=== PATIENT | female | born 1945 | race Caucasian/White ===

== ENCOUNTER 2017-05-20 11:46 | Inpatient (IN) ==
--- NOTE | 2017-05-20 12:19 | Emergency Department Note ---
Weakness HPI - General Chief complaint: Weakness Stated complaint: Generalized weakness Time Seen by Provider: 05/20/17 11:56 Source: patient Mode of arrival: ambulatory Limitations: no limitations - History of Present Illness Complaint: generalized weakness, focal weakness (leg weakness in the context of MS, worse recently with inability to rise from the toilet, cannot bear wieght "because my legs won't hold me up". Feels she is having an MS flair), difficulty walking Location: generalized, LLE, RLE Migration: ascending Severity: severe Quality: aching, dull Improves with: other (feels it is related to elevation of her legs the last few weeks) Worsens with: movement Context: history of similar ("MS flair") Associated symptoms: Reports: dysuria (chronic neurogenic bladder, self caths), shortness of breath (chronic COPD). Denies: confusion - Related Data Previous Rx's Medication Instructions Recorded albuterol sulfate HFA 90 3 puff INHALATION Q6H #6.7 g 06/20/16 mcg/actuation aerosol inhaler propranolol ER 80 mg capsule,24 80 mg PO QDAY #90 cap 09/16/16 hr,extended release maprotiline 50 mg tablet 50 mg PO QHS #30 tab 10/22/16 budesonide-formoterol HFA 160 2 inh INHALATION BID #6 g 11/13/16 mcg-4.5 mcg/actuation aerosol inhaler potassium chloride ER 10 mEq 10 meq PO BID #60 cap 12/04/16 capsule,extended release furosemide 20 mg tablet 20 mg PO QDAY #30 tab 12/13/16 hydrochlorothiazide 25 mg tablet 25 mg PO QDAY #90 tab 01/21/17 acetaminophen 300 mg-codeine 30 mg 2 tab PO Q6H PRN #240 tab 01/31/17 tablet simvastatin 20 mg tablet 20 mg PO QPM #90 tab 02/18/17 lisinopril 20 mg tablet 20 mg PO QDAY #30 tab 02/20/17 ipratropium-albuterol 0.5 mg-3 3 ml INHALATION Q6H PRN #360 ml 02/28/17 mg(2.5 mg base)/3 mL nebulization soln Allergies Allergy/AdvReac Type Severity Reaction Status Date / Time No Known Drug Allergies Allergy Verified 05/20/17 11:51 Review of Systems Constitutional: Denies: fever, chills Eyes: Denies: eye pain ENT ED: Denies: ear pain, throat pain Cardiovascular: Reports: dyspnea on exertion, orthopnea Respiratory: Reports: cough, wheezes Gastrointestinal: Denies: abdominal pain, nausea Genitourinary: Reports: other Musculoskeletal: Reports: back pain, arthralgia, myalgia Integumentary: Reports: rash, lesions Neurological: Reports: weakness Endocrine: Reports: fatigue Hematological/Lymphatic: Reports: easy bleeding Past Medical History - Past Medical History Attestation: Yes: The following information was validated with the patient. Medical history: Reports: CHF (MS, skin lesions), COPD - Social History smoking status: Current every day smoker Alcohol use: Reports: Rarely Drug use: Reports: marijuana Physical Exam - General Limitations: no limitations General appearance: alert, in no apparent distress, other (chronically ill appearring, thin) - Head Head exam: atraumatic - Eye Eye exam: Present: other (tearing of the right eye, injected conjunctiva, has has a runny nose recently, but feels this has resolved). Absent: scleral icterus - ENT ENT exam: mucous membranes moist - Neck Neck exam: Present: normal inspection, trachea midline. Absent: lymphadenopathy - Chest Chest inspection: Present: normal inspection - Respiratory Respiratory exam: Present: wheezes, prolonged expiratory phase, other ( significant COPD with continued tobacco abuse) - Cardiovascular Cardiovascular exam: Present: regular rate, normal rhythm - Abdominal Exam Abdominal exam: Present: soft. Absent: distention - Extremities Exam Extremities exam: Present: other (thin, muscle wasting) - Back Exam Back exam: Present: normal inspection. Absent: CVA tenderness (R), CVA tenderness (L) - Neurological Exam Neurological exam: Present: alert, oriented X3. Absent: normal gait (cannot support weight) - Psychiatric Psychiatric exam: Present: normal affect - Skin Skin exam: Present: warm, other (two large nodular and crusted lesions right dorsal forearm expremely suspicious for basal or squamous cell carcinoma. Has heaped kertotic lesions with crusting to both lower legs. Vascular insufficiency evident with brawny discoloration). Absent: diaphoresis Course Vital Signs Temperature 97.5 F 05/20/17 11:46 Pulse Rate 79 05/20/17 11:46 Respiratory Rate 18 05/20/17 11:46 Blood Pressure 117/80 05/20/17 11:46 Pulse Oximetry (%) 100 05/20/17 11:46 Temperature 97.7 F 05/20/17 17:21 Pulse Rate 81 05/20/17 19:13 Respiratory Rate 16 05/20/17 19:13 Blood Pressure 128/72 05/20/17 17:21 Pulse Oximetry (%) 95 05/20/17 19:04 Weakness - MDM Narrative Medical decision making narrative: New renal insult, probable early urosepsis, probable CHF in the context of weakness as a result of what the patient believes is an MS flare. She has taken oral prednisone today, unknown dose. She cannot ambulate or care for herself at home. One dose of levaquin given here in the ER for urinary tract infection. Blood cultures and urine culture pending. Transfer to the hospital floor for stabilization, treatment and further evaluation. I am concerned about early sepsis, new onset renal injury and possible CHF - Lab Data Result diagrams: 05/20/17 12:10 05/20/17 12:10 Lab Results 05/20/17 05/20/17 05/20/17 Range/Units 12:10 12:10 12:10 WBC 14.7 H (4.5-11.0) K/mcL RBC 4.21 (4.00-5.20) M/mcL Hgb 13.8 (12.0-15.0) g/dL Hct 40.9 (36.0-48.0) % MCV 97.2 (80.0-100.0) fL MCH 32.8 (26.0-34.0) pg MCHC 33.7 (31.0-36.0) g/dL RDW 14.0 (11.5-14.5) % Plt Count 125 L (140-440) K/mcL MPV 9.1 (7.4-10.4) fL Total Counted 100 Seg Neutrophils % 72 (38-78) % Band Neutrophils % 12 H (0-10) % Lymphocytes % 9 L (15-49) % Monocytes % (Manual) 7 (1-12) % Platelet Estimate Decreased (NORMAL) RBC Morphology Normal (NORMAL) Sodium 129 L (133-145) mmol/L Potassium 4.3 (3.3-5.1) mmol/L Chloride 88 L (96-108) mmol/L Carbon Dioxide 24 (22-30) mmol/L Anion Gap 17.0 H (8-16) BUN 85 H (8-23) mg/dl Creatinine 2.4 H (0.6-1.1) mg/dl GFR Calculation 19 Glucose 202 H (70-105) mg/dL Hemoglobin A1c (4.0-6.0) % HGB Estim Average Glucose mg/dL Uric Acid (2.5-8.0) mg/dL Calcium 9.8 (8.6-10.4) mg/dl Phosphorus (2.7-4.5) mg/dL Magnesium (1.6-2.5) mg/dL Total Bilirubin 0.4 (0.0-1.0) mg/dL Direct Bilirubin (0.0-0.3) mg/dL GGT (5-36) U/L AST 124 H (0-37) U/l ALT 49 H (0-40) U/l Alkaline Phosphatase 81 (39-117) U/L Lactate Dehydrogenase (94-250) U/L NT-Pro-B Natriuret Pep 3447.0 H (0-125) pg/ml Total Protein 7.6 (5.9-8.4) gm/dL Albumin 3.4 (3.2-5.2) gm/dL Globulin 4.2 H (2.2-3.7) gm/dL Albumin/Globulin Ratio 0.8 L (1.0-2.3) Triglycerides (<150) mg/dl Urine Color Urine Appearance Urine pH (5.0-9.0) Ur Specific [place] (1.000-1.035) Urine Protein (NEG) mg/dL Urine Glucose (UA) (NEG) mg/dL Urine Ketones (NEG) mg/dL Urine Occult Blood (<0.03) mg/dL Urine Nitrate (NEG) Urine Bilirubin (NEG) mg/dL Urine Urobilinogen (NEG) mg/dL Ur Leukocyte Esterase (NEG) /uL Urine RBC (0-1) /hpf Urine WBC (0-4) /hpf Ur Squamous Epith Cells (0-4) /hpf Urine Bacteria (0) /hpf Urine Mucus (0) /hpf 05/20/17 05/20/17 05/20/17 Range/Units 12:10 12:10 13:01 WBC (4.5-11.0) K/mcL RBC (4.00-5.20) M/mcL Hgb (12.0-15.0) g/dL Hct (36.0-48.0) % MCV (80.0-100.0) fL MCH (26.0-34.0) pg MCHC (31.0-36.0) g/dL RDW (11.5-14.5) % Plt Count (140-440) K/mcL MPV (7.4-10.4) fL Total Counted Seg Neutrophils % (38-78) % Band Neutrophils % (0-10) % Lymphocytes % (15-49) % Monocytes % (Manual) (1-12) % Platelet Estimate (NORMAL) RBC Morphology (NORMAL) Sodium 132 L (133-145) mmol/L Potassium 4.3 (3.3-5.1) mmol/L Chloride 88 L (96-108) mmol/L Carbon Dioxide 21 L (22-30) mmol/L Anion Gap 23.0 H (8-16) BUN 84 H (8-23) mg/dl Creatinine 2.5 H (0.6-1.1) mg/dl GFR Calculation 18 Glucose 204 H (70-105) mg/dL Hemoglobin A1c 6.3 H (4.0-6.0) % HGB Estim Average Glucose 134 mg/dL Uric Acid 12.2 H (2.5-8.0) mg/dL Calcium 9.8 (8.6-10.4) mg/dl Phosphorus 5.6 H (2.7-4.5) mg/dL Magnesium 2.6 H (1.6-2.5) mg/dL Total Bilirubin 0.3 (0.0-1.0) mg/dL Direct Bilirubin < 0.2 (0.0-0.3) mg/dL GGT 14 (5-36) U/L AST 127 H (0-37) U/l ALT 51 H (0-40) U/l Alkaline Phosphatase 86 (39-117) U/L Lactate Dehydrogenase 362 H (94-250) U/L NT-Pro-B Natriuret Pep (0-125) pg/ml Total Protein 7.7 (5.9-8.4) gm/dL Albumin 3.5 (3.2-5.2) gm/dL Globulin 4.2 H (2.2-3.7) gm/dL Albumin/Globulin Ratio 0.8 L (1.0-2.3) Triglycerides 369 H (<150) mg/dl Urine Color Yellow Urine Appearance Turbid Urine pH 7.0 (5.0-9.0) Ur Specific [place] 1.017 (1.000-1.035) Urine Protein 100 A (NEG) mg/dL Urine Glucose (UA) Negative (NEG) mg/dL Urine Ketones Neg (NEG) mg/dL Urine Occult Blood 0.2 A (<0.03) mg/dL Urine Nitrate Neg (NEG) Urine Bilirubin Neg (NEG) mg/dL Urine Urobilinogen Neg (NEG) mg/dL Ur Leukocyte Esterase 250 A (NEG) /uL Urine RBC 44 H (0-1) /hpf Urine WBC > 182 H (0-4) /hpf Ur Squamous Epith Cells 9 H (0-4) /hpf Urine Bacteria Many A (0) /hpf Urine Mucus Many A (0) /hpf Disposition Pt seen by MANAGER ANALYTICAL/PA only: No Clinical Impression: UTI (urinary tract infection) Disposition: Xfer As Inpt ([facility]) Condition: Undetermined
[2017-05-20 12:36] LABS: Mean Cell Volume 97.2 fL (80.0-100.0); Mean Corpuscular HGB Conc 33.7 g/dL (31.0-36.0); Mean Corpuscular Hemoglobin 32.8 pg (26.0-34.0); Platelet Count 125 K/mcL (140-440); RBC 4.21 M/mcL (4.00-5.20)
[2017-05-20 12:57] LABS: ALT/SGPT 49 U/l (0-40); Albumin 3.4 gm/dL (3.2-5.2); Albumin/Globulin Ratio 0.8 (1.0-2.3); Alkaline Phosphatase 81 U/L (39-117); Blood Urea Nitrogen 85 mg/dl (8-23)
[2017-05-20 13:01] LABS: Band Neutrophils % 12 % (0-10); Lymphocytes % 9 % (15-49); Monocytes % (Manual) 7 % (1-12); Platelet Estimate DECREASED (NORMAL); RBC Morphology NORMAL (NORMAL); Segmented Neutrophils % 72 % (38-78)
[2017-05-20] MEDS ORDERED: 0.9 % SODIUM CHLORIDE 1,000 ML IV SCH (13:45)
[2017-05-20] MEDS ORDERED: LEVOFLOXACIN 500 MG/100 ML BAG IV ONE (14:14)
[2017-05-20 14:19] LABS: Appearance,Urine TURBID; Bacteria,Urine MANY /hpf (0); Bilirubin,Urine NEG (NEG); Color,Urine YELLOW; Glucose,Urine (UA) NEGATIVE (NEG); Leukocyte Esterase,Urine 250 /uL (NEG); Mucus,Urine MANY /hpf (0); Nitrate,Urine NEG (NEG); Protein,Urine 100 mg/dL (NEG); Specific Gravity,Urine 1.017 (1.000-1.035); Urine Blood 0.2 mg/dL (<0.03); Urine RBC 44 /hpf (0-1); Urine Squamous Epithelial Cell 9 /hpf (0-4); Urine WBC > 182 /hpf (0-4); Urobilinogen,Urine NEG (NEG)
[2017-05-20] MEDS ORDERED: NICOTINE 21 MG PATCH TOPICAL ONE (15:07)
--- NOTE | 2017-05-20 15:30 | XRay Report ---
CLINICAL INFORMATION: Weakness and wheezing COMPARISON: None. FINDINGS: The heart is borderline enlarged. Mediastinum is unremarkable. Pulmonary vessels are mildly distended and there is minimal interstitial edema. Lung volumes are mildly elevated. No infiltrates. Probable small bilateral pleural effusions noted IMPRESSION: Mild CHF. Suspect cardiac asthma Interpreted and Authenticated by: Farhat Mccormack 05/20/17
[2017-05-20 15:59] LABS: Estimated Average Glucose(eAG) 134 mg/dL; Hemoglobin A1C 6.3 % HGB (4.0-6.0)
--- NOTE | 2017-05-20 16:55 | Internal Med History&Physical ---
Medical - H&P: HPI Patient information: Note initiated : 05/20/17 at 4:49 pm Patient: Rosalia Lozano 71 y/o F admitted on for Generalized weakness. History of present illness: Ms. Lozano is a 71 year old female with a history of multiple sclerosis and chronic tobacco abuse. She apparently generally gets around quite well, and only occasionally needs to use a cane or a walker. She says if her legs start to feel weak, she assumes it is an MS flare, and will start herself on the as needed prednisone prescription that her primary care doctor gives her. Approximately 4 days ago, she noted that she awakened with some discomfort and weakness in her legs. She says she and her went out that night, and the next morning she had more difficulty getting up out of bed. She thought perhaps she just needed more rest. They went out again the next evening, and by the next morning she was having difficulty walking. She went into the bathroom during the night last night, and was just too weak to get up off the commode. She says the bathroom is very small, and her could not pull her up off the commode either. She apparently sat there for about 4 hours, because she refused to let her call anyone for help in the middle of the night. She says her daughter drove down from [place], and helped her get out of the bathroom, so she could be transported here for evaluation. ER evaluation showed leukocytosis, pyuria, acute kidney injury. Patient is now admitted for further evaluation and treatment. She otherwise denies recent fever or chills, headaches or dizziness, new eye or ear symptoms, sore throat. She has a chronic intermittent cough, which is unchanged. She denies chest pain or palpitations, shortness of breath, abdominal pain, nausea or vomiting, diarrhea or constipation. She has a neurogenic bladder and does regular self catheterization. She says she has not noticed change in the color or odor of her urine. Medical History Benign essential hypertension (Chronic) CHF (congestive heart failure) (Chronic) COPD (chronic obstructive pulmonary disease) (Chronic) Decompensated chronic obstructive pulmonary disease (Chronic) History of tobacco use (Chronic) Multiple sclerosis (Chronic) Multiple sclerosis (Chronic) Neurogenic bladder (Chronic) Medication List (patient says she really cannot recall the names or doses of all of her medicines.) acetaminophen-codeine 300-30 mg 2 tabs PO Q6H PRN albuterol sulfate HFA 90 mcg/actuation 3 puffs Inhalation Q6H budesonide-formoterol 160-4.5 mcg/actuation (Symbicort) 2 inhalations Inhalation BID furosemide 20 mg PO QDAY hydrochlorothiazide 25 mg PO QDAY ipratropium-albuterol 0.5 mg-3 mg(2.5 mg base)/3 mL 3 mL Inhalation Q6H PRN lisinopril 40 mg PO QDAY maprotiline 50 mg PO QHS potassium chloride ER 10 mEq PO BID prednisone 20 mg (4 x 5 mg) PO QDAY propranolol ER 80 mg PO QDAY simvastatin 20 mg PO QPM Allergies/Adverse Reactions No Known Drug Allergies Allergy (Verified 02/20/17 13:53) Family History The patient says she really cannot recall any significant family illnesses. Old chart suggests that her brother has hypertension. Social History The patient is and lives with her . She has 1 son who lives in town a daughter in [place] and another child in [place]. She smokes 1-1/2 packs of cigarettes per day, and has been smoking since about age 13. She says she quit drinking alcohol several years ago. She denies any drug use. Medical - H&P: Meds Home Medications Medication Instructions Recorded Confirmed Type albuterol sulfate HFA 90 3 puff INHALATION Q6H #6.7 g 06/20/16 05/20/17 Rx mcg/actuation aerosol inhaler propranolol ER 80 mg capsule,24 80 mg PO QDAY #90 cap 09/16/16 05/20/17 Rx hr,extended release maprotiline 50 mg tablet 50 mg PO QHS #30 tab 10/22/16 05/20/17 Rx budesonide-formoterol HFA 160 2 inh INHALATION BID #6 g 11/13/16 05/20/17 Rx mcg-4.5 mcg/actuation aerosol inhaler potassium chloride ER 10 mEq 10 meq PO BID #60 cap 12/04/16 05/20/17 Rx capsule,extended release furosemide 20 mg tablet 20 mg PO QDAY #30 tab 12/13/16 05/20/17 Rx hydrochlorothiazide 25 mg tablet 25 mg PO QDAY #90 tab 01/21/17 05/20/17 Rx acetaminophen 300 mg-codeine 30 mg 2 tab PO Q6H PRN #240 tab 01/31/17 05/20/17 Rx tablet simvastatin 20 mg tablet 20 mg PO QPM #90 tab 02/18/17 05/20/17 Rx lisinopril 20 mg tablet 20 mg PO QDAY #30 tab 02/20/17 05/20/17 Rx ipratropium-albuterol 0.5 mg-3 3 ml INHALATION Q6H PRN #360 ml 02/28/17 Rx mg(2.5 mg base)/3 mL nebulization soln Allergies Allergy/AdvReac Type Severity Reaction Status Date / Time No Known Drug Allergies Allergy Verified 05/20/17 11:51 Medical - H&P: Exam - Constitutional Vitals: Temp Pulse Resp BP Pulse Ox 97.5 F 77 18 113/70 100 05/20/17 11:46 05/20/17 15:31 05/20/17 11:46 05/20/17 15:31 05/20/17 15:31 O2 saturation ranging from 85-100% on room air. Blood pressure 85/56-121/100 On exam, she is awake and alert, does seem a bit forgetful on direct questioning. Head: Normocephalic, atraumatic. Eyes: PERRLA, EOMI, anicteric. Ears: TMs and canals are clear. Pharynx: Mucosa appears normal. She has full upper and lower plates. Neck: Is supple, without lymphadenopathy, JVD, thyromegaly, bruits. Cardiac exam shows regular rate and rhythm with normal S1 and S2, without murmurs, rubs, gallops. Lungs: She has somewhat decreased breath sounds, with scattered crackles and wheezes, mainly at the bases. No accessory muscle use is noted. Abdomen: Is soft and nontender, without obvious masses. Bowel sounds are normoactive. Extremities: Show no cyanosis, clubbing, edema. Skin exam: Is markedly sun damaged skin, with numerous keratotic lesions noted on her hands and lower legs and feet. She probably has quite a few actinic keratoses, as well as 1 or 2 skin cancers. She says she is not interested in having those evaluated. Neurologic exam: She is alert and oriented, but a bit forgetful. Mood is calm, but affect is a little flippant. Cranial nerves are grossly intact. Motor exam shows some weakness in both lower extremities, with active hip flexion upper extremities have good strength, symmetric. Cerebellar exam is grossly intact. Medical - H&P: Reslt - Labs CBC & Chem 7: 05/20/17 12:10 05/20/17 12:10 Labs: Short CBC 05/20/17 Range/Units 12:10 WBC 14.7 H (4.5-11.0) K/mcL Hgb 13.8 (12.0-15.0) g/dL Hct 40.9 (36.0-48.0) % Plt Count 125 L (140-440) K/mcL BMP 05/20/17 12:10 Sodium 129 L Potassium 4.3 Chloride 88 L Carbon Dioxide 24 BUN 85 H Creatinine 2.4 H Glucose 202 H Calcium 9.8 Liver Function 05/20/17 Range/Units 12:10 Total Bilirubin 0.4 (0.0-1.0) mg/dL AST 124 H (0-37) U/l ALT 49 H (0-40) U/l Alkaline Phosphatase 81 (39-117) U/L Albumin 3.4 (3.2-5.2) gm/dL Urine 05/20/17 Range/Units 13:01 Urine Color Yellow Urine Appearance Turbid Urine pH 7.0 (5.0-9.0) Ur Specific [place] 1.017 (1.000-1.035) Urine Protein 100 A (NEG) mg/dL Urine Glucose (UA) Negative (NEG) mg/dL May 20: Urinalysis: 100 mg of protein, 250 leukocyte esterase, 44 red blood cells, greater than 180 white blood cells, 9 squamous epis, many bacteria CBC differential: Shows 12% bands. Anion gap: Elevated at 17. BNP is elevated at 3447. Lactic acid normal at 1.6 Chest x-ray: [place] vessels mildly distended consistent with possible mild CHF. Lung volumes mildly elevated. Medical - H&P: A/P (1) UTI (urinary tract infection) Current visit: No Status: Acute (2) Acute kidney injury Current visit: No Status: Acute (3) COPD (chronic obstructive pulmonary disease) Current visit: No Status: Chronic (4) CHF (congestive heart failure) Current visit: No Status: Chronic (5) Multiple sclerosis Current visit: No Status: Chronic (6) History of tobacco use Current visit: No Status: Chronic (7) Benign essential hypertension Current visit: No Status: Chronic - Narrative A/P Narrative: #1. Infectious disease. Patient presents with signs and symptoms of acute urinary tract infection, likely causing mild MS exacerbation. She is too weak to return home to care for herself. She has some signs of possible sepsis with hypotension and renal dysfunction. -Admit for closer monitoring. -Urine and blood cultures. -Empiric coverage with Rocephin. -Consider renal ultrasound. -Gentle IV fluid hydration. 2. Renal. -patient presents with acute renal injury. This is new since July 2016. -Trial gentle hydration. -Hold HCTZ. Hold lisinopril. -Consult nephrology if no improvement seen. 3. Neurologic. Patient has MS. She presents with worsening weakness, possibly triggered by acute infection. Renal failure may also be playing a role. -Consider steroids. -Physical and occupational therapies. 4. Cardiac. History of CHF. BNP is elevated, but this may be an accurate in the setting of renal failure. Chest x-ray is mildly abnormal, but that may be chronic. Monitor closely. Telemetry. 5. Pulmonary. History of COPD. Cover with duo nebs, albuterol as needed, oxygen, budesonide. 6. CODE STATUS: The patient cannot recall what her living will says. She thinks she might have been a no code, but is not certain. She says her and her son would act as her POA. Since she is really not sure, we will leave her as a full code this evening. 7. DVT prophylaxis: Subcu heparin. Monitor platelet count closely. 8. Tobacco abuse. Discourage this. NicoDerm patch. 9. Endocrine. Patient presents with hyperglycemia without previous diagnosis of diabetes. Monitor Accu-Cheks, cover with insulin. 10. GI. Mildly elevated LFTs. Monitor. If she has CHF, this might be exacerbating, although this could also be due to infection. This visit took approximately 60 minutes, to review her case with the ER MD, review her records and test results, interview and examine her, and write orders.
[2017-05-20] MEDS ORDERED: DEXTROSE 50% 50 ML VIAL IV PRN (17:21)
[2017-05-20] MEDS ORDERED: MAGNESIUM HYDROXIDE 30 ML ORAL.SUSP PO PRN (17:21)
[2017-05-20] MEDS ORDERED: ACETAMINOPHEN 325 MG TABLET PO PRN (17:21)
[2017-05-20] MEDS ORDERED: DOCUSATE SODIUM 100 MG CAPSULE PO PRN (17:21)
[2017-05-20] MEDS ORDERED: ALBUTEROL SULFATE 2.5 MG/3 ML NEBULIZER NEB PRN (17:21)
[2017-05-20] MEDS ORDERED: DEXTROSE 31 GM ORAL.SUSP PO PRN (17:21)
[2017-05-20] MEDS ORDERED: ONDANSETRON 4 MG/2 ML VIAL IV PRN (17:21)
[2017-05-20] MEDS: INSULIN LISPRO 1 UNIT/0.01 ML UNIT SQ SCH ×2 (17:50→21:22)
[2017-05-20 17:59] LABS: ALT/SGPT 51 U/l (0-40); Albumin 3.5 gm/dL (3.2-5.2); Albumin/Globulin Ratio 0.8 (1.0-2.3); Alkaline Phosphatase 86 U/L (39-117); Bilirubin,Direct < 0.2 mg/dL (0.0-0.3); Blood Urea Nitrogen 84 mg/dl (8-23); Gamma Glutamyl Transpeptidase 14 U/L (5-36); Magnesium 2.6 mg/dL (1.6-2.5); Uric Acid 12.2 mg/dL (2.5-8.0)
[2017-05-20] MEDS: BUDESONIDE 0.5 MG/2 ML AMPUL.NEB NEB SCH (19:03)
[2017-05-20] MEDS: IPRATROPIUM/ALBUTEROL 3 ML AMPUL.NEB NEB SCH (19:03)
[2017-05-20] MEDS: cefTRIAXone 1 GM in DEXTROSE 5% IN WATER 50 ML IV SCH (20:01)
[2017-05-20] MEDS: HEPARIN 5,000 UNIT/ML VIAL SQ SCH (21:22)
[2017-05-20] MEDS: SIMVASTATIN 20 MG TABLET PO SCH (21:22)
[2017-05-20] MEDS: MAPROTILINE PO SCH (21:23)
--- NOTE | 2017-05-20 23:52 | Emergency Department Note ---
ED Note Addendum Note Addendum: I have examined the patient and reviewed laboratory test results and agree with the decision to admit the patient for complicated UTI MS exacerbation
[2017-05-21] MEDS: IPRATROPIUM/ALBUTEROL 3 ML AMPUL.NEB NEB SCH ×4 (01:38→19:44)
[2017-05-21 06:52] LABS: ALT/SGPT 41 U/l (0-40); Albumin 2.7 gm/dL (3.2-5.2); Albumin/Globulin Ratio 0.8 (1.0-2.3); Alkaline Phosphatase 70 U/L (39-117); Bilirubin,Direct < 0.2 mg/dL (0.0-0.3); Blood Urea Nitrogen 79 mg/dl (8-23); Gamma Glutamyl Transpeptidase 11 U/L (5-36); Magnesium 2.3 mg/dL (1.6-2.5); Uric Acid 11.7 mg/dL (2.5-8.0)
[2017-05-21] MEDS: BUDESONIDE 0.5 MG/2 ML AMPUL.NEB NEB SCH ×2 (07:07→19:44)
[2017-05-21 07:19] LABS: Mean Cell Volume 95.2 fL (80.0-100.0); Mean Corpuscular Hemoglobin 32.3 pg (26.0-34.0); Platelet Count 109 K/mcL (140-440); RBC 3.75 M/mcL (4.00-5.20); Red Cell Distribution Width 14.3 % (11.5-14.5)
[2017-05-21 08:12] LABS: Band Neutrophils % 2 % (0-10); Lymphocytes % 11 % (15-49); Monocytes % (Manual) 8 % (1-12); Platelet Estimate DECREASED (NORMAL); RBC Morphology NORMAL (NORMAL); Segmented Neutrophils % 79 % (38-78)
[2017-05-21] MEDS ORDERED: methylPREDNISolone SOD SUCC 125 MG/2 ML VIAL IV ONE (08:32)
[2017-05-21] MEDS: PROPRANOLOL 80 MG CAP.XL.24H PO SCH (09:07)
[2017-05-21] MEDS: INSULIN LISPRO 1 UNIT/0.01 ML UNIT SQ SCH ×4 (09:08→21:31)
[2017-05-21] MEDS: cefTRIAXone 1 GM in DEXTROSE 5% IN WATER 50 ML IV SCH (09:08)
[2017-05-21] MEDS: HEPARIN 5,000 UNIT/ML VIAL SQ SCH ×2 (09:09→21:30)
[2017-05-21] MEDS ORDERED: methylPREDNISolone SOD SUCC 125 MG/2 ML VIAL ONE (09:12)
--- NOTE | 2017-05-21 10:51 | Internal Med Progress Note ---
Medical - PN: Subj Patient information: Note initiated : 05/21/17 at 10:51 am Patient: Rosalia Lozano 71 y/o F admitted on 05/20/17 for Generalized weakness. Interval history: May 20, 2017: History of present illness: Ms. Lozano is a 71 year old female with a history of multiple sclerosis and chronic tobacco abuse. She apparently generally gets around quite well, and only occasionally needs to use a cane or a walker. She says if her legs start to feel weak, she assumes it is an MS flare, and will start herself on the as needed prednisone prescription that her primary care doctor gives her. Approximately 4 days ago, she noted that she awakened with some discomfort and weakness in her legs. She says she and her went out that night, and the next morning she had more difficulty getting up out of bed. She thought perhaps she just needed more rest. They went out again the next evening, and by the next morning she was having difficulty walking. She went into the bathroom during the night last night, and was just too weak to get up off the commode. She says the bathroom is very small, and her could not pull her up off the commode either. She apparently sat there for about 4 hours, because she refused to let her call anyone for help in the middle of the night. She says her daughter drove down from [place], and helped her get out of the bathroom, so she could be transported here for evaluation. ER evaluation showed leukocytosis, pyuria, acute kidney injury. Patient is now admitted for further evaluation and treatment. She otherwise denies recent fever or chills, headaches or dizziness, new eye or ear symptoms, sore throat. She has a chronic intermittent cough, which is unchanged. She denies chest pain or palpitations, shortness of breath, abdominal pain, nausea or vomiting, diarrhea or constipation. She has a neurogenic bladder and does regular self catheterization. She says she has not noticed change in the color or odor of her urine. May 21: Patient says she is feeling a little bit stronger today. With some help, she was able to stand up and transfer to a chair today. Her legs are still weaker than normal. She continues to deny fever or chills, headaches or dizziness, chest pain or palpitations, shortness of breath, GI or symptoms. She is still self cathing. Cultures are growing gram-negative rods today. - Constitutional Vitals: Vital Signs Temp Pulse Resp BP Pulse Ox 100.5 F H 85 16 110/69 97 05/21/17 07:18 05/21/17 07:35 05/21/17 07:35 05/21/17 07:18 05/21/17 08:00 Period Temp Pulse Resp BP Sys/Hancock Pulse Ox Last 24 Hr 97.5 F-100.5 F 69-88 16-22 85-128/56-100 85-100 Intake and Output 05/20/17 05/21/17 05/21/17 21:59 05:59 13:59 Intake Total 1200 / 1200 300 / 300 600 / 600 Output Total 800 / 800 750 / 750 Balance 1200 / 1200 -500 / -500 -150 / -150 Weight 141 lb Intake & Output: Intake & Output 05/20/17 05/21/17 05/21/17 21:59 05:59 13:59 Intake Total 1200 / 1200 300 / 300 600 / 600 Output Total 800 / 800 750 / 750 Balance 1200 / 1200 -500 / -500 -150 / -150 Weight 141 lb Intake: IV 1150 / 1150 50 / 50 Sodium Chloride 0.9% 1,000 ml @ 1000 / 1000 125 mls/hr IV .Q8H [facility] Rx#: [id number] Rocephin 1 gm In Dextrose 5% in 50 / 50 50 / 50 Water 50 ml @ 100 mls/hr IV Q24H [facility] Rx#:[id number] Oral 50 / 50 300 / 300 550 / 550 Output: Urine Catheter Amount 750 / 750 Void Amount 800 / 800 Other: Meal Dinner Breakfast Percent of Meal Consumed 100% 50% Feeding Ability Assist with Tray Set Up On exam, she still seems a bit confused at times. She does not answer direct questions very well. T-max is 100.5. Heart rate 68. Respiratory rate 18. Blood pressure 99/59. O2 saturation 96% on 1.5 L. Neck is supple without obvious lymphadenopathy or JVD. Cardiac exam shows regular rate and rhythm. Lungs: Have decreased breath sounds throughout, but no significant wheezing. Abdomen is soft and nontender. Extremities show no significant edema, but have chronic scaling and hyperkeratotic lesions. Neurologic: Patient just does not seem entirely mentally sharp. She is quite evasive when being asked about her baseline strength and where she is today. Motor exam is grossly nonfocal. Medical - PN: Obj Da - Labs CBC & Chem 7: 05/21/17 03:35 05/21/17 03:35 Labs: Abnormal Lab Results 05/21/17 05/21/17 05/20/17 03:35 03:35 13:01 WBC 12.4 H RBC 3.75 L Hct 35.7 L Plt Count 109 L Seg Neutrophils % 79 H Band Neutrophils % Lymphocytes % 11 L Sodium Chloride Carbon Dioxide Anion Gap BUN 79 H Creatinine 1.7 H Glucose Hemoglobin A1c Uric Acid 11.7 H Phosphorus Magnesium AST 70 H ALT 41 H Lactate Dehydrogenase 282 H NT-Pro-B Natriuret Pep Albumin 2.7 L Globulin Albumin/Globulin Ratio 0.8 L Triglycerides 322 H Urine Protein 100 A Urine Occult Blood 0.2 A Ur Leukocyte Esterase 250 A Urine RBC 44 H Urine WBC > 182 H Ur Squamous Epith Cells 9 H Urine Bacteria Many A Urine Mucus Many A 05/20/17 05/20/17 05/20/17 12:10 12:10 12:10 WBC RBC Hct Plt Count Seg Neutrophils % Band Neutrophils % Lymphocytes % Sodium 132 L Chloride 88 L Carbon Dioxide 21 L Anion Gap 23.0 H BUN 84 H Creatinine 2.5 H Glucose 204 H Hemoglobin A1c 6.3 H Uric Acid 12.2 H Phosphorus 5.6 H Magnesium 2.6 H AST 127 H ALT 51 H Lactate Dehydrogenase 362 H NT-Pro-B Natriuret Pep 3447.0 H Albumin Globulin 4.2 H Albumin/Globulin Ratio 0.8 L Triglycerides 369 H Urine Protein Urine Occult Blood Ur Leukocyte Esterase Urine RBC Urine WBC Ur Squamous Epith Cells Urine Bacteria Urine Mucus 05/20/17 05/20/17 12:10 12:10 WBC 14.7 H RBC Hct Plt Count 125 L Seg Neutrophils % Band Neutrophils % 12 H Lymphocytes % 9 L Sodium 129 L Chloride 88 L Carbon Dioxide Anion Gap 17.0 H BUN 85 H Creatinine 2.4 H Glucose 202 H Hemoglobin A1c Uric Acid Phosphorus Magnesium AST 124 H ALT 49 H Lactate Dehydrogenase NT-Pro-B Natriuret Pep Albumin Globulin 4.2 H Albumin/Globulin Ratio 0.8 L Triglycerides Urine Protein Urine Occult Blood Ur Leukocyte Esterase Urine RBC Urine WBC Ur Squamous Epith Cells Urine Bacteria Urine Mucus May 21: Both bottles of blood cultures are growing gram-negative bacillus. Urine culture is growing 2 different gram-negative bacilli. May 20: Urinalysis: 100 mg of protein, 250 leukocyte esterase, 44 red blood cells, greater than 180 white blood cells, 9 squamous epis, many bacteria CBC shows white blood cell count of 14,700, hemoglobin 13, hematocrit 40, platelets 125,000. Differential: Shows 12% bands. Chemistry panel: Sodium 132, potassium 4.3, chloride 88, CO2 21, anion gap 23, BUN 84, creatinine 2.5, glucose 204 Hemoglobin A1c 6.3% Uric acid 12.2, calcium 9.8, phosphorus 5.6, magnesium 2.6, AST 127, ALT 51, LDH 362, globulin elevated at 4.2, triglycerides 369 Anion gap: Elevated at 17. BNP is elevated at 3447. Lactic acid normal at 1.6 Chest x-ray: Pulmonary vessels mildly distended consistent with possible mild CHF. Lung volumes mildly elevated. Meds: Medications Acetaminophen (Tylenol) 650 mg PO Q6HP PRN PRN Reason: PAIN/FEVER > 101 Acetaminophen/Codeine Phosphate (Tylenol #3) 2 tab PO Q6HP PRN PRN Reason: pain Albuterol Sulfate (Ventolin) 2.5 mg NEB Q4HRT PRN PRN Reason: Shortness Of Breath Or Wheezing Albuterol/Ipratropium (Duoneb) 3 ml NEB Q6HRT [facility] Last Admin: 05/21/17 07:07 Dose: 3 ml Budesonide (Pulmicort) 0.5 mg NEB Q12 [facility] Last Admin: 05/21/17 07:07 Dose: 0.5 mg Dextrose (Dextrose 50%) 0 ml IV UD PRN PRN Reason: Hypoglycemia Diagnostic Test (Pha) (Accu-Chek) 1 each FS ACHS [facility] Last Admin: 05/21/17 09:07 Dose: 1 each Docusate Sodium (Colace) 100 mg PO BID PRN PRN Reason: Constipation Glucose (Insta-Glucose) 15 gm PO PRN PRN PRN Reason: Hypoglycemia Heparin Sodium (Porcine) (Heparin) 5,000 unit SQ Q12 [facility] Last Admin: 05/21/17 09:09 Dose: 5,000 unit Ceftriaxone Sodium 1 gm/ (Dextrose) 50 mls @ 100 mls/hr IV Q24H [facility] Last Infusion: 05/21/17 10:19 Dose: Infused Insulin Human Lispro (Humalog) 0 unit SQ ACHS [facility] PRN Reason: Protocol Last Admin: 05/21/17 09:08 Dose: Not Given Magnesium Hydroxide (Milk Of Magnesia) 30 ml PO DAILYP PRN PRN Reason: Constipation Ondansetron HCl (Zofran) 4 mg IV Q4HP PRN PRN Reason: Nausea And Vomiting Maprotiline Hcl 50 (Mg Tab) 1 dose PO HS [facility] Last Admin: 05/20/17 21:23 Dose: 1 dose Propranolol HCl (Inderal La) 80 mg PO QDAY [facility] Last Admin: 05/21/17 09:07 Dose: 80 mg Simvastatin (Zocor) 20 mg PO QPM [facility] Last Admin: 05/20/17 21:22 Dose: 20 mg Medical - PN: A/P - Time Spent With Patient Total time spent is greater than 50% in coordination of care (as documented) at patient's floor/unit and/or counseling patient: 25 - 35 minutes (1) UTI (urinary tract infection) Status: Acute Current Visit: No (2) Acute kidney injury Status: Acute Current Visit: No (3) COPD (chronic obstructive pulmonary disease) Status: Chronic Current Visit: No (4) CHF (congestive heart failure) Status: Chronic Current Visit: No (5) Multiple sclerosis Status: Chronic Current Visit: No (6) History of tobacco use Status: Chronic Current Visit: No (7) Benign essential hypertension Status: Chronic Current Visit: No - Narrative A/P Narrative: #1. Infectious disease. Patient presents with signs and symptoms of acute urinary tract infection, likely causing mild MS exacerbation. She is too weak to return home to care for herself. She has some signs of possible sepsis with hypotension and renal dysfunction. -Urine and blood cultures are both growing a gram-negative santy. Continue Rocephin for now. Leukocytosis is somewhat improved. - renal ultrasound. -Gentle IV fluid hydration. 2. Renal. -patient presents with acute renal injury. This is new since July 2016. -Continue hydration. Improved today. -Hold HCTZ. Hold lisinopril. -Consult nephrology if no improvement seen. 3. Neurologic. Patient has MS. She presents with worsening weakness, possibly triggered by acute infection. Renal failure may also be playing a role. -Add IV steroids. -Physical and occupational therapies. 4. Cardiac. History of CHF. BNP is elevated, but this may be an accurate in the setting of renal failure. Chest x-ray is mildly abnormal, but that may be chronic. Monitor closely. Telemetry. 5. Pulmonary. History of COPD. Cover with duo nebs, albuterol as needed, oxygen, budesonide. 6. CODE STATUS: The patient cannot recall what her living will says. She thinks she might have been a no code, but is not certain. She says her and her son would act as her POA. Since she is really not sure, we will leave her as a full code this evening. 7. DVT prophylaxis: Subcu heparin. Monitor platelet count closely. 8. Tobacco abuse. Discourage this. NicoDerm patch. 9. Endocrine. Patient presents with hyperglycemia without previous diagnosis of diabetes. Monitor Accu-Cheks, cover with insulin. 10. GI. Mildly elevated LFTs. Monitor. Improving. Medical - PN: Qual - VTE Deep Vein Thrombosis/Pulmonary Embolism Present on Admission: No
[2017-05-21] MEDS: NICOTINE 21 MG PATCH TOPICAL SCH (11:45)
[2017-05-21] MEDS: SIMVASTATIN 20 MG TABLET PO SCH (21:30)
[2017-05-21] MEDS: MAPROTILINE PO SCH (21:30)
[2017-05-21] MEDS: methylPREDNISolone SOD SUCC 125 MG/2 ML VIAL IV SCH (21:33)
[2017-05-21] MEDS: ACETAMINOPHEN W/CODEINE #3 1 TABLET PO PRN (23:51)
[2017-05-22] MEDS: IPRATROPIUM/ALBUTEROL 3 ML AMPUL.NEB NEB SCH ×4 (01:36→19:23)
[2017-05-22 04:35] LABS: Basophils # (Auto) 0 K/mcL (0.0-0.3); Basophils % (Auto) 0 % (0.0-2.0); Eosinophils # (Auto) 0 K/mcL (0.0-0.7); Eosinophils % (Auto) 0 % (0.0-7.0); Lymphocytes # (Auto) 1.3 K/mcL (1.5-4.8); Lymphocytes % (Auto) 7.7 % (15.5-49.0); Mean Cell Volume 95.8 fL (80.0-100.0); Mean Corpuscular HGB Conc 34.1 g/dL (31.0-36.0); Mean Corpuscular Hemoglobin 32.7 pg (26.0-34.0); Monocytes # (Auto) 0.7 K/mcL (0.1-0.9); Monocytes % (Auto) 4.3 % (1.0-12.0); Platelet Count 115 K/mcL (140-440); RBC 3.74 M/mcL (4.00-5.20); Red Cell Distribution Width 13.8 % (11.5-14.5)
[2017-05-22 05:04] LABS: ALT/SGPT 53 U/l (0-40); Albumin 2.7 gm/dL (3.2-5.2); Albumin/Globulin Ratio 0.7 (1.0-2.3); Alkaline Phosphatase 81 U/L (39-117); Bilirubin,Direct < 0.2 mg/dL (0.0-0.3); Blood Urea Nitrogen 84 mg/dl (8-23); Gamma Glutamyl Transpeptidase 16 U/L (5-36); Magnesium 2.4 mg/dL (1.6-2.5); Uric Acid 12.3 mg/dL (2.5-8.0)
[2017-05-22] MEDS: BUDESONIDE 0.5 MG/2 ML AMPUL.NEB NEB SCH ×2 (07:41→19:23)
[2017-05-22] MEDS: 0.45 % SODIUM CHLORIDE 1,000 ML IV SCH ×3 (07:45→21:22)
[2017-05-22] MEDS: cefTRIAXone 1 GM in DEXTROSE 5% IN WATER 50 ML IV SCH (09:00)
[2017-05-22] MEDS: INSULIN LISPRO 1 UNIT/0.01 ML UNIT SQ SCH ×5 (09:31→21:06)
[2017-05-22] MEDS: NICOTINE 21 MG PATCH TOPICAL SCH (09:55)
[2017-05-22] MEDS: HEPARIN 5,000 UNIT/ML VIAL SQ SCH ×2 (09:55→21:05)
[2017-05-22] MEDS: PROPRANOLOL 80 MG CAP.XL.24H PO SCH (09:55)
[2017-05-22] MEDS ORDERED: FLU VACC QS2017-18 36MOS UP/PF 60 MCG/0.5 ML SYRINGE IM ONE (10:00)
--- NOTE | 2017-05-22 10:20 | Internal Med Progress Note ---
Medical - PN: Subj Patient information: Note initiated : 05/22/17 at 10:20 am Patient: Rosalia Lozano 71 y/o F admitted on 05/20/17 for Generalized Weakness/ UTI. Interval history: May 20, 2017: History of present illness: Ms. Lozano is a 71 year old female with a history of multiple sclerosis and chronic tobacco abuse. She apparently generally gets around quite well, and only occasionally needs to use a cane or a walker. She says if her legs start to feel weak, she assumes it is an MS flare, and will start herself on the as needed prednisone prescription that her primary care doctor gives her. Approximately 4 days ago, she noted that she awakened with some discomfort and weakness in her legs. She says she and her went out that night, and the next morning she had more difficulty getting up out of bed. She thought perhaps she just needed more rest. They went out again the next evening, and by the next morning she was having difficulty walking. She went into the bathroom during the night last night, and was just too weak to get up off the commode. She says the bathroom is very small, and her could not pull her up off the commode either. She apparently sat there for about 4 hours, because she refused to let her call anyone for help in the middle of the night. She says her daughter drove down from [place], and helped her get out of the bathroom, so she could be transported here for evaluation. ER evaluation showed leukocytosis, pyuria, acute kidney injury. Patient is now admitted for further evaluation and treatment. She otherwise denies recent fever or chills, headaches or dizziness, new eye or ear symptoms, sore throat. She has a chronic intermittent cough, which is unchanged. She denies chest pain or palpitations, shortness of breath, abdominal pain, nausea or vomiting, diarrhea or constipation. She has a neurogenic bladder and does regular self catheterization. She says she has not noticed change in the color or odor of her urine. May 21: Patient says she is feeling a little bit stronger today. With some help, she was able to stand up and transfer to a chair today. Her legs are still weaker than normal. She continues to deny fever or chills, headaches or dizziness, chest pain or palpitations, shortness of breath, GI or symptoms. She is still self cathing. Cultures are growing gram-negative rods today. May 22: This morning, the patient thinks her legs might be a little stronger. She was able to get out of bed and walk to the chair with fairly minimal assistance from PT. She is quite emotional this morning, and so she is just upset about being sick and having to be in the hospital. She is asking if we can give her something for her anxiety. She otherwise denies fever chills, chest pain or palpitations, shortness of breath, abdominal pain, nausea or vomiting, diarrhea. She apparently is having some trouble doing her self-catheterization here, as she is not used to the type of catheters we have. Her BUN is increased this morning, but it looks like her IV fluids were discontinued, without any realizing that. She is not yet orally hydrating enough to keep up. - Constitutional Vitals: Vital Signs Temp Pulse Resp BP Pulse Ox 98.9 F 76 18 148/97 90 05/22/17 08:00 05/22/17 08:00 05/22/17 08:00 05/22/17 08:00 05/22/17 08:00 Period Temp Pulse Resp BP Sys/Hancock Pulse Ox Last 24 Hr 98.8 F-99.8 F 66-76 16-20 99-162/59-97 90-99 Intake and Output 05/21/17 05/22/17 05/22/17 21:59 05:59 13:59 Intake Total 640 / 640 50 / 50 Output Total 1000 / 1000 1200 / 1200 Balance -360 / -360 -1200 / -1200 50 / 50 Weight 138 lb Intake & Output: Intake & Output 05/21/17 05/22/17 05/22/17 21:59 05:59 13:59 Intake Total 640 / 640 50 / 50 Output Total 1000 / 1000 1200 / 1200 Balance -360 / -360 -1200 / -1200 50 / 50 Weight 138 lb Intake: IV 50 / 50 Rocephin 1 gm In Dextrose 5% in 50 / 50 Water 50 ml @ 100 mls/hr IV Q24H [facility] Rx#:[id number] Oral 640 / 640 Output: Urine Catheter Amount 1000 / 1000 1200 / 1200 Other: Meal Dinner Percent of Meal Consumed 100% Feeding Ability Assist with Tray Set Up # Bowel Movements 1 On exam, she is sitting up in a chair. She is in no acute distress, but does become tearful before the end of the interview. T-max was 99.8, now 97.2. Heart rate 72. Respiratory rate 18. Blood pressure 129/85. O2 saturation is 90-94% on room air. Intake and output measurements indicate that she is actually diuresing, over 1400 mL since admission. Her weight has dropped from 141-138 pounds. Neck is supple without obvious JVD or lymphadenopathy. Cardiac exam shows regular rate and rhythm. Lungs: He still has fairly diffuse wheezes in both lung truong, but no accessory muscle use. Abdomen is soft and nontender. Extremities: Show no edema. Medical - PN: Obj Da - Labs CBC & Chem 7: 05/22/17 03:40 05/22/17 03:40 Labs: Abnormal Lab Results 05/22/17 05/22/17 05/21/17 03:40 03:40 03:35 WBC 16.3 H RBC 3.74 L Hct 35.8 L Plt Count 115 L Gran % 88.0 H Lymph % (Auto) 7.7 L Gran # 14.3 H Lymph # (Auto) 1.3 L Seg Neutrophils % Band Neutrophils % Lymphocytes % Sodium Chloride Carbon Dioxide Anion Gap BUN 84 H 79 H Creatinine 1.7 H 1.7 H Glucose 219 H Hemoglobin A1c Uric Acid 12.3 H 11.7 H Phosphorus 2.6 L Magnesium AST 56 H 70 H ALT 53 H 41 H Lactate Dehydrogenase 296 H 282 H NT-Pro-B Natriuret Pep Albumin 2.7 L 2.7 L Globulin 3.8 H Albumin/Globulin Ratio 0.7 L 0.8 L Triglycerides 322 H Urine Protein Urine Occult Blood Ur Leukocyte Esterase Urine RBC Urine WBC Ur Squamous Epith Cells Urine Bacteria Urine Mucus 05/21/17 05/20/17 05/20/17 03:35 13:01 12:10 WBC 12.4 H RBC 3.75 L Hct 35.7 L Plt Count 109 L Gran % Lymph % (Auto) Gran # Lymph # (Auto) Seg Neutrophils % 79 H Band Neutrophils % Lymphocytes % 11 L Sodium 132 L Chloride 88 L Carbon Dioxide 21 L Anion Gap 23.0 H BUN 84 H Creatinine 2.5 H Glucose 204 H Hemoglobin A1c Uric Acid 12.2 H Phosphorus 5.6 H Magnesium 2.6 H AST 127 H ALT 51 H Lactate Dehydrogenase 362 H NT-Pro-B Natriuret Pep Albumin Globulin 4.2 H Albumin/Globulin Ratio 0.8 L Triglycerides 369 H Urine Protein 100 A Urine Occult Blood 0.2 A Ur Leukocyte Esterase 250 A Urine RBC 44 H Urine WBC > 182 H Ur Squamous Epith Cells 9 H Urine Bacteria Many A Urine Mucus Many A 05/20/17 05/20/17 05/20/17 12:10 12:10 12:10 WBC RBC Hct Plt Count Gran % Lymph % (Auto) Gran # Lymph # (Auto) Seg Neutrophils % Band Neutrophils % Lymphocytes % Sodium 129 L Chloride 88 L Carbon Dioxide Anion Gap 17.0 H BUN 85 H Creatinine 2.4 H Glucose 202 H Hemoglobin A1c 6.3 H Uric Acid Phosphorus Magnesium AST 124 H ALT 49 H Lactate Dehydrogenase NT-Pro-B Natriuret Pep 3447.0 H Albumin Globulin 4.2 H Albumin/Globulin Ratio 0.8 L Triglycerides Urine Protein Urine Occult Blood Ur Leukocyte Esterase Urine RBC Urine WBC Ur Squamous Epith Cells Urine Bacteria Urine Mucus 05/20/17 12:10 WBC 14.7 H RBC Hct Plt Count 125 L Gran % Lymph % (Auto) Gran # Lymph # (Auto) Seg Neutrophils % Band Neutrophils % 12 H Lymphocytes % 9 L Sodium Chloride Carbon Dioxide Anion Gap BUN Creatinine Glucose Hemoglobin A1c Uric Acid Phosphorus Magnesium AST ALT Lactate Dehydrogenase NT-Pro-B Natriuret Pep Albumin Globulin Albumin/Globulin Ratio Triglycerides Urine Protein Urine Occult Blood Ur Leukocyte Esterase Urine RBC Urine WBC Ur Squamous Epith Cells Urine Bacteria Urine Mucus May 22 Uric acid remains elevated at 12.3. Phosphorus is low at 2.6. AST is 56, and ALT 53, which are lower than yesterday. Albumin is low at 2.7. Globulin is slightly elevated at 3.8. May 21: Both bottles of blood cultures are growing E. coli, which is pansensitive, including to ceftriaxone. Urine culture is growing 2 different gram-negative bacilli. May 20: Urinalysis: 100 mg of protein, 250 leukocyte esterase, 44 red blood cells, greater than 180 white blood cells, 9 squamous epis, many bacteria CBC shows white blood cell count of 14,700, hemoglobin 13, hematocrit 40, platelets 125,000. Differential: Shows 12% bands. Chemistry panel: Sodium 132, potassium 4.3, chloride 88, CO2 21, anion gap 23, BUN 84, creatinine 2.5, glucose 204 Hemoglobin A1c 6.3% Uric acid 12.2, calcium 9.8, phosphorus 5.6, magnesium 2.6, AST 127, ALT 51, LDH 362, globulin elevated at 4.2, triglycerides 369 Anion gap: Elevated at 17. BNP is elevated at 3447. Lactic acid normal at 1.6 Chest x-ray: Pulmonary vessels mildly distended consistent with possible mild CHF. Lung volumes mildly elevated. Meds: Medications Acetaminophen (Tylenol) 650 mg PO Q6HP PRN PRN Reason: PAIN/FEVER > 101 Acetaminophen/Codeine Phosphate (Tylenol #3) 2 tab PO Q6HP PRN PRN Reason: pain Last Admin: 05/21/17 23:51 Dose: 2 tab Albuterol Sulfate (Ventolin) 2.5 mg NEB Q4HRT PRN PRN Reason: Shortness Of Breath Or Wheezing Albuterol/Ipratropium (Duoneb) 3 ml NEB Q6HRT [facility] Last Admin: 05/22/17 07:41 Dose: 3 ml Budesonide (Pulmicort) 0.5 mg NEB Q12 [facility] Last Admin: 05/22/17 07:41 Dose: 0.5 mg Dextrose (Dextrose 50%) 0 ml IV UD PRN PRN Reason: Hypoglycemia Diagnostic Test (Pha) (Accu-Chek) 1 each FS ACHS [facility] Last Admin: 05/22/17 09:19 Dose: 1 each Docusate Sodium (Colace) 100 mg PO BID PRN PRN Reason: Constipation Glucose (Insta-Glucose) 15 gm PO PRN PRN PRN Reason: Hypoglycemia Heparin Sodium (Porcine) (Heparin) 5,000 unit SQ Q12 [facility] Last Admin: 05/22/17 09:55 Dose: 5,000 unit Ceftriaxone Sodium 1 gm/ (Dextrose) 50 mls @ 100 mls/hr IV Q24H [facility] Last Infusion: 05/22/17 09:30 Dose: Infused Sodium Chloride (Sodium Chloride 0.45%) 1,000 mls @ 100 mls/hr IV .Q10H [facility] Last Admin: 05/22/17 07:45 Dose: 100 mls/hr Insulin Human Lispro (Humalog) 0 unit SQ ACHS [facility] PRN Reason: Protocol Last Admin: 05/22/17 09:31 Dose: 12 unit Magnesium Hydroxide (Milk Of Magnesia) 30 ml PO DAILYP PRN PRN Reason: Constipation Methylprednisolone Sodium Succinate (Solu-Medrol) 80 mg IV Q24H [facility] Last Admin: 05/21/17 21:33 Dose: 80 mg Nicotine (Nicoderm) 21 mg TOPICAL DAILY@1000 [facility] Last Admin: 05/22/17 09:55 Dose: 21 mg Ondansetron HCl (Zofran) 4 mg IV Q4HP PRN PRN Reason: Nausea And Vomiting Maprotiline Hcl 50 (Mg Tab) 1 dose PO HS [facility] Last Admin: 05/21/17 21:30 Dose: 1 dose Propranolol HCl (Inderal La) 80 mg PO QDAY [facility] Last Admin: 05/22/17 09:55 Dose: 80 mg Simvastatin (Zocor) 20 mg PO QPM [facility] Last Admin: 05/21/17 21:30 Dose: 20 mg Medical - PN: A/P - Time Spent With Patient Total time spent is greater than 50% in coordination of care (as documented) at patient's floor/unit and/or counseling patient: 25 - 35 minutes (1) UTI (urinary tract infection) Status: Acute Current Visit: No (2) Acute kidney injury Status: Acute Current Visit: No (3) COPD (chronic obstructive pulmonary disease) Status: Chronic Current Visit: No (4) CHF (congestive heart failure) Status: Chronic Current Visit: No (5) Multiple sclerosis Status: Chronic Current Visit: No (6) History of tobacco use Status: Chronic Current Visit: No (7) Benign essential hypertension Status: Chronic Current Visit: No - Narrative A/P Narrative: #1. Infectious disease. Patient presents with signs and symptoms of acute urinary tract infection, likely causing mild MS exacerbation. She is too weak to return home to care for herself. She has some signs of possible sepsis with hypotension and renal dysfunction. -Urine and blood cultures are both growing a pansensitive E. coli.. Continue Rocephin for now. -White blood cell count bounced up, but this is likely due to steroids. - renal ultrasound was done, but report is pending.. -Resume gentle IV fluid hydration. 2. Renal. -patient presents with acute renal injury. This is new since July 2016. -Continue hydration. -Hold HCTZ. Hold lisinopril. -Consult nephrology if no improvement seen. 3. Neurologic. Patient has MS. She presents with worsening weakness, possibly triggered by acute infection. Renal failure may also be playing a role. -Add IV steroids. -Physical and occupational therapies. 4. Cardiac. History of CHF. BNP is elevated, but this may be an accurate in the setting of renal failure. Chest x-ray is mildly abnormal, but that may be chronic. Monitor closely. Telemetry. 5. Pulmonary. History of COPD. Cover with duo nebs, albuterol as needed, oxygen, budesonide. 6. CODE STATUS: The patient cannot recall what her living will says. She thinks she might have been a no code, but is not certain. She says her and her son would act as her POA. Since she is really not sure, we will leave her as a full code this evening. 7. DVT prophylaxis: Subcu heparin. Monitor platelet count closely. 8. Tobacco abuse. Discourage this. NicoDerm patch. 9. Endocrine. Patient presents with hyperglycemia without previous diagnosis of diabetes. Monitor Accu-Cheks, cover with insulin. 10. GI. Mildly elevated LFTs. Monitor. Improving. #11. Psychiatric. Patient is feeling very anxious. She requested medication, so as needed lorazepam was added. Medical - PN: Qual - VTE Deep Vein Thrombosis/Pulmonary Embolism Present on Admission: No
[2017-05-22] MEDS: LORazepam 0.5 MG TABLET PO PRN (12:14)
--- NOTE | 2017-05-22 17:36 | Ultrasound Report ---
CLINICAL INFORMATION: There tract infection bacteremia COMPARISON: None. FINDINGS: Both kidneys are normal in size, position, configuration and echotexture: The right is 11.5 x 6 cm and the left is 11.6 x 6 cm. There are no focal renal lesions and no hydronephrosis or stone. Arterial blood flow is grossly normal to both kidneys on color and spectral Doppler Urinary bladder volume is 213 cc. No focal bladder lesions. There is equivocal diffuse urinary bladder wall thickening. The patient empties bladder by catheter IMPRESSION: Both kidneys urinary bladder unremarkable Interpreted and Authenticated by: Farhat Mccormack 05/22/17
[2017-05-22] MEDS: SIMVASTATIN 20 MG TABLET PO SCH (21:05)
[2017-05-22] MEDS: MAPROTILINE PO SCH (21:05)
[2017-05-22] MEDS: methylPREDNISolone SOD SUCC 125 MG/2 ML VIAL IV SCH (21:08)
[2017-05-22] MEDS: ACETAMINOPHEN W/CODEINE #3 1 TABLET PO PRN (21:08)
[2017-05-23] MEDS: IPRATROPIUM/ALBUTEROL 3 ML AMPUL.NEB NEB SCH ×4 (00:36→19:08)
[2017-05-23 06:28] LABS: Basophils # (Auto) 0 K/mcL (0.0-0.3); Basophils % (Auto) 0.1 % (0.0-2.0); Eosinophils # (Auto) 0.1 K/mcL (0.0-0.7); Eosinophils % (Auto) 0.4 % (0.0-7.0); Granulocytes % (Auto) 86.1 % (38.0-78.0); Lymphocytes # (Auto) 1.7 K/mcL (1.5-4.8); Lymphocytes % (Auto) 9.9 % (15.5-49.0); Mean Cell Volume 96.8 fL (80.0-100.0); Mean Corpuscular HGB Conc 33.9 g/dL (31.0-36.0); Mean Corpuscular Hemoglobin 32.8 pg (26.0-34.0); Monocytes # (Auto) 0.6 K/mcL (0.1-0.9); Monocytes % (Auto) 3.5 % (1.0-12.0); Platelet Count 131 K/mcL (140-440); RBC 3.42 M/mcL (4.00-5.20); Red Cell Distribution Width 14.5 % (11.5-14.5)
[2017-05-23 07:15] LABS: ALT/SGPT 48 U/l (0-40); Albumin 2.4 gm/dL (3.2-5.2); Albumin/Globulin Ratio 0.7 (1.0-2.3); Alkaline Phosphatase 107 U/L (39-117); Bilirubin,Direct < 0.2 mg/dL (0.0-0.3); Blood Urea Nitrogen 88 mg/dl (8-23); Gamma Glutamyl Transpeptidase 17 U/L (5-36); Uric Acid 11.7 mg/dL (2.5-8.0)
[2017-05-23] MEDS: BUDESONIDE 0.5 MG/2 ML AMPUL.NEB NEB SCH ×2 (07:29→19:08)
[2017-05-23] MEDS: 0.45 % SODIUM CHLORIDE 1,000 ML IV SCH ×2 (08:50→17:47)
[2017-05-23] MEDS: PROPRANOLOL 80 MG CAP.XL.24H PO SCH (08:51)
[2017-05-23] MEDS: HEPARIN 5,000 UNIT/ML VIAL SQ SCH ×2 (08:51→21:08)
[2017-05-23] MEDS: INSULIN LISPRO 1 UNIT/0.01 ML UNIT SQ SCH ×4 (08:51→21:08)
[2017-05-23] MEDS: LORazepam 0.5 MG TABLET PO PRN (08:52)
[2017-05-23] MEDS: PIPERACILLIN SODIUM/TAZOBACTAM 3.375 GM in DEXTROSE 5% IN WATER 50 ML IV SCH ×3 (10:00→22:26)
[2017-05-23] MEDS: NICOTINE 21 MG PATCH TOPICAL SCH (10:46)
--- NOTE | 2017-05-23 11:22 | Internal Med Progress Note ---
Medical - PN: Subj Patient information: Note initiated : 05/23/17 at 11:22 am Service Date, if different from initiated Date: [] Patient: Rosalia Lozano 71 y/o F admitted on 05/20/17 for Generalized Weakness/ UTI. Chief Complaint: [] Interval history: May 20, 2017: History of present illness: Ms. Lozano is a 71 year old female with a history of multiple sclerosis and chronic tobacco abuse. She apparently generally gets around quite well, and only occasionally needs to use a cane or a walker. She says if her legs start to feel weak, she assumes it is an MS flare, and will start herself on the as needed prednisone prescription that her primary care doctor gives her. Approximately 4 days ago, she noted that she awakened with some discomfort and weakness in her legs. She says she and her went out that night, and the next morning she had more difficulty getting up out of bed. She thought perhaps she just needed more rest. They went out again the next evening, and by the next morning she was having difficulty walking. She went into the bathroom during the night last night, and was just too weak to get up off the commode. She says the bathroom is very small, and her could not pull her up off the commode either. She apparently sat there for about 4 hours, because she refused to let her call anyone for help in the middle of the night. She says her daughter drove down from [place], and helped her get out of the bathroom, so she could be transported here for evaluation. ER evaluation showed leukocytosis, pyuria, acute kidney injury. Patient is now admitted for further evaluation and treatment. She otherwise denies recent fever or chills, headaches or dizziness, new eye or ear symptoms, sore throat. She has a chronic intermittent cough, which is unchanged. She denies chest pain or palpitations, shortness of breath, abdominal pain, nausea or vomiting, diarrhea or constipation. She has a neurogenic bladder and does regular self catheterization. She says she has not noticed change in the color or odor of her urine. May 21: Patient says she is feeling a little bit stronger today. With some help, she was able to stand up and transfer to a chair today. Her legs are still weaker than normal. She continues to deny fever or chills, headaches or dizziness, chest pain or palpitations, shortness of breath, GI or symptoms. She is still self cathing. Cultures are growing gram-negative rods today. May 22: This morning, the patient thinks her legs might be a little stronger. She was able to get out of bed and walk to the chair with fairly minimal assistance from PT. She is quite emotional this morning, and so she is just upset about being sick and having to be in the hospital. She is asking if we can give her something for her anxiety. She otherwise denies fever chills, chest pain or palpitations, shortness of breath, abdominal pain, nausea or vomiting, diarrhea. She apparently is having some trouble doing her self-catheterization here, as she is not used to the type of catheters we have. Her BUN is increased this morning, but it looks like her IV fluids were discontinued, without any realizing that. She is not yet orally hydrating enough to keep up. May 23: Today, the patient feels that her legs are a bit stronger. She has been up walking with a walker. She continues to have significant cough. She continues to need physical therapy, but continues to decline inpatient rehab. She will accept rehab at home. Otherwise, she denies fever or chills, chest pain or shortness of breath. She continues with a chronic cough. She denies abdominal pain, nausea or vomiting, diarrhea or constipation. She does have a Smith catheter in, and would like to leave that in, as she finds it difficult to self cath here with our supplies. - Constitutional Vitals: Vital Signs Temp Pulse Resp BP Pulse Ox 99.0 F H 55 L 16 127/79 92 05/23/17 04:56 05/23/17 07:32 05/23/17 07:32 05/23/17 04:56 05/23/17 07:32 Period Temp Pulse Resp BP Sys/Hancock Pulse Ox Last 24 Hr 97.2 F-99.0 F 55-77 16-18 125-135/78-102 92-97 Intake and Output 05/22/17 05/23/17 05/23/17 21:59 05:59 13:59 Intake Total 2040 / 2040 240 / 240 1000 / 1000 Output Total 750 / 750 901 / 901 Balance 1290 / 1290 -661 / -661 1000 / 1000 Weight 134 lb 134 lb Patient Weight 05/24/17 05:59 Weight 134 lb Intake & Output: Intake & Output 05/22/17 05/23/17 05/23/17 21:59 05:59 13:59 Intake Total 2040 / 2040 240 / 240 1000 / 1000 Output Total 750 / 750 901 / 901 Balance 1290 / 1290 -661 / -661 1000 / 1000 Weight 134 lb 134 lb Intake: IV 1000 / 1000 1000 / 1000 Sodium Chloride 0.45% 1,000 ml 1000 / 1000 1000 / 1000 @ 100 mls/hr IV .Q10H DEYANIRA Rx#: [id number] Oral 1040 / 1040 240 / 240 Output: Urine Catheter Amount 750 / 750 900 / 900 # of times incontinent of urine Other: Meal Lunch Breakfast Percent of Meal Consumed 100% 100% Feeding Ability Assist with Tray Set Up # Bowel Movements 0 On exam, she is sitting up in a chair. She is in no acute distress, but does become tearful before the end of the interview. T-max was 99.0, now 98.1 Heart rate 65. Respiratory rate anyone. Blood pressure 129/85. O2 saturation is 94-100% % on room air. Intake and output measurements indicate that she i is actually diuresing. IV fluids were restarted yesterday. She is now just about even. She admits that she really is not good about drinking fluids during the day at home. Neck is supple without obvious JVD or lymphadenopathy. Cardiac exam shows regular rate and rhythm. Lungs: He still has fairly diffuse wheezes in both lung truong, but no accessory muscle use. Abdomen is soft and nontender. Extremities: Show no edema. Medical - PN: Obj Da - Labs CBC & Chem 7: 05/23/17 03:40 05/23/17 03:40 Labs: Abnormal Lab Results 05/23/17 05/23/17 05/22/17 03:40 03:40 03:40 WBC 17.5 H RBC 3.42 L Hgb 11.2 L Hct 33.1 L Plt Count 131 L Gran % 86.1 H Lymph % (Auto) 9.9 L Gran # 15.1 H Lymph # (Auto) Seg Neutrophils % Band Neutrophils % Lymphocytes % Sodium Chloride 94 L Carbon Dioxide Anion Gap BUN 88 H 84 H Creatinine 1.3 H 1.7 H Glucose 238 H 219 H Hemoglobin A1c Uric Acid 11.7 H 12.3 H Phosphorus 2.2 L 2.6 L Magnesium AST 56 H ALT 48 H 53 H Lactate Dehydrogenase 260 H 296 H NT-Pro-B Natriuret Pep Total Protein 5.8 L Albumin 2.4 L 2.7 L Globulin 3.8 H Albumin/Globulin Ratio 0.7 L 0.7 L Triglycerides 159 H Urine Protein Urine Occult Blood Ur Leukocyte Esterase Urine RBC Urine WBC Ur Squamous Epith Cells Urine Bacteria Urine Mucus 05/22/17 05/21/17 05/21/17 03:40 03:35 03:35 WBC 16.3 H 12.4 H RBC 3.74 L 3.75 L Hgb Hct 35.8 L 35.7 L Plt Count 115 L 109 L Gran % 88.0 H Lymph % (Auto) 7.7 L Gran # 14.3 H Lymph # (Auto) 1.3 L Seg Neutrophils % 79 H Band Neutrophils % Lymphocytes % 11 L Sodium Chloride Carbon Dioxide Anion Gap BUN 79 H Creatinine 1.7 H Glucose Hemoglobin A1c Uric Acid 11.7 H Phosphorus Magnesium AST 70 H ALT 41 H Lactate Dehydrogenase 282 H NT-Pro-B Natriuret Pep Total Protein Albumin 2.7 L Globulin Albumin/Globulin Ratio 0.8 L Triglycerides 322 H Urine Protein Urine Occult Blood Ur Leukocyte Esterase Urine RBC Urine WBC Ur Squamous Epith Cells Urine Bacteria Urine Mucus 05/20/17 05/20/17 05/20/17 13:01 12:10 12:10 WBC RBC Hgb Hct Plt Count Gran % Lymph % (Auto) Gran # Lymph # (Auto) Seg Neutrophils % Band Neutrophils % Lymphocytes % Sodium 132 L Chloride 88 L Carbon Dioxide 21 L Anion Gap 23.0 H BUN 84 H Creatinine 2.5 H Glucose 204 H Hemoglobin A1c 6.3 H Uric Acid 12.2 H Phosphorus 5.6 H Magnesium 2.6 H AST 127 H ALT 51 H Lactate Dehydrogenase 362 H NT-Pro-B Natriuret Pep Total Protein Albumin Globulin 4.2 H Albumin/Globulin Ratio 0.8 L Triglycerides 369 H Urine Protein 100 A Urine Occult Blood 0.2 A Ur Leukocyte Esterase 250 A Urine RBC 44 H Urine WBC > 182 H Ur Squamous Epith Cells 9 H Urine Bacteria Many A Urine Mucus Many A 05/20/17 05/20/17 05/20/17 12:10 12:10 12:10 WBC 14.7 H RBC Hgb Hct Plt Count 125 L Gran % Lymph % (Auto) Gran # Lymph # (Auto) Seg Neutrophils % Band Neutrophils % 12 H Lymphocytes % 9 L Sodium 129 L Chloride 88 L Carbon Dioxide Anion Gap 17.0 H BUN 85 H Creatinine 2.4 H Glucose 202 H Hemoglobin A1c Uric Acid Phosphorus Magnesium AST 124 H ALT 49 H Lactate Dehydrogenase NT-Pro-B Natriuret Pep 3447.0 H Total Protein Albumin Globulin 4.2 H Albumin/Globulin Ratio 0.8 L Triglycerides Urine Protein Urine Occult Blood Ur Leukocyte Esterase Urine RBC Urine WBC Ur Squamous Epith Cells Urine Bacteria Urine Mucus May 22 Uric acid remains elevated at 12.3. Phosphorus is low at 2.6. AST is 56, and ALT 53, which are lower than yesterday. Albumin is low at 2.7. Globulin is slightly elevated at 3.8. May 21: Both bottles of blood cultures are growing E. coli, which is pansensitive, including to ceftriaxone. Urine culture is growing 2 different gram-negative bacilli. May 20: Urinalysis: 100 mg of protein, 250 leukocyte esterase, 44 red blood cells, greater than 180 white blood cells, 9 squamous epis, many bacteria CBC shows white blood cell count of 14,700, hemoglobin 13, hematocrit 40, platelets 125,000. Differential: Shows 12% bands. Chemistry panel: Sodium 132, potassium 4.3, chloride 88, CO2 21, anion gap 23, BUN 84, creatinine 2.5, glucose 204 Hemoglobin A1c 6.3% Uric acid 12.2, calcium 9.8, phosphorus 5.6, magnesium 2.6, AST 127, ALT 51, LDH 362, globulin elevated at 4.2, triglycerides 369 Anion gap: Elevated at 17. BNP is elevated at 3447. Lactic acid normal at 1.6 Chest x-ray: Pulmonary vessels mildly distended consistent with possible mild CHF. Lung volumes mildly elevated. Meds: Medications Acetaminophen (Tylenol) 650 mg PO Q6HP PRN PRN Reason: PAIN/FEVER > 101 Acetaminophen/Codeine Phosphate (Tylenol #3) 2 tab PO Q6HP PRN PRN Reason: pain Last Admin: 05/22/17 21:08 Dose: 2 tab Albuterol Sulfate (Ventolin) 2.5 mg NEB Q4HRT PRN PRN Reason: Shortness Of Breath Or Wheezing Albuterol/Ipratropium (Duoneb) 3 ml NEB Q6HRT [facility]ANIRA Last Admin: 05/23/17 07:29 Dose: 3 ml Budesonide (Pulmicort) 0.5 mg NEB Q12 [facility] Last Admin: 05/23/17 07:29 Dose: 0.5 mg Dextrose (Dextrose 50%) 0 ml IV UD PRN PRN Reason: Hypoglycemia Diagnostic Test (Pha) (Accu-Chek) 1 each FS ACHS [facility] Last Admin: 05/23/17 08:50 Dose: 1 each Docusate Sodium (Colace) 100 mg PO BID PRN PRN Reason: Constipation Glucose (Insta-Glucose) 15 gm PO PRN PRN PRN Reason: Hypoglycemia Heparin Sodium (Porcine) (Heparin) 5,000 unit SQ Q12 [facility] Last Admin: 05/23/17 08:51 Dose: 5,000 unit Sodium Chloride (Sodium Chloride 0.45%) 1,000 mls @ 100 mls/hr IV .Q10H [facility] Last Admin: 05/23/17 08:50 Dose: 100 mls/hr Piperacillin Sod/Tazobactam (Sod 3.375 gm/ Dextrose) 50 mls @ 100 mls/hr IV Q8H [facility] Last Admin: 05/23/17 10:00 Dose: 100 mls/hr Insulin Human Lispro (Humalog) 0 unit SQ [facility] PRN Reason: Protocol Last Admin: 05/23/17 08:51 Dose: 6 unit Lorazepam (Ativan) 0.5 mg PO Q4HP PRN PRN Reason: ANXIETY/SEDATION Last Admin: 05/23/17 08:52 Dose: 0.5 mg Magnesium Hydroxide (Milk Of Magnesia) 30 ml PO DAILYP PRN PRN Reason: Constipation Methylprednisolone Sodium Succinate (Solu-Medrol) 80 mg IV Q24H [facility] Last Admin: 05/22/17 21:08 Dose: 80 mg Nicotine (Nicoderm) 21 mg TOPICAL DAILY@1000 [facility] Last Admin: 05/23/17 10:46 Dose: 21 mg Ondansetron HCl (Zofran) 4 mg IV Q4HP PRN PRN Reason: Nausea And Vomiting Maprotiline Hcl 50 (Mg Tab) 1 dose PO HS [facility] Last Admin: 05/22/17 21:05 Dose: 1 dose Propranolol HCl (Inderal La) 80 mg PO QDAY [facility] Last Admin: 10/13/17 08:51 Dose: 80 mg Simvastatin (Zocor) 20 mg PO QPM [facility] Last Admin: 05/22/17 21:05 Dose: 20 mg Medical - PN: A/P - Time Spent With Patient Total time spent is greater than 50% in coordination of care (as documented) at patient's floor/unit and/or counseling patient: 25 - 35 minutes (1) UTI (urinary tract infection) Status: Acute Current Visit: No (2) Acute kidney injury Status: Acute Current Visit: No (3) COPD (chronic obstructive pulmonary disease) Status: Chronic Current Visit: No (4) CHF (congestive heart failure) Status: Chronic Current Visit: No (5) Multiple sclerosis Status: Chronic Current Visit: No (6) History of tobacco use Status: Chronic Current Visit: No (7) Benign essential hypertension Status: Chronic Current Visit: No - Narrative A/P Narrative: #1. Infectious disease. Patient presents with signs and symptoms of acute urinary tract infection, likely causing mild MS exacerbation. She is too weak to return home to care for herself. She has some signs of possible sepsis with hypotension and renal dysfunction. -Urine and blood cultures are both growing a pansensitive E. coli.. Patient continues to have a low-grade temp, and white blood cell count continues to run high, so I changed her Rocephin to Zosyn. She will likely need at least 1 week of IV antibiotics, followed by at least 1 week of oral antibiotics. She can probably do these at home, when she is otherwise stable for discharge. -White blood cell count bounced up, but this is likely due to steroids. - renal ultrasound was done, and looks normal. -Continue gentle IV fluid hydration. 2. Renal. -patient presents with acute renal injury. This is new since July 2016. -Continue hydration. -Hold HCTZ. Hold lisinopril. Creatinine is improving, but BUN is climbing, for uncertain reasons. I have asked the nurses to check stool guaiacs as well. 3. Neurologic. Patient has MS. She presents with worsening weakness, possibly triggered by acute infection. Renal failure may also be playing a role. -I gave her only moderate doses of steroids, as I am not convinced that she needs them. I think we will discontinue those today, and see how she does. -Physical and occupational therapies. 4. Cardiac. History of CHF. BNP is elevated, but this may be an accurate in the setting of renal failure. Chest x-ray is mildly abnormal, but that may be chronic. Monitor closely. Telemetry. 5. Pulmonary. History of COPD. Cover with duo nebs, albuterol as needed, oxygen, budesonide. 6. CODE STATUS: The patient cannot recall what her living will says. She thinks she might have been a no code, but is not certain. She says her and her son would act as her POA. Since she is really not sure, we will leave her as a full code this evening. 7. DVT prophylaxis: Subcu heparin. Monitor platelet count closely. 8. Tobacco abuse. Discourage this. NicoDerm patch. 9. Endocrine. Patient presents with hyperglycemia without previous diagnosis of diabetes. Monitor Accu-Cheks, cover with insulin. 10. GI. Mildly elevated LFTs. Monitor. Improving. #11. Psychiatric. Patient was feeling very anxious. She requested medication, so as needed lorazepam was added. Medical - PN: Qual - VTE Deep Vein Thrombosis/Pulmonary Embolism Present on Admission: No
[2017-05-23] MEDS: 0.9 % SODIUM CHLORIDE 1,000 ML IV SCH (19:32)
[2017-05-23] MEDS: SIMVASTATIN 20 MG TABLET PO SCH (21:08)
[2017-05-23] MEDS: MAPROTILINE PO SCH (21:09)
[2017-05-24] MEDS: IPRATROPIUM/ALBUTEROL 3 ML AMPUL.NEB NEB SCH ×4 (02:00→19:30)
[2017-05-24] MEDS: PIPERACILLIN SODIUM/TAZOBACTAM 3.375 GM in DEXTROSE 5% IN WATER 50 ML IV SCH (05:27)
[2017-05-24 06:15] LABS: Basophils # (Auto) 0 K/mcL (0.0-0.3); Basophils % (Auto) 0.1 % (0.0-2.0); Eosinophils # (Auto) 0.1 K/mcL (0.0-0.7); Eosinophils % (Auto) 0.3 % (0.0-7.0); Granulocytes % (Auto) 73.3 % (38.0-78.0); Lymphocytes # (Auto) 3.3 K/mcL (1.5-4.8); Lymphocytes % (Auto) 16.9 % (15.5-49.0); Mean Cell Volume 96.5 fL (80.0-100.0); Mean Corpuscular HGB Conc 34.1 g/dL (31.0-36.0); Mean Corpuscular Hemoglobin 32.9 pg (26.0-34.0); Monocytes # (Auto) 1.8 K/mcL (0.1-0.9); Monocytes % (Auto) 9.4 % (1.0-12.0); Platelet Count 172 K/mcL (140-440); RBC 4.02 M/mcL (4.00-5.20); Red Cell Distribution Width 14.8 % (11.5-14.5)
[2017-05-24 06:23] LABS: ALT/SGPT 46 U/l (0-40); Albumin 2.8 gm/dL (3.2-5.2); Albumin/Globulin Ratio 0.8 (1.0-2.3); Alkaline Phosphatase 72 U/L (39-117); Bilirubin,Direct < 0.2 mg/dL (0.0-0.3); Blood Urea Nitrogen 77 mg/dl (8-23); Gamma Glutamyl Transpeptidase 23 U/L (5-36); Magnesium 1.9 mg/dL (1.6-2.5)
[2017-05-24] MEDS: BUDESONIDE 0.5 MG/2 ML AMPUL.NEB NEB SCH ×2 (07:57→19:30)
[2017-05-24] MEDS: INSULIN LISPRO 1 UNIT/0.01 ML UNIT SQ SCH ×4 (09:28→20:54)
[2017-05-24] MEDS: 0.9 % SODIUM CHLORIDE 1,000 ML IV SCH (09:29)
[2017-05-24] MEDS: NICOTINE 21 MG PATCH TOPICAL SCH (09:30)
[2017-05-24] MEDS: HEPARIN 5,000 UNIT/ML VIAL SQ SCH ×2 (09:30→20:53)
[2017-05-24] MEDS: PROPRANOLOL 80 MG CAP.XL.24H PO SCH (09:35)
[2017-05-24] MEDS: ceFAZolin 1 GM VIAL IV SCH ×2 (15:23→20:57)
[2017-05-24] MEDS: ACETAMINOPHEN W/CODEINE #3 1 TABLET PO PRN ×2 (15:32→20:55)
--- NOTE | 2017-05-24 19:56 | Internal Med Progress Note ---
Medical - PN: Subj Patient information: Note initiated : 05/24/17 at 7:54 pm Service Date, if different from initiated Date: [] Patient: Rosalia Lozano 71 y/o F admitted on 05/20/17 for Generalized Weakness/ UTI. Chief Complaint: f/u UTI, weakness, leukocytosis Interval history: May 20, 2017: History of present illness: Ms. Lozano is a 71 year old female with a history of multiple sclerosis and chronic tobacco abuse. She apparently generally gets around quite well, and only occasionally needs to use a cane or a walker. She says if her legs start to feel weak, she assumes it is an MS flare, and will start herself on the as needed prednisone prescription that her primary care doctor gives her. Approximately 4 days ago, she noted that she awakened with some discomfort and weakness in her legs. She says she and her went out that night, and the next morning she had more difficulty getting up out of bed. She thought perhaps she just needed more rest. They went out again the next evening, and by the next morning she was having difficulty walking. She went into the bathroom during the night last night, and was just too weak to get up off the commode. She says the bathroom is very small, and her could not pull her up off the commode either. She apparently sat there for about 4 hours, because she refused to let her call anyone for help in the middle of the night. She says her daughter drove down from [place], and helped her get out of the bathroom, so she could be transported here for evaluation. ER evaluation showed leukocytosis, pyuria, acute kidney injury. Patient is now admitted for further evaluation and treatment. She otherwise denies recent fever or chills, headaches or dizziness, new eye or ear symptoms, sore throat. She has a chronic intermittent cough, which is unchanged. She denies chest pain or palpitations, shortness of breath, abdominal pain, nausea or vomiting, diarrhea or constipation. She has a neurogenic bladder and does regular self catheterization. She says she has not noticed change in the color or odor of her urine. May 21: Patient says she is feeling a little bit stronger today. With some help, she was able to stand up and transfer to a chair today. Her legs are still weaker than normal. She continues to deny fever or chills, headaches or dizziness, chest pain or palpitations, shortness of breath, GI or symptoms. She is still self cathing. Cultures are growing gram-negative rods today. May 22: This morning, the patient thinks her legs might be a little stronger. She was able to get out of bed and walk to the chair with fairly minimal assistance from PT. She is quite emotional this morning, and so she is just upset about being sick and having to be in the hospital. She is asking if we can give her something for her anxiety. She otherwise denies fever chills, chest pain or palpitations, shortness of breath, abdominal pain, nausea or vomiting, diarrhea. She apparently is having some trouble doing her self-catheterization here, as she is not used to the type of catheters we have. Her BUN is increased this morning, but it looks like her IV fluids were discontinued, without any realizing that. She is not yet orally hydrating enough to keep up. May 23: Today, the patient feels that her legs are a bit stronger. She has been up walking with a walker. She continues to have significant cough. She continues to need physical therapy, but continues to decline inpatient rehab. She will accept rehab at home. Otherwise, she denies fever or chills, chest pain or shortness of breath. She continues with a chronic cough. She denies abdominal pain, nausea or vomiting, diarrhea or constipation. She does have a Smith catheter in, and would like to leave that in, as she finds it difficult to self cath here with our supplies. May 24: Continues to feel stronger, think she is closing in on her baseline. Would like to go home. Complaining of back pain from the current bed. No fever or chills. Continues with Smith catheter, she has difficulty self cathetering with our supplies (neurogenic bladder). - Constitutional Vitals: Vital Signs Temp Pulse Resp BP Pulse Ox 98.6 F 64 16 146/86 97 05/24/17 16:00 05/24/17 19:38 05/24/17 19:38 05/24/17 16:00 05/24/17 19:30 Period Temp Pulse Resp BP Sys/Hancock Pulse Ox Last 24 Hr 97.9 F-99.2 F 58-68 16-20 118-185/65-115 91-97 Intake and Output 05/24/17 05/24/17 05/24/17 05:59 13:59 21:59 Intake Total 506 / 506 994 / 994 250 / 250 Output Total 1100 / 1100 1750 / 1750 Balance -594 / -594 994 / 994 -1500 / -1500 Intake & Output: Intake & Output 05/24/17 05/24/17 05/24/17 05:59 13:59 21:59 Intake Total 506 / 506 994 / 994 250 / 250 Output Total 1100 / 1100 1750 / 1750 Balance -594 / -594 994 / 994 -1500 / -1500 Intake: IV 266 / 266 834 / 834 Sodium Chloride 0.9% 1,000 ml @ 216 / 216 784 / 784 75 mls/hr IV .[id number] [facility] Rx#: [id number] Zosyn 3.375 gm In Dextrose 5% 50 / 50 50 / 50 in Water 50 ml @ 100 mls/hr IV Q8H [facility] Rx#:[id number] Oral 240 / 240 160 / 160 250 / 250 Output: Urine Catheter Amount 1100 / 1100 1750 / 1750 Other: Meal Breakfast Dinner Percent of Meal Consumed 100% 10 # Bowel Movements 1 General appearance: no acute distress - Head Head exam: Present: atraumatic, normocephalic - Respiratory Respiratory exam: Present: CTAB. Absent: rhonchi, wheezes - Cardiovascular Cardiovascular exam: Present: normal rate and rhythm. Absent: rubs, systolic murmur - GI/Abdominal GI/Abdominal exam: Present: normal bowel sounds, soft. Absent: guarding, tenderness - Neurological Exam Neurological exam: Present: alert, oriented X3 Additional comments: Sitting up on side of bed having lunch, no difficulties. Gait not tested. Medical - PN: Obj Da - Labs CBC & Chem 7: 05/24/17 03:40 05/24/17 03:40 Labs: Abnormal Lab Results 05/24/17 05/24/17 05/23/17 03:40 03:40 03:40 WBC 19.3 H RBC Hgb Hct RDW 14.8 H Plt Count Gran % Lymph % (Auto) Gran # 14.1 H Lymph # (Auto) [place] # (Auto) 1.8 H Chloride 94 L BUN 77 H 88 H Creatinine 1.3 H 1.3 H Glucose 238 H Uric Acid 9.0 H 11.7 H Phosphorus 2.6 L 2.2 L AST ALT 46 H 48 H Lactate Dehydrogenase 303 H 260 H Total Protein 5.8 L Albumin 2.8 L 2.4 L Globulin Albumin/Globulin Ratio 0.8 L 0.7 L Triglycerides 225 H 159 H 05/23/17 05/22/17 05/22/17 03:40 03:40 03:40 WBC 17.5 H 16.3 H RBC 3.42 L 3.74 L Hgb 11.2 L Hct 33.1 L 35.8 L RDW Plt Count 131 L 115 L Gran % 86.1 H 88.0 H Lymph % (Auto) 9.9 L 7.7 L Gran # 15.1 H 14.3 H Lymph # (Auto) 1.3 L [place] # (Auto) Chloride BUN 84 H Creatinine 1.7 H Glucose 219 H Uric Acid 12.3 H Phosphorus 2.6 L AST 56 H ALT 53 H Lactate Dehydrogenase 296 H Total Protein Albumin 2.7 L Globulin 3.8 H Albumin/Globulin Ratio 0.7 L Triglycerides Meds: Medications Acetaminophen (Tylenol) 650 mg PO Q6HP PRN PRN Reason: PAIN/FEVER > 101 Last Admin: 05/23/17 22:51 Dose: 650 mg Acetaminophen/Codeine Phosphate (Tylenol #3) 2 tab PO Q6HP PRN PRN Reason: pain Last Admin: 05/24/17 15:32 Dose: 2 tab Albuterol Sulfate (Ventolin) 2.5 mg NEB Q4HRT PRN PRN Reason: Shortness Of Breath Or Wheezing Albuterol/Ipratropium (Duoneb) 3 ml NEB Q6HRT [facility] Last Admin: 05/24/17 19:30 Dose: 3 ml Budesonide (Pulmicort) 0.5 mg NEB Q12 [facility] Last Admin: 05/24/17 19:30 Dose: 0.5 mg Cefazolin Sodium (Ancef) 1 gm IV Q8H [facility] Last Admin: 05/24/17 15:23 Dose: 1 gm Dextrose (Dextrose 50%) 0 ml IV UD PRN PRN Reason: Hypoglycemia Diagnostic Test (Pha) (Accu-Chek) 1 each FS ACHS [facility] Last Admin: 05/24/17 17:44 Dose: 1 each Docusate Sodium (Colace) 100 mg PO BID PRN PRN Reason: Constipation Glucose (Insta-Glucose) 15 gm PO PRN PRN PRN Reason: Hypoglycemia Heparin Sodium (Porcine) (Heparin) 5,000 unit SQ Q12 [facility] Last Admin: 05/24/17 09:30 Dose: 5,000 unit Sodium Chloride (Sodium Chloride 0.9%) 1,000 mls @ 75 mls/hr IV .[id number] [facility] Last Admin: 05/24/17 09:29 Dose: 75 mls/hr Insulin Human Lispro (Humalog) 0 unit SQ ACHS [facility] PRN Reason: Protocol Last Admin: 05/24/17 17:45 Dose: 6 unit Lorazepam (Ativan) 0.5 mg PO Q4HP PRN PRN Reason: ANXIETY/SEDATION Last Admin: 05/23/17 08:52 Dose: 0.5 mg Magnesium Hydroxide (Milk Of Magnesia) 30 ml PO DAILYP PRN PRN Reason: Constipation Nicotine (Nicoderm) 21 mg TOPICAL DAILY@1000 [facility] Last Admin: 05/24/17 09:30 Dose: 21 mg Ondansetron HCl (Zofran) 4 mg IV Q4HP PRN PRN Reason: Nausea And Vomiting Maprotiline Hcl 50 (Mg Tab) 1 dose PO HS [facility] Last Admin: 05/23/17 21:09 Dose: 1 dose Propranolol HCl (Inderal La) 80 mg PO QDAY [facility] Last Admin: 05/24/17 09:35 Dose: 80 mg Simvastatin (Zocor) 20 mg PO QPM [facility] Last Admin: 05/23/17 21:08 Dose: 20 mg Medical - PN: A/P - Time Spent With Patient Total time spent is greater than 50% in coordination of care (as documented) at patient's floor/unit and/or counseling patient: 25 - 35 minutes - Narrative A/P Narrative: 1. Infectious disease. Patient presents with signs and symptoms of acute urinary tract infection with generalized weakness, may be MS exacerbation. She had signs of possible sepsis with hypotension and renal dysfunction at presentation, now resolved. -Urine and blood cultures are both growing a pansensitive E. coli. Patient continues to have a low-grade temp, and white blood cell count continues to run high, changed her Rocephin to Zosyn on Friday. -Elevated WBC could be due in part to steroids, which are now completed. -Without other identified infection, narrow back down to cefazolin on Friday and monitor. Clinically improving. -Will need 2 weeks of antibiotics, but may go to orals soon, if clnically improving and no fever. -Renal ultrasound was done, and looks normal. -Saline lock 2. Renal. -patient presented with acute renal injury, Cr 2.5 with baseline 0.8-1.0. Improving. -Hold HCTZ. Hold lisinopril. -Creatinine continues to improve, now BUN is coming down, but still significantly higher than in the past. No evidence of GI bleed as cause of elevated BUN -Follow. 3. Neurologic. Patient has MS. She presents with worsening weakness, possibly triggered by acute infection. Renal failure may also be playing a role. Overall improving Friday. -s/p moderate doses of steroids -Physical and occupational therapies. 4. Cardiac. History of CHF. BNP is elevated, but this may be an accurate in the setting of renal failure. Chest x-ray is mildly abnormal, but that may be chronic. Monitor closely. Telemetry. Recheck BNP in AM. 5. Pulmonary. History of COPD. Cover with duo nebs, albuterol as needed, oxygen, budesonide. 6. CODE STATUS: The patient cannot recall what her living will says. She thinks she might have been a no code, but is not certain. She says her and her son would act as her POA. 7. DVT prophylaxis: Subcu heparin. Monitor platelet count closely. 8. Tobacco abuse. Discourage this. NicoDerm patch. 9. Endocrine. Patient presents with hyperglycemia without previous diagnosis of diabetes. Monitor Accu-Cheks, cover with insulin. 10. GI. Mildly elevated LFTs. Monitor. Improving. 11. Psychiatric. Patient was feeling very anxious. She requested medication, so as needed lorazepam was added. Medical - PN: Qual - VTE Deep Vein Thrombosis/Pulmonary Embolism Present on Admission: No
[2017-05-24] MEDS ORDERED: traZODone HCL 50 MG TABLET PO PRN (20:46)
[2017-05-24] MEDS: MAPROTILINE PO SCH (20:52)
[2017-05-24] MEDS: SIMVASTATIN 20 MG TABLET PO SCH (20:52)
[2017-05-24] MEDS ORDERED: traZODone HCL 50 MG TABLET ONE (21:05)
[2017-05-25] MEDS: IPRATROPIUM/ALBUTEROL 3 ML AMPUL.NEB NEB SCH ×3 (01:23→13:24)
[2017-05-25] MEDS: ACETAMINOPHEN W/CODEINE #3 1 TABLET PO PRN ×2 (05:10→15:23)
[2017-05-25] MEDS: ceFAZolin 1 GM VIAL IV SCH (05:16)
[2017-05-25 06:01] LABS: Mean Corpuscular HGB Conc 34.3 g/dL (31.0-36.0); Mean Corpuscular Hemoglobin 32.9 pg (26.0-34.0); Platelet Count 170 K/mcL (140-440); RBC 3.79 M/mcL (4.00-5.20); Red Cell Distribution Width 14.7 % (11.5-14.5)
[2017-05-25 06:12] LABS: ALT/SGPT 27 U/l (0-40); Albumin 2.5 gm/dL (3.2-5.2); Albumin/Globulin Ratio 0.8 (1.0-2.3); Alkaline Phosphatase 60 U/L (39-117); Bilirubin,Direct < 0.2 mg/dL (0.0-0.3); Blood Urea Nitrogen 52 mg/dl (8-23); Gamma Glutamyl Transpeptidase 20 U/L (5-36); Magnesium 1.7 mg/dL (1.6-2.5); Uric Acid 7.6 mg/dL (2.5-8.0)
[2017-05-25] MEDS: INSULIN LISPRO 1 UNIT/0.01 ML UNIT SQ SCH (07:56)
[2017-05-25] MEDS: BUDESONIDE 0.5 MG/2 ML AMPUL.NEB NEB SCH (08:10)
[2017-05-25] MEDS: HEPARIN 5,000 UNIT/ML VIAL SQ SCH (10:41)
[2017-05-25] MEDS: NICOTINE 21 MG PATCH TOPICAL SCH (10:41)
[2017-05-25] MEDS: PROPRANOLOL 80 MG CAP.XL.24H PO SCH (10:41)
[2017-05-25] MEDS ORDERED: LEVOFLOXACIN 500 MG TABLET PO ONE (14:03)
[2017-05-25 15:39] LABS: Appearance,Urine HAZY; Bacteria,Urine 0 /hpf (0); Bilirubin,Urine NEG (NEG); Color,Urine YELLOW; Glucose,Urine (UA) NEGATIVE (NEG); Leukocyte Esterase,Urine 25 /uL (NEG); Nitrate,Urine NEG (NEG); Protein,Urine NEG (NEG); Specific Gravity,Urine 1.014 (1.000-1.035); Urine Blood 0.03 mg/dL (<0.03); Urine RBC 2 /hpf (0-1); Urine Squamous Epithelial Cell 24 /hpf (0-4); Urine WBC 1 /hpf (0-4); Urobilinogen,Urine NEG (NEG)
--- NOTE | 2017-05-25 16:07 | Discharge Summary ---
Medical - DS: Prov Patient information: Note initiated : 05/25/17 at 3:58 pm Service Date, if different from initiated Date: [] Patient: Rosalia Lozano 71 y/o F admitted on 05/20/17 for Generalized Weakness/ UTI. Date of admission: 05/20/17 16:45 Discharge date: 05/25/17 Primary care physician: Alex Nolan Admitting clinician: Amber Fatima Consults: 05/20/17 15:45 Consult to Physician [CONS] Stat Comment: Consulting Provider: Amber Fatima Reason For Exam: Physician to Consult Discharging clinician: Kelle Mendieta Medical - DS: Meds - Discharge Medications Prescriptions: Levofloxacin [Levaquin] 500 mg PO DAILY #8 tab Nicotine [Nicoderm] 21 mg TOPICAL DAILY@1000 #30 patch Active and Home Medications: Home Medications albuterol sulfate HFA 90 mcg/actuation aerosol inhaler 3 puff INHALATION Q6H # 6.7 g 06/20/16 [Rx Confirmed 05/20/17 Last Taken 05/19/17 3 PUFFS] propranolol ER 80 mg capsule,24 hr,extended release 80 mg PO QDAY #90 cap [Rx Confirmed 05/20/17 Last Taken 05/18/17 80 MG.] maprotiline 50 mg tablet 50 mg PO QHS #30 tab 10/22/16 [Rx Confirmed 05/20/17 Last Taken 05/18/17 50 MG.] budesonide-formoterol HFA 160 mcg-4.5 mcg/actuation aerosol inhaler 2 inh INHALATION BID #6 g 11/13/16 [Rx Confirmed 05/20/17 Last Taken 05/19/17 2 PUFFS] potassium chloride ER 10 mEq capsule,extended release 10 meq PO BID #60 cap [Rx Confirmed 05/20/17 Last Taken 05/18/17 10 MEQ] furosemide 20 mg tablet 20 mg PO QDAY #30 tab 12/13/16 [Rx Confirmed 05/20/17 Last Taken 05/18/17 20 MG.] hydrochlorothiazide 25 mg tablet 25 mg PO QDAY #90 tab 01/21/17 [Rx Confirmed Last Taken 05/18/17 25 MG.] acetaminophen 300 mg-codeine 30 mg tablet 2 tab PO Q6H PRN #240 tab 01/31/17 [ Rx Confirmed 05/20/17 Last Taken 05/19/17 2 TABS] simvastatin 20 mg tablet 20 mg PO QPM #90 tab 02/18/17 [Rx Confirmed 05/20/17 Last Taken 05/18/17 21:00 20 MG.] lisinopril 20 mg tablet 20 mg PO QDAY #30 tab 02/20/17 [Rx Confirmed 05/20/17 Last Taken 05/18/17 20 MG.] ipratropium-albuterol 0.5 mg-3 mg(2.5 mg base)/3 mL nebulization soln 3 ml INHALATION Q6H PRN #360 ml 02/28/17 [Rx Confirmed 05/20/17 Last Taken 05/19/17 3 ML.] Medical - DS: Hosp Hospital course: Mr. Lozano is a 71 year old F who presented to the emergency department with progressive weakness. Patient has underlying history of multiple sclerosis with neurogenic bladder and does do intermittent self-catheterization at home. At presentation, she was diagnosed with sepsis, from presumptive urinary source. White count was elevated at 14.7, there are 12% bands. She was not in shock, did not require pressors. Urine eventually grew both Klebsiella and Escherichia coli, blood cultures were positive for Escherichia coli as well. She is also in acute renal failure with creatinine of 2.5 at presentation. Patient was treated intravenous fluids, her CHANDAN inhibitor and diuretic were held. She was started on antibiotics. She continued to improve from a sepsis and infection standpoint. Over the course of her hospitalization her renal function improved, dropping from 2.5 with a B UN of 84 down to 1.0 with a BUN of 52 by the time of discharge. The patient was significantly weak. This felt the acute infectious illness was worsening her multiple sclerosis. She did receive a pulse of corticosteroids. Associated with this pulse of methylprednisolone, her white count increased to 17,000 and 19,000 on the day before discharge and on the day of discharge. During this time. She continued to improve, her strength returned, appetite improved and she became much more mobile. She also remained afebrile. Over the last 48 hours, she did not receive steroids, and was clinically stable/ improving. Thus it was felt her elevated white cell count was likely related to steroid administration. She received 6 days of IV antibiotics for her Escherichia coli bacteremia while in the hospital. She'll continue with a further 8 days of levofloxacin as an outpatient for a total of 2 weeks of treatment for bacteremia associated with UTI. She had a Smith catheter in place during her hospitalization, she self catheters at home and had difficulty due to the supplies available in the hospital. On the day of discharge, the Smith catheter was discontinued, repeat urine analysis was negative for nitrate, small amount of leukocyte esterase, had to red cells, 1 white cell, 24 squamous epithelial cells, confirming eradication of bladder infection. She did have some evidence of volume overload on initial chest radiograph and her BNP was elevated. However she required fluids for resuscitation from sepsis and acute kidney injury. Her BNP was in the 4000 range at the time of discharge, her furosemide was resumed at that point. She did not require oxygen , did not have significant dyspnea, had no evidence of rales on her exam. Patient was currently smoking cigarettes the time of admission. She is treated with nicotine patch during her hospitalization. She desires to stop smoking, nicotine patch was prescribed at the time of discharge. Discharge diagnosis: Sepsis from Escherichia coli urinary tract and bloodstream infection Secondary discharge diagnosis: Acute kidney injury, resolved Multiple sclerosis Leukocytosis, likely secondary to steroids Reason for admission: Weakness, urinary tract infection Pertinent studies/significant findings: Urine culture positive for Escherichia coli and Klebsiella pneumoniae. Blood cultures positive for Escherichia coli. Renal ultrasound showing unremarkable kidneys, normal in size, no hydronephrosis or stone Time spent discussing smoking cessation with patient: 3 to 10 minutes - Time Spent with Patient Total time spent providing and/or coordinating discharge services: Greater than 30 minutes Medical - DS: Exam - Constitutional Vitals: Vital Signs Temp Pulse Pulse Resp BP BP Pulse Ox 05/25/17 14:59 97.9 F 87 16 115/84 95 05/25/17 13:31 62 16 05/25/17 13:24 95 05/25/17 08:12 70 18 05/25/17 08:00 97.9 F 16 139/90 96 05/25/17 04:32 98.5 F 16 140/81 94 05/25/17 00:00 98.5 F 16 138/65 97 05/24/17 19:51 98.8 F 59 L 16 163/87 97 05/24/17 19:38 64 16 05/24/17 19:30 97 05/24/17 16:00 98.6 F 68 20 146/86 94 Intake and Output 05/25/17 05/25/17 05/25/17 05:59 13:59 21:59 Intake Total 956 / 956 460 / 460 Output Total 1400 / 1400 650 / 650 Balance -444 / -444 -190 / -190 Intake: IV 956 / 956 Sodium Chloride 0.9% 1,000 ml @ 956 / 956 75 mls/hr IV .[id number] [facility] Rx#: [id number] Oral 460 / 460 Output: Urine Catheter Amount 1400 / 1400 650 / 650 Other: Meal Breakfast Percent of Meal Consumed 100% # Bowel Movements 1 - Other Additional findings: General: Sitting up in chair in no acute distress Chest: Clear, respirations unlabored Cardiovascular: Regular, no edema Abdomen: Soft, nontender Neuro: Alert, oriented 3, able to ambulate with walker. Medical - DS: Data Labs on day of discharge: Labs from last 24 hours 05/25/17 05/25/17 05/25/17 13:42 03:39 03:39 WBC 19.6 H RBC 3.79 L Hgb 12.5 Hct 36.4 MCV 96.0 MCH 32.9 MCHC 34.3 RDW 14.7 H Plt Count 170 MPV 8.9 Sodium 141 Potassium 4.9 Chloride 103 Carbon Dioxide 27 Anion Gap 11.0 BUN 52 H Creatinine 1.0 GFR Calculation 56 Glucose 116 H Uric Acid 7.6 Calcium 8.8 Phosphorus 2.5 L Magnesium 1.7 Total Bilirubin 0.8 Direct Bilirubin < 0.2 GGT 20 AST 18 ALT 27 Alkaline Phosphatase 60 Lactate Dehydrogenase 263 H NT-Pro-B Natriuret Pep 4787.0 H Total Protein 5.8 L Albumin 2.5 L Globulin 3.3 Albumin/Globulin Ratio 0.8 L Triglycerides 172 H Urine Color Yellow Urine Appearance Hazy Urine pH 6.0 Ur Specific [place] 1.014 Urine Protein Neg Urine Glucose (UA) Negative Urine Ketones Neg Urine Occult Blood 0.03 A Urine Nitrate Neg Urine Bilirubin Neg Urine Urobilinogen Neg Ur Leukocyte Esterase 25 A Urine RBC 2 H Urine WBC 1 Ur Squamous Epith Cells 24 H Urine Bacteria 0 Ur Culture Indicated? No Preliminary micro results at discharge 05/20/17 16:32 Blood Culture - Preliminary Blood Escherichia coli 05/20/17 15:44 Blood Culture - Preliminary Blood Escherichia coli Medical - DS: A/P - Patient/Caregiver Discharge Instructions Activity: ambulate only with your walker, as per physical therapy, increase activity as tolerated Diet: Regular Diet Prescriptions: Levofloxacin [Levaquin] 500 mg PO DAILY #8 tab Nicotine [Nicoderm] 21 mg TOPICAL DAILY@1000 #30 patch - Problem Maintenance (1) Acute kidney injury Status: Resolved (2) UTI (urinary tract infection) Status: Resolved Qualifiers: Urinary tract infection type: acute cystitis Hematuria presence: without hematuria Qualified Code(s): N30.00 - Acute cystitis without hematuria (3) Benign essential hypertension Status: Chronic (4) CHF (congestive heart failure) Status: Chronic (5) History of tobacco use Status: Chronic (6) Multiple sclerosis Status: Chronic (7) Neurogenic bladder Status: Chronic - Follow up Plan Follow up with: Alex Nolan MD [Primary Care Provider] - (12 weeks) Disposition: Home Health Service Prognosis: Good Rehab Potential: Fair Overall status at discharge: patient is progressing back to baseline Medical - DS: Qual - VTE Deep Vein Thrombosis/Pulmonary Embolism Present on Admission: No
== END 2017-05-25 17:30 | disposition home health service (06) | DRG 872 ==
LOC: ED 11:46 → ICU 16:45
PROVIDERS: ADMIT Internal Medicine; ATTEND Internal Medicine

== ENCOUNTER 2018-04-30 03:07 | Inpatient (IN) ==
[2018-04-30] MEDS ORDERED: 0.9 % SODIUM CHLORIDE 1,000 ML IV ONE ×5 (03:36→07:40)
[2018-04-30] MEDS ORDERED: SODIUM POLYSTYRENE SULFONATE 15 GM/60 ML SUSPENSION PO ONE ×2 (04:02→04:10)
[2018-04-30] MEDS ORDERED: INSULIN REGULAR, HUMAN 1 UNIT/0.01 ML UNIT IV ONE (04:02)
[2018-04-30] MEDS ORDERED: FUROSEMIDE 40 MG/4 ML VIAL IV ONE ×2 (04:02→07:27)
[2018-04-30] MEDS ORDERED: DEXTROSE 50% 50 ML VIAL IV ONE (04:02)
[2018-04-30] MEDS ORDERED: ALBUTEROL SULFATE 5 MG/ML NEB SOLUTION BOTTLE NEB ONE (04:02)
[2018-04-30] MEDS ORDERED: CALCIUM GLUCONATE 13.95 MEQ in DEXTROSE 5% IN WATER 50 ML IV ONE (04:02)
--- NOTE | 2018-04-30 04:04 | Emergency Department Note ---
Epistaxis HPI - General Chief complaint: Epistaxis Stated complaint: bloody nose Time Seen by Provider: 04/30/18 03:31 Source: patient Mode of arrival: ambulatory Limitations: no limitations - History of Present Illness HPI Narrative: Patient has had a episode of epistaxis that is been intermittent over the past 2 hours according to the cloud engagement partner. She had refused to come on in the tried to get her blood nosebleed to stop there which they did apparently but when she coughs she had another episode. She arrives there is no active bleeding at this time with the nose clamp. Her blood pressures have been low running 70s and 60s initially the family was not here were unable to get a good history however her and son did arrive in did state that she has been weak over the past 48 hours has noticed the increased weakness over the past 24 hours. 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 She had been through rehab and initially had a Alvarez but she has been able to self cath she does have a history of MS and neurogenic bladder. states that when she went to physical therapy last week they mention that her blood pressures were low at that time. There is no active bleeding from the nose at this time the point-of- care hematocrit is 36. However her kidneys showing renal failure with a BUN of 93 and a creatinine of 2.2 potassium elevated at 7.1. The urine dip shows large amount WBCs and RBCs there is been no injuries or falls - Related Data Home Medications Medication Instructions Recorded Confirmed aspirin 81 mg tablet,delayed 81 mg PO QDAY 12/15/17 04/30/18 release mecobalamin (vitamin B12) 1,000 1,000 mcg SUBLINGUAL QDAY 12/15/17 04/30/18 mcg disintegrating tablet,sublingual multivitamin tablet 1 tab PO QDAY 12/15/17 04/30/18 Furosemide [Lasix] 20 mg PO DAILY 04/30/18 04/30/18 Furosemide [Lasix] 40 mg PO DAILY 04/30/18 04/30/18 Propranolol [Inderal LA] 80 mg PO DAILY 04/30/18 04/30/18 Previous Rx's Medication Instructions Recorded budesonide-formoterol HFA 160 2 inh INHALATION BID #6 g 11/13/16 mcg-4.5 mcg/actuation aerosol inhaler ipratropium-albuterol 0.5 mg-3 3 ml INHALATION Q6H PRN #360 ml 02/28/17 mg(2.5 mg base)/3 mL nebulization soln lisinopril 20 mg tablet 20 mg PO QDAY #30 tab 11/19/17 Leg bag for alvarez catheter #30 each 12/15/17 Wheelchair #1 ea 01/20/18 potassium chloride ER 10 mEq 10 meq PO BID #60 cap 01/20/18 capsule,extended release gabapentin 400 mg capsule 400 mg PO QHS #90 cap 01/21/18 levetiracetam 500 mg tablet 500 mg PO Q12H #60 tab 01/21/18 simvastatin 20 mg tablet 20 mg PO QPM #90 tab 01/27/18 acetaminophen 300 mg-codeine 30 mg 2 tab PO Q6H PRN #240 tab 03/23/18 tablet 14 Macedonian Catheter #200 each 04/27/18 Allergies Allergy/AdvReac Type Severity Reaction Status Date / Time No Known Drug Allergies Allergy Verified 01/20/18 15:15 Review of Systems Constitutional: Reports: as per HPI, weakness Eyes: Denies: eye pain ENT ED: Denies: ear pain Cardiovascular: Denies: chest pain Respiratory: Denies: shortness of breath Gastrointestinal: Denies: abdominal pain Genitourinary: Reports: as per HPI, other (Patient self caths) Musculoskeletal: Reports: as per HPI. Denies: back pain Integumentary: Denies: rash Neurological: Reports: as per HPI, weakness. Denies: headache Psychiatric: Reports: as per HPI. Denies: anxiety, depression Endocrine: Denies: fatigue Hematological/Lymphatic: Denies: easy bleeding Allergic/Immunologic: Denies: facial swelling Past Medical History - Past Medical History Medical history: Reports: COPD, hypertension, renal disease, other (MS since 1992 approx. Skin lesions). Denies: CVA, DM, hyperlipidemia, myocardial infarction, thyroid disease Family history: Reports: other (Brother hypertension) - Social History smoking status: Former smoker Alcohol use: Reports: Rarely Drug use: Reports: marijuana Physical Exam Limitations: no limitations General appearance: lethargic, malaise Head: atraumatic Eye: Present: normal appearance ENT: normal exam, normal oropharynx Neck: Present: normal inspection, full ROM Chest: Present: normal inspection, symmetric chest wall rise. Absent: tenderness Respiratory: Present: normal lung sounds bilaterally. Absent: respiratory distress, wheezes, stridor Cardiovascular: Present: regular rate, normal rhythm. Absent: bradycardia, tachycardia Abdominal: Present: soft Extremities: Present: normal inspection, full ROM. Absent: tenderness Back: Present: normal inspection, full ROM. Absent: tenderness Patient oriented to: Present: person, place, time Speech: Present: fluid speech Cranial nerves: EOM function (II, III, IV, ): Normal, facial sensation (V): Normal, facial palsy (VII): Normal, gag reflex (IX): Normal, spinal accessory function (XI): Normal, tongue deviation (XII): Normal Cerebellar function: finger to nose: Normal Motor strength - LUE: 4/5 Motor strength - RUE: 5/5 Motor strength - LLE: 4/5 Motor strength - RLE: 5/5 Upper motor neuron exam: Babinski sign: Absent bilaterally Sensory exam upper extremity: Normal: light touch Sensory exam lower extremity: Normal: light touch DTR: 2+: patellar (L), patellar (R) Coma Scale Eye Opening: Spontaneous Coma Scale Motor Response: Obeys Commands Coma Scale Verbal Response: Oriented Coma Scale Total: 15 Psychiatric: Present: normal affect, flat affect Skin: Present: warm, dry Course Vital Signs Temperature 97.7 F 04/30/18 03:09 Pulse Rate 83 04/30/18 03:09 Respiratory Rate 19 04/30/18 03:09 Blood Pressure 83/60 04/30/18 03:09 Pulse Oximetry (%) 92 04/30/18 03:09 Temperature 97.7 F 04/30/18 03:09 Pulse Rate 85 04/30/18 05:16 Respiratory Rate 18 04/30/18 05:16 Blood Pressure 67/56 04/30/18 05:16 Pulse Oximetry (%) 97 04/30/18 05:16 Epistaxis - MDM Narrative Medical decision making narrative: His blood pressure is low remaining in the 80s down to 79 systolic at this time. Given IV fluids. The UA shows moderate leukocytes and moderate RBCs on the straight cath. Like cultures have been drawnPotassium 7.1 the BUN is 93 and creatinine 2.2 glucose is 138 sodium is 138 patient started on the hyperkalemia protocol with calcium and sodium bicarb and insulin Kayexalate, it appears patient is in septic shock with organ failure. Blood cultures have been drawn laboratory tests are still pending. started on IV Rocephin at this time.White count is 20,400 with a hemoglobin of 11.4 hematocrit 35.4 PT/INR was 1.7 and are. The BUN is elevated at 93 creatinine 2.2 AST elevated at 38 ALT of 23. EKG shows no acute abnormalities no arrhythmias no peak T waves chest x- ray does reveal some bibasilar atelectasis or infiltrates the urine test shows 84 WBCs per high-power field 7 RBCs culture and sensitivity has been performed. Dr Dale contacted and patient to be admitted he advised continued fluid at least 2 more liters. - Lab Data Result diagrams: 04/30/18 03:50 04/30/18 03:30 Lab Results 04/30/18 04/30/18 04/30/18 Range/Units 03:30 03:30 03:45 WBC (4.5-11.0) K/mcL RBC (4.00-5.20) M/mcL Hgb (12.0-15.0) g/dL Hct (36.0-48.0) % POC Hct 36.0 (36.0-48.0) % MCV (80.0-100.0) fL MCH (26.0-34.0) pg MCHC (31.0-36.0) g/dL RDW (11.5-14.5) % Plt Count (140-440) K/mcL MPV (7.4-10.4) fL Band Neutrophils % POC PT 19.5 H (11.9-14.5) sec POC INR 1.7 H (0.9-1.2) POC Sodium 138 (133-145) mmol/L Sodium 136 (133-145) mmol/L POC Potassium 7.1 H* (3.3-5.1) mmol/L Potassium 7.4 H* (3.3-5.1) mmol/L POC Chloride 111 H (96-108) mmol/L Chloride 102 (96-108) mmol/L Carbon Dioxide 16 L (22-30) mmol/L POC Total CO2 19 L (22-30) mmol/L Anion Gap 18.0 H (8-16) POC BUN 93 H (8-23) mg/dl BUN 103 H* (8-23) mg/dl Creatinine 2.2 H (0.6-1.1) mg/dl POC Creatinine 2.2 H (0.6-1.1) mg/dl GFR Calculation 21 Glucose 139 H (70-105) mg/dL POC Glucose 138 H (70-105) mg/dL Calcium 10.3 (8.6-10.4) mg/dl POC WB Ioniz Calcium 1.27 (1.16-1.32) mmol/L Total Bilirubin 0.2 (0.0-1.0) mg/dL AST 38 H (0-37) U/l ALT 23 (0-40) U/l Alkaline Phosphatase 115 (39-117) U/L Total Protein 8.5 H (5.9-8.4) gm/dL Albumin 3.2 (3.2-5.2) gm/dL Globulin 5.3 H (2.2-3.7) gm/dL Albumin/Globulin Ratio 0.6 L (1.0-2.3) Urine Color Urine Appearance Urine pH (5.0-9.0) Ur Specific [place] (1.000-1.035) Urine Protein (NEG) mg/dL Urine Glucose (UA) (NEG) mg/dL Urine Ketones (NEG) mg/dL Urine Occult Blood (<0.03) mg/dL Urine Nitrate (NEG) Urine Bilirubin (NEG) mg/dL Urine Urobilinogen (NEG) mg/dL Ur Leukocyte Esterase (NEG) /uL Urine RBC (0-1) /hpf Urine WBC (0-4) /hpf Ur Squamous Epith Cells (0-4) /hpf Urine Bacteria (0) /hpf Hyaline Casts (0-2) /lpf Ur Culture Indicated? 04/30/18 04/30/18 Range/Units 03:50 04:10 WBC 20.4 H (4.5-11.0) K/mcL RBC 3.69 L (4.00-5.20) M/mcL Hgb 11.4 L (12.0-15.0) g/dL Hct 35.4 L (36.0-48.0) % POC Hct (36.0-48.0) % MCV 96.0 (80.0-100.0) fL MCH 31.0 (26.0-34.0) pg MCHC 32.3 (31.0-36.0) g/dL RDW 15.3 H (11.5-14.5) % Plt Count 106 L (140-440) K/mcL MPV 11.9 H (7.4-10.4) fL Band Neutrophils % Not Reportable POC PT (11.9-14.5) sec POC INR (0.9-1.2) POC Sodium (133-145) mmol/L Sodium (133-145) mmol/L POC Potassium (3.3-5.1) mmol/L Potassium (3.3-5.1) mmol/L POC Chloride (96-108) mmol/L Chloride (96-108) mmol/L Carbon Dioxide (22-30) mmol/L POC Total CO2 (22-30) mmol/L Anion Gap (8-16) POC BUN (8-23) mg/dl BUN (8-23) mg/dl Creatinine (0.6-1.1) mg/dl POC Creatinine (0.6-1.1) mg/dl GFR Calculation Glucose (70-105) mg/dL POC Glucose (70-105) mg/dL Calcium (8.6-10.4) mg/dl POC WB Ioniz Calcium (1.16-1.32) mmol/L Total Bilirubin (0.0-1.0) mg/dL AST (0-37) U/l ALT (0-40) U/l Alkaline Phosphatase (39-117) U/L Total Protein (5.9-8.4) gm/dL Albumin (3.2-5.2) gm/dL Globulin (2.2-3.7) gm/dL Albumin/Globulin Ratio (1.0-2.3) Urine Color Yellow Urine Appearance Cloudy Urine pH 7.0 (5.0-9.0) Ur Specific [place]dwell 1.014 (1.000-1.035) Urine Protein 100 A (NEG) mg/dL Urine Glucose (UA) Negative (NEG) mg/dL Urine Ketones Neg (NEG) mg/dL Urine Occult Blood 0.03 A (<0.03) mg/dL Urine Nitrate Neg (NEG) Urine Bilirubin Neg (NEG) mg/dL Urine Urobilinogen Neg (NEG) mg/dL Ur Leukocyte Esterase 500 A (NEG) /uL Urine RBC 7 H (0-1) /hpf Urine WBC 84 H (0-4) /hpf Ur Squamous Epith Cells 0 (0-4) /hpf Urine Bacteria Few A (0) /hpf Hyaline Casts 8 H (0-2) /lpf Ur Culture Indicated? Yes Disposition Pt seen by GEOGRAPHIC ANALYST/PA only: No Clinical Impression: Hyperkalemia Sepsis Qualifiers: Sepsis type: sepsis due to unspecified organism Qualified Code(s): A41.9 - Sepsis, unspecified organism Renal failure Qualifiers: Renal failure chronicity: acute Disposition: Xfer As Inpt ([facility]) Condition: Serious Referrals: Alex Nolan MD [Primary Care Provider] - Time of Disposition: 05:53
[2018-04-30] MEDS ORDERED: CALCIUM GLUCONATE 7 MEQ in DEXTROSE 5% IN WATER 50 ML IV ONE (04:10)
[2018-04-30] MEDS ORDERED: SODIUM BICARBONATE 50 MEQ/50 ML VIAL IV SCH (04:15)
[2018-04-30] MEDS ORDERED: CALCIUM CHLORIDE 1,000 MG/10 ML SYRINGE IV ONE (04:15)
[2018-04-30] MEDS ORDERED: cefTRIAXone 1 GM VIAL IV ONE (04:24)
[2018-04-30] MEDS ORDERED: DEXTROSE 50% 50 ML SYRINGE IV ONE (04:28)
[2018-04-30 04:38] LABS: Mean Corpuscular HGB Conc 32.3 g/dL (31.0-36.0); Platelet Count 106 K/mcL (140-440); RBC 3.69 M/mcL (4.00-5.20); Red Cell Distribution Width 15.3 % (11.5-14.5)
[2018-04-30 04:49] LABS: Appearance,Urine CLOUDY; Bacteria,Urine FEW /hpf (0); Bilirubin,Urine NEG (NEG); Color,Urine YELLOW; Glucose,Urine (UA) NEGATIVE (NEG); Leukocyte Esterase,Urine 500 /uL (NEG); Protein,Urine 100 mg/dL (NEG); Specific Gravity,Urine 1.014 (1.000-1.035); Urine Blood 0.03 mg/dL (<0.03); Urine Hyaline Cast 8 /lpf (0-2); Urine RBC 7 /hpf (0-1); Urine Squamous Epithelial Cell 0 /hpf (0-4); Urine WBC 84 /hpf (0-4); Urobilinogen,Urine NEG (NEG)
[2018-04-30 04:55] LABS: ALT/SGPT 23 U/l (0-40); Albumin 3.2 gm/dL (3.2-5.2); Albumin/Globulin Ratio 0.6 (1.0-2.3); Alkaline Phosphatase 115 U/L (39-117); Blood Urea Nitrogen 103 mg/dl (8-23)
[2018-04-30 05:54] LABS: Band Neutrophils % 1 % (0-10); Lymphocytes % 8 % (15-49); Monocytes % (Manual) 7 % (1-12); Platelet Estimate DECREASED (NORMAL); RBC Morphology NORMAL (NORMAL); Segmented Neutrophils % 84 % (38-78)
--- NOTE | 2018-04-30 06:31 | XRay Report ---
CLINICAL INFORMATION: Chest pain COMPARISON: 05/20/2017 portable film FINDINGS: Heart size, mediastinum and pulmonary vessels are normal. Moderate sized patchy infiltrate is developed in the right base base. Small patchy infiltrate has developed in the left base and right midlung. Underlying COPD changes noted. Small bilateral pleural effusions. IMPRESSION: Moderate patchy infiltrate right base. Smaller patchy infiltrates - left base and right midlung. Underlying COPD (confirmed by images through the lung apices demonstrate bullae and chronic bronchitis from a neck CT 11/21/2017) Interpreted and Authenticated by: Farhat Mccormack 04/30/18
--- NOTE | 2018-04-30 07:06 | Internal Med History&Physical ---
Medical - H&P: HPI Patient information: Note initiated : 04/30/18 at 7:04 am Service Date, if different from initiated Date: [] Patient: Rosalia Lozano a 72 y/o F admitted on for bloody nose. Chief Complaint: [] History of present illness: Ms. 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 The patient reports that for the last few days she has not been feeling well, (as per ) she has MS and has been more foggy and her strength is decreased. She has right sided cva with left sided weakness. She was working with PT with some improvement, but over the last few days the weakness is come back. The patient has not had any sensation of infection, no fever, chills, no cough, no chest pain, shortness of breath, headaches or runny nose. Yesterday after noon, she started to have blood coming out of her left side of the nose, she denies any picking at the nose, but has been trying to apply pressure. This progressed over the night and eventually led the patient to come to the ER for further evaluation. The EMS had applied a nasal clamp, which was removed in the ER, the patient as per ER did not have any further episodes of bleeding, but the patient was lying on her back. The patient on presentation was afebrile T 97.7, HR 83 , BP 83/60, 92% on Room air wbc 20, hb 11.4, plat 106, PT 19, INR 1.7, chemistry showes K 7.4 , bicarb 16, creat 2.2, BUN 103, AG 18, Tprot 8.3, lac 2.1, UA postive leuk esterase CXR positive bi basilar infitrates Head ct neg for IC changes, but has left sided fluid level maxillary sinus, EKG does not show any peaked t wave changes Hyperkalemia protocol given in the ER, and ua, blood cx sent, pt advised for admission for sepsis with hypotenstion. PT bp had responed transietly to fluid challenge, but then bp dropped down again. to get 4 L fluid bolus. Patient is being admitted to the PCU for further management. On my eval the patient still had swallowing movements, on exam had posterior nasal bleed ongoing, I consulted Dr Chanel, who would be coming to evaluate the patient. All systems: reviewed and no additional remarkable complaints except as stated ( as per HPI rest negative.) Medical - H&P: PMH Medical history: Medical History (Last Reviewed 12/15/17 @ 16:54 by Alex Nolan MD) COPD (chronic obstructive pulmonary disease) (Chronic) CHF (congestive heart failure) (Chronic) Multiple sclerosis (Chronic) History of tobacco use (Chronic) Neurogenic bladder (Chronic) Multiple sclerosis (Chronic) Benign essential hypertension (Chronic) Decompensated chronic obstructive pulmonary disease (Chronic) Pertinent family history: Family History (Last Reviewed 12/15/17 @ 16:54 by Alex Nolan MD) Brother Essential hypertension Medical - H&P: Meds Home Medications Medication Instructions Recorded Confirmed Type budesonide-formoterol HFA 160 2 inh INHALATION BID #6 g 11/13/16 04/30/18 Rx mcg-4.5 mcg/actuation aerosol inhaler ipratropium-albuterol 0.5 mg-3 3 ml INHALATION Q6H PRN #360 ml 02/28/17 Rx mg(2.5 mg base)/3 mL nebulization soln lisinopril 20 mg tablet 20 mg PO QDAY #30 tab 11/19/17 04/30/18 Rx Leg bag for alvarez catheter #30 each 12/15/17 01/20/18 Rx aspirin 81 mg tablet,delayed 81 mg PO QDAY 12/15/17 04/30/18 History release mecobalamin (vitamin B12) 1,000 1,000 mcg SUBLINGUAL QDAY 12/15/17 04/30/18 History mcg disintegrating tablet,sublingual multivitamin tablet 1 tab PO QDAY 12/15/17 04/30/18 History Wheelchair #1 ea 01/20/18 01/20/18 Rx potassium chloride ER 10 mEq 10 meq PO BID #60 cap 01/20/18 04/30/18 Rx capsule,extended release gabapentin 400 mg capsule 400 mg PO QHS #90 cap 01/21/18 04/30/18 Rx levetiracetam 500 mg tablet 500 mg PO Q12H #60 tab 01/21/18 04/30/18 Rx simvastatin 20 mg tablet 20 mg PO QPM #90 tab 01/27/18 04/30/18 Rx acetaminophen 300 mg-codeine 30 mg 2 tab PO Q6H PRN #240 tab 03/23/18 04/30/18 Rx tablet 14 Latvian Catheter #200 each 04/27/18 Rx Furosemide [Lasix] 20 mg PO DAILY 04/30/18 04/30/18 History Furosemide [Lasix] 40 mg PO DAILY 04/30/18 04/30/18 History Propranolol [Inderal LA] 80 mg PO DAILY 04/30/18 04/30/18 History Allergies Allergy/AdvReac Type Severity Reaction Status Date / Time No Known Drug Allergies Allergy Verified 01/20/18 15:15 Medical - H&P: Exam - Constitutional Vitals: Temp Pulse Resp BP Pulse Ox 97.7 F 78 17 92/76 100 04/30/18 03:09 04/30/18 06:30 04/30/18 06:30 04/30/18 06:30 04/30/18 06:30 Exam: GENERAL: The patient is a well-developed, well-nourished in no apparent distress. Is somewhat drowsy and oriented x2. VITAL SIGNS: Reviewed and as noted elsewhere. HEENT: Head is normocephalic and atraumatic. Extraocular muscles are intact. Pupils are equal, round, and reactive to light. Nares left has blood clot, face is has some blood dried, mouth has reminants of blood. Post nasal blood drip noted. NECK: Normal to inspection, Supple, No lymphadenopathy or thyromegaly. LUNGS: Air entry equal on both sides, no wheezing, pt has bibasilar crackles. HEART: Regular rate and rhythm normal, S1 and S2 heard, no Gallop, S3 or Rub Noted, No Gross murmur heard. ABDOMEN: Soft, nontender, and nondistended. Positive bowel sounds. No hepatosplenomegaly was noted. EXTREMITIES: No cyanosis, clubbing, rash, lesions or edema. NEUROLOGIC: CN show mild left Facial weakness, drooping of the left eyelid. Motor and Sensory System Grossly Intact, 4/5 in all extremities. PSYCHIATRIC: Normal affect, Normal Mood. Appropriate Behavior. not aggressive. SKIN: No ulceration or wounds noted, No jaundice, No rash noted. Medical - H&P: Reslt - Labs CBC & Chem 7: 04/30/18 03:50 04/30/18 03:30 Labs: Short CBC 04/30/18 Range/Units 03:50 WBC 20.4 H (4.5-11.0) K/mcL Hgb 11.4 L (12.0-15.0) g/dL Hct 35.4 L (36.0-48.0) % Plt Count 106 L (140-440) K/mcL BMP 04/30/18 03:30 Sodium 136 Potassium 7.4 H* Chloride 102 Carbon Dioxide 16 L BUN 103 H* Creatinine 2.2 H Glucose 139 H Calcium 10.3 Liver Function 04/30/18 Range/Units 03:30 Total Bilirubin 0.2 (0.0-1.0) mg/dL AST 38 H (0-37) U/l ALT 23 (0-40) U/l Alkaline Phosphatase 115 (39-117) U/L Albumin 3.2 (3.2-5.2) gm/dL Urine 04/30/18 Range/Units 04:10 Urine Color Yellow Urine Appearance Cloudy Urine pH 7.0 (5.0-9.0) Ur Specific [place]ney 1.014 (1.000-1.035) Urine Protein 100 A (NEG) mg/dL Urine Glucose (UA) Negative (NEG) mg/dL Medical - H&P: A/P - Narrative A/P Narrative: A/P Acute epistaxis Severe sepsis with shock Lactic acidosis Urinary tract infection Pneumonia Multile sclerosis Acute blood loss anemia Coagulopathy Thrombocytopenia High anion gap and non anion gap acidosis Acute Hyperkalemia Acute kidney injury Elevated bun likely from Renal failuire and swallowing blood Plan Admit to PCU ENT consulted C IV fluids, per protocol Start on pressors if bp does nto respond Repeat labs trend lactic acid get ABG ENT to consult for ongoing Epistaxis evaluate labs for fibrinogen, d dmier, ptt dic? Hyperkalemia treated medically, if no response will need to consult nephrology Nino renal function IV abx with zosyn to coveer for sinusitis, PNA/ aspirational and UTI, Vancomycin till MRSA screen is negative DVT scd Full code Dysphagai diet. Critical care > 90 mins spent stabilizing pt, reviewing records, coordinating c are, reviewing labs, abg, x ray, CT. Social History - Tobacco smoking status: Former smoker - Tobacco Type tobacco type: cigarettes
[2018-04-30] MEDS ORDERED: LACTATED RINGERS 1,000 ML IV SCH (07:27)
[2018-04-30] MEDS ORDERED: ONDANSETRON 4 MG/2 ML VIAL IV PRN (07:27)
[2018-04-30] MEDS ORDERED: NALOXONE HCL 0.4 MG/ML VIAL IV PRN (07:27)
[2018-04-30] MEDS ORDERED: HYDROmorphone 2 MG/ML VIAL IV PRN (07:27)
[2018-04-30] MEDS: 0.9 % SODIUM CHLORIDE 250 ML IV SCH ×2 (07:30→20:10)
[2018-04-30] MEDS ORDERED: 0.9 % SODIUM CHLORIDE 10 ML SYRINGE IV PRN (07:39)
[2018-04-30] MEDS ORDERED: 0.9 % SODIUM CHLORIDE 250 ML IV SCH (07:45)
[2018-04-30] MEDS ORDERED: LORazepam 2 MG/ML VIAL ONE (08:17)
[2018-04-30] MEDS ORDERED: ATROPINE SULFATE 1 MG/10 ML SYRINGE IV ONE ×3 (08:25→10:30)
[2018-04-30 08:30] LABS: Basophils # (Auto) 0 K/mcL (0.0-0.3); Basophils % (Auto) 0 % (0.0-2.0); Eosinophils # (Auto) 0 K/mcL (0.0-0.7); Eosinophils % (Auto) 0 % (0.0-7.0); Granulocytes % (Auto) 85.1 % (38.0-78.0); Lymphocytes # (Auto) 1.3 K/mcL (1.5-4.8); Lymphocytes % (Auto) 9.4 % (15.5-49.0); Mean Cell Volume 95.7 fL (80.0-100.0); Mean Corpuscular HGB Conc 33.2 g/dL (31.0-36.0); Mean Corpuscular Hemoglobin 31.7 pg (26.0-34.0); Monocytes # (Auto) 0.8 K/mcL (0.1-0.9); Monocytes % (Auto) 5.5 % (1.0-12.0); Platelet Count 80 K/mcL (140-440); RBC 2.62 M/mcL (4.00-5.20); Red Cell Distribution Width 15.1 % (11.5-14.5)
[2018-04-30 08:46] LABS: ALT/SGPT 16 U/l (0-40); Albumin 2.1 gm/dL (3.2-5.2); Albumin/Globulin Ratio 0.6 (1.0-2.3); Alkaline Phosphatase 76 U/L (39-117); Bilirubin,Direct < 0.2 mg/dL (0.0-0.3); Blood Urea Nitrogen 88 mg/dl (8-23); Gamma Glutamyl Transpeptidase 7 U/L (5-36); Uric Acid 5.8 mg/dL (2.5-8.0)
[2018-04-30] MEDS ORDERED: VANCOMYCIN PER PHARMACY IV SCH (08:50)
[2018-04-30] MEDS ORDERED: GLUCAGON,HUMAN RECOMBINANT 1 MG VIAL IV ONE (08:54)
[2018-04-30] MEDS ORDERED: levETIRAcetam 500 MG TABLET PO SCH (09:00)
--- NOTE | 2018-04-30 09:05 | Procedure Note ---
Procedures - Central Line Placement Right IJ Consent obtained: verbal consent Time out performed: Yes Patient placed on monitor/pulse ox: Yes MD prep: mask, sterile gown, sterile gloves, cap Central line prep: 2% Chlorhexidine scrub Local anesthesia used: lidocaine 2% Ultrasound used for placement: Yes Central line lumen inserted: quad, 16 cm Post procedure: sutured in place, good blood return, all ports aspirated, flushed, capped, sterile dressing applied Post procedure x-ray: tip of catheter in good position, no pneumothorax seen Patient tolerated procedure: well, no complications Complications: none, other (POST PROCEDURE BRIEF BRADYCARDIA, RESPONDED WELL TO ATROPINE 0.5MG, PT ON BETA MARLEN AND THEREFORE 1MG OF GLUCAGON ALSO GIVEN. )
--- NOTE | 2018-04-30 09:29 | XRay Report ---
CLINICAL INFORMATION: : Central line placement COMPARISON: 04/30/2018 0440 hours. FINDINGS: Right IJ central line tip overlies the SVC last azygos junction. No pneumothorax or other complication from line placement. Moderate cardiomegaly is unchanged. Mediastinum and pulmonary vessels are normal for technique. Moderate patchy infiltrate in the right base and smaller patchy infiltrates in the left base and right midlung have progressed. Small bilateral pleural effusions noted IMPRESSION: 1. Right IJ central line in satisfactory position. No complication from line placement 2. Moderate right and [id number] left basilar and small right midlung infiltrates - progressing. Consider aspiration Interpreted and Authenticated by: Farhat Mccormack 04/30/18
[2018-04-30] MEDS: PIPERACILLIN SODIUM/TAZOBACTAM 3.375 GM in DEXTROSE 5% IN WATER 50 ML IV SCH ×3 (09:44→17:52)
[2018-04-30] MEDS: NOREPINEPHRINE BITARTRATE 16 MG in 0.9 % SODIUM CHLORIDE 234 ML IV SCH (09:58)
[2018-04-30] MEDS: LACTATED RINGERS 1,000 ML IV SCH ×3 (10:04→17:22)
[2018-04-30] MEDS: 0.9 % SODIUM CHLORIDE 10 ML SYRINGE IV SCH ×6 (10:05→21:49)
[2018-04-30] MEDS: VANCOMYCIN 1,000 MG in 0.9 % SODIUM CHLORIDE 250 ML IV SCH (10:31)
[2018-04-30] MEDS ORDERED: ATROPINE SULFATE 1 MG/ML VIAL IV SCH (11:00)
[2018-04-30] MEDS: HYDROCORTISONE SOD SUCC 100 MG VIAL IV SCH ×3 (11:04→21:22)
[2018-04-30] MEDS: ATROPINE SULFATE 1 MG/ML VIAL IV PRN ×2 (11:50→19:25)
[2018-04-30 11:53] LABS: Blood Urea Nitrogen 83 mg/dl (8-23)
[2018-04-30] MEDS ORDERED: FLUMAZENIL 0.1 MG/ML ML IV ONE ×2 (12:08→12:14)
--- NOTE | 2018-04-30 13:33 | Internal Med Progress Note ---
Medical - PN: Subj Patient information: Note initiated : 04/30/18 at 1:30 pm Service Date, if different from initiated Date: [] Patient: Rosalia Lozano a 72 y/o F admitted on 04/30/18 for bloody nose. Chief Complaint: [] Interval history: Ms. 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 The patient reports that for the last few days she has not been feeling well, (as per ) she has MS and has been more foggy and her strength is decreased. She has right sided cva with left sided weakness. She was working with PT with some improvement, but over the last few days the weakness is come back. The patient has not had any sensation of infection, no fever, chills, no cough, no chest pain, shortness of breath, headaches or runny nose. Yesterday after noon, she started to have blood coming out of her left side of the nose, she denies any picking at the nose, but has been trying to apply pressure. This progressed over the night and eventually led the patient to come to the ER for further evaluation. The EMS had applied a nasal clamp, which was removed in the ER, the patient as per ER did not have any further episodes of bleeding, but the patient was lying on her back. The patient on presentation was afebrile T 97.7, HR 83 , BP 83/60, 92% on Room air wbc 20, hb 11.4, plat 106, PT 19, INR 1.7, chemistry showes K 7.4 , bicarb 16, creat 2.2, BUN 103, AG 18, Tprot 8.3, lac 2.1, UA postive leuk esterase CXR positive bi basilar infitrates Head ct neg for IC changes, but has left sided fluid level maxillary sinus, EKG does not show any peaked t wave changes Hyperkalemia protocol given in the ER, and ua, blood cx sent, pt advised for admission for sepsis with hypotenstion. PT bp had responed transietly to fluid challenge, but then bp dropped down again. to get 4 L fluid bolus. Patient continued to have posterior nasal bleed, Dr. Chanel was contacted, who cauterized the bleeding vessel. 05/01 - Constitutional Vitals: Vital Signs Temp Pulse Resp BP Pulse Ox 96.9 F L 69 12 146/82 99 04/30/18 12:00 04/30/18 12:34 04/30/18 12:34 04/30/18 12:31 04/30/18 07:20 Period Temp Pulse Resp BP Sys/Hancock Pulse Ox Last 24 Hr 96.9 F-97.7 F 55-150 8-25 49-148/33-82 91-100 Intake and Output 04/29/18 04/30/18 04/30/18 21:59 05:59 13:59 Intake Total 1999 2340 / 2340 Output Total 750 / 750 Balance 1999 1590 / 1590 Weight 64.41 kg 64.41 kg Patient Weight 05/01/18 05:59 Weight 64.41 kg Intake & Output: Intake & Output 04/29/18 04/30/18 04/30/18 21:59 05:59 13:59 Intake Total 1999 2340 / 2340 Output Total 750 / 750 Balance 1999 1590 / 1590 Weight 64.41 kg 64.41 kg Intake: IV 1999 2340 / 2340 Sodium Chloride 0.9% 1,000 ml @ 1999 1283 / 1283 Wide Open IV [facility] Rx#: [id number] Lactated Ringers 1,000 ml @ 100 40 / 40 mls/hr IV .Q10H [facility] Rx#: [id number] Zosyn 3.375 gm In Dextrose 5% 50 / 50 in Water 50 ml @ 100 mls/hr IV Q6H [facility] Rx#:[id number] Vancomycin 1,000 mg In Sodium 250 / 250 Chloride 0.9% 250 ml @ 250 mls/ hr IV DAILY [facility] Rx#:[id number] Output: Urine Catheter Amount 750 / 750 Other: Urine Appearance Cloudy Mucous Threads Uretheral (Smith) Clear Cloudy Sediment Purulent Urine Color Dark Yellow Uretheral (Smith) Pale Pale Urine Odor Foul Uretheral (Smith) Normal Exam: General: Alert, Awake, No acute Distress HEENT: EOMI, CV: RRR, No murmurs, Pulm: bibasilar rales b/l, no wheezing Abd: soft, nontender, +BS x4 Ext: no clubbing/cyanosis/edema Neuro: Alert, no focal deficits, moves all extremities Skin: warm/dry Medical - PN: Obj Da - Labs CBC & Chem 7: 04/30/18 07:40 04/30/18 10:36 Labs: Abnormal Lab Results 04/30/18 04/30/18 04/30/18 10:36 10:36 07:40 WBC RBC Hgb Hct RDW Plt Count MPV Gran % Lymph % (Auto) Gran # Lymph # (Auto) Seg Neutrophils % Lymphocytes % POC PT POC INR APTT 61 H Fibrinogen D-Dimer POC Potassium Potassium POC Chloride Chloride 112 H Carbon Dioxide 17 L POC Total CO2 Anion Gap POC BUN BUN 83 H Creatinine 1.7 H POC Creatinine Glucose 174 H POC Glucose Phosphorus AST Troponin T 0.04 H* Total Protein Albumin Globulin Albumin/Globulin Ratio Urine Protein Urine Occult Blood Ur Leukocyte Esterase Urine RBC Urine WBC Urine Bacteria Hyaline Casts 04/30/18 04/30/18 04/30/18 07:40 07:40 07:40 WBC 13.9 H RBC 2.62 L Hgb 8.3 L Hct 25.1 L RDW 15.1 H Plt Count 80 L MPV 10.8 H Gran % 85.1 H Lymph % (Auto) 9.4 L Gran # 11.9 H Lymph # (Auto) 1.3 L Seg Neutrophils % Lymphocytes % POC PT POC INR APTT Fibrinogen 563 H D-Dimer 1.55 H POC Potassium Potassium 5.3 H POC Chloride Chloride 113 H Carbon Dioxide 19 L POC Total CO2 Anion Gap POC BUN BUN 88 H Creatinine 1.9 H POC Creatinine Glucose POC Glucose Phosphorus 5.8 H AST Troponin T Total Protein 5.8 L Albumin 2.1 L Globulin Albumin/Globulin Ratio 0.6 L Urine Protein Urine Occult Blood Ur Leukocyte Esterase Urine RBC Urine WBC Urine Bacteria Hyaline Casts 04/30/18 04/30/18 04/30/18 04:10 03:50 03:45 WBC 20.4 H RBC 3.69 L Hgb 11.4 L Hct 35.4 L RDW 15.3 H Plt Count 106 L MPV 11.9 H Gran % Lymph % (Auto) Gran # Lymph # (Auto) Seg Neutrophils % 84 H Lymphocytes % 8 L POC PT 19.5 H POC INR 1.7 H APTT Fibrinogen D-Dimer POC Potassium Potassium POC Chloride Chloride Carbon Dioxide POC Total CO2 Anion Gap POC BUN BUN Creatinine POC Creatinine Glucose POC Glucose Phosphorus AST Troponin T Total Protein Albumin Globulin Albumin/Globulin Ratio Urine Protein 100 A Urine Occult Blood 0.03 A Ur Leukocyte Esterase 500 A Urine RBC 7 H Urine WBC 84 H Urine Bacteria Few A Hyaline Casts 8 H 04/30/18 04/30/18 03:30 03:30 WBC RBC Hgb Hct RDW Plt Count MPV Gran % Lymph % (Auto) Gran # Lymph # (Auto) Seg Neutrophils % Lymphocytes % POC PT POC INR APTT Fibrinogen D-Dimer POC Potassium 7.1 H* Potassium 7.4 H* POC Chloride 111 H Chloride Carbon Dioxide 16 L POC Total CO2 19 L Anion Gap 18.0 H POC BUN 93 H BUN 103 H* Creatinine 2.2 H POC Creatinine 2.2 H Glucose 139 H POC Glucose 138 H Phosphorus AST 38 H Troponin T Total Protein 8.5 H Albumin Globulin 5.3 H Albumin/Globulin Ratio 0.6 L Urine Protein Urine Occult Blood Ur Leukocyte Esterase Urine RBC Urine WBC Urine Bacteria Hyaline Casts Meds: Medications Acetaminophen (Tylenol) 650 mg PO Q4-6HP PRN PRN Reason: PAIN/FEVER > 101 Atropine Sulfate (Atropine Sulfate) 0.5 mg IV Q15M PRN PRN Reason: Bradycardia Last Admin: 04/30/18 11:50 Dose: 0.5 mg Gabapentin (Neurontin) 400 mg PO QHS [facility] Heparin Sodium (Porcine) (Heparin Flush) 2 ml IV Q12 [facility] Last Admin: 04/30/18 10:02 Dose: Not Given Hydrocortisone Sodium Succinate (Solu-Cortef) 100 mg IV Q8 [facility] Last Admin: 04/30/18 11:04 Dose: 100 mg Hydromorphone HCl (Dilaudid) 0.5 mg IV Q2HP PRN PRN Reason: PAIN LEVEL > 6 Piperacillin Sod/Tazobactam (Sod 3.375 gm/ Dextrose) 50 mls @ 100 mls/hr IV Q6H [facility] Last Admin: 04/30/18 13:04 Dose: 100 mls/hr Norepinephrine Bitartrate 16 (mg/ Sodium Chloride) 250 mls @ 9.37 mls/hr IV Q24H [facility]; Protocol Last Admin: 04/30/18 09:58 Dose: 8 mcg/min, 7.5 mls/hr Sodium Chloride (Sodium Chloride 0.9%) 250 mls @ 20 mls/hr IV .[id number] [facility] Last Admin: 04/30/18 07:30 Dose: 20 mls/hr Sodium Chloride (Sodium Chloride 0.9%) 250 mls @ 20 mls/hr IV .[id number] [facility] Stop: 04/30/18 20:14 Last Admin: 04/30/18 10:02 Dose: Not Given Vancomycin HCl 1,000 mg/ (Sodium Chloride) 250 mls @ 250 mls/hr IV DAILY [facility] Last Infusion: 04/30/18 11:40 Dose: Infused Lactated Ringer's (Lactated Ringers) 1,000 mls @ 150 mls/hr IV .Q6H40M [facility] Last Admin: 04/30/18 10:04 Dose: 150 mls/hr Iron Carb/Multivit/[place]/Folic Acid (Multivitamin W/Minerals) 1 tab PO DAILY [facility] Levetiracetam (Keppra) 500 mg PO Q12H [facility] Naloxone HCl (Narcan) 0.1 mg IV Q2MIN PRN PRN Reason: Opiate Reversal Ondansetron HCl (Zofran) 4 mg IV Q4-6HP PRN PRN Reason: Nausea And Vomiting Simvastatin (Zocor) 20 mg PO QPM [facility] Sodium Chloride (Saline Flush) 10 ml IV Q8 [facility] Sodium Chloride (Saline Flush) 10 ml IV UD PRN PRN Reason: FLUSH Sodium Chloride (Saline Flush) 10 ml IV Q12 [facility] Last Admin: 04/30/18 10:05 Dose: Not Given Sodium Chloride (Saline Flush) 10 ml IV Q12 [facility] Last Admin: 04/30/18 10:06 Dose: Not Given Vancomycin HCl (Vancomycin Per Pharmacy) 1 order IV UD [facility] Medical - PN: A/P - Time Spent With Patient Total time spent is greater than 50% in coordination of care (as documented) at patient's floor/unit and/or counseling patient: - Narrative A/P Narrative: A: *Acute epistaxis: s/p cauterization by Dr. Chanel *Acute blood loss anemia: 2/2 above *Septic Shock: 2/2 UTI/PNA -leukocytosis improving *UTI, complicated, neurogenic bladder: *Pneumonia: *Multile sclerosis *Coagulopathy: 2/2 sepsis *Thrombocytopenia, acute on chronic: 2/2 above *Anion gap and non anion gap Met acidosis: resolving *Acute Hyperkalemia: resolved *CARMINA on CKD III-IV: improving with IVF's *seizure d/o: *COPD (): *HTN: home ACEI/lasix/propranolol P: -monitor for nasal bleeding -IVF's -CVP -wean off vasopressors -s/p 2PRBC -vanc/zosyn, pending BC/UC -ACEI/lasix held for CARMINA -f/u AM CXR -dysphagia diet -ppx: [facility] Medical - PN: Qual - VTE Deep Vein Thrombosis/Pulmonary Embolism Present on Admission: No
[2018-04-30 16:20] LABS: ABG Methemoglobin 0.3 % (0.4-1.5); VBG Base Excess -8.2 (-2.0-2.0); VBG HCO3 18.8 mmol/L (24.0-28.0); VBG Oxygen Saturation 95.5 % (40.0-70.0); VBG PCO2 44.7 mmHg (41.0-51.0); VBG PH 7.24 U (7.32-7.42); VBG PO2 108 mmHg (25-40); VBG Total CO2 20.2 mmol/L (25.0-29.0)
[2018-04-30] MEDS ORDERED: ALBUMIN HUMAN 12.5 GM/50 ML BAG IV ONE (16:27)
[2018-04-30] MEDS ORDERED: SODIUM BICARBONATE ADULT 50 MEQ/50 ML SYRINGE IV ONE ×2 (16:27→16:29)
[2018-04-30] MEDS ORDERED: DEXTROSE 5% IV ONE (18:00)
[2018-04-30] MEDS ORDERED: SODIUM BICARBONATE IV ONE (18:00)
[2018-04-30] MEDS ORDERED: WATER IV ONE (18:00)
--- NOTE | 2018-04-30 19:33 | Cat Scan Report ---
CLINICAL INFORMATION: Trauma - fall COMPARISON: Head CT 11/21/2017. TECHNIQUE: 2.5 mm helical slices were obtained in the skull base to vertex. Following reconstruction, axial reformatted images were reviewed at bone and parenchymal windows. The exam was performed using radiation dose optimization techniques including, but not limited to, automated exposure control, adjustment of the mA and/or kV according to patient size and use of iterative reconstruction technique. FINDINGS: There is moderate enlargement of the ventricles and also asymmetric enlargement of the sulci of the temporal, posterior frontal and anterior parietal lobes. Patchy chronic ischemic changes in the D cerebral white matter appreciated. There is no intracerebral hemorrhage, mass effect, edema or edema. Moderate fluid is seen in the right sphenoid sinus. The right ethmoid and visualized right maxillary sinuses are opacified. Moderate right TMJ degeneration appreciated as well IMPRESSION: Moderate atrophy with asymmetric enlargement of the sulci and fissures within the posterior frontal, parietal temporal lobes. This could indicate frontotemporal lumbar degeneration (FTLD). Atypical Alzheimer's is also possible. Consider MRI Patchy chronic ischemic changes noted in the deep cerebral white matter. No hemorrhage or other acute finding. Moderate right sphenoid sinusitis. Moderate right maxillary and right ethmoid sinusitis Mild right TMJ degeneration Interpreted and Authenticated by: Farhat Mccormack 04/30/18
[2018-04-30] MEDS: GABAPENTIN 400 MG CAPSULE PO SCH ×2 (20:31→20:48)
[2018-04-30] MEDS: SIMVASTATIN 20 MG TABLET PO SCH ×2 (20:31→20:49)
[2018-04-30] MEDS: levETIRAcetam 500 MG in 0.9 % SODIUM CHLORIDE 100 ML IV SCH (20:31)
[2018-05-01] MEDS: ATROPINE SULFATE 1 MG/ML VIAL IV PRN (01:14)
[2018-05-01] MEDS: ACETAMINOPHEN 325 MG TABLET PO PRN ×2 (03:34→08:33)
[2018-05-01] MEDS: 0.9 % SODIUM CHLORIDE 250 ML IV SCH ×3 (04:52→21:39)
[2018-05-01 05:10] LABS: Basophils # (Auto) 0 K/mcL (0.0-0.3); Basophils % (Auto) 0 % (0.0-2.0); Eosinophils # (Auto) 0 K/mcL (0.0-0.7); Eosinophils % (Auto) 0 % (0.0-7.0); Granulocytes % (Auto) 84.3 % (38.0-78.0); Lymphocytes # (Auto) 1.7 K/mcL (1.5-4.8); Lymphocytes % (Auto) 13.1 % (15.5-49.0); Mean Cell Volume 93.8 fL (80.0-100.0); Mean Corpuscular HGB Conc 33.5 g/dL (31.0-36.0); Mean Corpuscular Hemoglobin 31.4 pg (26.0-34.0); Monocytes # (Auto) 0.3 K/mcL (0.1-0.9); Monocytes % (Auto) 2.6 % (1.0-12.0); Platelet Count 96 K/mcL (140-440); RBC 3.12 M/mcL (4.00-5.20); Red Cell Distribution Width 17.4 % (11.5-14.5)
[2018-05-01 05:30] LABS: ALT/SGPT 21 U/l (0-40); Albumin 2.3 gm/dL (3.2-5.2); Albumin/Globulin Ratio 0.7 (1.0-2.3); Alkaline Phosphatase 99 U/L (39-117); Bilirubin,Direct < 0.2 mg/dL (0.0-0.3); Blood Urea Nitrogen 64 mg/dl (8-23); Gamma Glutamyl Transpeptidase 11 U/L (5-36); Uric Acid 5.4 mg/dL (2.5-8.0)
[2018-05-01] MEDS: PIPERACILLIN SODIUM/TAZOBACTAM 3.375 GM in DEXTROSE 5% IN WATER 50 ML IV SCH ×4 (05:39→18:09)
[2018-05-01] MEDS: HYDROCORTISONE SOD SUCC 100 MG VIAL IV SCH ×3 (05:39→21:43)
[2018-05-01] MEDS: 0.9 % SODIUM CHLORIDE 10 ML SYRINGE IV SCH ×6 (05:39→21:44)
[2018-05-01] MEDS ORDERED: LACTATED RINGERS 1,000 ML IV SCH (07:15)
[2018-05-01] MEDS ORDERED: ALBUMIN HUMAN 12.5 GM/50 ML BAG IV ONE (07:19)
--- NOTE | 2018-05-01 07:20 | Internal Med Progress Note ---
Medical - PN: Subj Patient information: Note initiated : 05/01/18 at 7:07 am Service Date, if different from initiated Date: [] Patient: Rosalia Lozano a 72 y/o F admitted on 04/30/18 for bloody nose. Chief Complaint: [] Interval history: Ms. 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 The patient reports that for the last few days she has not been feeling well, (as per ) she has MS and has been more foggy and her strength is decreased. She has right sided cva with left sided weakness. She was working with PT with some improvement, but over the last few days the weakness is come back. The patient has not had any sensation of infection, no fever, chills, no cough, no chest pain, shortness of breath, headaches or runny nose. Yesterday after noon, she started to have blood coming out of her left side of the nose, she denies any picking at the nose, but has been trying to apply pressure. This progressed over the night and eventually led the patient to come to the ER for further evaluation. The EMS had applied a nasal clamp, which was removed in the ER, the patient as per ER did not have any further episodes of bleeding, but the patient was lying on her back. The patient on presentation was afebrile T 97.7, HR 83 , BP 83/60, 92% on Room air wbc 20, hb 11.4, plat 106, PT 19, INR 1.7, chemistry showes K 7.4 , bicarb 16, creat 2.2, BUN 103, AG 18, Tprot 8.3, lac 2.1, UA postive leuk esterase CXR positive bi basilar infitrates Head ct neg for IC changes, but has left sided fluid level maxillary sinus, EKG does not show any peaked t wave changes Hyperkalemia protocol given in the ER, and ua, blood cx sent, pt advised for admission for sepsis with hypotenstion. PT bp had responed transietly to fluid challenge, but then bp dropped down again. to get 4 L fluid bolus. Patient continued to have posterior nasal bleed, Dr. Chanel was contacted, who cauterized the bleeding vessel. 05/01 States she did not sleep very well. Levophed restarted last night. Mild productive cough no shortness of breath. Review of Systems: denies headache/fever/chills/nausea/vomiting/chest or abdominal pain/dyspnea/ diarrhea. Otherwise see above. - Constitutional Vitals: Vital Signs Temp Pulse Resp BP Pulse Ox 97.7 F 55 L 16 98/53 100 05/01/18 04:01 04/30/18 21:25 05/01/18 05:01 05/01/18 05:01 05/01/18 05:01 Period Temp Pulse Resp BP Sys/Hancock Pulse Ox Last 24 Hr 96.9 F-97.9 F 55-150 8-21 62-148/43-82 91-100 Intake and Output 04/30/18 05/01/18 05/01/18 21:59 05:59 13:59 Intake Total 1721 / 1721 471 / 471 1150 / 1150 Output Total 650 / 650 570 / 570 Balance 1071 / 1071 -99 / -99 1150 / 1150 Weight 67.993 kg Intake & Output: Intake & Output 04/30/18 05/01/18 05/01/18 21:59 05:59 13:59 Intake Total 1721 / 1721 471 / 471 1150 / 1150 Output Total 650 / 650 570 / 570 Balance 1071 / 1071 -99 / -99 1150 / 1150 Weight 67.993 kg Intake: IV 1361 / 1361 111 / 111 1150 / 1150 Sodium Chloride 0.9% 250 ml @ 189 / 189 61 / 61 20 mls/hr IV .[id number] [facility] Rx#: [id number] Lactated Ringers 1,000 ml @ 150 1000 / 1000 mls/hr IV .Q6H40M [facility] Rx#: [id number] Levophed 16 mg In Sodium 17 / 17 Chloride 0.9% 234 ml @ 10 MCG/ MIN 9.37 mls/hr IV Q24H [facility] Rx# :[id number] Zosyn 3.375 gm In Dextrose 5% 50 / 50 50 / 50 50 / 50 in Water 50 ml @ 100 mls/hr IV Q6H [facility] Rx#:[id number] Keppra 500 mg In Sodium 105 / 105 Chloride 0.9% 100 ml @ 200 mls/ hr IV Q12 [facility] Rx#:[id number] Oral 360 / 360 360 / 360 Output: Urine Catheter Amount 650 / 650 570 / 570 Other: Meal Dinner Percent of Meal Consumed 100% Feeding Ability Needs Supervision Urine Appearance Clear Clear Uretheral (Smith) Clear Clear Urine Color Pale Pale Uretheral (Smith) Pale Pale Exam: General: Alert, Awake, No acute Distress HEENT: EOMI, CV: RRR, 1/6 SM Pulm: mild bibasilar rhonchi/rales, no wheezing Abd: soft, nontender, +BS x4 Ext: no clubbing/cyanosis/edema Neuro: Alert, no focal deficits, moves all extremities Skin: warm/dry Medical - PN: Obj Da - Labs CBC & Chem 7: 05/01/18 04:00 05/01/18 04:00 Labs: Abnormal Lab Results 05/01/18 05/01/18 04/30/18 04:00 04:00 16:05 WBC 12.7 H RBC 3.12 L Hgb 9.8 L Hct 29.2 L RDW 17.4 H Plt Count 96 L MPV Gran % 84.3 H Lymph % (Auto) 13.1 L Gran # 10.7 H Lymph # (Auto) Seg Neutrophils % Lymphocytes % POC PT POC INR APTT Fibrinogen D-Dimer ABG Methemoglobin 0.3 L VBG pH 7.24 L VBG pO2 108 H VBG HCO3 18.8 L VBG Total CO2 20.2 L VBG O2 Saturation 95.5 H VBG Base Excess -8.2 L Carboxyhemoglobin 1.9 H Total Hemoglobin 10.5 L Sodium 146 H POC Potassium Potassium POC Chloride Chloride 110 H Carbon Dioxide POC Total CO2 Anion Gap POC BUN BUN 64 H Creatinine 1.5 H POC Creatinine Glucose 130 H POC Glucose Calcium 8.4 L Phosphorus AST Troponin T Total Protein 5.8 L Albumin 2.3 L Globulin Albumin/Globulin Ratio 0.7 L Urine Protein Urine Occult Blood Ur Leukocyte Esterase Urine RBC Urine WBC Urine Bacteria Hyaline Casts 04/30/18 04/30/18 04/30/18 10:36 10:36 07:40 WBC RBC Hgb Hct RDW Plt Count MPV Gran % Lymph % (Auto) Gran # Lymph # (Auto) Seg Neutrophils % Lymphocytes % POC PT POC INR APTT 61 H Fibrinogen D-Dimer ABG Methemoglobin VBG pH VBG pO2 VBG HCO3 VBG Total CO2 VBG O2 Saturation VBG Base Excess Carboxyhemoglobin Total Hemoglobin Sodium POC Potassium Potassium POC Chloride Chloride 112 H Carbon Dioxide 17 L POC Total CO2 Anion Gap POC BUN BUN 83 H Creatinine 1.7 H POC Creatinine Glucose 174 H POC Glucose Calcium Phosphorus AST Troponin T 0.04 H* Total Protein Albumin Globulin Albumin/Globulin Ratio Urine Protein Urine Occult Blood Ur Leukocyte Esterase Urine RBC Urine WBC Urine Bacteria Hyaline Casts 04/30/18 04/30/18 04/30/18 07:40 07:40 07:40 WBC 13.9 H RBC 2.62 L Hgb 8.3 L Hct 25.1 L RDW 15.1 H Plt Count 80 L MPV 10.8 H Gran % 85.1 H Lymph % (Auto) 9.4 L Gran # 11.9 H Lymph # (Auto) 1.3 L Seg Neutrophils % Lymphocytes % POC PT POC INR APTT Fibrinogen 563 H D-Dimer 1.55 H ABG Methemoglobin VBG pH VBG pO2 VBG HCO3 VBG Total CO2 VBG O2 Saturation VBG Base Excess Carboxyhemoglobin Total Hemoglobin Sodium POC Potassium Potassium 5.3 H POC Chloride Chloride 113 H Carbon Dioxide 19 L POC Total CO2 Anion Gap POC BUN BUN 88 H Creatinine 1.9 H POC Creatinine Glucose POC Glucose Calcium Phosphorus 5.8 H AST Troponin T Total Protein 5.8 L Albumin 2.1 L Globulin Albumin/Globulin Ratio 0.6 L Urine Protein Urine Occult Blood Ur Leukocyte Esterase Urine RBC Urine WBC Urine Bacteria Hyaline Casts 04/30/18 04/30/18 04/30/18 04:10 03:50 03:45 WBC 20.4 H RBC 3.69 L Hgb 11.4 L Hct 35.4 L RDW 15.3 H Plt Count 106 L MPV 11.9 H Gran % Lymph % (Auto) Gran # Lymph # (Auto) Seg Neutrophils % 84 H Lymphocytes % 8 L POC PT 19.5 H POC INR 1.7 H APTT Fibrinogen D-Dimer ABG Methemoglobin VBG pH VBG pO2 VBG HCO3 VBG Total CO2 VBG O2 Saturation VBG Base Excess Carboxyhemoglobin Total Hemoglobin Sodium POC Potassium Potassium POC Chloride Chloride Carbon Dioxide POC Total CO2 Anion Gap POC BUN BUN Creatinine POC Creatinine Glucose POC Glucose Calcium Phosphorus AST Troponin T Total Protein Albumin Globulin Albumin/Globulin Ratio Urine Protein 100 A Urine Occult Blood 0.03 A Ur Leukocyte Esterase 500 A Urine RBC 7 H Urine WBC 84 H Urine Bacteria Few A Hyaline Casts 8 H 04/30/18 04/30/18 03:30 03:30 WBC RBC Hgb Hct RDW Plt Count MPV Gran % Lymph % (Auto) Gran # Lymph # (Auto) Seg Neutrophils % Lymphocytes % POC PT POC INR APTT Fibrinogen D-Dimer ABG Methemoglobin VBG pH VBG pO2 VBG HCO3 VBG Total CO2 VBG O2 Saturation VBG Base Excess Carboxyhemoglobin Total Hemoglobin Sodium POC Potassium 7.1 H* Potassium 7.4 H* POC Chloride 111 H Chloride Carbon Dioxide 16 L POC Total CO2 19 L Anion Gap 18.0 H POC BUN 93 H BUN 103 H* Creatinine 2.2 H POC Creatinine 2.2 H Glucose 139 H POC Glucose 138 H Calcium Phosphorus AST 38 H Troponin T Total Protein 8.5 H Albumin Globulin 5.3 H Albumin/Globulin Ratio 0.6 L Urine Protein Urine Occult Blood Ur Leukocyte Esterase Urine RBC Urine WBC Urine Bacteria Hyaline Casts Meds: Medications Acetaminophen (Tylenol) 650 mg PO Q4-6HP PRN PRN Reason: PAIN/FEVER > 101 Last Admin: 05/01/18 03:34 Dose: 650 mg Atropine Sulfate (Atropine Sulfate) 0.5 mg IV Q15M PRN PRN Reason: Bradycardia Last Admin: 05/01/18 01:14 Dose: 0.5 mg Gabapentin (Neurontin) 400 mg PO QHS [facility] Last Admin: 04/30/18 20:48 Dose: Not Given Heparin Sodium (Porcine) (Heparin Flush) 2 ml IV Q12 [facility] Last Admin: 04/30/18 20:32 Dose: Not Given Hydrocortisone Sodium Succinate (Solu-Cortef) 50 mg IV Q8 [facility] Hydromorphone HCl (Dilaudid) 0.5 mg IV Q2HP PRN PRN Reason: PAIN LEVEL > 6 Piperacillin Sod/Tazobactam (Sod 3.375 gm/ Dextrose) 50 mls @ 100 mls/hr IV Q6H [facility] Last Infusion: 05/01/18 06:32 Dose: Infused Norepinephrine Bitartrate 16 (mg/ Sodium Chloride) 250 mls @ 9.37 mls/hr IV Q24H [facility]; Protocol Last Titration: 04/30/18 19:55 Dose: 2 mcg/min, 1.87 mls/hr Sodium Chloride (Sodium Chloride 0.9%) 250 mls @ 20 mls/hr IV .[id number] [facility] Last Admin: 05/01/18 04:52 Dose: 20 mls/hr Vancomycin HCl 1,000 mg/ (Sodium Chloride) 250 mls @ 250 mls/hr IV DAILY [facility] Last Infusion: 04/30/18 11:40 Dose: Infused Levetiracetam 500 mg/ Sodium (Chloride) 105 mls @ 200 mls/hr IV Q12 [facility] Last Infusion: 04/30/18 21:22 Dose: Infused Lactated Ringer's (Lactated Ringers) 1,000 mls @ 75 mls/hr IV .[id number] [facility] Last Admin: 04/30/18 16:52 Dose: 75 mls/hr Iron Carb/Multivit/[place]/Folic Acid (Multivitamin W/Minerals) 1 tab PO DAILY [facility] Naloxone HCl (Narcan) 0.1 mg IV Q2MIN PRN PRN Reason: Opiate Reversal Ondansetron HCl (Zofran) 4 mg IV Q4-6HP PRN PRN Reason: Nausea And Vomiting Simvastatin (Zocor) 20 mg PO QPM [facility] Last Admin: 04/30/18 20:49 Dose: Not Given Sodium Chloride (Saline Flush) 10 ml IV Q8 [facility] Last Admin: 05/01/18 05:39 Dose: Not Given Sodium Chloride (Saline Flush) 10 ml IV UD PRN PRN Reason: FLUSH Sodium Chloride (Saline Flush) 10 ml IV Q12 [facility] Last Admin: 04/30/18 20:32 Dose: Not Given Sodium Chloride (Saline Flush) 10 ml IV Q12 [facility] Last Admin: 04/30/18 20:32 Dose: Not Given Vancomycin HCl (Vancomycin Per Pharmacy) 1 order IV UD [facility] - ABG Interpretation ABG results: 04/30/18 16:05 ABG Methemoglobin 0.3 L VBG pH 7.24 L VBG pCO2 44.7 VBG pO2 108 H VBG HCO3 18.8 L VBG Total CO2 20.2 L VBG O2 Saturation 95.5 H VBG Base Excess -8.2 L Medical - PN: A/P - Time Spent With Patient Total time spent is greater than 50% in coordination of care (as documented) at patient's floor/unit and/or counseling patient: - Narrative A/P Narrative: A: *Acute epistaxis: s/p cauterization by Dr. Chanel *Acute blood loss anemia: 2/2 above -s/p 2PRBC (04/30), 9.8<8.3 *Septic Shock: 2/2 UTI/PNA, improving -leukocytosis improving -vasopressors off yesterday for several hours then restarted last night *UTI, complicated, neurogenic bladder: *Pneumonia (possible aspiration): -CXR improving *Bacteremia (GNB): 2/2 above *Multile sclerosis: *Coagulopathy: 2/2 sepsis *Thrombocytopenia, acute on chronic: 2/2 above, stable *Anion gap and non anion gap Met acidosis: improved *Acute Hyperkalemia: resolved *CARMINA on CKD III-IV: improving with IVF's *Sinus nabila: intermittent *seizure d/o: *COPD (): *HTN: home ACEI/lasix/propranolol P: -monitor for nasal bleeding -IVF's to hypotonic -CVP, wean off vasopressors, then wean off hydrocortisone -vanc/zosyn, pending BC/UC -IS/Acapella/wean down o2 -f/u AM CXR -ACEI/lasix held for CARMINA, home BB held for sinus nabila -ST eval -dysphagia diet -pt/ot -ppx: [facility] - PN: Qual - VTE Deep Vein Thrombosis/Pulmonary Embolism Present on Admission: No
--- NOTE | 2018-05-01 07:21 | XRay Report ---
CLINICAL INFORMATION: Follow-up infiltrate COMPARISON: 04/30/2018 FINDINGS: Moderate cardiomegaly is unchanged. Thoracic aorta again noted. Right IJ line in stable satisfactory position. Pulmonary vessels are normal. Right midlung and bibasilar infiltrates are much better aerated with mild patchy residual IMPRESSION: Moderate improvement in bilateral infiltrates with mild patchy residual the right midlung and both bases Interpreted and Authenticated by: Farhat Mccormack 05/01/18
[2018-05-01] MEDS: DEXTROSE 5% IN WATER 500 ML IV SCH ×2 (07:47→12:41)
[2018-05-01] MEDS: NOREPINEPHRINE BITARTRATE 16 MG in 0.9 % SODIUM CHLORIDE 234 ML IV SCH (08:00)
[2018-05-01] MEDS: MULTIVIT,THER IRON,CA,FA & MIN 1 TABLET PO SCH (08:33)
[2018-05-01] MEDS: levETIRAcetam 500 MG in 0.9 % SODIUM CHLORIDE 100 ML IV SCH ×2 (08:35→20:21)
[2018-05-01] MEDS: VANCOMYCIN 1,000 MG in 0.9 % SODIUM CHLORIDE 250 ML IV SCH (08:35)
[2018-05-01] MEDS: LACTATED RINGERS 1,000 ML IV SCH (08:37)
[2018-05-01] MEDS ORDERED: NOREPINEPHRINE BITARTRATE 16 MG in 0.9 % SODIUM CHLORIDE 234 ML IV PRN (11:30)
[2018-05-01] MEDS: GABAPENTIN 400 MG CAPSULE PO SCH (20:21)
[2018-05-01] MEDS: SIMVASTATIN 20 MG TABLET PO SCH (20:21)
[2018-05-02] MEDS: PIPERACILLIN SODIUM/TAZOBACTAM 3.375 GM in DEXTROSE 5% IN WATER 50 ML IV SCH ×4 (00:25→17:11)
[2018-05-02 05:50] LABS: Basophils # (Auto) 0 K/mcL (0.0-0.3); Basophils % (Auto) 0.2 % (0.0-2.0); Eosinophils # (Auto) 0 K/mcL (0.0-0.7); Eosinophils % (Auto) 0 % (0.0-7.0); Granulocytes % (Auto) 76.6 % (38.0-78.0); Lymphocytes # (Auto) 1.9 K/mcL (1.5-4.8); Lymphocytes % (Auto) 18.3 % (15.5-49.0); Mean Cell Volume 92.8 fL (80.0-100.0); Mean Corpuscular HGB Conc 33.1 g/dL (31.0-36.0); Mean Corpuscular Hemoglobin 30.7 pg (26.0-34.0); Monocytes # (Auto) 0.5 K/mcL (0.1-0.9); Monocytes % (Auto) 4.9 % (1.0-12.0); Platelet Count 84 K/mcL (140-440); Red Cell Distribution Width 16.7 % (11.5-14.5)
[2018-05-02] MEDS: HYDROCORTISONE SOD SUCC 100 MG VIAL IV SCH ×3 (05:58→21:41)
[2018-05-02] MEDS: 0.9 % SODIUM CHLORIDE 10 ML SYRINGE IV SCH ×6 (05:59→21:41)
[2018-05-02 06:29] LABS: ALT/SGPT 22 U/l (0-40); Albumin 2.3 gm/dL (3.2-5.2); Albumin/Globulin Ratio 0.7 (1.0-2.3); Alkaline Phosphatase 80 U/L (39-117); Bilirubin,Direct < 0.2 mg/dL (0.0-0.3); Blood Urea Nitrogen 53 mg/dl (8-23); Gamma Glutamyl Transpeptidase 10 U/L (5-36); Uric Acid 5.6 mg/dL (2.5-8.0)
[2018-05-02] MEDS ORDERED: POTASSIUM CHLORIDE 20 MEQ PACKET PO STA (06:54)
[2018-05-02] MEDS ORDERED: MAGNESIUM SULFATE 8.12 MEQ in DEXTROSE 5% IN WATER 50 ML IV ONE ×2 (06:57→16:10)
--- NOTE | 2018-05-02 07:29 | Internal Med Progress Note ---
Medical - PN: Subj Patient information: Note initiated : 05/02/18 at 7:22 am Service Date, if different from initiated Date: [] Patient: Rosalia Lozano a 72 y/o F admitted on 04/30/18 for Bloody Nose/Epistaxis , Sepsis. Chief Complaint: [] Interval history: Ms. 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 The patient reports that for the last few days she has not been feeling well, (as per ) she has MS and has been more foggy and her strength is decreased. She has right sided cva with left sided weakness. She was working with PT with some improvement, but over the last few days the weakness is come back. The patient has not had any sensation of infection, no fever, chills, no cough, no chest pain, shortness of breath, headaches or runny nose. Yesterday after noon, she started to have blood coming out of her left side of the nose, she denies any picking at the nose, but has been trying to apply pressure. This progressed over the night and eventually led the patient to come to the ER for further evaluation. The EMS had applied a nasal clamp, which was removed in the ER, the patient as per ER did not have any further episodes of bleeding, but the patient was lying on her back. The patient on presentation was afebrile T 97.7, HR 83 , BP 83/60, 92% on Room air wbc 20, hb 11.4, plat 106, PT 19, INR 1.7, chemistry showes K 7.4 , bicarb 16, creat 2.2, BUN 103, AG 18, Tprot 8.3, lac 2.1, UA postive leuk esterase CXR positive bi basilar infitrates Head ct neg for IC changes, but has left sided fluid level maxillary sinus, EKG does not show any peaked t wave changes Hyperkalemia protocol given in the ER, and ua, blood cx sent, pt advised for admission for sepsis with hypotenstion. PT bp had responed transietly to fluid challenge, but then bp dropped down again. to get 4 L fluid bolus. Patient continued to have posterior nasal bleed, Dr. Chanel was contacted, who cauterized the bleeding vessel. 05/01 States she did not sleep very well. Levophed restarted last night. Mild productive cough no shortness of breath. 05/02 slept well, feeling better. mild headache, minimal cough/dyspnea today, had some diarrhea yesterday and none today. Review of Systems: denies fever/chills/nausea/vomiting/chest or abdominal pain. Otherwise see above. - Constitutional Vitals: Vital Signs Temp Pulse Resp BP Pulse Ox 97.2 F 54 L 24 H 100/55 96 05/02/18 04:01 05/02/18 07:15 05/02/18 07:15 05/02/18 07:01 05/02/18 07:15 Period Temp Pulse Resp BP Sys/Hancock Pulse Ox Last 24 Hr 97.1 F-98 F 36-129 10-26 79-129/48-84 92-100 Intake and Output 05/01/18 05/02/18 05/02/18 21:59 05:59 13:59 Intake Total 910 / 910 50 / 50 155 / 155 Output Total 720 / 720 610 / 610 75 / 75 Balance 190 / 190 -560 / -560 80 / 80 Weight 69.309 kg Intake & Output: Intake & Output 05/01/18 05/02/18 05/02/18 21:59 05:59 13:59 Intake Total 910 / 910 50 / 50 155 / 155 Output Total 720 / 720 610 / 610 75 / 75 Balance 190 / 190 -560 / -560 80 / 80 Weight 69.309 kg Intake: IV 550 / 550 50 / 50 155 / 155 Dextrose 5% in Water 500 ml @ 500 / 500 70 mls/hr IV .Q7H9M [facility] Rx#: [id number] Zosyn 3.375 gm In Dextrose 5% 50 / 50 50 / 50 50 / 50 in Water 50 ml @ 100 mls/hr IV Q6H [facility] Rx#:[id number] Keppra 500 mg In Sodium 105 / 105 Chloride 0.9% 100 ml @ 200 mls/ hr IV Q12 [facility] Rx#:[id number] Oral 360 / 360 Output: Urine Catheter Amount 720 / 720 610 / 610 75 / 75 Other: Meal Dinner Percent of Meal Consumed 100% Urine Appearance Clear Clear Uretheral (Smith) Clear Clear Urine Color Pale Pale Uretheral (Smith) Pale Pale Urine Odor Normal Uretheral (Smith) Normal Normal Stool Size Large Stool Color Brown Stool Consistency Loose # Bowel Movements 1 # of times incontinent of 1 Bowels Exam: General: Alert, Awake, No acute Distress HEENT: EOMI, Neck supple CV: RRR, 2/6 SM Pulm: mild bibasilar rhonchi/rales improved, no wheezing Abd: soft, nontender, +BS x4 Ext: no clubbing/cyanosis/edema Neuro: Alert, moves all extremities Skin: warm/dry Medical - PN: Obj Da - Labs CBC & Chem 7: 05/02/18 04:00 05/02/18 04:00 Labs: Abnormal Lab Results 05/02/18 05/02/18 05/02/18 04:00 04:00 04:00 WBC RBC 2.90 L Hgb 8.9 L Hct 26.9 L RDW 16.7 H Plt Count 84 L MPV Gran % Lymph % (Auto) Gran # Lymph # (Auto) Seg Neutrophils % Lymphocytes % POC PT POC INR APTT 51 H Fibrinogen D-Dimer ABG Methemoglobin VBG pH VBG pO2 VBG HCO3 VBG Total CO2 VBG O2 Saturation VBG Base Excess Carboxyhemoglobin Total Hemoglobin Sodium 149 H POC Potassium Potassium 2.8 L* POC Chloride Chloride 112 H Carbon Dioxide POC Total CO2 Anion Gap POC BUN BUN 53 H Creatinine 1.4 H POC Creatinine Glucose 134 H POC Glucose Calcium 8.4 L Phosphorus AST Troponin T Total Protein 5.6 L Albumin 2.3 L Globulin Albumin/Globulin Ratio 0.7 L Urine Protein Urine Occult Blood Ur Leukocyte Esterase Urine RBC Urine WBC Urine Bacteria Hyaline Casts 05/01/18 05/01/18 04/30/18 04:00 04:00 16:05 WBC 12.7 H RBC 3.12 L Hgb 9.8 L Hct 29.2 L RDW 17.4 H Plt Count 96 L MPV Gran % 84.3 H Lymph % (Auto) 13.1 L Gran # 10.7 H Lymph # (Auto) Seg Neutrophils % Lymphocytes % POC PT POC INR APTT Fibrinogen D-Dimer ABG Methemoglobin 0.3 L VBG pH 7.24 L VBG pO2 108 H VBG HCO3 18.8 L VBG Total CO2 20.2 L VBG O2 Saturation 95.5 H VBG Base Excess -8.2 L Carboxyhemoglobin 1.9 H Total Hemoglobin 10.5 L Sodium 146 H POC Potassium Potassium POC Chloride Chloride 110 H Carbon Dioxide POC Total CO2 Anion Gap POC BUN BUN 64 H Creatinine 1.5 H POC Creatinine Glucose 130 H POC Glucose Calcium 8.4 L Phosphorus AST Troponin T Total Protein 5.8 L Albumin 2.3 L Globulin Albumin/Globulin Ratio 0.7 L Urine Protein Urine Occult Blood Ur Leukocyte Esterase Urine RBC Urine WBC Urine Bacteria Hyaline Casts 04/30/18 04/30/18 04/30/18 10:36 10:36 07:40 WBC RBC Hgb Hct RDW Plt Count MPV Gran % Lymph % (Auto) Gran # Lymph # (Auto) Seg Neutrophils % Lymphocytes % POC PT POC INR APTT 61 H Fibrinogen D-Dimer ABG Methemoglobin VBG pH VBG pO2 VBG HCO3 VBG Total CO2 VBG O2 Saturation VBG Base Excess Carboxyhemoglobin Total Hemoglobin Sodium POC Potassium Potassium POC Chloride Chloride 112 H Carbon Dioxide 17 L POC Total CO2 Anion Gap POC BUN BUN 83 H Creatinine 1.7 H POC Creatinine Glucose 174 H POC Glucose Calcium Phosphorus AST Troponin T 0.04 H* Total Protein Albumin Globulin Albumin/Globulin Ratio Urine Protein Urine Occult Blood Ur Leukocyte Esterase Urine RBC Urine WBC Urine Bacteria Hyaline Casts 04/30/18 04/30/18 04/30/18 07:40 07:40 07:40 WBC 13.9 H RBC 2.62 L Hgb 8.3 L Hct 25.1 L RDW 15.1 H Plt Count 80 L MPV 10.8 H Gran % 85.1 H Lymph % (Auto) 9.4 L Gran # 11.9 H Lymph # (Auto) 1.3 L Seg Neutrophils % Lymphocytes % POC PT POC INR APTT Fibrinogen 563 H D-Dimer 1.55 H ABG Methemoglobin VBG pH VBG pO2 VBG HCO3 VBG Total CO2 VBG O2 Saturation VBG Base Excess Carboxyhemoglobin Total Hemoglobin Sodium POC Potassium Potassium 5.3 H POC Chloride Chloride 113 H Carbon Dioxide 19 L POC Total CO2 Anion Gap POC BUN BUN 88 H Creatinine 1.9 H POC Creatinine Glucose POC Glucose Calcium Phosphorus 5.8 H AST Troponin T Total Protein 5.8 L Albumin 2.1 L Globulin Albumin/Globulin Ratio 0.6 L Urine Protein Urine Occult Blood Ur Leukocyte Esterase Urine RBC Urine WBC Urine Bacteria Hyaline Casts 04/30/18 04/30/18 04/30/18 04:10 03:50 03:45 WBC 20.4 H RBC 3.69 L Hgb 11.4 L Hct 35.4 L RDW 15.3 H Plt Count 106 L MPV 11.9 H Gran % Lymph % (Auto) Gran # Lymph # (Auto) Seg Neutrophils % 84 H Lymphocytes % 8 L POC PT 19.5 H POC INR 1.7 H APTT Fibrinogen D-Dimer ABG Methemoglobin VBG pH VBG pO2 VBG HCO3 VBG Total CO2 VBG O2 Saturation VBG Base Excess Carboxyhemoglobin Total Hemoglobin Sodium POC Potassium Potassium POC Chloride Chloride Carbon Dioxide POC Total CO2 Anion Gap POC BUN BUN Creatinine POC Creatinine Glucose POC Glucose Calcium Phosphorus AST Troponin T Total Protein Albumin Globulin Albumin/Globulin Ratio Urine Protein 100 A Urine Occult Blood 0.03 A Ur Leukocyte Esterase 500 A Urine RBC 7 H Urine WBC 84 H Urine Bacteria Few A Hyaline Casts 8 H 04/30/18 04/30/18 03:30 03:30 WBC RBC Hgb Hct RDW Plt Count MPV Gran % Lymph % (Auto) Gran # Lymph # (Auto) Seg Neutrophils % Lymphocytes % POC PT POC INR APTT Fibrinogen D-Dimer ABG Methemoglobin VBG pH VBG pO2 VBG HCO3 VBG Total CO2 VBG O2 Saturation VBG Base Excess Carboxyhemoglobin Total Hemoglobin Sodium POC Potassium 7.1 H* Potassium 7.4 H* POC Chloride 111 H Chloride Carbon Dioxide 16 L POC Total CO2 19 L Anion Gap 18.0 H POC BUN 93 H BUN 103 H* Creatinine 2.2 H POC Creatinine 2.2 H Glucose 139 H POC Glucose 138 H Calcium Phosphorus AST 38 H Troponin T Total Protein 8.5 H Albumin Globulin 5.3 H Albumin/Globulin Ratio 0.6 L Urine Protein Urine Occult Blood Ur Leukocyte Esterase Urine RBC Urine WBC Urine Bacteria Hyaline Casts Meds: Medications Acetaminophen (Tylenol) 650 mg PO Q4-6HP PRN PRN Reason: PAIN/FEVER > 101 Last Admin: 05/01/18 08:33 Dose: 650 mg Atropine Sulfate (Atropine Sulfate) 0.5 mg IV Q15M PRN PRN Reason: Bradycardia Last Admin: 05/01/18 01:14 Dose: 0.5 mg Gabapentin (Neurontin) 400 mg PO QHS [facility] Last Admin: 05/01/18 20:21 Dose: 400 mg Heparin Sodium (Porcine) (Heparin Flush) 2 ml IV Q12 [facility] Last Admin: 05/01/18 20:22 Dose: 2 ml Hydrocortisone Sodium Succinate (Solu-Cortef) 50 mg IV Q8 [facility] Last Admin: 05/02/18 05:58 Dose: 50 mg Hydromorphone HCl (Dilaudid) 0.5 mg IV Q2HP PRN PRN Reason: PAIN LEVEL > 6 Piperacillin Sod/Tazobactam (Sod 3.375 gm/ Dextrose) 50 mls @ 100 mls/hr IV Q6H [facility] Last Infusion: 05/02/18 06:38 Dose: Infused Sodium Chloride (Sodium Chloride 0.9%) 250 mls @ 20 mls/hr IV .[id number] [facility] Last Admin: 05/01/18 21:39 Dose: Not Given Vancomycin HCl 1,000 mg/ (Sodium Chloride) 250 mls @ 250 mls/hr IV DAILY [facility] Last Infusion: 05/01/18 10:00 Dose: Infused Levetiracetam 500 mg/ Sodium (Chloride) 105 mls @ 200 mls/hr IV Q12 [facility] Last Infusion: 05/02/18 07:17 Dose: Infused Dextrose (Dextrose 5% In Water) 500 mls @ 70 mls/hr IV .Q7H9M [facility] Last Infusion: 05/01/18 18:09 Dose: Infused Norepinephrine Bitartrate 16 (mg/ Sodium Chloride) 250 mls @ 9.37 mls/hr IV Q24HP PRN; Protocol PRN Reason: Hypotension Potassium Chloride 40 meq/ (Dextrose) 270 mls @ 67.5 mls/hr IV ONCE ONE Stop: 05/02/18 10:55 Magnesium Sulfate 8.12 meq/ (Dextrose) 52 mls @ 104 mls/hr IV ONCE ONE Stop: 05/02/18 07:26 Iron Carb/Multivit/[place]/Folic Acid (Multivitamin W/Minerals) 1 tab PO DAILY [facility] Last Admin: 05/01/18 08:33 Dose: 1 tab Naloxone HCl (Narcan) 0.1 mg IV Q2MIN PRN PRN Reason: Opiate Reversal Ondansetron HCl (Zofran) 4 mg IV Q4-6HP PRN PRN Reason: Nausea And Vomiting Last Admin: 05/01/18 20:21 Dose: 4 mg Simvastatin (Zocor) 20 mg PO QPM [facility] Last Admin: 05/01/18 20:21 Dose: 20 mg Sodium Chloride (Saline Flush) 10 ml IV Q8 [facility] Last Admin: 05/02/18 05:59 Dose: 10 ml Sodium Chloride (Saline Flush) 10 ml IV UD PRN PRN Reason: FLUSH Sodium Chloride (Saline Flush) 10 ml IV Q12 [facility] Last Admin: 05/01/18 21:44 Dose: 10 ml Vancomycin HCl (Vancomycin Per Pharmacy) 1 order IV UD [facility] - ABG Interpretation ABG results: 04/30/18 16:05 ABG Methemoglobin 0.3 L VBG pH 7.24 L VBG pCO2 44.7 VBG pO2 108 H VBG HCO3 18.8 L VBG Total CO2 20.2 L VBG O2 Saturation 95.5 H VBG Base Excess -8.2 L Medical - PN: A/P - Time Spent With Patient Total time spent is greater than 50% in coordination of care (as documented) at patient's floor/unit and/or counseling patient: - Narrative A/P Narrative: A: *Acute epistaxis: s/p cauterization by Dr. Chanel *Acute blood loss anemia: 2/2 above -s/p 2PRBC (04/30), stable *Septic Shock: 2/2 UTI/PNA, improved -leukocytosis resolved -vasopressors off yesterday *Pneumonia (possible aspiration): -CXR improving -off oxygen supp *UTI (GNB), complicated, neurogenic bladder (self-cath's): *Bacteremia (GNB): 2/2 above *Multiple sclerosis/Debility/Poor functional status: wheelchair bound *Coagulopathy: 2/2 sepsis, improved *Thrombocytopenia, acute on chronic: 2/2 above, stable *Anion gap and non anion gap Met acidosis: improved *Acute Hyperkalemia: resolved, now hypokalemia *Hypernatremia: sodium load in IVF's and Riders *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
[2018-05-02] MEDS ORDERED: HYDROCHLOROTHIAZIDE 12.5 MG CAPSULE PO ONE (07:37)
[2018-05-02] MEDS ORDERED: DEXTROSE 5% IN WATER 1,000 ML IV SCH (07:45)
[2018-05-02] MEDS ORDERED: MAGNESIUM SULFATE 2 GM/50 ML BAG IV ONE (08:00)
[2018-05-02] MEDS ORDERED: POTASSIUM CHLORIDE 40 MEQ in DEXTROSE 5% IN WATER 250 ML IV ONE (08:00)
[2018-05-02] MEDS: MULTIVIT,THER IRON,CA,FA & MIN 1 TABLET PO SCH (08:13)
[2018-05-02] MEDS ORDERED: LACTOBACILLUS 1 CAPSULE PO SCH (09:00)
[2018-05-02] MEDS: levETIRAcetam 500 MG in 0.9 % SODIUM CHLORIDE 100 ML IV SCH (10:09)
[2018-05-02] MEDS ORDERED: VANCOMYCIN 1,000 MG in DEXTROSE 5% IN WATER 250 ML IV SCH (11:00)
[2018-05-02] MEDS: ACETAMINOPHEN 325 MG TABLET PO PRN (12:21)
[2018-05-02] MEDS ORDERED: ACETAMINOPHEN 325 MG TABLET PO PRN (16:10)
[2018-05-02] MEDS ORDERED: NOREPINEPHRINE BITARTRATE 16 MG in 0.9 % SODIUM CHLORIDE 234 ML IV PRN (16:10)
[2018-05-02] MEDS ORDERED: 0.9 % SODIUM CHLORIDE 10 ML SYRINGE IV PRN (16:10)
[2018-05-02] MEDS ORDERED: VANCOMYCIN PER PHARMACY IV SCH (16:10)
[2018-05-02] MEDS ORDERED: NALOXONE HCL 0.4 MG/ML VIAL IV PRN (16:10)
[2018-05-02] MEDS ORDERED: ONDANSETRON 4 MG/2 ML VIAL IV PRN (16:10)
[2018-05-02] MEDS ORDERED: ATROPINE SULFATE 1 MG/ML VIAL IV PRN (16:10)
[2018-05-02] MEDS: VANCOMYCIN 1,000 MG in 0.9 % SODIUM CHLORIDE 250 ML IV SCH (16:49)
[2018-05-02] MEDS: DEXTROSE 5% IN WATER 1,000 ML IV SCH (16:57)
[2018-05-02] MEDS: HYDROmorphone 2 MG/ML VIAL IV PRN ×2 (16:58→23:00)
[2018-05-02 17:16] LABS: Blood Urea Nitrogen 45 mg/dl (8-23)
[2018-05-02] MEDS ORDERED: levETIRAcetam 500 MG in DEXTROSE 5% IN WATER 100 ML IV SCH (21:00)
[2018-05-02] MEDS ORDERED: levETIRAcetam 500 MG TABLET PO SCH (21:00)
[2018-05-02] MEDS: LACTOBACILLUS 1 CAPSULE PO SCH (21:38)
[2018-05-02] MEDS: levETIRAcetam 500 MG TABLET PO SCH (21:38)
[2018-05-02] MEDS: GABAPENTIN 400 MG CAPSULE PO SCH (21:39)
[2018-05-02] MEDS: SIMVASTATIN 20 MG TABLET PO SCH (21:43)
[2018-05-03] MEDS: PIPERACILLIN SODIUM/TAZOBACTAM 3.375 GM in DEXTROSE 5% IN WATER 50 ML IV SCH ×2 (00:47→05:55)
[2018-05-03] MEDS: DEXTROSE 5% IN WATER 1,000 ML IV SCH (01:31)
[2018-05-03] MEDS: ATROPINE SULFATE 0.4 MG/ML VIAL IV PRN ×5 (01:52→23:25)
[2018-05-03 05:14] LABS: Basophils # (Auto) 0 K/mcL (0.0-0.3); Basophils % (Auto) 0.3 % (0.0-2.0); Eosinophils # (Auto) 0 K/mcL (0.0-0.7); Eosinophils % (Auto) 0.2 % (0.0-7.0); Granulocytes % (Auto) 74.5 % (38.0-78.0); Lymphocytes # (Auto) 2.4 K/mcL (1.5-4.8); Lymphocytes % (Auto) 20.8 % (15.5-49.0); Mean Cell Volume 93.3 fL (80.0-100.0); Mean Corpuscular HGB Conc 33.3 g/dL (31.0-36.0); Mean Corpuscular Hemoglobin 31.1 pg (26.0-34.0); Monocytes # (Auto) 0.5 K/mcL (0.1-0.9); Monocytes % (Auto) 4.2 % (1.0-12.0); Platelet Count 81 K/mcL (140-440); RBC 2.96 M/mcL (4.00-5.20); Red Cell Distribution Width 16.9 % (11.5-14.5)
[2018-05-03 05:53] LABS: ALT/SGPT 25 U/l (0-40); Albumin 2.4 gm/dL (3.2-5.2); Albumin/Globulin Ratio 0.7 (1.0-2.3); Alkaline Phosphatase 78 U/L (39-117); Bilirubin,Direct < 0.2 mg/dL (0.0-0.3); Blood Urea Nitrogen 38 mg/dl (8-23); Gamma Glutamyl Transpeptidase 11 U/L (5-36); Uric Acid 5.2 mg/dL (2.5-8.0)
[2018-05-03] MEDS: 0.9 % SODIUM CHLORIDE 10 ML SYRINGE IV SCH ×6 (05:54→20:54)
[2018-05-03] MEDS: HYDROCORTISONE SOD SUCC 100 MG VIAL IV SCH ×3 (05:54→21:56)
[2018-05-03] MEDS ORDERED: POTASSIUM CHLORIDE 20 MEQ TABLET PO ONE (06:02)
[2018-05-03] MEDS: HYDROmorphone 2 MG/ML VIAL IV PRN (06:18)
--- NOTE | 2018-05-03 07:25 | Internal Med Progress Note ---
Medical - PN: Subj Patient information: Note initiated : 05/03/18 at 7:20 am Service Date, if different from initiated Date: [] Patient: Rosalia Lozano a 72 y/o F admitted on 04/30/18 for Bloody Nose/Epistaxis , Sepsis. Chief Complaint: [] Interval history: Ms. 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 The patient reports that for the last few days she has not been feeling well, (as per ) she has MS and has been more foggy and her strength is decreased. She has right sided cva with left sided weakness. She was working with PT with some improvement, but over the last few days the weakness is come back. The patient has not had any sensation of infection, no fever, chills, no cough, no chest pain, shortness of breath, headaches or runny nose. Yesterday after noon, she started to have blood coming out of her left side of the nose, she denies any picking at the nose, but has been trying to apply pressure. This progressed over the night and eventually led the patient to come to the ER for further evaluation. The EMS had applied a nasal clamp, which was removed in the ER, the patient as per ER did not have any further episodes of bleeding, but the patient was lying on her back. The patient on presentation was afebrile T 97.7, HR 83 , BP 83/60, 92% on Room air wbc 20, hb 11.4, plat 106, PT 19, INR 1.7, chemistry showes K 7.4 , bicarb 16, creat 2.2, BUN 103, AG 18, Tprot 8.3, lac 2.1, UA postive leuk esterase CXR positive bi basilar infitrates Head ct neg for IC changes, but has left sided fluid level maxillary sinus, EKG does not show any peaked t wave changes Hyperkalemia protocol given in the ER, and ua, blood cx sent, pt advised for admission for sepsis with hypotenstion. PT bp had responed transietly to fluid challenge, but then bp dropped down again. to get 4 L fluid bolus. Patient continued to have posterior nasal bleed, Dr. Chanel was contacted, who cauterized the bleeding vessel. 05/01 States she did not sleep very well. Levophed restarted last night. Mild productive cough no shortness of breath. 05/02 slept well, feeling better. mild headache, minimal cough/dyspnea today, had some diarrhea yesterday and none today. 05/03 Complains of her MS pain. And slept poorly last night. Occasional cough, occasional bradycardia while sleeping asymptomatic. Review of Systems: denies fever/chills/nausea/vomiting/chest or abdominal pain. Otherwise see above. - Constitutional Vitals: Vital Signs Temp Pulse Resp BP Pulse Ox 96.9 F L 52 L 15 140/82 96 05/03/18 06:25 05/03/18 06:25 05/03/18 06:25 05/03/18 06:25 05/03/18 06:25 Period Temp Pulse Resp BP Sys/Hancock Pulse Ox Last 24 Hr 96.9 F-98.4 F 51-73 12-21 116-161/57-129 93-100 Intake and Output 05/02/18 05/03/18 05/03/18 21:59 05:59 13:59 Intake Total 1885 / 1885 1395 / 1395 50 / 50 Output Total 395 / 395 525 / 525 Balance 1490 / 1490 870 / 870 50 / 50 Weight 69.309 kg Intake & Output: Intake & Output 05/02/18 05/03/18 05/03/18 21:59 05:59 13:59 Intake Total 1885 / 1885 1395 / 1395 50 / 50 Output Total 395 / 395 525 / 525 Balance 1490 / 1490 870 / 870 50 / 50 Weight 69.309 kg Intake: IV 1525 / 1525 1035 / 1035 50 / 50 Dextrose 5% in Water 1,000 ml @ 1000 / 1000 985 / 985 115 mls/hr IV .Q8H42M [facility] Rx#: [id number] Zosyn 3.375 gm In Dextrose 5% 100 / 100 50 / 50 50 / 50 in Water 50 ml @ 100 mls/hr IV Q6H [facility] Rx#:[id number] Oral 360 / 360 360 / 360 Output: Urine Catheter Amount 395 / 395 525 / 525 Other: Meal Dinner Percent of Meal Consumed 25% Feeding Ability Independent Urine Appearance Clear Clear Uretheral (Smith) Clear Urine Color Bright Yellow Bright Yellow Uretheral (Smith) Pale # of times incontinent of 1 Bowels Exam: General: Alert, Awake, No acute Distress HEENT: EOMI, Neck supple CV: nabila but regular, 2/6 SM Pulm: diminished b/l, mild exp b/l wheezing Abd: soft, nontender, +BS x4 Ext: no clubbing/cyanosis/edema Neuro: Alert, moves all extremities Skin: warm/dry Medical - PN: Obj Da - Labs CBC & Chem 7: 05/03/18 04:00 05/03/18 04:00 Labs: Abnormal Lab Results 05/03/18 05/03/18 05/02/18 04:00 04:00 15:34 WBC 11.3 H RBC 2.96 L Hgb 9.2 L Hct 27.6 L RDW 16.9 H Plt Count 81 L MPV Gran % Lymph % (Auto) Gran # 8.4 H Lymph # (Auto) APTT Fibrinogen D-Dimer ABG Methemoglobin VBG pH VBG pO2 VBG HCO3 VBG Total CO2 VBG O2 Saturation VBG Base Excess Carboxyhemoglobin Total Hemoglobin Sodium Potassium 2.9 L* Chloride 109 H Carbon Dioxide BUN 38 H 45 H Creatinine 1.2 H 1.5 H Glucose 180 H 210 H Calcium 8.2 L 8.4 L Phosphorus 2.4 L Troponin T Total Protein 5.7 L Albumin 2.4 L Albumin/Globulin Ratio 0.7 L 05/02/18 05/02/18 05/02/18 04:00 04:00 04:00 WBC RBC 2.90 L Hgb 8.9 L Hct 26.9 L RDW 16.7 H Plt Count 84 L MPV Gran % Lymph % (Auto) Gran # Lymph # (Auto) APTT 51 H Fibrinogen D-Dimer ABG Methemoglobin VBG pH VBG pO2 VBG HCO3 VBG Total CO2 VBG O2 Saturation VBG Base Excess Carboxyhemoglobin Total Hemoglobin Sodium 149 H Potassium 2.8 L* Chloride 112 H Carbon Dioxide BUN 53 H Creatinine 1.4 H Glucose 134 H Calcium 8.4 L Phosphorus Troponin T Total Protein 5.6 L Albumin 2.3 L Albumin/Globulin Ratio 0.7 L 09/21/18 09/21/18 09/20/18 04:00 04:00 16:05 WBC 12.7 H RBC 3.12 L Hgb 9.8 L Hct 29.2 L RDW 17.4 H Plt Count 96 L MPV Gran % 84.3 H Lymph % (Auto) 13.1 L Gran # 10.7 H Lymph # (Auto) APTT Fibrinogen D-Dimer ABG Methemoglobin 0.3 L VBG pH 7.24 L VBG pO2 108 H VBG HCO3 18.8 L VBG Total CO2 20.2 L VBG O2 Saturation 95.5 H VBG Base Excess -8.2 L Carboxyhemoglobin 1.9 H Total Hemoglobin 10.5 L Sodium 146 H Potassium Chloride 110 H Carbon Dioxide BUN 64 H Creatinine 1.5 H Glucose 130 H Calcium 8.4 L Phosphorus Troponin T Total Protein 5.8 L Albumin 2.3 L Albumin/Globulin Ratio 0.7 L 04/30/18 04/30/18 04/30/18 10:36 10:36 07:40 WBC RBC Hgb Hct RDW Plt Count MPV Gran % Lymph % (Auto) Gran # Lymph # (Auto) APTT 61 H Fibrinogen D-Dimer ABG Methemoglobin VBG pH VBG pO2 VBG HCO3 VBG Total CO2 VBG O2 Saturation VBG Base Excess Carboxyhemoglobin Total Hemoglobin Sodium Potassium Chloride 112 H Carbon Dioxide 17 L BUN 83 H Creatinine 1.7 H Glucose 174 H Calcium Phosphorus Troponin T 0.04 H* Total Protein Albumin Albumin/Globulin Ratio 04/30/18 04/30/18 04/30/18 07:40 07:40 07:40 WBC 13.9 H RBC 2.62 L Hgb 8.3 L Hct 25.1 L RDW 15.1 H Plt Count 80 L MPV 10.8 H Gran % 85.1 H Lymph % (Auto) 9.4 L Gran # 11.9 H Lymph # (Auto) 1.3 L APTT Fibrinogen 563 H D-Dimer 1.55 H ABG Methemoglobin VBG pH VBG pO2 VBG HCO3 VBG Total CO2 VBG O2 Saturation VBG Base Excess Carboxyhemoglobin Total Hemoglobin Sodium Potassium 5.3 H Chloride 113 H Carbon Dioxide 19 L BUN 88 H Creatinine 1.9 H Glucose Calcium Phosphorus 5.8 H Troponin T Total Protein 5.8 L Albumin 2.1 L Albumin/Globulin Ratio 0.6 L Meds: Medications Acetaminophen (Tylenol) 650 mg PO Q4-6HP PRN PRN Reason: PAIN/FEVER > 101 Acetaminophen/Codeine Phosphate (Tylenol #3) 0 tab PO Q6HP PRN PRN Reason: PAIN LEVEL 3-6 Atropine Sulfate (Atropine Sulfate) 0 mg IV PRN PRN PRN Reason: Bradycardia Last Admin: 05/03/18 06:59 Dose: 0.5 mg Gabapentin (Neurontin) 400 mg PO QHS [facility] Last Admin: 05/02/18 21:39 Dose: 400 mg Heparin Sodium (Porcine) (Heparin Flush) 2 ml IV Q12 [facility] Last Admin: 05/02/18 21:39 Dose: 2 ml Hydrocortisone Sodium Succinate (Solu-Cortef) 50 mg IV Q8 [facility] Last Admin: 05/03/18 05:54 Dose: 50 mg Hydromorphone HCl (Dilaudid) 0.5 mg IV Q2HP PRN PRN Reason: PAIN LEVEL > 6 Last Admin: 05/03/18 06:18 Dose: 0.5 mg Dextrose (Dextrose 5% In Water) 1,000 mls @ 115 mls/hr IV .Q8H42M [facility] Last Admin: 05/03/18 01:31 Dose: 115 mls/hr Norepinephrine Bitartrate 16 (mg/ Sodium Chloride) 250 mls @ 9.37 mls/hr IV Q24HP PRN; Protocol PRN Reason: Hypotension Piperacillin Sod/Tazobactam (Sod 3.375 gm/ Dextrose) 50 mls @ 100 mls/hr IV Q6H [facility] Last Infusion: 05/03/18 07:00 Dose: Infused Vancomycin HCl 1,000 mg/ (Dextrose) 250 mls @ 250 mls/hr IV DAILY [facility] Potassium Chloride 40 meq/ (Dextrose) 270 mls @ 67.5 mls/hr IV ONCE ONE Stop: 05/03/18 10:02 Iron Carb/Multivit/[place]/Folic Acid (Multivitamin W/Minerals) 1 tab PO DAILY [facility] Lactobacillus Rhamnosus (Culturelle) 1 cap PO BID [facility] Last Admin: 05/02/18 21:38 Dose: 1 cap Levetiracetam (Keppra) 500 mg PO BID [facility] Last Admin: 05/02/18 21:38 Dose: 500 mg Naloxone HCl (Narcan) 0.1 mg IV Q2MIN PRN PRN Reason: Opiate Reversal Ondansetron HCl (Zofran) 4 mg IV Q4-6HP PRN PRN Reason: Nausea And Vomiting Potassium Chloride (Kdur) 40 meq PO ONCE ONE Stop: 05/03/18 06:03 Simvastatin (Zocor) 20 mg PO QPM [facility] Last Admin: 05/02/18 21:43 Dose: 20 mg Sodium Chloride (Saline Flush) 10 ml IV UD PRN PRN Reason: FLUSH Sodium Chloride (Saline Flush) 10 ml IV Q8 [facility] Last Admin: 05/03/18 05:54 Dose: 10 ml Sodium Chloride (Saline Flush) 10 ml IV Q12 [facility] Last Admin: 05/02/18 21:41 Dose: 10 ml Vancomycin HCl (Vancomycin Per Pharmacy) 1 order IV UD [facility] - ABG Interpretation ABG results: 04/30/18 16:05 ABG Methemoglobin 0.3 L VBG pH 7.24 L VBG pCO2 44.7 VBG pO2 108 H VBG HCO3 18.8 L VBG Total CO2 20.2 L VBG O2 Saturation 95.5 H VBG Base Excess -8.2 L Medical - PN: A/P - Time Spent With Patient Total time spent is greater than 50% in coordination of care (as documented) at patient's floor/unit and/or counseling patient: - Narrative A/P Narrative: A: *Acute epistaxis: s/p cauterization by Dr. Chanel *Acute blood loss anemia: 2/2 above -s/p 2PRBC (04/30), stable *Septic Shock: 2/2 UTI/PNA, resolved -leukocytosis improved -vasopressors off *Pneumonia (possible aspiration): -CXR improving -off oxygen supp *UTI (E. coli), complicated, neurogenic bladder (self-cath's): *Bacteremia (E. 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 diff -ppx: [facility] - PN: Qual - VTE Deep Vein Thrombosis/Pulmonary Embolism Present on Admission: No
[2018-05-03] MEDS ORDERED: POTASSIUM CHLORIDE 40 MEQ in DEXTROSE 5% IN WATER 250 ML IV ONE (08:00)
[2018-05-03] MEDS: LACTOBACILLUS 1 CAPSULE PO SCH ×2 (08:57→20:53)
[2018-05-03] MEDS: levETIRAcetam 500 MG TABLET PO SCH ×2 (08:57→20:53)
[2018-05-03] MEDS: MULTIVIT,THER IRON,CA,FA & MIN 1 TABLET PO SCH (08:58)
[2018-05-03] MEDS ORDERED: VANCOMYCIN 1,000 MG in DEXTROSE 5% IN WATER 250 ML IV SCH (09:00)
[2018-05-03] MEDS: ACETAMINOPHEN W/CODEINE #3 1 TABLET PO PRN ×3 (09:19→17:55)
--- NOTE | 2018-05-03 10:43 | Discharge Summary ---
Medical - DS: Prov Patient information: Note initiated : 05/03/18 at 10:37 am Service Date, if different from initiated Date: [] Patient: Rosalia Lozano 72 y/o F admitted on 04/30/18 for Bloody Nose/Epistaxis , Sepsis. Chief Complaint: [] Date of admission: 04/30/18 07:20 Discharge date: 05/04/18 Primary care physician: Alex Nolan Consults: 04/30/18 07:27 Consult to Physician [CONS] Stat Comment: Epistaxis Consulting Provider: Tra Chanel Reason For Exam: Physician to Consult Medical - DS: Meds - Discharge Medications Prescriptions: Ciprofloxacin [Cipro] 250 mg PO BID #6 tablet Lactobacillus [Culturelle] 1 cap PO BID #60 capsule Active and Home Medications: Home Medications budesonide-formoterol HFA 160 mcg-4.5 mcg/actuation aerosol inhaler 2 inh INHALATION BID #6 g 11/13/16 [Rx Confirmed 04/30/18 Last Taken 04/29/18] ipratropium-albuterol 0.5 mg-3 mg(2.5 mg base)/3 mL nebulization soln 3 ml INHALATION Q6H PRN #360 ml 02/28/17 [Rx Confirmed 04/30/18 Last Taken 04/29/18] lisinopril 20 mg tablet 20 mg PO QDAY #30 tab 11/19/17 [Rx Confirmed 04/30/18 Last Taken 04/29/18] aspirin 81 mg tablet,delayed release 81 mg PO QDAY 12/15/17 [History Confirmed 04/30/18 Last Taken 04/29/18] mecobalamin (vitamin B12) 1,000 mcg disintegrating tablet,sublingual 1,000 mcg SUBLINGUAL QDAY 12/15/17 [History Confirmed 04/30/18 Last Taken 04/29/18] multivitamin tablet 1 tab PO QDAY 12/15/17 [History Confirmed 04/30/18 Last Taken 04/29/18] potassium chloride ER 10 mEq capsule,extended release 10 meq PO BID #60 cap 07/28 [Rx Confirmed 04/30/18 Last Taken 04/29/18] gabapentin 400 mg capsule 400 mg PO QHS #90 cap 01/21/18 [Rx Confirmed 04/30/18 Last Taken 04/29/18] levetiracetam 500 mg tablet 500 mg PO Q12H #60 tab 01/21/18 [Rx Confirmed Last Taken 04/29/18] simvastatin 20 mg tablet 20 mg PO QPM #90 tab 01/27/18 [Rx Confirmed 04/30/18 Last Taken 04/29/18] acetaminophen 300 mg-codeine 30 mg tablet 2 tab PO Q6H PRN #240 tab 03/23/18 [ Rx Confirmed 04/30/18 Last Taken 04/29/18] Furosemide [Lasix] 20 mg PO DAILY 04/30/18 [History Confirmed 04/30/18 Last Taken 04/29/18 08:00] Furosemide [Lasix] 40 mg PO DAILY 04/30/18 [History Confirmed 04/30/18 Last Taken 04/29/18 08:00] Propranolol [Inderal LA] 80 mg PO DAILY 04/30/18 [History Confirmed 04/30/18 Last Taken 04/29/18] Medical - DS: Hosp Hospital course: Mr. Lozano is a 72 year old F Ms. 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 The patient reports that for the last few days she has not been feeling well, (as per ) she has MS and has been more foggy and her strength is decreased. She has right sided cva with left sided weakness. She was working with PT with some improvement, but over the last few days the weakness is come back. The patient has not had any sensation of infection, no fever, chills, no cough, no chest pain, shortness of breath, headaches or runny nose. Yesterday after noon, she started to have blood coming out of her left side of the nose, she denies any picking at the nose, but has been trying to apply pressure. This progressed over the night and eventually led the patient to come to the ER for further evaluation. The EMS had applied a nasal clamp, which was removed in the ER, the patient as per ER did not have any further episodes of bleeding, but the patient was lying on her back. The patient on presentation was afebrile T 97.7, HR 83 , BP 83/60, 92% on Room air wbc 20, hb 11.4, plat 106, PT 19, INR 1.7, chemistry showes K 7.4 , bicarb 16, creat 2.2, BUN 103, AG 18, Tprot 8.3, lac 2.1, UA postive leuk esterase CXR positive bi basilar infitrates Head ct neg for IC changes, but has left sided fluid level maxillary sinus, EKG does not show any peaked t wave changes Hyperkalemia protocol given in the ER, and ua, blood cx sent, pt advised for admission for sepsis with hypotenstion. PT bp had responed transietly to fluid challenge, but then bp dropped down again. to get 4 L fluid bolus. Patient continued to have posterior nasal bleed, Dr. Chanel was contacted, who cauterized the bleeding vessel. 05/01 States she did not sleep very well. Levophed restarted last night. Mild productive cough no shortness of breath. 05/02 slept well, feeling better. mild headache, minimal cough/dyspnea today, had some diarrhea yesterday and none today. 05/03 Complains of her MS pain. And slept poorly last night. Occasional cough, occasional bradycardia while sleeping asymptomatic. 05/05 unable to be placed to rehab yesterday. Slept better last night, has her MS pain but better than yesterday. stable for d/c Discharge diagnosis: Acute epistaxis posterior acute blood loss anemia septic shock aspiration p Secondary discharge diagnosis: Aspiration pneumonia E. coli UTI E. coli bacteremia multiple sclerosis with debility and poor functional status thrombocytopenia hyperkalemia hyper acute kidney injury on chronic kidney disease stage III-IV bradycardia cardia sinus seizure disorder COPD hypertension - Time Spent with Patient Total time spent providing and/or coordinating discharge services: Greater than 30 minutes Medical - DS: Exam - Constitutional Vitals: Vital Signs Temp Pulse Resp BP Pulse Ox 05/03/18 10:33 52 L 22 100 05/03/18 08:01 42 L 15 149/77 98 05/03/18 07:23 99 05/03/18 06:31 46 L 11 L 140/82 99 05/03/18 06:25 96.9 F L 52 L 15 140/82 96 05/03/18 04:01 97.6 F 12 161/72 98 05/03/18 00:01 12 140/57 98 05/02/18 20:14 97.2 F 18 154/82 99 05/02/18 15:24 53 L 16 98 05/02/18 15:01 97.6 F 58 L 14 128/72 98 05/02/18 14:01 60 15 129/67 96 05/02/18 13:02 51 L 21 129/73 99 05/02/18 12:02 52 L 14 133/71 98 05/02/18 11:43 57 L 15 137/70 98 05/02/18 11:35 96.9 F L 14 137/70 100 05/02/18 11:01 18 137/64 Intake and Output 05/02/18 05/03/18 05/03/18 21:59 05:59 13:59 Intake Total 1885 / 1885 1395 / 1395 964 / 964 Output Total 395 / 395 525 / 525 Balance 1490 / 1490 870 / 870 964 / 964 Intake: IV 1525 / 1525 1035 / 1035 964 / 964 Dextrose 5% in Water 1,000 ml @ 1000 / 1000 985 / 985 914 / 914 115 mls/hr IV .[id number] [facility] Rx#: [id number] Zosyn 3.375 gm In Dextrose 5% 100 / 100 50 / 50 50 / 50 in Water 50 ml @ 100 mls/hr IV Q6H [facility] Rx#:[id number] Oral 360 / 360 360 / 360 Output: Urine Catheter Amount 395 / 395 525 / 525 Other: Meal Dinner Percent of Meal Consumed 25% Feeding Ability Independent Urine Appearance Clear Clear Clear Uretheral (Smith) Clear Clear Urine Color Bright Yellow Bright Yellow Pale Uretheral (Smith) Pale Pale # of times incontinent of 1 Bowels Weight 69.309 kg Medical - DS: Data Labs on day of discharge: Labs from last 24 hours 05/03/18 05/03/18 05/02/18 04:00 04:00 15:34 WBC 11.3 H RBC 2.96 L Hgb 9.2 L Hct 27.6 L MCV 93.3 MCH 31.1 MCHC 33.3 RDW 16.9 H Plt Count 81 L MPV 9.3 Gran % 74.5 Lymph % (Auto) 20.8 [place] % (Auto) 4.2 Eos % (Auto) 0.2 Baso % (Auto) 0.3 Gran # 8.4 H Lymph # (Auto) 2.4 [place] # (Auto) 0.5 Eos # (Auto) 0 Baso # (Auto) 0 Sodium 141 143 Potassium 2.9 L* 3.4 Chloride 106 109 H Carbon Dioxide 24 23 Anion Gap 11.0 11.0 BUN 38 H 45 H Creatinine 1.2 H 1.5 H GFR Calculation 44 34 Glucose 180 H 210 H Uric Acid 5.2 Calcium 8.2 L 8.4 L Phosphorus 2.4 L Magnesium 1.9 Total Bilirubin < 0.2 Direct Bilirubin < 0.2 GGT 11 AST 29 ALT 25 Alkaline Phosphatase 78 Lactate Dehydrogenase 176 Total Protein 5.7 L Albumin 2.4 L Globulin 3.3 Albumin/Globulin Ratio 0.7 L Triglycerides 101 TSH 05/02/18 08:30 WBC RBC Hgb Hct MCV MCH MCHC RDW Plt Count MPV Gran % Lymph % (Auto) [place] % (Auto) Eos % (Auto) Baso % (Auto) Gran # Lymph # (Auto) [place] # (Auto) Eos # (Auto) Baso # (Auto) Sodium Potassium Chloride Carbon Dioxide Anion Gap BUN Creatinine GFR Calculation Glucose Uric Acid Calcium Phosphorus Magnesium Total Bilirubin Direct Bilirubin GGT AST ALT Alkaline Phosphatase Lactate Dehydrogenase Total Protein Albumin Globulin Albumin/Globulin Ratio Triglycerides TSH 4.25 Preliminary micro results at discharge 04/30/18 04:10 Blood Culture - Preliminary Blood Escherichia coli 04/30/18 04:00 Blood Culture - Preliminary Blood Gram negative bacillus Medical - DS: A/P - Patient/Caregiver Discharge Instructions Activity: as per physical therapy Diet: Regular Diet Additional Instructions: Referral see cardiology for sinus bradycardia 1-2-week Prescriptions: Ciprofloxacin [Cipro] 250 mg PO BID #6 tablet Lactobacillus [Culturelle] 1 cap PO BID #60 capsule Other Amb Orders: OT Discharge Order Location: None Selected Physical Therapy at Discharge - [facility] Location: None Selected ST Discharge Order Facility: [facility], Location: [facility] - Follow up Plan Follow up with: Alex Nolan MD [Primary Care Provider] - Disposition: Xfer SNF Prognosis: Fair Rehab Potential: Fair I certify that the patient requires SNF services: Yes Overall status at discharge: patient is progressing back to baseline Medical - DS: Qual - VTE Deep Vein Thrombosis/Pulmonary Embolism Present on Admission: No
[2018-05-03] MEDS: CIPROFLOXACIN 400 MG/200 ML BAG IV SCH ×2 (11:21→20:52)
[2018-05-03] MEDS ORDERED: THEOPHYLLINE ANHYDROUS 300 MG TAB.ER.12H PO ONE (14:45)
[2018-05-03] MEDS: LOPERAMIDE 2 MG CAPSULE PO PRN (18:28)
[2018-05-03] MEDS: GABAPENTIN 400 MG CAPSULE PO SCH (20:52)
[2018-05-03] MEDS: SIMVASTATIN 20 MG TABLET PO SCH (20:53)
[2018-05-04] MEDS: DEXTROSE 5% IN WATER 500 ML IV SCH (01:46)
[2018-05-04] MEDS: LOPERAMIDE 2 MG CAPSULE PO PRN ×3 (02:57→21:06)
[2018-05-04] MEDS: HYDROCORTISONE SOD SUCC 100 MG VIAL IV SCH ×3 (05:19→22:15)
[2018-05-04] MEDS: 0.9 % SODIUM CHLORIDE 10 ML SYRINGE IV SCH ×9 (05:20→22:34)
[2018-05-04 05:58] LABS: Basophils # (Auto) 0 K/mcL (0.0-0.3); Basophils % (Auto) 0.1 % (0.0-2.0); Eosinophils # (Auto) 0 K/mcL (0.0-0.7); Eosinophils % (Auto) 0.1 % (0.0-7.0); Granulocytes % (Auto) 73.6 % (38.0-78.0); Lymphocytes # (Auto) 2.1 K/mcL (1.5-4.8); Lymphocytes % (Auto) 22.1 % (15.5-49.0); Mean Cell Volume 93.3 fL (80.0-100.0); Mean Corpuscular HGB Conc 32.6 g/dL (31.0-36.0); Mean Corpuscular Hemoglobin 30.4 pg (26.0-34.0); Monocytes # (Auto) 0.4 K/mcL (0.1-0.9); Monocytes % (Auto) 4.1 % (1.0-12.0); Platelet Count 83 K/mcL (140-440); RBC 3.04 M/mcL (4.00-5.20); Red Cell Distribution Width 16.5 % (11.5-14.5)
[2018-05-04 06:04] LABS: ALT/SGPT 21 U/l (0-40); Albumin 2.5 gm/dL (3.2-5.2); Albumin/Globulin Ratio 0.8 (1.0-2.3); Alkaline Phosphatase 78 U/L (39-117); Bilirubin,Direct < 0.2 mg/dL (0.0-0.3); Blood Urea Nitrogen 29 mg/dl (8-23); Gamma Glutamyl Transpeptidase 11 U/L (5-36); Uric Acid 5.4 mg/dL (2.5-8.0)
--- NOTE | 2018-05-04 07:18 | Internal Med Progress Note ---
Medical - PN: Subj Patient information: Note initiated : 05/04/18 at 7:14 am Service Date, if different from initiated Date: [] Patient: Rosalia Lozano a 72 y/o F admitted on 04/30/18 for Bloody Nose/Epistaxis , Sepsis. Chief Complaint: [] Interval history: Ms. 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 The patient reports that for the last few days she has not been feeling well, (as per ) she has MS and has been more foggy and her strength is decreased. She has right sided cva with left sided weakness. She was working with PT with some improvement, but over the last few days the weakness is come back. The patient has not had any sensation of infection, no fever, chills, no cough, no chest pain, shortness of breath, headaches or runny nose. Yesterday after noon, she started to have blood coming out of her left side of the nose, she denies any picking at the nose, but has been trying to apply pressure. This progressed over the night and eventually led the patient to come to the ER for further evaluation. The EMS had applied a nasal clamp, which was removed in the ER, the patient as per ER did not have any further episodes of bleeding, but the patient was lying on her back. The patient on presentation was afebrile T 97.7, HR 83 , BP 83/60, 92% on Room air wbc 20, hb 11.4, plat 106, PT 19, INR 1.7, chemistry showes K 7.4 , bicarb 16, creat 2.2, BUN 103, AG 18, Tprot 8.3, lac 2.1, UA postive leuk esterase CXR positive bi basilar infitrates Head ct neg for IC changes, but has left sided fluid level maxillary sinus, EKG does not show any peaked t wave changes Hyperkalemia protocol given in the ER, and ua, blood cx sent, pt advised for admission for sepsis with hypotenstion. PT bp had responed transietly to fluid challenge, but then bp dropped down again. to get 4 L fluid bolus. Patient continued to have posterior nasal bleed, Dr. Chanel was contacted, who cauterized the bleeding vessel. 05/01 States she did not sleep very well. Levophed restarted last night. Mild productive cough no shortness of breath. 05/02 slept well, feeling better. mild headache, minimal cough/dyspnea today, had some diarrhea yesterday and none today. 05/03 Complains of her MS pain. And slept poorly last night. Occasional cough, occasional bradycardia while sleeping asymptomatic. 05/04 one episode of diarrhea last night given Imodium. Slept well no other issues. Review of Systems: denies headache/fever/chills/nausea/vomiting/chest or abdominal pain. Otherwise see above. - Constitutional Vitals: Vital Signs Temp Pulse Resp BP Pulse Ox 96.9 F L 41 L 16 143/74 95 05/04/18 04:02 05/03/18 12:05 05/04/18 04:28 05/04/18 04:02 05/04/18 04:28 Period Temp Pulse Resp BP Sys/[place]ancock Pulse Ox Last 24 Hr 96.2 F-97.3 F 41-52 14-24 143-168/73-88 94-100 Intake and Output 05/03/18 05/04/18 05/04/18 21:59 05:59 13:59 Intake Total 380 / 380 100 / 100 Output Total 1275 / 1275 800 / 800 Balance -895 / -895 -700 / -700 Weight 73.573 kg Intake & Output: Intake & Output 05/03/18 05/04/18 05/04/18 21:59 05:59 13:59 Intake Total 380 / 380 100 / 100 Output Total 1275 / 1275 800 / 800 Balance -895 / -895 -700 / -700 Weight 73.573 kg Intake: IV 200 / 200 Oral 180 / 180 100 / 100 Output: Urine Catheter Amount 1275 / 1275 800 / 800 Other: Urine Appearance Clear Clear Uretheral (Smith) Clear Urine Color Straw Straw Uretheral (Smith) Pale Stool Size Large Moderate Stool Color Black Brown Stool Consistency Liquid Loose # Bowel Movements 1 # of times incontinent of 1 Bowels Exam: General: Awake, No acute Distress HEENT: EOMI, Neck supple CV: nabila but regular, 2/6 SM Pulm: diminished b/l, no wheezing Abd: soft, nontender, +BS x4 Ext: no clubbing/cyanosis/edema Neuro: awaking up still a little drowsy, moves all extremities Skin: warm/dry Medical - PN: Obj Da - Labs CBC & Chem 7: 05/04/18 04:00 05/04/18 04:00 Labs: Abnormal Lab Results 05/04/18 05/04/18 05/03/18 04:00 04:00 04:00 WBC RBC 3.04 L Hgb 9.3 L Hct 28.4 L RDW 16.5 H Plt Count 83 L Gran # APTT Sodium Potassium 2.9 L* Chloride BUN 29 H 38 H Creatinine 1.2 H Glucose 115 H 180 H Calcium 8.4 L 8.2 L Phosphorus 2.3 L 2.4 L Total Protein 5.6 L 5.7 L Albumin 2.5 L 2.4 L Albumin/Globulin Ratio 0.8 L 0.7 L 05/03/18 05/02/18 05/02/18 04:00 15:34 04:00 WBC 11.3 H RBC 2.96 L Hgb 9.2 L Hct 27.6 L RDW 16.9 H Plt Count 81 L Gran # 8.4 H APTT 51 H Sodium Potassium Chloride 109 H BUN 45 H Creatinine 1.5 H Glucose 210 H Calcium 8.4 L Phosphorus Total Protein Albumin Albumin/Globulin Ratio 05/02/18 05/02/18 04:00 04:00 WBC RBC 2.90 L Hgb 8.9 L Hct 26.9 L RDW 16.7 H Plt Count 84 L Gran # APTT Sodium 149 H Potassium 2.8 L* Chloride 112 H BUN 53 H Creatinine 1.4 H Glucose 134 H Calcium 8.4 L Phosphorus Total Protein 5.6 L Albumin 2.3 L Albumin/Globulin Ratio 0.7 L Meds: Medications Acetaminophen (Tylenol) 650 mg PO Q4-6HP PRN PRN Reason: PAIN/FEVER > 101 Acetaminophen/Codeine Phosphate (Tylenol #3) 0 tab PO Q6HP PRN PRN Reason: PAIN LEVEL 3-6 Last Admin: 05/03/18 17:55 Dose: 2 tab Atropine Sulfate (Atropine Sulfate) 0 mg IV PRN PRN PRN Reason: Bradycardia Last Admin: 05/03/18 23:25 Dose: 0.5 mg Gabapentin (Neurontin) 400 mg PO QHS [facility] Last Admin: 05/03/18 20:52 Dose: 400 mg Hydrocortisone Sodium Succinate (Solu-Cortef) 50 mg IV Q8 [facility] Last Admin: 05/04/18 05:19 Dose: 50 mg Hydromorphone HCl (Dilaudid) 0.5 mg IV Q2HP PRN PRN Reason: PAIN LEVEL > 6 Last Admin: 05/03/18 06:18 Dose: 0.5 mg Norepinephrine Bitartrate 16 (mg/ Sodium Chloride) 250 mls @ 9.37 mls/hr IV Q24HP PRN; Protocol PRN Reason: Hypotension Ciprofloxacin (Cipro) 400 mg in 200 mls @ 200 mls/hr IV Q12H [facility] Last Infusion: 05/03/18 21:52 Dose: Infused Iron Carb/Multivit/Sprinkler Driver/Folic Acid (Multivitamin W/Minerals) 1 tab PO DAILY [facility] Last Admin: 05/03/18 08:58 Dose: 1 tab Lactobacillus Rhamnosus (Culturelle) 1 cap PO BID [facility] Last Admin: 05/03/18 20:53 Dose: 1 cap Levetiracetam (Keppra) 500 mg PO BID [facility] Last Admin: 05/03/18 20:53 Dose: 500 mg Loperamide HCl (Imodium) 2 mg PO PRN PRN PRN Reason: Diarrhea Last Admin: 05/04/18 02:57 Dose: 2 mg Naloxone HCl (Narcan) 0.1 mg IV Q2MIN PRN PRN Reason: Opiate Reversal Ondansetron HCl (Zofran) 4 mg IV Q4-6HP PRN PRN Reason: Nausea And Vomiting Simvastatin (Zocor) 20 mg PO QPM [facility] Last Admin: 05/03/18 20:53 Dose: 20 mg Sodium Chloride (Saline Flush) 10 ml IV UD PRN PRN Reason: FLUSH Sodium Chloride (Saline Flush) 10 ml IV Q12 [facility] Last Admin: 05/03/18 20:54 Dose: 10 ml Sodium Chloride (Saline Flush) 10 ml IV Q12 [facility] Sodium Chloride (Saline Flush) 10 ml IV Q8 [facility] Last Admin: 05/04/18 05:20 Dose: 10 ml - ABG Interpretation ABG results: 04/30/18 16:05 ABG Methemoglobin 0.3 L VBG pH 7.24 L VBG pCO2 44.7 VBG pO2 108 H VBG HCO3 18.8 L VBG Total CO2 20.2 L VBG O2 Saturation 95.5 H VBG Base Excess -8.2 L Medical - PN: A/P - Time Spent With Patient Total time spent is greater than 50% in coordination of care (as documented) at patient's floor/unit and/or counseling patient: - Narrative A/P Narrative: A: *Acute epistaxis: s/p cauterization by Dr. Chanel *Acute blood loss anemia: 2/2 above -s/p 2PRBC (04/30), stable *Septic Shock: 2/2 UTI/PNA, resolved -leukocytosis improved -vasopressors off *Pneumonia (possible aspiration): -f/u CXR improved -off oxygen supp *UTI (E. coli), complicated, neurogenic bladder (self-cath's): *Bacteremia (E. coli): 2/2 above *Multiple sclerosis/Debility/Poor functional status: wheelchair bound *Coagulopathy: 2/2 sepsis, improved *Thrombocytopenia, acute on chronic: 2/2 above, stable *Anion gap and non anion gap Met acidosis: improved *Acute Hyperkalemia: resolved, now hypokalemia and improved *Hypernatremia: sodium load in IVF's and Riders, resolved *CARMINA on CKD III-IV: improved with IVF's *Sinus nabila: asymptomatic *seizure d/o: *COPD (not on home O2@home): *HTN: home ACEI/lasix/propranolol, BP controlled w/o meds *diarrhea: c. diff neg P: -monitor for nasal bleeding -Cipro ,probiotics -IS/Acapella -monitor Potassium and prn supp -ACEI/lasix held for CARMINA, home BB held for sinus nabila, restart ACEI -pt/ot/cm for placement needs -prn imoduim -ppx: SCD d/c planning Medical - PN: Qual - VTE Deep Vein Thrombosis/Pulmonary Embolism Present on Admission: No
[2018-05-04] MEDS ORDERED: LISINOPRIL 10 MG TABLET PO SCH (09:00)
[2018-05-04] MEDS: LACTOBACILLUS 1 CAPSULE PO SCH ×2 (09:19→20:47)
[2018-05-04] MEDS: levETIRAcetam 500 MG TABLET PO SCH ×2 (09:19→20:47)
[2018-05-04] MEDS: MULTIVIT,THER IRON,CA,FA & MIN 1 TABLET PO SCH (09:19)
[2018-05-04] MEDS: CIPROFLOXACIN 400 MG/200 ML BAG IV SCH ×2 (09:20→20:46)
[2018-05-04] MEDS: ACETAMINOPHEN W/CODEINE #3 1 TABLET PO PRN ×3 (09:34→20:48)
[2018-05-04] MEDS ORDERED: HYDROcodone/APAP 5/325MG TABLET PO ONE (17:57)
[2018-05-04] MEDS: HYDROmorphone 2 MG/ML VIAL IV PRN (19:43)
[2018-05-04] MEDS: SIMVASTATIN 20 MG TABLET PO SCH (20:47)
[2018-05-04] MEDS: GABAPENTIN 400 MG CAPSULE PO SCH (20:48)
[2018-05-05] MEDS: HYDROCORTISONE SOD SUCC 100 MG VIAL IV SCH ×3 (05:39→21:59)
[2018-05-05] MEDS: ACETAMINOPHEN W/CODEINE #3 1 TABLET PO PRN ×4 (05:43→19:10)
--- NOTE | 2018-05-05 07:08 | Internal Med Progress Note ---
Medical - PN: Subj Patient information: Note initiated : 05/05/18 at 7:05 am Service Date, if different from initiated Date: [] Patient: Rosalia Lozano a 72 y/o F admitted on 04/30/18 for Bloody Nose/Epistaxis , Sepsis. Chief Complaint: [] Interval history: Ms. 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 The patient reports that for the last few days she has not been feeling well, (as per ) she has MS and has been more foggy and her strength is decreased. She has right sided cva with left sided weakness. She was working with PT with some improvement, but over the last few days the weakness is come back. The patient has not had any sensation of infection, no fever, chills, no cough, no chest pain, shortness of breath, headaches or runny nose. Yesterday after noon, she started to have blood coming out of her left side of the nose, she denies any picking at the nose, but has been trying to apply pressure. This progressed over the night and eventually led the patient to come to the ER for further evaluation. The EMS had applied a nasal clamp, which was removed in the ER, the patient as per ER did not have any further episodes of bleeding, but the patient was lying on her back. The patient on presentation was afebrile T 97.7, HR 83 , BP 83/60, 92% on Room air wbc 20, hb 11.4, plat 106, PT 19, INR 1.7, chemistry showes K 7.4 , bicarb 16, creat 2.2, BUN 103, AG 18, Tprot 8.3, lac 2.1, UA postive leuk esterase CXR positive bi basilar infitrates Head ct neg for IC changes, but has left sided fluid level maxillary sinus, EKG does not show any peaked t wave changes Hyperkalemia protocol given in the ER, and ua, blood cx sent, pt advised for admission for sepsis with hypotenstion. PT bp had responed transietly to fluid challenge, but then bp dropped down again. to get 4 L fluid bolus. Patient continued to have posterior nasal bleed, Dr. Chanel was contacted, who cauterized the bleeding vessel. 05/01 States she did not sleep very well. Levophed restarted last night. Mild productive cough no shortness of breath. 05/02 slept well, feeling better. mild headache, minimal cough/dyspnea today, had some diarrhea yesterday and none today. 05/03 Complains of her MS pain. And slept poorly last night. Occasional cough, occasional bradycardia while sleeping asymptomatic. 05/04 one episode of diarrhea last night given Imodium. Slept well no other issues. 05/05 unable to be placed to rehab yesterday. Slept better today, has her MS pain. Otherwise looking better. Review of Systems: denies fever/chills/nausea/vomiting/chest or abdominal pain. Otherwise see above. - Constitutional Vitals: Vital Signs Temp Pulse Resp BP Pulse Ox 96.6 F L 39 L 20 146/75 95 05/05/18 04:02 05/05/18 04:17 05/05/18 04:02 05/05/18 04:02 05/05/18 04:42 Period Temp Pulse Resp BP Sys/Hancock Pulse Ox Last 24 Hr 96.5 F-97.0 F 39-54 20-20 140-158/70-89 94-98 Intake and Output 05/04/18 05/05/18 05/05/18 21:59 05:59 13:59 Intake Total 1120 / 1120 50 / 50 Output Total 575 / 575 500 / 500 Balance 545 / 545 -450 / -450 Weight 72.303 kg Intake & Output: Intake & Output 05/04/18 05/05/18 05/05/18 21:59 05:59 13:59 Intake Total 1120 / 1120 50 / 50 Output Total 575 / 575 500 / 500 Balance 545 / 545 -450 / -450 Weight 72.303 kg Intake: IV 200 / 200 Oral 920 / 920 50 / 50 Output: Urine Catheter Amount 575 / 575 500 / 500 Other: Meal Lunch Percent of Meal Consumed 100% Urine Appearance Clear Clear Uretheral (Smith) Clear Urine Color Straw Straw Uretheral (Smith) Straw Urine Odor Normal Stool Size Moderate Stool Color Brown Stool Consistency Loose # of times incontinent of 1 Bowels Exam: General: Awake, No acute Distress HEENT: EOMI, Neck supple CV: nabila but regular, 2/6 SM Pulm: diminished b/l, no wheezing Abd: soft, nontender, +BS x4 Ext: no clubbing/cyanosis/edema Neuro: awake, alert, moves all extremities Skin: warm/dry Medical - PN: Obj Da - Labs CBC & Chem 7: 05/04/18 04:00 05/04/18 04:00 Labs: Abnormal Lab Results 05/04/18 05/04/18 05/03/18 04:00 04:00 04:00 WBC RBC 3.04 L Hgb 9.3 L Hct 28.4 L RDW 16.5 H Plt Count 83 L Gran # Potassium 2.9 L* Chloride BUN 29 H 38 H Creatinine 1.2 H Glucose 115 H 180 H Calcium 8.4 L 8.2 L Phosphorus 2.3 L 2.4 L Total Protein 5.6 L 5.7 L Albumin 2.5 L 2.4 L Albumin/Globulin Ratio 0.8 L 0.7 L 05/03/18 05/02/18 04:00 15:34 WBC 11.3 H RBC 2.96 L Hgb 9.2 L Hct 27.6 L RDW 16.9 H Plt Count 81 L Gran # 8.4 H Potassium Chloride 109 H BUN 45 H Creatinine 1.5 H Glucose 210 H Calcium 8.4 L Phosphorus Total Protein Albumin Albumin/Globulin Ratio Meds: Medications Acetaminophen (Tylenol) 650 mg PO Q4-6HP PRN PRN Reason: PAIN/FEVER > 101 Acetaminophen/Codeine Phosphate (Tylenol #3) 0 tab PO Q6HP PRN PRN Reason: PAIN LEVEL 3-6 Last Admin: 05/05/18 05:43 Dose: 2 tab Atropine Sulfate (Atropine Sulfate) 0 mg IV PRN PRN PRN Reason: Bradycardia Last Admin: 05/03/18 23:25 Dose: 0.5 mg Gabapentin (Neurontin) 400 mg PO QHS [facility] Last Admin: 05/04/18 20:48 Dose: 400 mg Hydrocortisone Sodium Succinate (Solu-Cortef) 50 mg IV Q8 [facility] Last Admin: 05/05/18 05:39 Dose: 50 mg Hydromorphone HCl (Dilaudid) 0.5 mg IV Q2HP PRN PRN Reason: PAIN LEVEL > 6 Last Admin: 05/04/18 19:43 Dose: 0.5 mg Norepinephrine Bitartrate 16 (mg/ Sodium Chloride) 250 mls @ 9.37 mls/hr IV Q24HP PRN; Protocol PRN Reason: Hypotension Ciprofloxacin (Cipro) 400 mg in 200 mls @ 200 mls/hr IV Q12H [facility] Last Infusion: 05/04/18 21:50 Dose: Infused Iron Carb/Multivit/[place]/Folic Acid (Multivitamin W/Minerals) 1 tab PO DAILY [facility] Last Admin: 05/04/18 09:19 Dose: 1 tab Lactobacillus Rhamnosus (Culturelle) 1 cap PO BID [facility] Last Admin: 05/04/18 20:47 Dose: 1 cap Levetiracetam (Keppra) 500 mg PO BID [facility] Last Admin: 05/04/18 20:47 Dose: 500 mg Lisinopril (Zestril) 10 mg PO DAILY [facility] Last Admin: 05/04/18 09:31 Dose: 10 mg Loperamide HCl (Imodium) 2 mg PO PRN PRN PRN Reason: Diarrhea Last Admin: 05/04/18 21:06 Dose: 2 mg Naloxone HCl (Narcan) 0.1 mg IV Q2MIN PRN PRN Reason: Opiate Reversal Ondansetron HCl (Zofran) 4 mg IV Q4-6HP PRN PRN Reason: Nausea And Vomiting Simvastatin (Zocor) 20 mg PO QPM [facility] Last Admin: 05/04/18 20:47 Dose: 20 mg Sodium Chloride (Saline Flush) 10 ml IV UD PRN PRN Reason: FLUSH Last Admin: 05/05/18 05:38 Dose: 10 ml Sodium Chloride (Saline Flush) 10 ml IV Q12 [facility] Last Admin: 05/04/18 20:47 Dose: 10 ml - ABG Interpretation ABG results: 04/30/18 16:05 ABG Methemoglobin 0.3 L VBG pH 7.24 L VBG pCO2 44.7 VBG pO2 108 H VBG HCO3 18.8 L VBG Total CO2 20.2 L VBG O2 Saturation 95.5 H VBG Base Excess -8.2 L Medical - PN: A/P - Time Spent With Patient Total time spent is greater than 50% in coordination of care (as documented) at patient's floor/unit and/or counseling patient: - Narrative A/P Narrative: A: *Acute epistaxis: s/p cauterization by Dr. Chanel *Acute blood loss anemia: 2/2 above -s/p 2PRBC (04/30), stable *Septic Shock: 2/2 UTI/PNA, resolved -leukocytosis improved -vasopressors off *Pneumonia (possible aspiration): -f/u CXR improved -off oxygen supp *UTI (E. coli), complicated, neurogenic bladder (self-cath's): *Bacteremia (E. 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 diff neg P: -monitor for nasal bleeding -Cipro ,probiotics -IS/Acapella -monitor Potassium and prn supp -ACEI/lasix held for CARMINA, home BB held for sinus nabila, restart ACEI -pt/ot/cm for placement needs -prn imoduim -ppx: SCD d/c planning Medical - PN: Qual - VTE Deep Vein Thrombosis/Pulmonary Embolism Present on Admission: No
[2018-05-05] MEDS: LACTOBACILLUS 1 CAPSULE PO SCH ×2 (08:51→20:29)
[2018-05-05] MEDS: levETIRAcetam 500 MG TABLET PO SCH ×2 (08:51→20:27)
[2018-05-05] MEDS: MULTIVIT,THER IRON,CA,FA & MIN 1 TABLET PO SCH (08:51)
[2018-05-05] MEDS: CIPROFLOXACIN 400 MG/200 ML BAG IV SCH ×2 (08:52→20:36)
[2018-05-05] MEDS: 0.9 % SODIUM CHLORIDE 10 ML SYRINGE IV SCH ×2 (08:52→20:37)
[2018-05-05] MEDS: LOPERAMIDE 2 MG CAPSULE PO PRN ×2 (08:55→20:33)
[2018-05-05] MEDS ORDERED: LISINOPRIL 10 MG TABLET PO SCH (09:00)
--- NOTE | 2018-05-05 10:25 | Consultation ---
DATE OF CONSULTATION: 05/05/2018 REQUESTING PHYSICIAN: Dr. Dale. REASON FOR CONSULTATION: Epistaxis. HISTORY OF PRESENT ILLNESS: The patient is a 72-year-old female with a medical history that consists of multiple sclerosis, stroke in November of this year, and a seizure disorder. She presented to the ER earlier on the morning of the with a nosebleed. For the last several days she has reported that she has not been feeling well and has been having some generalized weakness and some confusion. She has right-sided weakness from her previous stroke. Her nose at this point has been bleeding for approximately 20 hours out of the left side. She has been applying pressure to it. She denies any trauma. She is on some blood thinners for her stroke history. Currently, she is comfortable and there is no bleeding at this point. There is a clamp on her nose that the EMS had placed. PHYSICAL EXAMINATION: VITAL SIGNS: Afebrile 97.7 with a normal heart rate in the 80s and slightly hypotensive, blood pressure of 80/60. She is 90% on room air. GENERAL: She is a well-developed and nourished and in no distress. She is somewhat lethargic, but she is responsive to all questions appropriately. HEENT: Head relatively normal with no evidence of any trauma. Eyes show good muscle function bilaterally and pupils that are symmetric. She does have some blood in the left nostril, which is closed due to the large clot. Mouth has some blood that is dried on the teeth, but the oropharynx is dry of any fresh bleeding. Oral exam shows no lesions or anything worrisome. NECK: Normal with no lymphadenopathy or thyromegaly. LUNGS: Clear to auscultation on both sides. HEART: Regular with no obvious murmur. ABDOMEN: Soft, nontender as well as nondistended. EXTREMITIES: Showed no evidence of any cyanosis or clubbing. There was good skin turgor and good capillary refill. NEUROLOGIC: She has some sort of left facial weakness that is mild, with some left upper eyelid ptosis, some weakness in the right side but movement was appropriate everywhere. PSYCHIATRIC: She did have a normal affect and mood but was slightly lethargic as stated above. SKIN: Showed no ulcerations or wounds. No evidence of any jaundice or rashes. LABORATORY DATA: She did have an elevated white blood cell count of 20.4 with hemoglobin of 11.4, hematocrit 35.4. Platelets were low at 106. Chemistry-valdez she did have critically high potassium of 7.4 and did appear to be in some renal failure with a creatinine of 2.2 and a BUN of 103. PROCEDURE: The clamp was taken off the patient's left-sided nasal bleed. The nostril was opened up and a large clot was removed from the left side nasal cavity. The nose was inspected with a headlight and nasal speculum. There was bleeding out of the left anterior septum. I talked to the patient about using some silver nitrate cautery on the side to control the bleeding and she consented to that. The silver nitrate stick was then utilized to place some cautery in the area of the anterior septum on the left. Once that was done, a small Will pack was pushed in and placed over the area and infiltrated with some saline. There was no additional bleeding and the oropharynx was checked and was clear. The patient tolerated that nasal packing well. ASSESSMENT AND PLAN: 1. Acute epistaxis. 2. Sepsis with apparent shock. 3. Multiple sclerosis. 4. Hyperkalemia. 5. Acute renal failure. PLAN: The patient's epistaxis seems to be controlled at this point. I will continue to follow her peripherally if she does not have any additional bleeding. I have discussed taking the packing out in [address] Dale and to let me know if there are any issues at that time. Otherwise, her complex medical care can be continued by the intensive care team. I appreciate the consult and I have encouraged them to let me know if there are any additional issues. SP:rocio Job ID: [id number] Doc ID: [id number] Tra Chanel DO
[2018-05-05] MEDS ORDERED: ATROPINE SULFATE 1 MG/ML VIAL IV PRN (16:06)
[2018-05-05] MEDS ORDERED: ONDANSETRON 4 MG/2 ML VIAL IV PRN (16:06)
[2018-05-05] MEDS ORDERED: 0.9 % SODIUM CHLORIDE 10 ML SYRINGE IV PRN (16:06)
[2018-05-05] MEDS ORDERED: NOREPINEPHRINE BITARTRATE 16 MG in 0.9 % SODIUM CHLORIDE 234 ML IV PRN (16:06)
[2018-05-05] MEDS ORDERED: ACETAMINOPHEN 325 MG TABLET PO PRN (16:06)
[2018-05-05] MEDS ORDERED: NALOXONE HCL 0.4 MG/ML VIAL IV PRN (16:06)
[2018-05-05] MEDS: SIMVASTATIN 20 MG TABLET PO SCH (20:29)
[2018-05-05] MEDS: GABAPENTIN 400 MG CAPSULE PO SCH (20:29)
[2018-05-05] MEDS: HYDROmorphone 2 MG/ML VIAL IV PRN (21:50)
[2018-05-06] MEDS: ACETAMINOPHEN W/CODEINE #3 1 TABLET PO PRN ×3 (03:57→20:59)
[2018-05-06] MEDS: LOPERAMIDE 2 MG CAPSULE PO PRN (04:15)
[2018-05-06] MEDS: HYDROCORTISONE SOD SUCC 100 MG VIAL IV SCH ×3 (06:06→21:05)
[2018-05-06] MEDS ORDERED: POTASSIUM CHLORIDE 40 MEQ in DEXTROSE 5% IN WATER 250 ML IV ONE (08:08)
[2018-05-06] MEDS ORDERED: MAGNESIUM SULFATE 2 GM/50 ML BAG IV ONE (08:08)
[2018-05-06] MEDS: CIPROFLOXACIN 400 MG/200 ML BAG IV SCH (09:21)
[2018-05-06] MEDS: LISINOPRIL 10 MG TABLET PO SCH (09:22)
[2018-05-06] MEDS: MULTIVIT,THER IRON,CA,FA & MIN 1 TABLET PO SCH (09:22)
[2018-05-06] MEDS: LACTOBACILLUS 1 CAPSULE PO SCH ×2 (09:22→20:58)
[2018-05-06] MEDS: levETIRAcetam 500 MG TABLET PO SCH ×2 (09:22→21:00)
[2018-05-06 09:28] LABS: Basophils # (Auto) 0 K/mcL (0.0-0.3); Basophils % (Auto) 0 % (0.0-2.0); Eosinophils # (Auto) 0.1 K/mcL (0.0-0.7); Eosinophils % (Auto) 0.5 % (0.0-7.0); Granulocytes % (Auto) 76.9 % (38.0-78.0); Lymphocytes # (Auto) 2.3 K/mcL (1.5-4.8); Lymphocytes % (Auto) 17.5 % (15.5-49.0); Mean Cell Volume 93.9 fL (80.0-100.0); Mean Corpuscular HGB Conc 33.3 g/dL (31.0-36.0); Mean Corpuscular Hemoglobin 31.2 pg (26.0-34.0); Monocytes # (Auto) 0.7 K/mcL (0.1-0.9); Monocytes % (Auto) 5.1 % (1.0-12.0); Platelet Count 104 K/mcL (140-440); RBC 3.38 M/mcL (4.00-5.20); Red Cell Distribution Width 16.5 % (11.5-14.5)
[2018-05-06] MEDS: 0.9 % SODIUM CHLORIDE 10 ML SYRINGE IV SCH ×2 (09:28→21:05)
[2018-05-06 09:50] LABS: Blood Urea Nitrogen 38 mg/dl (8-23)
--- NOTE | 2018-05-06 10:01 | XRay Report ---
HISTORY: Sepsis, elevated white blood cell count and pulmonary infiltrates FINDINGS: There is moderate consolidation in the right lower lobe. There may be a superimposed small pleural effusion. A small infiltrate is seen in the left lung base behind the heart and above the diaphragm. These have become worse since the prior exam done on 04/30/18. A mild infiltrate is present in the right upper lobe above the minor fissure. This has improved. The heart size is within normal limits. There is no pulmonary vascular congestion. Right internal jugular line remains well-positioned. IMPRESSION: Worsening pneumonia with the greatest involvement in the right lower lobe Interpreted and Authenticated by: Fab Santana 05/06/18
[2018-05-06] MEDS: PIPERACILLIN SODIUM/TAZOBACTAM 3.375 GM in DEXTROSE 5% IN WATER 50 ML IV SCH ×2 (12:26→17:09)
--- NOTE | 2018-05-06 13:16 | Internal Med Progress Note ---
Medical - PN: Subj Patient information: Note initiated : 05/06/18 at 1:10 pm Service Date, if different from initiated Date: [] Patient: Rosalia Lozano a 72 y/o F admitted on 04/30/18 for Bloody Nose/Epistaxis , Sepsis. Chief Complaint: [] Interval history: Ms. 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 The patient reports that for the last few days she has not been feeling well, (as per ) she has MS and has been more foggy and her strength is decreased. She has right sided cva with left sided weakness. She was working with PT with some improvement, but over the last few days the weakness is come back. The patient has not had any sensation of infection, no fever, chills, no cough, no chest pain, shortness of breath, headaches or runny nose. Yesterday after noon, she started to have blood coming out of her left side of the nose, she denies any picking at the nose, but has been trying to apply pressure. This progressed over the night and eventually led the patient to come to the ER for further evaluation. The EMS had applied a nasal clamp, which was removed in the ER, the patient as per ER did not have any further episodes of bleeding, but the patient was lying on her back. The patient on presentation was afebrile T 97.7, HR 83 , BP 83/60, 92% on Room air wbc 20, hb 11.4, plat 106, PT 19, INR 1.7, chemistry showes K 7.4 , bicarb 16, creat 2.2, BUN 103, AG 18, Tprot 8.3, lac 2.1, UA postive leuk esterase CXR positive bi basilar infitrates Head ct neg for IC changes, but has left sided fluid level maxillary sinus, EKG does not show any peaked t wave changes Hyperkalemia protocol given in the ER, and ua, blood cx sent, pt advised for admission for sepsis with hypotenstion. PT bp had responed transietly to fluid challenge, but then bp dropped down again. to get 4 L fluid bolus. Patient continued to have posterior nasal bleed, Dr. Chanel was contacted, who cauterized the bleeding vessel. 05/01 States she did not sleep very well. Levophed restarted last night. Mild productive cough no shortness of breath. 05/02 slept well, feeling better. mild headache, minimal cough/dyspnea today, had some diarrhea yesterday and none today. 05/03 Complains of her MS pain. And slept poorly last night. Occasional cough, occasional bradycardia while sleeping asymptomatic. 05/04 one episode of diarrhea last night given Imodium. Slept well no other issues. 05/05 unable to be placed to rehab yesterday. Slept better today, has her MS pain. Otherwise looking better. 05/06 Patient seen examined, no acute overnight issues, tolerating po well, still quite weak labs reviewed, WBC Trended up again, chemistry stable X ray chest shows right sided effusion, worsening pna switch IV cipro to zosyn, nasal mrsa neg, so vanco not added pleural tap to be done by radiology Pertinent ROS: Denies headache, dizziness Denies chest pain, palpitations present cough and shortness of breath Denies abdominal pain, nausea or vomiting. gen aches - Constitutional Vitals: Vital Signs Temp Pulse Resp BP Pulse Ox 98.3 F 65 14 159/75 93 05/06/18 11:33 05/06/18 11:33 05/06/18 11:33 05/06/18 11:33 05/06/18 11:33 Period Temp Pulse Resp BP Sys/Hancock Pulse Ox Last 24 Hr 97.1 F-98.3 F 61-71 14-18 125-175/73-93 93-95 Intake and Output 05/05/18 05/06/18 05/06/18 21:59 05:59 13:59 Intake Total 380 / 380 Output Total 450 / 450 550 / 550 Balance -450 / -450 -170 / -170 Weight 162 lb Intake & Output: Intake & Output 05/05/18 05/06/18 05/06/18 21:59 05:59 13:59 Intake Total 380 / 380 Output Total 450 / 450 550 / 550 Balance -450 / -450 -170 / -170 Weight 162 lb Intake: IV 200 / 200 Oral 180 / 180 Output: Urine Catheter Amount 550 / 550 Void Amount 450 / 450 Other: Urine Appearance Clear Clear Uretheral (Smith) Clear Clear Urine Color Straw Straw Uretheral (Smith) Bright Yellow Bright Yellow Urine Odor Normal Normal Stool Size Moderate Moderate Stool Color Black Black Stool Consistency Loose Liquid Liquid # of times incontinent of 1 1 Bowels Exam: Constitutional; Afebrile, cooperative, alert, not in distress. Respiratory system: Air Entry decreased on right base,bibasilar mild crackles, no wheezing, no rhonchi. CVS- Rate rhythm regular, S1,S2 heard, no gallop, no rub. 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 Medical - PN: Obj Da - Labs CBC & Chem 7: 05/06/18 08:43 05/06/18 08:43 Labs: Abnormal Lab Results 05/06/18 05/06/18 05/04/18 08:43 08:43 04:00 WBC 13.2 H RBC 3.38 L Hgb 10.6 L Hct 31.8 L RDW 16.5 H Plt Count 104 L Gran # 10.1 H BUN 38 H 29 H Creatinine 1.2 H Glucose 160 H 115 H Calcium 8.4 L Phosphorus 2.3 L Total Protein 5.6 L Albumin 2.5 L Albumin/Globulin Ratio 0.8 L 05/04/18 04:00 WBC RBC 3.04 L Hgb 9.3 L Hct 28.4 L RDW 16.5 H Plt Count 83 L Gran # BUN Creatinine Glucose Calcium Phosphorus Total Protein Albumin Albumin/Globulin Ratio Meds: Medications Acetaminophen (Tylenol) 650 mg PO Q4-6HP PRN PRN Reason: PAIN/FEVER > 101 Last Admin: 05/06/18 09:22 Dose: 650 mg Acetaminophen/Codeine Phosphate (Tylenol #3) 0 tab PO Q6HP PRN PRN Reason: PAIN LEVEL 3-6 Last Admin: 05/06/18 12:25 Dose: 2 tab Atropine Sulfate (Atropine Sulfate) 0 mg IV PRN PRN PRN Reason: Bradycardia Gabapentin (Neurontin) 400 mg PO QHS [facility] Last Admin: 05/05/18 20:29 Dose: 400 mg Hydrocortisone Sodium Succinate (Solu-Cortef) 50 mg IV Q8 [facility] Last Admin: 05/06/18 06:06 Dose: 50 mg Hydromorphone HCl (Dilaudid) 0.5 mg IV Q2HP PRN PRN Reason: PAIN LEVEL > 6 Last Admin: 05/05/18 21:50 Dose: 0.5 mg Norepinephrine Bitartrate 16 (mg/ Sodium Chloride) 250 mls @ 9.37 mls/hr IV Q24HP PRN; Protocol PRN Reason: Hypotension Piperacillin Sod/Tazobactam (Sod 3.375 gm/ Dextrose) 50 mls @ 100 mls/hr IV Q6H [facility] Last Admin: 05/06/18 12:26 Dose: 100 mls/hr Iron Carb/Multivit/[employer]/Folic Acid (Multivitamin W/Minerals) 1 tab PO DAILY [facility] Last Admin: 05/06/18 09:22 Dose: 1 tab Lactobacillus Rhamnosus (Culturelle) 1 cap PO BID [facility] Last Admin: 05/06/18 09:22 Dose: 1 cap Levetiracetam (Keppra) 500 mg PO BID [facility] Last Admin: 05/06/18 09:22 Dose: 500 mg Lisinopril (Zestril) 20 mg PO DAILY [facility] Last Admin: 05/06/18 09:22 Dose: 20 mg Loperamide HCl (Imodium) 2 mg PO PRN PRN PRN Reason: Diarrhea Last Admin: 05/06/18 04:15 Dose: 2 mg Naloxone HCl (Narcan) 0.1 mg IV Q2MIN PRN PRN Reason: Opiate Reversal Ondansetron HCl (Zofran) 4 mg IV Q4-6HP PRN PRN Reason: Nausea And Vomiting Simvastatin (Zocor) 20 mg PO QPM [facility] Last Admin: 05/05/18 20:29 Dose: 20 mg Sodium Chloride (Saline Flush) 10 ml IV UD PRN PRN Reason: FLUSH Sodium Chloride (Saline Flush) 10 ml IV Q12 [facility] Last Admin: 05/06/18 09:28 Dose: 10 ml - ABG Interpretation ABG results: 04/30/18 16:05 ABG Methemoglobin 0.3 L VBG pH 7.24 L VBG pCO2 44.7 VBG pO2 108 H VBG HCO3 18.8 L VBG Total CO2 20.2 L VBG O2 Saturation 95.5 H VBG Base Excess -8.2 L Medical - PN: A/P - Time Spent With Patient Total time spent is greater than 50% in coordination of care (as documented) at patient's floor/unit and/or counseling patient: - Narrative A/P Narrative: A: *Acute epistaxis: s/p cauterization by Dr. Chanel *Acute blood loss anemia: 2/2 above -s/p 2PRBC (04/30), stable *Septic Shock: 2/2 UTI/PNA, resolved -leukocytosis improved -vasopressors off *Pneumonia (possible aspiration): -f/u CXR improved -off oxygen supp -repeat cxr on 05/06 shows worsening pna, with right sided pleural effusion *pleural effusion, right sided *UTI (E. coli), complicated, neurogenic bladder (self-cath's): *Bacteremia (E. 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 diff neg P: -no more nasal bleed -repeat blood cultures, d/c cipro, start on zosyn -US guided thoracocentesis by radiology, send fluid for analysis -continue with IS/Acapella -monitor Potassium and prn supp -ACEI/lasix held for CARMINA, home BB held for sinus nabila, restart ACEI -pt/ot/cm for placement needs, will d/c whem stable. -prn imoduim -ppx: SCD Medical - PN: Qual - VTE Deep Vein Thrombosis/Pulmonary Embolism Present on Admission: No
--- NOTE | 2018-05-06 13:45 | XRay Report ---
HISTORY: Post right-sided thoracentesis FINDINGS: There is improved aeration of the right lower lobe following the preceding thoracentesis. Nearly all of the pleural fluid has been removed. There is no pneumothorax. Small streaky infiltrates in the left lower lobe and above the minor fissure remains stable. The heart size is prominent. IMPRESSION: No complication following right-sided thoracentesis Interpreted and Authenticated by: Fab Santana 05/06/18
--- NOTE | 2018-05-06 14:02 | Ultrasound Report ---
CLINICAL INFORMATION: Right-sided pleural effusion and right lower lobe infiltrate TECHNIQUE: The procedure and risks were explained and the patient consented. Ultrasound reveals a moderate-sized pleural effusion in the right lower thorax. The skin over the right back was prepped with ChloraPrep and then anesthetized with 1% lidocaine. Using ultrasound guidance a Yueh needle was inserted into the pleural space. 540 cc of ramandeep-colored fluid was drained and sent to laboratory for analysis. There is a trace amount of residual pleural fluid at the end of the procedure. She tolerated the procedure well without complication. IMPRESSION: Successful right-sided thoracentesis removing 540 cc of fluid Interpreted and Authenticated by: Fab Santana 05/06/18
[2018-05-06 14:45] LABS: pH,Body Fluid 7.56
[2018-05-06 14:54] LABS: Glucose,Pleural Fluid 146 mg/dL; LDH,Pleural Fluid 69 U/L
[2018-05-06 15:51] LABS: Appearance,Pleural Fluid HAZY; Color,Pleural Fluid YELLOW; Lymphocytes,Pleural Fluid 55 %; Monocytes,Pleural Fluid 1 %; Neutrophils,Pleural Fluid 30 %; Nucleated Cells,Pleural Fld 452 /cumm; RBC,Pleural Fluid < 50000 /cumm
[2018-05-06] MEDS: HYDROmorphone 2 MG/ML VIAL IV PRN (17:07)
[2018-05-06] MEDS: SIMVASTATIN 20 MG TABLET PO SCH (20:59)
[2018-05-06] MEDS: GABAPENTIN 400 MG CAPSULE PO SCH (20:59)
[2018-05-07] MEDS: PIPERACILLIN SODIUM/TAZOBACTAM 3.375 GM in DEXTROSE 5% IN WATER 50 ML IV SCH ×3 (00:20→12:42)
[2018-05-07] MEDS: ACETAMINOPHEN W/CODEINE #3 1 TABLET PO PRN ×2 (04:46→10:45)
[2018-05-07] MEDS: HYDROCORTISONE SOD SUCC 100 MG VIAL IV SCH (05:26)
[2018-05-07 07:04] LABS: Basophils # (Auto) 0 K/mcL (0.0-0.3); Basophils % (Auto) 0.1 % (0.0-2.0); Eosinophils # (Auto) 0 K/mcL (0.0-0.7); Eosinophils % (Auto) 0.1 % (0.0-7.0); Granulocytes % (Auto) 73.2 % (38.0-78.0); Lymphocytes # (Auto) 2.5 K/mcL (1.5-4.8); Lymphocytes % (Auto) 20.2 % (15.5-49.0); Mean Cell Volume 93.4 fL (80.0-100.0); Mean Corpuscular HGB Conc 32.8 g/dL (31.0-36.0); Mean Corpuscular Hemoglobin 30.6 pg (26.0-34.0); Monocytes # (Auto) 0.8 K/mcL (0.1-0.9); Monocytes % (Auto) 6.4 % (1.0-12.0); Platelet Count 101 K/mcL (140-440); RBC 2.84 M/mcL (4.00-5.20); Red Cell Distribution Width 16.7 % (11.5-14.5)
[2018-05-07 07:42] LABS: ALT/SGPT 17 U/l (0-40); Albumin 2.5 gm/dL (3.2-5.2); Albumin/Globulin Ratio 0.8 (1.0-2.3); Alkaline Phosphatase 65 U/L (39-117); Bilirubin,Direct < 0.2 mg/dL (0.0-0.3); Blood Urea Nitrogen 36 mg/dl (8-23); Gamma Glutamyl Transpeptidase 11 U/L (5-36); Uric Acid 6.6 mg/dL (2.5-8.0)
[2018-05-07] MEDS: levETIRAcetam 500 MG TABLET PO SCH (08:06)
[2018-05-07] MEDS: LISINOPRIL 10 MG TABLET PO SCH (08:06)
[2018-05-07] MEDS: MULTIVIT,THER IRON,CA,FA & MIN 1 TABLET PO SCH (08:06)
[2018-05-07] MEDS: LACTOBACILLUS 1 CAPSULE PO SCH (08:06)
--- NOTE | 2018-05-07 08:28 | Infectious Disease Consult ---
History of Present Illness Patient information: Note initiated : 05/07/18 at 8:25 am Service Date, if different from initiated Date: [] Patient: Rosalia Lozano 72 y/o F admitted on 04/30/18 for Bloody Nose/Epistaxis , Sepsis. 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 Part of the Hx is obtained from the pt, , and review of records. Pt was admitted to ER on 04/30 after noticing sudden onset nose bleed. She was having some lower belly pain before admission. Denied any other symptoms. In the ED, pt continued to have posterior nasal bleed, for which ENT was consulted and cauterized. Her BP was quite low, ~ 83/60s, with other VS normal. WBC came back at 20k, Hb 11.4, plat 106, PT 19, INR 1.7, chemistry showes K 7.4 , bicarb 16, creat 2.2, BUN 103, AG 18, Tprot 8.3, lac 2.1. Patient continued to be hypotensive despite IV fluids and required pressors initially and admission to ICU. Blood cultures and urine cultures sent at admission review E. coli [pansensitive]. patient was initially on Vanco and Zosyn and subsequently switched to Zosyn only. Patient was planned for discharge on 04 May, but repeat chest x-ray on the showed bibasilar infiltrates and right-sided pleural effusion. The effusion was tapped yesterday with preliminary analysis showing it to be transudative, negative Gram stain and cultures pending. ID was consulted yesterday afternoon for final recommendations on treating E. coli bacteremia. At time of visit today patient reported feeling better than at admission, but still she wanted the right IJ pulled out. She denied any fever, chills, chest pain, cough, shortness of breath. She endorsed diarrhea which has been going on ever since she was started on antibiotics. Of note C. difficile was checked around 03 May and was negative. Patient was clueless about what could have caused the seeding of her bloodstream. She specifically said that she did not had any signs and symptoms suggestive of a UTI before admission. She uses self catheter [given her neurogenic bladder] about 4-5 times a day. He uses a new catheter each time. She also mentioned that she had some pressure sores on her buttocks which may have been exposed to feces. Currently she has home care with a home health aide coming to her home for wound care. Review of Systems All systems PM: reviewed and no additional remarkable complaints except as stated Past History Past medical history: As mentioned in the HPI Past family history: Not pertinent for current presentation Past social history: Lives with her in [place] Medications and Allergies Home Medications Medication Instructions Recorded Confirmed Type budesonide-formoterol HFA 160 2 inh INHALATION BID #6 g 11/13/16 04/30/18 Rx mcg-4.5 mcg/actuation aerosol inhaler ipratropium-albuterol 0.5 mg-3 3 ml INHALATION Q6H PRN #360 ml 02/28/17 Rx mg(2.5 mg base)/3 mL nebulization soln lisinopril 20 mg tablet 20 mg PO QDAY #30 tab 11/19/17 04/30/18 Rx aspirin 81 mg tablet,delayed 81 mg PO QDAY 12/15/17 04/30/18 History release mecobalamin (vitamin B12) 1,000 1,000 mcg SUBLINGUAL QDAY 12/15/17 04/30/18 History mcg disintegrating tablet,sublingual multivitamin tablet 1 tab PO QDAY 12/15/17 04/30/18 History potassium chloride ER 10 mEq 10 meq PO BID #60 cap 01/20/18 04/30/18 Rx capsule,extended release gabapentin 400 mg capsule 400 mg PO QHS #90 cap 01/21/18 04/30/18 Rx levetiracetam 500 mg tablet 500 mg PO Q12H #60 tab 01/21/18 04/30/18 Rx simvastatin 20 mg tablet 20 mg PO QPM #90 tab 01/27/18 04/30/18 Rx Lactobacillus [Culturelle] 1 cap PO BID #60 capsule 05/03/18 Rx Acetaminophen with Codeine 2 tab PO Q6H PRN #40 tab 05/07/18 Rx [Acetaminophen-Cod #3 Tablet] Levofloxacin [Levaquin] 750 mg PO DAILY #8 tab 05/07/18 Rx Loperamide [Imodium] 2 mg PO PRN PRN capsule 05/07/18 Rx Nystatin 500,000 units SSW TID #150 ml 05/07/18 Rx predniSONE [Prednisone] 5 mg PO [facility] #21 tab 05/07/18 Rx Allergies Allergy/AdvReac Type Severity Reaction Status Date / Time No Known Drug Allergies Allergy Verified 01/20/18 15:15 Physical Examination Vital signs: Temp Pulse Resp BP Pulse Ox 37.0 C 52 L 14 167/76 92 05/07/18 07:15 05/07/18 07:15 05/07/18 07:15 05/07/18 07:15 05/07/18 07:15 General appearance: no acute distress, alert Eyes pulmonary: nonicteric ENT: other (Has oral thrush) Neck: no lymphadenopathy Auscultation: bilateral: diminished breath sounds, rales (Decreased breath sounds at bases) Cardiovascular: regular rate and rhythm Gastrointestinal: normoactive bowel sounds, non-tender Extremities: no edema Results - Laboratory Findings CBC and BMP: 05/07/18 11:02 05/07/18 05:28 PT/INR, D-dimer PT 14.1 sec (11.9-14.5) 05/02/18 04:00 INR 1.1 (0.9-1.1) 05/02/18 04:00 D-Dimer 1.55 ug/ml (0.00-0.40) H 04/30/18 07:40 Abnormal lab findings: Abnormal Labs 04/30/18 04/30/18 04/30/18 03:30 03:30 03:45 WBC RBC Hgb Hct RDW Plt Count MPV Gran % Lymph % (Auto) Gran # Lymph # (Auto) Seg Neutrophils % Lymphocytes % POC PT 19.5 H POC INR 1.7 H APTT Fibrinogen D-Dimer ABG Methemoglobin VBG pH VBG pO2 VBG HCO3 VBG Total CO2 VBG O2 Saturation VBG Base Excess Carboxyhemoglobin Total Hemoglobin Sodium POC Potassium 7.1 H* Potassium 7.4 H* POC Chloride 111 H Chloride Carbon Dioxide 16 L POC Total CO2 19 L Anion Gap 18.0 H POC BUN 93 H BUN 103 H* Creatinine 2.2 H POC Creatinine 2.2 H Glucose 139 H POC Glucose 138 H Calcium Phosphorus AST 38 H Lactate Dehydrogenase Troponin T Total Protein 8.5 H Albumin Globulin 5.3 H Albumin/Globulin Ratio 0.6 L Urine Protein Urine Occult Blood Ur Leukocyte Esterase Urine RBC Urine WBC Urine Bacteria Hyaline Casts 04/30/18 04/30/18 04/30/18 03:50 04:10 07:40 WBC 20.4 H 13.9 H RBC 3.69 L 2.62 L Hgb 11.4 L 8.3 L Hct 35.4 L 25.1 L RDW 15.3 H 15.1 H Plt Count 106 L 80 L MPV 11.9 H 10.8 H Gran % 85.1 H Lymph % (Auto) 9.4 L Gran # 11.9 H Lymph # (Auto) 1.3 L Seg Neutrophils % 84 H Lymphocytes % 8 L POC PT POC INR APTT Fibrinogen D-Dimer ABG Methemoglobin VBG pH VBG pO2 VBG HCO3 VBG Total CO2 VBG O2 Saturation VBG Base Excess Carboxyhemoglobin Total Hemoglobin Sodium POC Potassium Potassium POC Chloride Chloride Carbon Dioxide POC Total CO2 Anion Gap POC BUN BUN Creatinine POC Creatinine Glucose POC Glucose Calcium Phosphorus AST Lactate Dehydrogenase Troponin T Total Protein Albumin Globulin Albumin/Globulin Ratio Urine Protein 100 A Urine Occult Blood 0.03 A Ur Leukocyte Esterase 500 A Urine RBC 7 H Urine WBC 84 H Urine Bacteria Few A Hyaline Casts 8 H 04/30/18 04/30/18 04/30/18 07:40 07:40 07:40 WBC RBC Hgb Hct RDW Plt Count MPV Gran % Lymph % (Auto) Gran # Lymph # (Auto) Seg Neutrophils % Lymphocytes % POC PT POC INR APTT 61 H Fibrinogen 563 H D-Dimer 1.55 H ABG Methemoglobin VBG pH VBG pO2 VBG HCO3 VBG Total CO2 VBG O2 Saturation VBG Base Excess Carboxyhemoglobin Total Hemoglobin Sodium POC Potassium Potassium 5.3 H POC Chloride Chloride 113 H Carbon Dioxide 19 L POC Total CO2 Anion Gap POC BUN BUN 88 H Creatinine 1.9 H POC Creatinine Glucose POC Glucose Calcium Phosphorus 5.8 H AST Lactate Dehydrogenase Troponin T Total Protein 5.8 L Albumin 2.1 L Globulin Albumin/Globulin Ratio 0.6 L Urine Protein Urine Occult Blood Ur Leukocyte Esterase Urine RBC Urine WBC Urine Bacteria Hyaline Casts 04/30/18 04/30/18 04/30/18 10:36 10:36 16:05 WBC RBC Hgb Hct RDW Plt Count MPV Gran % Lymph % (Auto) Gran # Lymph # (Auto) Seg Neutrophils % Lymphocytes % POC PT POC INR APTT Fibrinogen D-Dimer ABG Methemoglobin 0.3 L VBG pH 7.24 L VBG pO2 108 H VBG HCO3 18.8 L VBG Total CO2 20.2 L VBG O2 Saturation 95.5 H VBG Base Excess -8.2 L Carboxyhemoglobin 1.9 H Total Hemoglobin 10.5 L Sodium POC Potassium Potassium POC Chloride Chloride 112 H Carbon Dioxide 17 L POC Total CO2 Anion Gap POC BUN BUN 83 H Creatinine 1.7 H POC Creatinine Glucose 174 H POC Glucose Calcium Phosphorus AST Lactate Dehydrogenase Troponin T 0.04 H* Total Protein Albumin Globulin Albumin/Globulin Ratio Urine Protein Urine Occult Blood Ur Leukocyte Esterase Urine RBC Urine WBC Urine Bacteria Hyaline Casts 05/01/18 05/01/18 05/02/18 04:00 04:00 04:00 WBC 12.7 H RBC 3.12 L 2.90 L Hgb 9.8 L 8.9 L Hct 29.2 L 26.9 L RDW 17.4 H 16.7 H Plt Count 96 L 84 L MPV Gran % 84.3 H Lymph % (Auto) 13.1 L Gran # 10.7 H Lymph # (Auto) Seg Neutrophils % Lymphocytes % POC PT POC INR APTT Fibrinogen D-Dimer ABG Methemoglobin VBG pH VBG pO2 VBG HCO3 VBG Total CO2 VBG O2 Saturation VBG Base Excess Carboxyhemoglobin Total Hemoglobin Sodium 146 H POC Potassium Potassium POC Chloride Chloride 110 H Carbon Dioxide POC Total CO2 Anion Gap POC BUN BUN 64 H Creatinine 1.5 H POC Creatinine Glucose 130 H POC Glucose Calcium 8.4 L Phosphorus AST Lactate Dehydrogenase Troponin T Total Protein 5.8 L Albumin 2.3 L Globulin Albumin/Globulin Ratio 0.7 L Urine Protein Urine Occult Blood Ur Leukocyte Esterase Urine RBC Urine WBC Urine Bacteria Hyaline Casts 05/02/18 05/02/18 05/02/18 04:00 04:00 15:34 WBC RBC Hgb Hct RDW Plt Count MPV Gran % Lymph % (Auto) Gran # Lymph # (Auto) Seg Neutrophils % Lymphocytes % POC PT POC INR APTT 51 H Fibrinogen D-Dimer ABG Methemoglobin VBG pH VBG pO2 VBG HCO3 VBG Total CO2 VBG O2 Saturation VBG Base Excess Carboxyhemoglobin Total Hemoglobin Sodium 149 H POC Potassium Potassium 2.8 L* POC Chloride Chloride 112 H 109 H Carbon Dioxide POC Total CO2 Anion Gap POC BUN BUN 53 H 45 H Creatinine 1.4 H 1.5 H POC Creatinine Glucose 134 H 210 H POC Glucose Calcium 8.4 L 8.4 L Phosphorus AST Lactate Dehydrogenase Troponin T Total Protein 5.6 L Albumin 2.3 L Globulin Albumin/Globulin Ratio 0.7 L Urine Protein Urine Occult Blood Ur Leukocyte Esterase Urine RBC Urine WBC Urine Bacteria Hyaline Casts 05/03/18 05/03/18 05/04/18 04:00 04:00 04:00 WBC 11.3 H RBC 2.96 L 3.04 L Hgb 9.2 L 9.3 L Hct 27.6 L 28.4 L RDW 16.9 H 16.5 H Plt Count 81 L 83 L MPV Gran % Lymph % (Auto) Gran # 8.4 H Lymph # (Auto) Seg Neutrophils % Lymphocytes % POC PT POC INR APTT Fibrinogen D-Dimer ABG Methemoglobin VBG pH VBG pO2 VBG HCO3 VBG Total CO2 VBG O2 Saturation VBG Base Excess Carboxyhemoglobin Total Hemoglobin Sodium POC Potassium Potassium 2.9 L* POC Chloride Chloride Carbon Dioxide POC Total CO2 Anion Gap POC BUN BUN 38 H Creatinine 1.2 H POC Creatinine Glucose 180 H POC Glucose Calcium 8.2 L Phosphorus 2.4 L AST Lactate Dehydrogenase Troponin T Total Protein 5.7 L Albumin 2.4 L Globulin Albumin/Globulin Ratio 0.7 L Urine Protein Urine Occult Blood Ur Leukocyte Esterase Urine RBC Urine WBC Urine Bacteria Hyaline Casts 05/04/18 05/06/18 05/06/18 04:00 08:43 08:43 WBC 13.2 H RBC 3.38 L Hgb 10.6 L Hct 31.8 L RDW 16.5 H Plt Count 104 L MPV Gran % Lymph % (Auto) Gran # 10.1 H Lymph # (Auto) Seg Neutrophils % Lymphocytes % POC PT POC INR APTT Fibrinogen D-Dimer ABG Methemoglobin VBG pH VBG pO2 VBG HCO3 VBG Total CO2 VBG O2 Saturation VBG Base Excess Carboxyhemoglobin Total Hemoglobin Sodium POC Potassium Potassium POC Chloride Chloride Carbon Dioxide POC Total CO2 Anion Gap POC BUN BUN 29 H 38 H Creatinine 1.2 H POC Creatinine Glucose 115 H 160 H POC Glucose Calcium 8.4 L Phosphorus 2.3 L AST Lactate Dehydrogenase Troponin T Total Protein 5.6 L Albumin 2.5 L Globulin Albumin/Globulin Ratio 0.8 L Urine Protein Urine Occult Blood Ur Leukocyte Esterase Urine RBC Urine WBC Urine Bacteria Hyaline Casts 05/06/18 05/07/18 05/07/18 14:02 05:28 05:28 WBC 12.4 H RBC 2.84 L Hgb 8.7 L Hct 26.5 L RDW 16.7 H Plt Count 101 L MPV Gran % Lymph % (Auto) Gran # 9.1 H Lymph # (Auto) Seg Neutrophils % Lymphocytes % POC PT POC INR APTT Fibrinogen D-Dimer ABG Methemoglobin VBG pH VBG pO2 VBG HCO3 VBG Total CO2 VBG O2 Saturation VBG Base Excess Carboxyhemoglobin Total Hemoglobin Sodium POC Potassium Potassium POC Chloride Chloride Carbon Dioxide POC Total CO2 Anion Gap POC BUN BUN 36 H Creatinine POC Creatinine Glucose 117 H POC Glucose Calcium 8.3 L Phosphorus 2.3 L AST Lactate Dehydrogenase 304 H Troponin T Total Protein 5.6 L Albumin 2.5 L Globulin Albumin/Globulin Ratio 0.8 L Urine Protein Urine Occult Blood Ur Leukocyte Esterase Urine RBC Urine WBC Urine Bacteria Hyaline Casts Microbiology: Microbiology 05/06/18 11:05 Pleural Fluid Gram Stain - Final 05/03/18 11:01 Stool C.difficile Toxin B Gene (PCR) - Final 04/30/18 04:10 Urine - Smith Urine Culture - Final Escherichia coli 04/30/18 04:10 Blood Blood Culture - Preliminary Escherichia coli 04/30/18 04:00 Blood Blood Culture - Preliminary Gram negative bacillus 04/30/18 07:49 Nose MRSA (PCR) - Final Assessment and Plan - Narrative A/P Narrative: Assessment: 1. E. coli (blanchard-sensitive) bacteremia: Could be from 2 sources. Patient has some pressure sores on her buttocks which could have been seeded by the E. coli from stool. In addition it could also have been due to a UTI, although patient denies any symptoms of urinary tract infection at time of admission 2. E. coli UTI 3. Septic shock : Resolved 4. Possible aspiration pneumonitis: No oxygen requirements but has bilateral lower lobe infiltrates 5. Bilateral pleural effusion: Right-sided> left-sided. Status post ultrasound -guided thoracentesis yesterday with preliminary analysis suggestive of it being transudative, Gram stain negative cultures pending 6. Oral thrush: Possibly secondary to systemic antibiotics Recommendations: Consider removing the right IJ central line Stop IV Zosyn Start oral levofloxacin 750 mg every 24 hours to finish a total of 14 days of antibiotics [including the duration of Zosyn and Cipro given previously] -Start nystatin swish and swallow 3-4 times daily for 10 days Wound care follow-up as outpatient given patient has pressure sores If patient's diarrhea persist she should be rechecked for Clostridium difficile and if positive then she should be treated with oral vancomycin from the day of diagnosis to 10 days after stopping levofloxacin The pleural effusion seems secondary to heart failure given transudative nature. Since patient never had any increased oxygen requirements, bilateral infiltrates most likely due to aspiration pneumonitis given her history of multiple sclerosis and stroke Plan discussed with primary team [Dr. Dale] Gordo Us MD Infectious disease
[2018-05-07] MEDS: 0.9 % SODIUM CHLORIDE 10 ML SYRINGE IV SCH (09:10)
[2018-05-07] MEDS: LOPERAMIDE 2 MG CAPSULE PO PRN (10:50)
[2018-05-07 11:37] LABS: Basophils # (Auto) 0 K/mcL (0.0-0.3); Basophils % (Auto) 0 % (0.0-2.0); Eosinophils # (Auto) 0 K/mcL (0.0-0.7); Eosinophils % (Auto) 0.2 % (0.0-7.0); Granulocytes % (Auto) 76.1 % (38.0-78.0); Lymphocytes # (Auto) 2.5 K/mcL (1.5-4.8); Lymphocytes % (Auto) 19.1 % (15.5-49.0); Mean Cell Volume 93.7 fL (80.0-100.0); Mean Corpuscular Hemoglobin 30.9 pg (26.0-34.0); Monocytes # (Auto) 0.6 K/mcL (0.1-0.9); Monocytes % (Auto) 4.6 % (1.0-12.0); Platelet Count 109 K/mcL (140-440); RBC 3.06 M/mcL (4.00-5.20); Red Cell Distribution Width 16.7 % (11.5-14.5)
--- NOTE | 2018-05-07 13:17 | Discharge Summary ---
Medical - DS: Prov Patient information: Note initiated : 05/07/18 at 1:10 pm Service Date, if different from initiated Date: [] Patient: Rosalia Lozano 72 y/o F admitted on 04/30/18 for Bloody Nose/Epistaxis , Sepsis. Chief Complaint: [] Date of admission: 04/30/18 07:20 Discharge date: 05/07/18 Primary care physician: Alex Nolan Admitting clinician: [facility] Consults: 04/30/18 07:27 Consult to Physician [CONS] Stat Comment: Epistaxis Consulting Provider: Tra Chanel Reason For Exam: Physician to Consult 05/06/18 15:08 Consult to Physician [CONS] Routine Comment: Consulting Provider: Gordo Us Reason For Exam: Physician to Consult Discharging clinician: [facility] Medical - DS: Meds - Discharge Medications Prescriptions: Acetaminophen with Codeine [Acetaminophen-Cod #3 Tablet] 2 tab PO Q6H PRN #40 tab PRN Reason: pain Lactobacillus [Culturelle] 1 cap PO BID #60 capsule Levofloxacin [Levaquin] 750 mg PO DAILY #8 tab predniSONE [Prednisone] 5 [facility] tab Active and Home Medications: Home Medications budesonide-formoterol HFA 160 mcg-4.5 mcg/actuation aerosol inhaler 2 inh INHALATION BID #6 g 11/13/16 [Rx Confirmed 04/30/18 Last Taken 04/29/18] ipratropium-albuterol 0.5 mg-3 mg(2.5 mg base)/3 mL nebulization soln 3 ml INHALATION Q6H PRN #360 ml 02/28/17 [Rx Confirmed 04/30/18 Last Taken 04/29/18] lisinopril 20 mg tablet 20 mg PO QDAY #30 tab 11/19/17 [Rx Confirmed 04/30/18 Last Taken 04/29/18] aspirin 81 mg tablet,delayed release 81 mg PO QDAY 12/15/17 [History Confirmed 04/30/18 Last Taken 04/29/18] mecobalamin (vitamin B12) 1,000 mcg disintegrating tablet,sublingual 1,000 mcg SUBLINGUAL QDAY 12/15/17 [History Confirmed 04/30/18 Last Taken 04/29/18] multivitamin tablet 1 tab PO QDAY 12/15/17 [History Confirmed 04/30/18 Last Taken 04/29/18] potassium chloride ER 10 mEq capsule,extended release 10 meq PO BID #60 cap 07/28 [Rx Confirmed 04/30/18 Last Taken 04/29/18] gabapentin 400 mg capsule 400 mg PO QHS #90 cap 01/21/18 [Rx Confirmed 04/30/18 Last Taken 04/29/18] levetiracetam 500 mg tablet 500 mg PO Q12H #60 tab 01/21/18 [Rx Confirmed Last Taken 04/29/18] simvastatin 20 mg tablet 20 mg PO QPM #90 tab 01/27/18 [Rx Confirmed 04/30/18 Last Taken 04/29/18] acetaminophen 300 mg-codeine 30 mg tablet 2 tab PO Q6H PRN #240 tab 03/23/18 [ Rx Confirmed 04/30/18 Last Taken 04/29/18] Lactobacillus [Culturelle] 1 cap PO BID #60 capsule 05/03/18 [Rx Last Taken Unknown] Ciprofloxacin [Cipro] 250 mg PO BID #6 tablet 05/05/18 [Rx Last Taken Unknown] Medical - DS: Hosp Hospital course: Ms. 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 The patient reports that for the last few days she has not been feeling well, (as per ) she has MS and has been more foggy and her strength is decreased. She has right sided cva with left sided weakness. She was working with PT with some improvement, but over the last few days the weakness is come back. The patient has not had any sensation of infection, no fever, chills, no cough, no chest pain, shortness of breath, headaches or runny nose. Yesterday after noon, she started to have blood coming out of her left side of the nose, she denies any picking at the nose, but has been trying to apply pressure. This progressed over the night and eventually led the patient to come to the ER for further evaluation. The EMS had applied a nasal clamp, which was removed in the ER, the patient as per ER did not have any further episodes of bleeding, but the patient was lying on her back. The patient on presentation was afebrile T 97.7, HR 83 , BP 83/60, 92% on Room air wbc 20, hb 11.4, plat 106, PT 19, INR 1.7, chemistry showes K 7.4 , bicarb 16, creat 2.2, BUN 103, AG 18, Tprot 8.3, lac 2.1, UA postive leuk esterase CXR positive bi basilar infitrates Head ct neg for IC changes, but has left sided fluid level maxillary sinus, EKG does not show any peaked t wave changes Hyperkalemia protocol given in the ER, and ua, blood cx sent, pt advised for admission for sepsis with hypotenstion. PT bp had responed transietly to fluid challenge, but then bp dropped down again. to get 4 L fluid bolus. Patient continued to have posterior nasal bleed, Dr. Chanel was contacted, who cauterized the bleeding vessel. Pt admitted to the hospital for further management PCU. Pneumonia- Possible Aspiration: The was related with broad spectrum antibiotics. The patient initially showed improvement, later some worsening. Pt at the time of discharge is doing well. X ray shows resolving PNA Urinary tract infection/ Septic Shock/ Ecoli Bacteremia- The patient had UTI on presentation, IV antibiotics given, responded well, patient had Ecoli blanchard sensitive, responded well to treatment. Initially need Pressors therapy and also central line placement. The patient responded to treatment well and will be discharged with oral antibiotics for another 8 days to complete a 14 day treatment course. Infectious disease did see the patient. The patient was on IV hydrocortisone for treatment of sepsis, unfortunately dose was not deescalated. I am sending the patient on a rapid taper with prednisone at discharge. Acute hyperkalemia- Noted on admission, responded well to medical management. CARMINA on CKD- treated with IVF, creat is 1.1 back to baseline at discharge. Diarrhea- Non specific diarrhea noted, Cdiff neg, prn loperamide at discharge Multiple sclerosis- The patient carries a diagnosis of multiple sclerosis, this infection has been significantly weakned and will be discharged to SNF for further management. Epistaxis-treated by Dr Chanel, responded well to cauterization, the patient responded to treatment well Anemia/ Acute blood loss anemia- due to epistaxis, s/p 2 units prbc COPD- Stable, continue home meds at discharge. Sinus bradycardia- noted during hospital stay during sleep, no chest pain, Echo is negative. HR responds well to activity HTN/HLD- Patients condition are stable, home medications resumed. BP stable during hospital st ay after initial episode of sepsis treated Pleural effusion- Right sided s?p thoracocentesis, transudative in nature, microbiology neg at discharge. Neurogenic bladder- due to Multiple sclerosis, patient does intermittent self catheterization. The patient wishes to keep the alvarez in place at the time of discharge as she is still not strong enough. Chronic Wounds- Patient has chronic wounds, will continue with wound care at rehab facility. The rest of the stay in the hospital was unremarkable, she will be discharged to rehab facility. Discharge diagnosis: URosepsis, Pneuomonia - Time Spent with Patient Total time spent providing and/or coordinating discharge services: Greater than 30 minutes Medical - DS: Exam - Constitutional Vitals: Vital Signs Temp Pulse Resp BP Pulse Ox 05/07/18 12:00 97.0 F 56 L 14 169/82 93 05/07/18 07:15 98.6 F 52 L 14 167/76 92 05/07/18 04:00 97.6 F 59 L 12 146/70 93 05/07/18 00:00 98.0 F 64 12 156/74 93 05/06/18 20:00 97.4 F 64 12 156/85 92 05/06/18 16:00 97.3 F 55 L 14 170/86 98 Intake and Output 05/06/18 05/07/18 05/07/18 21:59 05:59 13:59 Intake Total 50 / 50 230 / 230 50 / 50 Output Total 625 / 625 Balance 50 / 50 -395 / -395 50 / 50 Intake: IV 50 / 50 50 / 50 50 / 50 Zosyn 3.375 gm In Dextrose 5% 50 / 50 50 / 50 50 / 50 in Water 50 ml @ 100 mls/hr IV Q6H [facility] Rx#:[id number] Oral 180 / 180 Output: Urine Catheter Amount 625 / 625 Other: Urine Appearance Clear Uretheral (Alvarez) Clear Urine Color Straw Uretheral (Alvarez) Bright Yellow Urine Odor Normal Stool Size Moderate Stool Color Brown Black Stool Consistency Liquid # of times incontinent of 1 Bowels Weight 160 lb Additional comments: Constitutional; Afebrile, cooperative, alert, not in distress. Respiratory system: Air Entry equal on both sides, mild basilar crackles, no wheezing noted. CVS- Rate rhythm regular, S1,S2 heard, no gallop, no rub. 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 Medical - DS: Data Labs on day of discharge: Labs from last 24 hours 05/07/18 05/07/18 05/07/18 11:02 05:28 05:28 WBC 13.3 H 12.4 H RBC 3.06 L 2.84 L Hgb 9.5 L 8.7 L Hct 28.7 L 26.5 L MCV 93.7 93.4 MCH 30.9 30.6 MCHC 33.0 32.8 RDW 16.7 H 16.7 H Plt Count 109 L 101 L MPV 9.2 9.4 Gran % 76.1 73.2 Lymph % (Auto) 19.1 20.2 [place] % (Auto) 4.6 6.4 Eos % (Auto) 0.2 0.1 Baso % (Auto) 0 0.1 Gran # 10.1 H 9.1 H Lymph # (Auto) 2.5 2.5 [place] # (Auto) 0.6 0.8 Eos # (Auto) 0 0 Baso # (Auto) 0 0 Sodium 145 Potassium 3.4 Chloride 105 Carbon Dioxide 30 Anion Gap 10.0 BUN 36 H Creatinine 1.1 GFR Calculation 49 Glucose 117 H Uric Acid 6.6 Calcium 8.3 L Phosphorus 2.3 L Magnesium 1.9 Total Bilirubin 0.2 Direct Bilirubin < 0.2 GGT 11 AST 20 ALT 17 Alkaline Phosphatase 65 Lactate Dehydrogenase 180 Total Protein 5.6 L Albumin 2.5 L Globulin 3.1 Albumin/Globulin Ratio 0.8 L Triglycerides 70 Fluid pH Fluid Total Protein Pleural Fluid Source Pleural Color Pleural Appearance Pleural RBC Pleural Tot Cell Ct Pleural Nuc Cells Pleural Neutrophils Pleural Lymphocytes Pleural Monocytes Pleural Plasma Cells Pleural Macrophages Pleural Mesothelial Pleural Diff Comment Pleural Total Protein Pleural LDH Pleural Glucose 05/06/18 05/06/18 05/06/18 14:02 11:05 11:05 WBC RBC Hgb Hct MCV MCH MCHC RDW Plt Count MPV Gran % Lymph % (Auto) [place] % (Auto) Eos % (Auto) Baso % (Auto) Gran # Lymph # (Auto) [place] # (Auto) Eos # (Auto) Baso # (Auto) Sodium Potassium Chloride Carbon Dioxide Anion Gap BUN Creatinine GFR Calculation Glucose Uric Acid Calcium Phosphorus Magnesium Total Bilirubin Direct Bilirubin GGT AST ALT Alkaline Phosphatase Lactate Dehydrogenase 304 H Total Protein Albumin Globulin Albumin/Globulin Ratio Triglycerides Fluid pH 7.56 Fluid Total Protein TNP Pleural Fluid Source Pleural Pleural Color Yellow Pleural Appearance Hazy Pleural RBC < [address] 100 Pleural Nuc Cells 452 Pleural Neutrophils 30 Pleural Lymphocytes 55 Pleural Monocytes 1 Pleural Plasma Cells Not Reportable Pleural Macrophages Not Reportable Pleural Mesothelial 14 Pleural Diff Comment Not Reportable Pleural Total Protein 1.7 Pleural LDH 69 Pleural Glucose 146 Preliminary micro results at discharge 05/06/18 10:50 Blood Culture - Preliminary Blood 05/06/18 10:45 Blood Culture - Preliminary Blood 05/06/18 11:05 Body Fluid Culture - Preliminary Pleural Fluid 04/30/18 04:10 Blood Culture - Preliminary Blood Escherichia coli 04/30/18 04:00 Blood Culture - Preliminary Blood Gram negative bacillus Medical - DS: A/P - Patient/Caregiver Discharge Instructions Activity: increase activity as tolerated Diet: Dysphagia Advanced Additional Instructions: Prednisone Take 4 pills x 3 days, then 2 pills x 3 days, then 1 pill x 3 days then stop Wound care as per wound care recommendations Take levofloxacin for 750mg once daily for 8 days Go to the ER if worsening condition, fever, chest pain, shortness of breath or any other acute concerns. patient will be discharged with alvarez in place. To be removed when she is strong enough to do intermittent self catheterization. Prescriptions: Ciprofloxacin [Cipro] 250 mg PO BID #6 tablet Lactobacillus [Culturelle] 1 cap PO BID #60 capsule Other Amb Orders: OT Discharge Order Location: None Selected Physical Therapy at Discharge - CJ Location: None Selected ST Discharge Order Facility: [facility], Location: Conversion- Custodial - Follow up Plan Follow up with: Jewel Titus MD [Physician] - (Follow up at wound healing center as new patient if sacral and right ischial wounds do not continue to heal.) Alex Nolan MD [Primary Care Provider] - Disposition: Xfer SNF Prognosis: Fair Rehab Potential: Fair I certify that the patient requires SNF services: Yes Overall status at discharge: patient is progressing back to baseline Medical - DS: Qual - VTE Deep Vein Thrombosis/Pulmonary Embolism Present on Admission: No
--- NOTE | 2018-05-11 11:55 | Non-GYN Cytology Report ---
NON MRI SPECIALIST SPECIMEN MICROSCOPIC DIAGNOSIS PLEURAL FLUID, RIGHT, THORACENTESIS: -- CHRONIC INFLAMMATION AND REACTIVE MESOTHELIAL CELLS. -- NO ATYPICAL OR MALIGNANT CELLS IDENTIFIED. (DMT:djf) MICROSCOPIC DESCRIPTION A thinprep monolayer slide, Peraza Giemsa stained cytospin slide, Diff Quik stained cytospin slide, H/E stained cytospin slide and a cell block slide are reviewed. Each contains numerous macrophages, lymphocytes and occasional neutrophils. Numerous individual and small clusters of mesothelial cells are seen within the background. (DMT:djf) The following immunohistochemical studies are performed on the cell block to exclude occult carcinoma cells: Cell Population: Epithelioid/mesothelial cells. Calretinin, WT-1, Pancytokeratin Plus: Highlight mesothelal cells. MOC-31: Negative. Interpretation: Compatible with background mesothelial cells. No occult malignant epithelial cells identified. Some of the tests reported here may not have been cleared or approved by the U.S. Food and Drug Administration (FDA). However, the FDA has determined that such clearance or approval is not necessary. Pursuant to the requirements of CLIA, this laboratory has established and verified the accuracy and precision of all tests, and additional information about these tests is available upon request. All technical controls are adequate. CLINICAL HISTORY Right pleural effusion. EXTERNAL COMMENT ~25 mL pink fluid: 1 thinprep, 1 H/E, 1 Diff Quik, 1 Peraza Giemsa, 1 cell block Electronically Signed by: Andrew Perez M.D.
== END 2018-05-07 14:45 | DRG 853 ==
LOC: ED 03:07 → ICU 07:20 → MEDSUR 05-05 16:05
PROVIDERS: ADMIT Internal Medicine; ATTEND Internal Medicine

== ENCOUNTER 2018-06-21 09:36 | Inpatient (IN) ==
[2018-06-21] MEDS ORDERED: LACTATED RINGERS 1,000 ML IV ONE (09:47)
--- NOTE | 2018-06-21 09:56 | Emergency Department Note ---
Weakness HPI - General Chief complaint: Weakness Stated complaint: Weakness Time Seen by Provider: 06/21/18 09:43 Source: patient, EMS Mode of arrival: ambulatory Limitations: no limitations - History of Present Illness HPI Narrative: Family called EMS on this patient for increased weakness. Patient seems confused and has difficulty giving us much history. She denies any specific complaints other than just not feeling well. Apparently was diagnosed with multiple sclerosis 30 years ago. She does come in with a Smith catheter in place. Initial blood pressure was low at 75 systolic. MD Complaint: generalized weakness Duration: constant Location: generalized - Related Data Home Medications Medication Instructions Recorded Confirmed aspirin 81 mg tablet,delayed 81 mg PO QDAY 12/15/17 06/09/18 release mecobalamin (vitamin B12) 1,000 1,000 mcg SUBLINGUAL QDAY 12/15/17 06/09/18 mcg disintegrating tablet,sublingual multivitamin tablet 1 tab PO QDAY 12/15/17 06/09/18 Previous Rx's Medication Instructions Recorded budesonide-formoterol HFA 160 2 inh INHALATION BID #6 g 11/13/16 mcg-4.5 mcg/actuation aerosol inhaler ipratropium-albuterol 0.5 mg-3 3 ml INHALATION Q6H PRN #360 ml 02/28/17 mg(2.5 mg base)/3 mL nebulization soln lisinopril 20 mg tablet 20 mg PO QDAY #30 tab 11/19/17 potassium chloride ER 10 mEq 10 meq PO BID #60 cap 01/20/18 capsule,extended release simvastatin 20 mg tablet 20 mg PO QPM #90 tab 01/27/18 Lactobacillus [Culturelle] 1 cap PO BID #60 cap 05/03/18 Levofloxacin [Levaquin] 750 mg PO DAILY #8 tab 05/07/18 Loperamide [Imodium] 2 mg PO PRN PRN cap 05/07/18 Nystatin 500,000 units SSW TID #150 ml 05/07/18 acetaminophen 300 mg-codeine 30 mg 2 tab PO Q6H PRN #240 tab 05/13/18 tablet gabapentin 400 mg capsule 400 mg PO TID #90 cap 06/09/18 nitrofurantoin 100 mg PO BID #20 cap 06/10/18 monohydrate/macrocrystals 100 mg capsule fluconazole 100 mg tablet 100 mg PO QDAY #6 tab 06/16/18 Allergies Allergy/AdvReac Type Severity Reaction Status Date / Time No Known Drug Allergies Allergy Verified 06/09/18 12:47 Review of Systems Constitutional: Denies: fever, chills Cardiovascular: Denies: chest pain Respiratory: Denies: shortness of breath, cough Gastrointestinal: Denies: abdominal pain, nausea Past Medical History - Past Medical History [facility] Narrative: Medical History (Last Updated 06/09/18 @ 12:57 by Alex Nolan MD) Urinary retention (Chronic) CVA (cerebral vascular accident) (Chronic) Low back pain associated with a spinal disorder other than radiculopathy or spinal stenosis (Chronic) Basal cell carcinoma (Chronic) UTI (urinary tract infection) (Chronic) Hypercholesterolemia (Chronic) COPD (chronic obstructive pulmonary disease) (Chronic) CHF (congestive heart failure) (Chronic) Multiple sclerosis (Chronic) Neurogenic bladder (Chronic) Benign essential hypertension (Chronic) Decompensated chronic obstructive pulmonary disease (Chronic) History of tobacco use (Resolved) Family History (Last Reviewed 12/15/17 @ 16:54 by Alex Nolan MD) Brother Essential hypertension Medical history: Reports: COPD, hypertension, renal disease, other (MS since 1992 approx. Skin lesions). Denies: CVA, DM, hyperlipidemia, myocardial infarction, thyroid disease - Social History smoking status: Former smoker Alcohol use: Reports: Rarely Drug use: Reports: marijuana Physical Exam Limitations: no limitations General appearance: alert Head: atraumatic, normocephalic Eye: Present: conjunctival injection ENT: mucous membranes dry Neck: Present: normal inspection Chest: Present: normal inspection Respiratory: Present: normal lung sounds bilaterally Cardiovascular: Present: regular rate, normal rhythm, normal heart sounds Abdominal: Present: soft. Absent: distention, tenderness Neurological: Present: alert Psychiatric: Present: normal affect Skin: Present: warm, dry, intact Course Vital Signs Temperature 97.3 F 06/21/18 09:38 Temperature 97.3 F 06/21/18 09:38 Pulse Rate 66 06/21/18 11:16 Respiratory Rate 17 06/21/18 11:16 Blood Pressure 67/51 06/21/18 11:16 Pulse Oximetry (%) 98 06/21/18 11:16 Weakness - [facility] Narrative Medical decision making narrative: Chest x-ray was unremarkable urine looks infected. Patient's been quite hypotensive despite fluid and levo fed has been started. We did blood cultures and started Levaquin and Rocephin. Patient's potassium is 6.7 so hyperkalemia protocol was initiated. EKG was not remarkable. Patient will be admitted to the ICU by Dr. Landeros. - Lab Data Lab results reviewed: Yes I reviewed the patient's lab results. Result diagrams: 06/21/18 10:04 06/21/18 10:03 Lab Results 06/21/18 06/21/18 06/21/18 Range/Units 10:03 10: 10:04 WBC 25.8 H (4.5-11.0) K/mcL RBC 3.87 L (4.00-5.20) M/mcL Hgb 11.9 L (12.0-15.0) g/dL Hct 36.8 (36.0-48.0) % MCV 95.1 (80.0-100.0) fL MCH 30.9 (26.0-34.0) pg MCHC 32.5 (31.0-36.0) g/dL RDW 16.1 H (11.5-14.5) % Plt Count 118 L (140-440) K/mcL MPV 10.6 H (7.4-10.4) fL Gran % 91.4 H (38.0-78.0) % Lymph % (Auto) 4.5 L (15.5-49.0) % [place] % (Auto) 4.1 (1.0-12.0) % Eos % (Auto) 0 (0.0-7.0) % Baso % (Auto) 0 (0.0-2.0) % Gran # 23.6 H (1.8-8.0) K/mcL Lymph # (Auto) 1.2 L (1.5-4.8) K/mcL [place] # (Auto) 1.1 H (0.1-0.9) K/mcL Eos # (Auto) 0 (0.0-0.7) K/mcL Baso # (Auto) 0 (0.0-0.3) K/mcL Differential Comment VBG Lactic Acid 2.1 H (0.5-2.0) mmol/L Sodium 134 (133-145) mmol/L Potassium 6.7 H* (3.3-5.1) mmol/L Chloride 96 (96-108) mmol/L Carbon Dioxide 21 L (22-30) mmol/L Anion Gap 17.0 H (8-16) BUN 77 H (8-23) mg/dl Creatinine 2.1 H (0.6-1.1) mg/dl GFR Calculation 23 Glucose 116 H (70-105) mg/dL Calcium 10.1 (8.6-10.4) mg/dl Total Bilirubin 0.2 (0.0-1.0) mg/dL AST 29 (0-37) U/l ALT 16 (0-40) U/l Alkaline Phosphatase 112 (39-117) U/L Total Protein 8.0 (5.9-8.4) gm/dL Albumin 3.5 (3.2-5.2) gm/dL Globulin 4.5 H (2.2-3.7) gm/dL Albumin/Globulin Ratio 0.8 L (1.0-2.3) Procalcitonin (<0.10) ng/mL 06/21/18 Range/Units 10:06 WBC (4.5-11.0) K/mcL RBC (4.00-5.20) M/mcL Hgb (12.0-15.0) g/dL Hct (36.0-48.0) % MCV (80.0-100.0) fL MCH (26.0-34.0) pg MCHC (31.0-36.0) g/dL RDW (11.5-14.5) % Plt Count (140-440) K/mcL MPV (7.4-10.4) fL Gran % (38.0-78.0) % Lymph % (Auto) (15.5-49.0) % [place] % (Auto) (1.0-12.0) % Eos % (Auto) (0.0-7.0) % Baso % (Auto) (0.0-2.0) % Gran # (1.8-8.0) K/mcL Lymph # (Auto) (1.5-4.8) K/mcL [place] # (Auto) (0.1-0.9) K/mcL Eos # (Auto) (0.0-0.7) K/mcL Baso # (Auto) (0.0-0.3) K/mcL Differential Comment VBG Lactic Acid (0.5-2.0) mmol/L Sodium (133-145) mmol/L Potassium (3.3-5.1) mmol/L Chloride (96-108) mmol/L Carbon Dioxide (22-30) mmol/L Anion Gap (8-16) BUN (8-23) mg/dl Creatinine (0.6-1.1) mg/dl GFR Calculation Glucose (70-105) mg/dL Calcium (8.6-10.4) mg/dl Total Bilirubin (0.0-1.0) mg/dL AST (0-37) U/l ALT (0-40) U/l Alkaline Phosphatase (39-117) U/L Total Protein (5.9-8.4) gm/dL Albumin (3.2-5.2) gm/dL Globulin (2.2-3.7) gm/dL Albumin/Globulin Ratio (1.0-2.3) Procalcitonin 1.89 (<0.10) ng/mL - Radiology Data Radiology results reviewed: Yes I reviewed the patient's radiology results. Disposition Pt seen by ASSET LIABILITY ANALYST/PA only: No Clinical Impression: Sepsis, UTI (urinary tract infection), Hyperkalemia Disposition: Xfer As Inpt ([facility]) Condition: Fair Referrals: Alex Nolan MD [Primary Care Provider] - Time of Disposition: 11:30
--- NOTE | 2018-06-21 10:13 | XRay Report ---
INDICATION: Cough. Weakness. History of COPD TECHNIQUE: AP chest x-ray, portable upright COMPARISON: Previous chest x-rays dated 05/06/2018, 05/01/2018, 05/20/2017 FINDINGS: Mild blunting of the right costophrenic angle consistent with small fluid collection. This is significantly smaller than on 05/06/2018. No pulmonary edema. No acute or focal pulmonary parenchymal infiltrate. No evidence for pneumonia. IMPRESSION: 1. Minimal right pleural effusion, significantly improved since 05/06/2018 2. No acute or focal parenchymal consolidation. No evidence for congestive heart Interpreted and Authenticated by: Farhta Cadet 06/21/18
[2018-06-21] MEDS ORDERED: 0.9 % SODIUM CHLORIDE 1,000 ML IV ONE (10:44)
[2018-06-21] MEDS ORDERED: 0.9 % SODIUM CHLORIDE 250 ML IV SCH (10:45)
[2018-06-21] MEDS ORDERED: NOREPINEPHRINE BITARTRATE 8 MG in 0.9 % SODIUM CHLORIDE 242 ML IV SCH (10:45)
[2018-06-21 10:52] LABS: Basophils # (Auto) 0 K/mcL (0.0-0.3); Basophils % (Auto) 0 % (0.0-2.0); Eosinophils # (Auto) 0 K/mcL (0.0-0.7); Eosinophils % (Auto) 0 % (0.0-7.0); Granulocytes % (Auto) 91.4 % (38.0-78.0); Lymphocytes # (Auto) 1.2 K/mcL (1.5-4.8); Lymphocytes % (Auto) 4.5 % (15.5-49.0); Mean Cell Volume 95.1 fL (80.0-100.0); Mean Corpuscular HGB Conc 32.5 g/dL (31.0-36.0); Mean Corpuscular Hemoglobin 30.9 pg (26.0-34.0); Monocytes # (Auto) 1.1 K/mcL (0.1-0.9); Monocytes % (Auto) 4.1 % (1.0-12.0); Platelet Count 118 K/mcL (140-440); RBC 3.87 M/mcL (4.00-5.20); Red Cell Distribution Width 16.1 % (11.5-14.5)
[2018-06-21 11:14] LABS: ALT/SGPT 16 U/l (0-40); Albumin 3.5 gm/dL (3.2-5.2); Albumin/Globulin Ratio 0.8 (1.0-2.3); Alkaline Phosphatase 112 U/L (39-117); Blood Urea Nitrogen 77 mg/dl (8-23)
[2018-06-21] MEDS ORDERED: LEVOFLOXACIN 500 MG/100 ML BAG IV ONE (11:23)
[2018-06-21] MEDS ORDERED: cefTRIAXone 1 GM VIAL IV ONE ×2 (11:23→14:15)
[2018-06-21] MEDS ORDERED: ALBUTEROL SULFATE 5 MG/ML NEB SOLUTION BOTTLE NEB ONE ×2 (11:30→11:58)
[2018-06-21] MEDS ORDERED: DEXTROSE 50% 50 ML VIAL IV ONE (11:30)
[2018-06-21] MEDS ORDERED: FUROSEMIDE 40 MG/4 ML VIAL IV ONE (11:30)
[2018-06-21] MEDS ORDERED: SODIUM POLYSTYRENE SULFONATE 15 GM/60 ML SUSPENSION PO ONE (11:30)
[2018-06-21] MEDS ORDERED: INSULIN REGULAR, HUMAN 1 UNIT/0.01 ML UNIT IV ONE (11:30)
[2018-06-21 12:09] LABS: Appearance,Urine HAZY; Bacteria,Urine FEW /hpf (0); Bilirubin,Urine NEG (NEG); Color,Urine YELLOW; Glucose,Urine (UA) NEGATIVE (NEG); Leukocyte Esterase,Urine 500 /uL (NEG); Mucus,Urine FEW /hpf (0); Protein,Urine NEG (NEG); Specific Gravity,Urine 1.018 (1.000-1.035); Urine Blood 0.03 mg/dL (<0.03); Urine Budding Yeast FEW /hpf (0); Urine Hyaline Cast 28 /lpf (0-2); Urine RBC 24 /hpf (0-1); Urine Squamous Epithelial Cell 1 /hpf (0-4); Urine Transitional Epi Cells 2 /hpf (0-2); Urine WBC 76 /hpf (0-4); Urobilinogen,Urine NEG (NEG)
[2018-06-21] MEDS ORDERED: ALBUTEROL SULFATE 2.5 MG/3 ML NEBULIZER NEB ONE (12:10)
--- NOTE | 2018-06-21 12:32 | Internal Med History&Physical ---
Medical - H&P: [facility] Patient information: Note initiated : 06/21/18 at 12:27 pm Service Date, if different from initiated Date: [] Patient: Rosalia Lozano 72 y/o F admitted on for Weakness. Chief Complaint: [] History of present illness: Ms. Lozano is a 72 year old F 5-year-old female history of multiple sclerosis neurogenic bladder with Alvarez in place. She had been intermittent caths in the past and switched over to Alvarez as well earlier this year. She was seen in the hospital in April for sepsis with urinary tract infection. She was discharged to [facility] and then subsequently discharged home she been home for several weeks. However the last couple days she has been progressive generalized weakness, this morning she was foggy in her mentation per slow to answer questions. She has no other specific complaints no coughing or shortness of breath or chest pain. Denies fevers and chills. In the ER she was evaluated determined to have sepsis from urinary tract infection. She received several liters of IV fluid bolus however her hypotension did not resolve and patient was started on levo fed. Blood cultures obtained and antibiotics given. She is also found to be hyperkalemic and orders given for treatment. Patient is answering questions although slowly does appear quite weak and lethargic. She also had a poor appetite for some time Review of Systems: denies headache/fever/chills/nausea/vomiting/chest or abdominal pain/cough/ dyspnea/diarrhea. Remaining 10 point review of systems reviewed negative Medical - H&P: [facility] Medical history: Medical History (Last Updated 06/09/18 @ 12:57 by Alex Nolan MD) Urinary retention (Chronic) CVA (cerebral vascular accident) (Chronic) Low back pain associated with a spinal disorder other than radiculopathy or spinal stenosis (Chronic) Basal cell carcinoma (Chronic) UTI (urinary tract infection) (Chronic) Hypercholesterolemia (Chronic) COPD (chronic obstructive pulmonary disease) (Chronic) CHF (congestive heart failure) (Chronic) Multiple sclerosis (Chronic) Neurogenic bladder (Chronic) Benign essential hypertension (Chronic) Decompensated chronic obstructive pulmonary disease (Chronic) History of tobacco use (Resolved) Surgical history: None Family History (Last Reviewed 12/15/17 @ 16:54 by Alex Nolan MD) Brother Essential hypertension Social History (Last Updated 06/09/18 @ 13:20 by Alex Nolan MD) Former smoker Social alcohol No drug use She is wheelchair-bound has been for the past 2-3 months prior to that she used a walker Medical - H&P: Meds Home Medications Medication Instructions Recorded Confirmed Type budesonide-formoterol HFA 160 2 inh INHALATION BID #6 g 11/13/16 06/09/18 Rx mcg-4.5 mcg/actuation aerosol inhaler ipratropium-albuterol 0.5 mg-3 3 ml INHALATION Q6H PRN #360 ml 02/28/17 Rx mg(2.5 mg base)/3 mL nebulization soln lisinopril 20 mg tablet 20 mg PO QDAY #30 tab 11/19/17 06/09/18 Rx aspirin 81 mg tablet,delayed 81 mg PO QDAY 12/15/17 06/09/18 History release mecobalamin (vitamin B12) 1,000 1,000 mcg SUBLINGUAL QDAY 12/15/17 06/09/18 History mcg disintegrating tablet,sublingual multivitamin tablet 1 tab PO QDAY 12/15/17 06/09/18 History potassium chloride ER 10 mEq 10 meq PO BID #60 cap 01/20/18 06/09/18 Rx capsule,extended release simvastatin 20 mg tablet 20 mg PO QPM #90 tab 01/27/18 06/09/18 Rx Lactobacillus [Culturelle] 1 cap PO BID #60 cap 05/03/18 06/09/18 Rx Levofloxacin [Levaquin] 750 mg PO DAILY #8 tab 05/07/18 Rx Loperamide [Imodium] 2 mg PO PRN PRN cap 05/07/18 06/09/18 Rx Nystatin 500,000 units SSW TID #150 ml 05/07/18 06/09/18 Rx acetaminophen 300 mg-codeine 30 mg 2 tab PO Q6H PRN #240 tab 05/13/18 06/09/18 Rx tablet gabapentin 400 mg capsule 400 mg PO TID #90 cap 06/09/18 06/09/18 Rx nitrofurantoin 100 mg PO BID #20 cap 06/10/18 Rx monohydrate/macrocrystals 100 mg capsule fluconazole 100 mg tablet 100 mg PO QDAY #6 tab 06/16/18 Rx Allergies Allergy/AdvReac Type Severity Reaction Status Date / Time No Known Drug Allergies Allergy Verified 06/09/18 12:47 Medical - H&P: Exam - Constitutional Vitals: Temp Pulse Resp BP Pulse Ox 97.3 F 74 25 H 94/50 100 06/21/18 09:38 06/21/18 12:24 06/21/18 12:24 06/21/18 12:21 06/21/18 12:24 Exam: General: Awake, lethargic , no acute Distress HEENT: EOMI, pupils equal round react to light, normocephalic atraumatic, dry mucous membranes CV: RRR, No murmurs, normal s1/s2 Pulm: Clear b/l, no wheezing/rhonchi/rales Abd: soft, nontender, +BS x4 Ext: no clubbing/cyanosis/edema Neuro: Awake but lethargic, no focal deficits, moves all extremities, but significant generalized weakness symmetrically Skin: warm/dry Medical - H&P: [facility]lt - Labs CBC & Chem 7: 06/21/18 10:04 06/21/18 10:03 Labs: Short CBC 06/21/18 Range/Units 10:04 WBC 25.8 H (4.5-11.0) K/mcL Hgb 11.9 L (12.0-15.0) g/dL Hct 36.8 (36.0-48.0) % Plt Count 118 L (140-440) K/mcL BMP 06/21/18 10:03 Sodium 134 Potassium 6.7 H* Chloride 96 Carbon Dioxide 21 L BUN 77 H Creatinine 2.1 H Glucose 116 H Calcium 10.1 Liver Function 06/21/18 Range/Units 10:03 Total Bilirubin 0.2 (0.0-1.0) mg/dL AST 29 (0-37) U/l ALT 16 (0-40) U/l Alkaline Phosphatase 112 (39-117) U/L Albumin 3.5 (3.2-5.2) gm/dL Urine 06/21/18 Range/Units 11:16 Urine Color Yellow Urine Appearance Hazy Urine pH 5.0 (5.0-9.0) Ur Specific Lefor 1.018 (1.000-1.035) Urine Protein Neg (NEG) mg/dL Urine Glucose (UA) Negative (NEG) mg/dL Medical - H&P: A/P - Narrative A/P Narrative: A: *UTI (complicated, neurogenic bladder with alvarez in place): *Septic Shock: 2/2 UTI *Acute Hyperkalemia: 2/2 CARMINA + Medications *CARMINA on CKD III-IV: likely ATN *Multiple sclerosis/Debility/Poor functional status: wheelchair bound *Thrombocytopenia, chronic: *seizure d/o: *COPD (not on home O2@home): *HTN: home ACEI P: -Vasopressors, IVF's -Rocephin (h/o E. coli UTI sensitive to) -pending BC/UC, trend PCT -f/u Potassium and treat accordingly -IS/Acapella -ACEI/KCL stopped for hyperkalemia and hypotension -pt/ot/cm for placement needs -will need to see urology for recurrent UTI's -ppx: heparin
[2018-06-21] MEDS: 0.9 % SODIUM CHLORIDE 250 ML IV SCH (13:51)
[2018-06-21] MEDS ORDERED: IPRATROPIUM/ALBUTEROL 3 ML AMPUL.NEB NEB PRN (13:55)
[2018-06-21] MEDS ORDERED: ONDANSETRON 4 MG/2 ML VIAL IV PRN (13:55)
[2018-06-21] MEDS: 0.9 % SODIUM CHLORIDE 1,000 ML IV SCH (13:55)
[2018-06-21] MEDS ORDERED: 0.9 % SODIUM CHLORIDE 500 ML IV SCH (13:55)
[2018-06-21] MEDS ORDERED: ACETAMINOPHEN 325 MG TABLET PO PRN (13:55)
[2018-06-21] MEDS: 0.9 % SODIUM CHLORIDE 10 ML SYRINGE IV SCH ×2 (14:00→22:12)
[2018-06-21] MEDS: ACETAMINOPHEN 650 MG/65 ML BOTTLE IV PRN (20:46)
[2018-06-21] MEDS: HEPARIN 5,000 UNIT/ML VIAL SQ SCH (22:10)
[2018-06-21] MEDS: levETIRAcetam 500 MG TABLET PO SCH (22:10)
[2018-06-21] MEDS: GABAPENTIN 400 MG CAPSULE PO SCH (22:10)
[2018-06-21] MEDS: LACTOBACILLUS 1 CAPSULE PO SCH (22:11)
[2018-06-21] MEDS: Budesonide/Formoterol Fumarate [Symbicort] 160-4.5 mcg Inhaler INH SCH (22:12)
[2018-06-22] MEDS: NOREPINEPHRINE BITARTRATE 8 MG in 0.9 % SODIUM CHLORIDE 242 ML IV SCH ×2 (00:07→14:34)
[2018-06-22] MEDS: 0.9 % SODIUM CHLORIDE 250 ML IV SCH ×2 (02:24→14:35)
[2018-06-22] MEDS: 0.9 % SODIUM CHLORIDE 1,000 ML IV SCH (03:53)
[2018-06-22] MEDS ORDERED: METOPROLOL TARTRATE 5 MG/5 ML VIAL IV PRN (04:56)
[2018-06-22] MEDS ORDERED: METOPROLOL TARTRATE 5 MG/5 ML VIAL IV ONE ×3 (05:06→05:20)
[2018-06-22] MEDS: METOPROLOL TARTRATE 5 MG/5 ML VIAL IV SCH ×2 (05:27→05:28)
[2018-06-22] MEDS: 0.9 % SODIUM CHLORIDE 10 ML SYRINGE IV SCH ×3 (05:29→22:00)
[2018-06-22 05:44] LABS: Mean Cell Volume 94.6 fL (80.0-100.0); Mean Corpuscular HGB Conc 32.7 g/dL (31.0-36.0); Platelet Count 136 K/mcL (140-440); RBC 3.58 M/mcL (4.00-5.20); Red Cell Distribution Width 16.4 % (11.5-14.5)
[2018-06-22] MEDS ORDERED: VANCOMYCIN PER PHARMACY IV SCH (05:57)
[2018-06-22] MEDS ORDERED: AMIODARONE 150 MG in DEXTROSE 5% IN WATER 50 ML IV ONE ×2 (05:57→19:32)
[2018-06-22 06:01] LABS: ALT/SGPT 16 U/l (0-40); Albumin 2.8 gm/dL (3.2-5.2); Albumin/Globulin Ratio 0.7 (1.0-2.3); Alkaline Phosphatase 119 U/L (39-117); Bilirubin,Direct < 0.2 mg/dL (0.0-0.3); Blood Urea Nitrogen 59 mg/dl (8-23); Gamma Glutamyl Transpeptidase 12 U/L (5-36); Uric Acid 7.9 mg/dL (2.5-8.0)
[2018-06-22] MEDS ORDERED: AMIODARONE 150 MG/3 ML VIAL IV ONE ×2 (06:08→20:12)
--- NOTE | 2018-06-22 06:32 | Internal Med Progress Note ---
Medical - PN: Subj Patient information: Note initiated : 06/22/18 at 6:28 am Service Date, if different from initiated Date: [] Patient: Rosalia Lozano 72 y/o F admitted on 06/21/18 for Weakness. Chief Complaint: [] Interval history: Ms. Lozano is a 72 year old F 5-year-old female history of multiple sclerosis neurogenic bladder with Alvarez in place. She had been intermittent caths in the past and switched over to Alvarez as well earlier this year. She was seen in the hospital in April for sepsis with urinary tract infection. She was discharged to [facility] and then subsequently discharged home she been home for several weeks. However the last couple days she has been progressive generalized weakness, this morning she was foggy in her mentation per slow to answer questions. She has no other specific complaints no coughing or shortness of breath or chest pain. Denies fevers and chills. In the ER she was evaluated determined to have sepsis from urinary tract infection. She received several liters of IV fluid bolus however her hypotension did not resolve and patient was started on levo fed. Blood cultures obtained and antibiotics given. She is also found to be hyperkalemic and orders given for treatment. Patient is answering questions although slowly does appear quite weak and lethargic. She also had a poor appetite for some time 06/22 Patient went into A. fib RVR at 130 last night, still on levophed but titrating down slowly. amio 150 given with improvement. pt has occasional cough, no dyspnea, overall feels better. Had diarrhea overnight but did get Kayexalate last evening. Nurse reports aspirating with liquids. Review of Systems: denies headache/fever/chills/nausea/vomiting/chest or abdominal pain/dyspnea. Otherwise see above. - Constitutional Vitals: Vital Signs Temp Pulse Resp BP Pulse Ox 99.7 F H 79 22 83/58 95 06/22/18 02:30 06/22/18 02:30 06/22/18 02:30 06/22/18 02:30 06/22/18 02:30 Period Temp Pulse Resp BP Sys/Hancock Pulse Ox Last 24 Hr 97.3 F-99.7 F 44-87 13-26 60-204/24-172 88-100 Intake and Output 06/21/18 06/22/1818 21:59 05:59 13:59 Intake Total 155 / 155 1176 / 1176 Output Total 376 / 376 980 / 980 Balance -221 / -221 196 / 196 Weight 63.7 kg Intake & Output: Intake & Output 06/21/18 06/22/18 06/22/18 21:59 05:59 13:59 Intake Total 155 / 155 1176 / 1176 Output Total 376 / 376 980 / 980 Balance -221 / -221 196 / 196 Weight 63.7 kg Intake: IV 155 / 155 1176 / 1176 Sodium Chloride 0.9% 1,000 ml @ 1000 / 1000 75 mls/hr IV .[id number] [facility]YANIRA Rx#: [id number] Levophed 8 mg In Sodium 62 / 62 Chloride 0.9% 242 ml @ 10 MCG/ MIN 18.75 mls/hr IV Q14H [facility] Rx #:[id number] Output: Urine Catheter Amount 376 / 376 980 / 980 Other: Urine Appearance Sediment Clear Uretheral (Alvarez) Sediment Urine Color Straw Straw Uretheral (Alvarez) Bright Yellow Urine Odor Uretheral (Alvarez) Normal Stool Size Moderate Smear Stool Color Brown Raul Colored Stool Consistency Soft # of times incontinent of 1 1 Bowels Exam: General: Awake, no acute Distress HEENT: EOMI, neck supple CV: Regular this morning, 1/6 SM, Pulm: rigth side rhonchi, no wheezing Abd: soft, nontender, +BS x4 Ext: no clubbing/cyanosis/edema Neuro: Awake, moves all extremities, but significant generalized weakness symmetrically Skin: warm/dry Medical - PN: Obj Da - Labs CBC & Chem 7: 06/22/18 03:47 06/22/18 03:47 Labs: Abnormal Lab Results 06/22/18 06/22/18 06/21/18 03:47 03:47 15:00 WBC 31.1 H* RBC 3.58 L Hgb 11.1 L Hct 33.9 L RDW 16.4 H Plt Count 136 L MPV Gran % Lymph % (Auto) Gran # Lymph # (Auto) [place] # (Auto) PT VBG Lactic Acid Potassium 5.7 H Carbon Dioxide 20 L Anion Gap 18.0 H BUN 59 H Creatinine 1.6 H Glucose Alkaline Phosphatase 119 H Albumin 2.8 L Globulin 4.3 H Albumin/Globulin Ratio 0.7 L Urine Occult Blood Ur Leukocyte Esterase Urine RBC Urine WBC Urine Bacteria Hyaline Casts Urine Yeast (Budding) 06/21/18 06/21/18 06/21/18 11:16 10:04 10:03 WBC 25.8 H RBC 3.87 L Hgb 11.9 L Hct RDW 16.1 H Plt Count 118 L MPV 10.6 H Gran % 91.4 H Lymph % (Auto) 4.5 L Gran # 23.6 H Lymph # (Auto) 1.2 L [place] # (Auto) 1.1 H PT VBG Lactic Acid 2.1 H Potassium Carbon Dioxide Anion Gap BUN Creatinine Glucose Alkaline Phosphatase Albumin Globulin Albumin/Globulin Ratio Urine Occult Blood 0.03 A Ur Leukocyte Esterase 500 A Urine RBC 24 H Urine WBC 76 H Urine Bacteria Few A Hyaline Casts 28 H Urine Yeast (Budding) Few A 06/21/18 06/21/18 10:03 09:46 WBC RBC Hgb Hct RDW Plt Count MPV Gran % Lymph % (Auto) Gran # Lymph # (Auto) [place] # (Auto) PT 14.6 H VBG Lactic Acid Potassium 6.7 H* Carbon Dioxide 21 L Anion Gap 17.0 H BUN 77 H Creatinine 2.1 H Glucose 116 H Alkaline Phosphatase Albumin Globulin 4.5 H Albumin/Globulin Ratio 0.8 L Urine Occult Blood Ur Leukocyte Esterase Urine RBC Urine WBC Urine Bacteria Hyaline Casts Urine Yeast (Budding) Meds: Medications Acetaminophen (Tylenol) 650 mg PO Q6HP PRN PRN Reason: PAIN/FEVER > 101 Acetaminophen/Codeine Phosphate (Tylenol #3) 2 tab PO Q6H PRN PRN Reason: pain Albuterol/Ipratropium (Duoneb) 3 ml NEB Q4HRT PRN PRN Reason: Dyspnea Aspirin (Aspirin) 81 mg PO DAILY [facility] Famotidine (Pepcid) 20 mg PO DAILY [facility] Gabapentin (Neurontin) 400 mg PO BID [facility] Last Admin: 06/21/18 22:10 Dose: 400 mg Heparin Sodium (Porcine) (Heparin) 5,000 unit SQ Q12 [facility] Last Admin: 06/21/18 22:10 Dose: 5,000 unit Norepinephrine Bitartrate 8 mg (/ Sodium Chloride) 250 mls @ 18.75 mls/hr IV Q14H [facility]; Protocol Last Titration: 06/22/18 03:55 Dose: 6 mcg/min, 11.25 mls/hr Sodium Chloride (Sodium Chloride 0.9%) 1,000 mls @ 75 mls/hr IV .[id number] [facility] Stop: 06/22/18 16:34 Last Admin: 06/22/18 03:53 Dose: 75 mls/hr Sodium Chloride (Sodium Chloride 0.9%) 500 mls @ 0 mls/hr IV .Q0M [facility] Sodium Chloride (Sodium Chloride 0.9%) 250 mls @ 20 mls/hr IV .[id number] [facility] Last Admin: 06/22/18 02:24 Dose: Not Given Acetaminophen (Ofirmev) 650 mg in 65 mls @ 130 mls/hr IV Q6HP PRN PRN Reason: PAIN/FEVER > 101 Last Infusion: 06/21/18 21:20 Dose: Infused Piperacillin Sod/Tazobactam (Sod 3.375 gm/ Dextrose) 50 mls @ 100 mls/hr IV Q6H [facility] Amiodarone HCl 150 mg/ (Dextrose) 53 mls @ 300 mls/hr IV ONCE ONE Stop: 06/22/18 06:07 Last Admin: 06/22/18 06:06 Dose: Not Given Lactobacillus Rhamnosus (Culturelle) 1 cap PO BID [facility] Last Admin: 06/21/18 22:11 Dose: 1 cap Levetiracetam (Keppra) 500 mg PO BID [facility] Last Admin: 06/21/18 22:10 Dose: 500 mg Metoprolol Tartrate (Lopressor) 5 mg IV Q5M [facility] Stop: 06/22/18 05:11 Last Admin: 06/22/18 05:28 Dose: Not Given Metoprolol Tartrate (Lopressor) 5 mg IV Q2 PRN PRN Reason: Tachyarrhythmias Morphine Sulfate (Morphine) 2 mg IV Q4HP PRN PRN Reason: PAIN LEVEL > 6 Last Admin: 06/21/18 23:42 Dose: 1 mg Ondansetron HCl (Zofran) 4 mg IV Q4HP PRN PRN Reason: Nausea And Vomiting Budesonide/Formoterol Fumarate [Symbicort] 160-4.5 Mcg Inhaler 2 dose INH BID [facility] Last Admin: 06/21/18 22:12 Dose: Not Given Sodium Chloride (Saline Flush) 10 ml IV Q8 [facility] Last Admin: 06/22/18 05:29 Dose: 10 ml Vancomycin HCl (Vancomycin Per Pharmacy) 1 order IV ONCE ONE Stop: 06/22/18 05:58 Medical - PN: A/P - Time Spent With Patient Total time spent is greater than 50% in coordination of care (as documented) at patient's floor/unit and/or counseling patient: - Narrative A/P Narrative: A: *UTI (complicated, neurogenic bladder with alvarez in place), recurrent: *Bacteremia (GNB): likely 2/2 above *Septic Shock: 2/2 UTI *Aspiration with hypoxia: -on 1L NC, down from 3L *Acute Hyperkalemia: 2/2 CARMINA + Medications -resolved *CARMINA on CKD III-IV: likely ATN -improving *Episode of Afib rvr @130 last night: dose of lopressor w/o effect, Amio 150 with good results, this morning now in sinus ~80 *Multiple sclerosis/Debility/Poor functional status: wheelchair bound *Thrombocytopenia, chronic: stable *seizure d/o: *COPD (not on home O2@home): *HTN: home ACEI P: -Vasopressors, started hydrocortisone, IVF's -prn lopressor, if unsuccessful will place amio gtt -rocephin changed to vanc/zosyn given elevated wbc and continued vasopressors -pending final BC/UC, trend PCT -IS/Acapella -NPO, ST eval -ACEI/KCl stopped for hyperkalemia and hypotension, will not restart KCl on d/c -pt/ot/cm for placement needs -will need to see urology for recurrent UTI's -ppx: heparin Medical - PN: Qual - VTE Deep Vein Thrombosis/Pulmonary Embolism Present on Admission: No
[2018-06-22 06:37] LABS: Anisocytosis 1+ (NONE SEEN); Band Neutrophils % 24 % (0-10); Lymphocytes % 9 % (15-49); Monocytes % (Manual) 12 % (1-12); Platelet Estimate DECREASED (NORMAL); RBC Morphology ABNORM (NORMAL); Segmented Neutrophils % 55 % (38-78)
[2018-06-22] MEDS: PIPERACILLIN SODIUM/TAZOBACTAM 2.25 GM in DEXTROSE 5% IN WATER 50 ML IV SCH ×4 (07:33→23:57)
[2018-06-22] MEDS: VANCOMYCIN 1,000 MG in 0.9 % SODIUM CHLORIDE 250 ML IV SCH (07:34)
[2018-06-22] MEDS: HYDROCORTISONE SOD SUCC 100 MG VIAL IV SCH ×3 (07:45→22:00)
--- NOTE | 2018-06-22 07:55 | Cat Scan Report ---
CLINICAL INFORMATION: Confusion. Sepsis. TECHNIQUE: Axial noncontrast enhanced images through the chest, abdomen, pelvis. Sagittal and coronal reformatted images. MIP reformatted images of the chest COMPARISON: Chest x-rays dated 06/21/2018, 05/06/2018, 05/01/2018. FINDINGS: CHEST: There is centrilobular emphysema with upper lobe predominance. Correlation for smoking history recommended. There is right upper lobe consolidation. This involves predominantly the apical and posterior segment. Appearance is consistent with pneumonia. This is not well-visualized on plain film examination. Follow-up CT scan recommended. There is right lower lobe infiltrate which is also consistent with pneumonia. There is mild lingular volume loss. There are irregular pleural-based densities bilaterally. There is a 17 mm irregular pleural-based right upper lobe density. There are bilateral lower lobe pleural based densities. There is a 6 mm noncalcified right lower lobe nodule, image 63. There is a 7 mm right lower lobe noncalcified nodule, image 67. Follow-up examination is necessary. 3-6 month follow-up CT scan should be performed. There is nonspecific mediastinal lymphadenopathy. Largest pretracheal lymph node measures 18 mm. There is no pathologic axillary or supraclavicular adenopathy. No significant pleural effusion or pericardial effusion. There is dense coronary artery calcification. ABDOMEN, PELVIS: Liver is negative to the limits of noncontrast enhanced examination. No intrahepatic mass. Liver contour is smooth. No ascites. The gallbladder is distended and measures approximately 15 cm in maximum diameter. No definite gallbladder wall thickening or pericholecystic fluid. No bladder ultrasound would be helpful to evaluate for cholelithiasis. No dilated bile ducts. Common bile duct measures approximately 5 mm. No splenomegaly. Pancreas is negative. No pancreatic mass. No peripancreatic abnormality. Adrenal glands are enlarged bilaterally without well-defined mass. There is a 5 mm nonobstructing right lower pole renal calculus. No left renal calculi. There is no hydronephrosis. No detectable solid or cystic renal mass. No hydroureter. No bladder calculus. There is a right adnexal mass which measures 8.2 cm maximally. This is circumscribed and is probably a large cyst. Ultrasound is recommended to evaluate for solid component. Uterus is present. No significant mass. No detectable colonic mass. No diverticulitis or appendicitis. There is no mechanical small bowel obstruction. No significant retroperitoneal or mesenteric adenopathy. No intra-abdominal abscess. No free pelvic fluid. No pneumoperitoneum. No biliary or portal venous gas. Multilevel degenerative disc disease in the lumbar spine. Sacrum and pelvis are negative. There is degenerative joint disease in the hips. No hip fracture. There is calcification of the abdominal aorta. No significant abdominal aortic aneurysm. IMPRESSION: 1. Dense consolidation in the right upper lobe consistent with pneumonia. Findings consistent with right lower lobe pneumonia. CT follow-up recommended. Right upper lobe consolidation is poorly visualized on plain film examination 2. Multiple low pleural-based pulmonary parenchymal densities. Two noncalcified right lower lobe nodules. 3-[address] follow-up recommended. 3. Distended gallbladder. Recommend ultrasound 4. 8 cm right adnexal mass. Pelvic ultrasound recommended. 5. Degenerative disc disease in the lumbar spine and hips 6. Enlarged adrenal glands without well-defined discrete mass 7. Nonobstructing right lower pole renal stone Interpreted and Authenticated by: Farhat Cadet 06/22/18
[2018-06-22] MEDS ORDERED: cefTRIAXone 2 GM in DEXTROSE 5% IN WATER 50 ML IV SCH (09:00)
[2018-06-22] MEDS: GABAPENTIN 400 MG CAPSULE PO SCH ×2 (09:45→21:59)
[2018-06-22] MEDS: LACTOBACILLUS 1 CAPSULE PO SCH ×2 (09:45→22:00)
[2018-06-22] MEDS: FAMOTIDINE 20 MG TABLET PO SCH (09:46)
[2018-06-22] MEDS: Budesonide/Formoterol Fumarate [Symbicort] 160-4.5 mcg Inhaler INH SCH ×2 (09:46→22:00)
[2018-06-22] MEDS: ASPIRIN 81 MG TAB.CHEW PO SCH (09:46)
[2018-06-22] MEDS: HEPARIN 5,000 UNIT/ML VIAL SQ SCH ×2 (09:46→21:59)
[2018-06-22] MEDS: levETIRAcetam 500 MG TABLET PO SCH ×2 (10:04→21:59)
--- NOTE | 2018-06-22 12:31 | Ultrasound Report ---
CLINICAL INFORMATION: Sepsis. Abnormal CT scan. TECHNIQUE: Grayscale and color flow Doppler spectral imaging COMPARISON: CT scan dated 06/22/2018 FINDINGS: Gallbladder is somewhat distended. Gallbladder measures approximately 7 cm in length. There are echogenic abnormalities within the gallbladder lumen consistent with small stones. Gallbladder wall measures 4 mm. No pericholecystic fluid. Common bile duct measures 10 mm maximally. No detectable choledocholithiasis. There appears to be mild intrahepatic bile duct dilatation although this is not appreciated on CT scan. Liver is heterogeneous. No discrete mass. Liver contour is smooth. Liver measures approximately 15.6 cm maximally. There is no ascitic fluid. No detectable pancreatic mass. Normal hepatopedal portal venous flow IMPRESSION: 1. Somewhat distended gallbladder. Echogenic abnormalities consistent with small stones 2. Common bile duct measures 10 mm in diameter. There is mild intrahepatic bile duct dilatation. No detectable choledocholithiasis Interpreted and Authenticated by: Farhat Cadet 06/22/18
[2018-06-22] MEDS ORDERED: 0.9 % SODIUM CHLORIDE 1,000 ML IV SCH ×2 (18:30→19:45)
[2018-06-22] MEDS ORDERED: ALBUMIN HUMAN 25 GM/100 ML BAG IV ONE ×2 (19:31→20:09)
[2018-06-22] MEDS ORDERED: AMIODARONE 360 MG in PREMIX 1 BAG IV SCH (19:45)
[2018-06-22] MEDS ORDERED: AMIODARONE 360 MG/200 ML BAG IV ONE (20:09)
[2018-06-22] MEDS ORDERED: diphenhydrAMINE 25 MG CAPSULE PO PRN (21:57)
[2018-06-22] MEDS ORDERED: diphenhydrAMINE 25 MG CAPSULE ONE (22:05)
[2018-06-23] MEDS: AMIODARONE 360 MG in PREMIX 1 BAG IV SCH ×2 (00:49→12:30)
[2018-06-23] MEDS: 0.9 % SODIUM CHLORIDE 250 ML IV SCH (03:59)
[2018-06-23] MEDS: NOREPINEPHRINE BITARTRATE 8 MG in 0.9 % SODIUM CHLORIDE 242 ML IV SCH (05:00)
[2018-06-23] MEDS: PIPERACILLIN SODIUM/TAZOBACTAM 2.25 GM in DEXTROSE 5% IN WATER 50 ML IV SCH ×3 (05:37→17:42)
[2018-06-23] MEDS: 0.9 % SODIUM CHLORIDE 10 ML SYRINGE IV SCH ×5 (05:37→20:28)
[2018-06-23] MEDS: HYDROCORTISONE SOD SUCC 100 MG VIAL IV SCH ×3 (05:38→22:12)
[2018-06-23 06:21] LABS: Mean Cell Volume 95.5 fL (80.0-100.0); Mean Corpuscular HGB Conc 33.1 g/dL (31.0-36.0); Mean Corpuscular Hemoglobin 31.7 pg (26.0-34.0); Platelet Count 102 K/mcL (140-440); RBC 2.78 M/mcL (4.00-5.20); Red Cell Distribution Width 16.3 % (11.5-14.5)
[2018-06-23 06:37] LABS: ALT/SGPT 12 U/l (0-40); Albumin 2.7 gm/dL (3.2-5.2); Albumin/Globulin Ratio 0.8 (1.0-2.3); Alkaline Phosphatase 102 U/L (39-117); Bilirubin,Direct < 0.2 mg/dL (0.0-0.3); Blood Urea Nitrogen 45 mg/dl (8-23); Gamma Glutamyl Transpeptidase 11 U/L (5-36); Uric Acid 7.2 mg/dL (2.5-8.0)
[2018-06-23] MEDS ORDERED: 0.9 % SODIUM CHLORIDE 10 ML SYRINGE IV PRN (06:54)
[2018-06-23] MEDS ORDERED: ALBUMIN HUMAN 12.5 GM/50 ML BAG IV ONE (07:12)
[2018-06-23] MEDS ORDERED: DEXTROSE 5% IN WATER 1,000 ML IV SCH (07:15)
--- NOTE | 2018-06-23 07:15 | XRay Report ---
INDICATION: PICC line placement TECHNIQUE: AP chest x-ray, portable COMPARISON: Previous chest x-ray dated 06/21/2018 FINDINGS: Left-sided PICC line with its tip in the superior vena cava. Findings consistent with right pleural effusion. Bilateral pulmonary parenchymal density with bibasilar predominance. Follow-up upright chest x-ray recommended when clinically appropriate. IMPRESSION: Left-sided PICC line with its tip in the superior vena cava Interpreted and Authenticated by: Farhat Cadet 06/23/18
--- NOTE | 2018-06-23 07:18 | Internal Med Progress Note ---
Medical - PN: Subj Patient information: Note initiated : 06/23/18 at 7:07 am Service Date, if different from initiated Date: [] Patient: Rosalia Lozano 72 y/o F admitted on 06/21/18 for Weakness. Chief Complaint: [] Interval history: Ms. Lozano is a 72 year old F 5-year-old female history of multiple sclerosis neurogenic bladder with Alvarez in place. She had been intermittent caths in the past and switched over to Alvarez as well earlier this year. She was seen in the hospital in April for sepsis with urinary tract infection. She was discharged to [facility] and then subsequently discharged home she been home for several weeks. However the last couple days she has been progressive generalized weakness, this morning she was foggy in her mentation per slow to answer questions. She has no other specific complaints no coughing or shortness of breath or chest pain. Denies fevers and chills. In the ER she was evaluated determined to have sepsis from urinary tract infection. She received several liters of IV fluid bolus however her hypotension did not resolve and patient was started on levo fed. Blood cultures obtained and antibiotics given. She is also found to be hyperkalemic and orders given for treatment. Patient is answering questions although slowly does appear quite weak and lethargic. She also had a poor appetite for some time 06/22 Patient went into A. fib RVR at 130 last night, still on levophed but titrating down slowly. amio 150 given with improvement. pt has occasional cough, no dyspnea, overall feels better. Had diarrhea overnight but did get Kayexalate last evening. Nurse reports aspirating with liquids. 06/23 Had a rough night last night poor sleep and some agitation. Finally fell asleep early this morning. I did not awaken her she partially open her eyes while I was examining her. Therefore did not obtain ROS. - Constitutional Vitals: Vital Signs Temp Pulse Resp BP Pulse Ox 97.8 F 65 23 H 114/83 98 06/23/18 06:00 06/23/18 06:00 06/23/18 06:00 06/23/18 06:00 06/23/18 06:00 Period Temp Pulse Resp BP Sys/Hancock Pulse Ox Last 24 Hr 97.8 F-99.5 F 36-77 9-29 69-121/52-100 80-99 Intake and Output 06/22/18 06/23/18 06/23/18 21:59 05:59 13:59 Intake Total 1215 / 1215 50 / 50 Output Total 488 / 488 339 / 339 34 / 34 Balance 727 / 727 -289 / -289 -34 / -34 Weight 61 kg Intake & Output: Intake & Output 06/22/18 06/23/18 06/23/18 21:59 05:59 13:59 Intake Total 1215 / 1215 50 / 50 Output Total 488 / 488 339 / 339 34 / 34 Balance 727 / 727 -289 / -289 -34 / -34 Weight 61 kg Intake: IV 1215 / 1215 50 / 50 Sodium Chloride 0.9% 1,000 ml @ 1000 / 1000 75 mls/hr IV .[id number] [facility] Rx#: [id number] Sodium Chloride 0.9% 250 ml @ 48 / 48 20 mls/hr IV .[id number] [facility] Rx#: [id number] Levophed 8 mg In Sodium 17 / 17 Chloride 0.9% 242 ml @ 10 MCG/ MIN 18.75 mls/hr IV Q14H [facility] Rx #:[id number] Zosyn 2.25 gm In Dextrose 5% in 50 / 50 50 / 50 Water 50 ml @ 100 mls/hr IV Q6H [facility] Rx#:[id number] Output: Urine Catheter Amount 488 / 488 339 / 339 34 / 34 Other: Urine Appearance Clear Uretheral (Alvarez) Clear Clear Sediment Sediment Urine Color Bright Yellow Uretheral (Alvarez) Bright Yellow Bright Yellow Urine Odor Normal Stool Size Large Stool Color Brown Raul Colored Stool Consistency Soft # of times incontinent of 1 1 Bowels Exam: General: sleeping, no acute Distress HEENT: EOMI, neck supple CV: Regular this morning, 1/6 SM, Pulm: rigth side rhonchi, no wheezing Abd: soft, nontender, +BS x4 Ext: no clubbing/cyanosis/edema Neuro: sleeping and I did not awaken although she partially open her eyes when I was examining, moves all extremities, Skin: warm/dry Medical - PN: Obj Da - Labs CBC & Chem 7: 06/23/18 04:00 06/23/18 04:00 Labs: Abnormal Lab Results 06/23/18 06/23/1806/22/18 04:00 04:00 03:47 WBC 22.3 H RBC 2.78 L Hgb 8.8 L Hct 26.5 L RDW 16.3 H Plt Count 102 L MPV Gran % Lymph % (Auto) Gran # Lymph # (Auto) Tyrrell # (Auto) Band Neutrophils % Lymphocytes % RBC Morphology Anisocytosis PT VBG Lactic Acid Sodium 147 H Potassium 3.0 L Carbon Dioxide 20 L Anion Gap 18.0 H BUN 45 H 59 H Creatinine 1.4 H 1.6 H Glucose 151 H Alkaline Phosphatase 119 H Albumin 2.7 L 2.8 L Globulin 4.3 H Albumin/Globulin Ratio 0.8 L 0.7 L Urine Occult Blood Ur Leukocyte Esterase Urine RBC Urine WBC Urine Bacteria Hyaline Casts Urine Yeast (Budding) 06/22/18 06/21/18 06/21/18 03:47 15:00 11:16 WBC 31.1 H* RBC 3.58 L Hgb 11.1 L Hct 33.9 L RDW 16.4 H Plt Count 136 L MPV Gran % Lymph % (Auto) Gran # Lymph # (Auto) Tyrrell # (Auto) Band Neutrophils % 24 H Lymphocytes % 9 L RBC Morphology Abnorm A Anisocytosis 1+ A PT VBG Lactic Acid Sodium Potassium 5.7 H Carbon Dioxide Anion Gap BUN Creatinine Glucose Alkaline Phosphatase Albumin Globulin Albumin/Globulin Ratio Urine Occult Blood 0.03 A Ur Leukocyte Esterase 500 A Urine RBC 24 H Urine WBC 76 H Urine Bacteria Few A Hyaline Casts 28 H Urine Yeast (Budding) Few A 06/21/18 06/21/18 06/21/18 10:04 10:03 10:03 WBC 25.8 H RBC 3.87 L Hgb 11.9 L Hct RDW 16.1 H Plt Count 118 L MPV 10.6 H Gran % 91.4 H Lymph % (Auto) 4.5 L Gran # 23.6 H Lymph # (Auto) 1.2 L Tyrrell # (Auto) 1.1 H Band Neutrophils % Lymphocytes % RBC Morphology Anisocytosis PT VBG Lactic Acid 2.1 H Sodium Potassium 6.7 H* Carbon Dioxide 21 L Anion Gap 17.0 H BUN 77 H Creatinine 2.1 H Glucose 116 H Alkaline Phosphatase Albumin Globulin 4.5 H Albumin/Globulin Ratio 0.8 L Urine Occult Blood Ur Leukocyte Esterase Urine RBC Urine WBC Urine Bacteria Hyaline Casts Urine Yeast (Budding) 06/21/18 09:46 WBC RBC Hgb Hct RDW Plt Count MPV Gran % Lymph % (Auto) Gran # Lymph # (Auto) Tyrrell # (Auto) Band Neutrophils % Lymphocytes % RBC Morphology Anisocytosis PT 14.6 H VBG Lactic Acid Sodium Potassium Carbon Dioxide Anion Gap BUN Creatinine Glucose Alkaline Phosphatase Albumin Globulin Albumin/Globulin Ratio Urine Occult Blood Ur Leukocyte Esterase Urine RBC Urine WBC Urine Bacteria Hyaline Casts Urine Yeast (Budding) Meds: Medications Acetaminophen (Tylenol) 650 mg PO Q6HP PRN PRN Reason: PAIN/FEVER > 101 Acetaminophen/Codeine Phosphate (Tylenol #3) 2 tab PO Q6H PRN PRN Reason: pain Albuterol/Ipratropium (Duoneb) 3 ml NEB Q4HRT PRN PRN Reason: Dyspnea Aspirin (Aspirin) 81 mg PO DAILY [facility] Last Admin: 06/22/18 09:46 Dose: 81 mg Diphenhydramine HCl (Benadryl) 25 mg PO HSP PRN PRN Reason: Insomnia Last Admin: 06/22/18 22:00 Dose: 25 mg Famotidine (Pepcid) 20 mg PO DAILY [facility] Last Admin: 06/22/18 09:46 Dose: 20 mg Gabapentin (Neurontin) 400 mg PO BID [facility] Last Admin: 06/22/18 21:59 Dose: 400 mg Heparin Sodium (Porcine) (Heparin) 5,000 unit SQ Q12 [facility] Last Admin: 06/22/18 21:59 Dose: 5,000 unit Heparin Sodium (Porcine) (Heparin Flush) 2 ml IV Q12 [facility] Hydrocortisone Sodium Succinate (Solu-Cortef) 100 mg IV Q8 [facility] Last Admin: 06/23/18 05:38 Dose: 100 mg Norepinephrine Bitartrate 8 mg (/ Sodium Chloride) 250 mls @ 18.75 mls/hr IV Q14H [facility]; Protocol Last Admin: 06/23/18 05:00 Dose: Not Given Sodium Chloride (Sodium Chloride 0.9%) 500 mls @ 0 mls/hr IV .Q0M [facility] Sodium Chloride (Sodium Chloride 0.9%) 250 mls @ 20 mls/hr IV .[id number] [facility] Last Admin: 06/23/18 03:59 Dose: Not Given Acetaminophen (Ofirmev) 650 mg in 65 mls @ 130 mls/hr IV Q6HP PRN PRN Reason: PAIN/FEVER > 101 Last Infusion: 06/21/18 21:20 Dose: Infused Piperacillin Sod/Tazobactam (Sod 2.25 gm/ Dextrose) 50 mls @ 100 mls/hr IV Q6H [facility] Last Admin: 06/23/18 05:37 Dose: 100 mls/hr Vancomycin HCl 1,000 mg/ (Sodium Chloride) 250 mls @ 250 mls/hr IV Q24H [facility] Last Infusion: 06/22/18 08:34 Dose: Infused AMIODARONE 360 mg/ Premix 200 mls @ 16.66 mls/hr IV .Q12H1M [facility]; Protocol Stop: 06/23/18 19:44 Last Admin: 06/23/18 00:49 Dose: Not Given Sodium Chloride (Sodium Chloride 0.9%) 1,000 mls @ 75 mls/hr IV .[id number] [facility] Last Admin: 06/22/18 20:24 Dose: 75 mls/hr Lactobacillus Rhamnosus (Culturelle) 1 cap PO BID [facility] Last Admin: 06/22/18 22:00 Dose: 1 cap Levetiracetam (Keppra) 500 mg PO BID [facility] Last Admin: 06/22/18 21:59 Dose: 500 mg Metoprolol Tartrate (Lopressor) 5 mg IV Q2HP PRN PRN Reason: Tachyarrhythmias Last Admin: 06/22/18 18:52 Dose: 5 mg Morphine Sulfate (Morphine) 2 mg IV Q4HP PRN PRN Reason: PAIN LEVEL > 6 Last Admin: 06/21/18 23:42 Dose: 1 mg Ondansetron HCl (Zofran) 4 mg IV Q4HP PRN PRN Reason: Nausea And Vomiting Budesonide/Formoterol Fumarate [Symbicort] 160-4.5 Mcg Inhaler 2 dose INH BID [facility] Last Admin: 06/22/18 22:00 Dose: 2 dose Sodium Chloride (Saline Flush) 10 ml IV Q8 [facility] Last Admin: 06/23/18 05:37 Dose: 10 ml Sodium Chloride (Saline Flush) 10 ml IV UD PRN PRN Reason: FLUSH Sodium Chloride (Saline Flush) 10 ml IV Q12 [facility] Vancomycin HCl (Vancomycin Per Pharmacy) 1 order IV UD [facility] Medical - PN: A/P - Time Spent With Patient Total time spent is greater than 50% in coordination of care (as documented) at patient's floor/unit and/or counseling patient: - Narrative A/P Narrative: A: *UTI (complicated, neurogenic bladder with alvarez in place), recurrent: *Bacteremia (GNB): likely 2/2 above *Septic Shock: 2/2 UTI -vasopressors off, pt sensitive to them -rocephin changed to vanc/zosyn with good response -leukocytosis and PCT improving, bandemia resolved *Aspiration PNA w/hypoxia: -on 1L NC with great sats, down from 3L *Acute Hyperkalemia: 2/2 CARMINA + Medications -resolved *CARMINA on CKD III-IV: likely ATN -1.4<<2.1 *Episode of Afib rvr, once again last night: dose of lopressor w/o effect, Amio 150 again with good results and conversion, but this morning appears afib in 80' s -CHADSVASC=3 *Multiple sclerosis/Debility/Poor functional status: wheelchair bound *Thrombocytopenia, chronic: stable *seizure d/o: *COPD (not on home O2@home): *HTN: home ACEI *Hypernatremia: Fluid load for resuscitation P: -hydrocortisone wean, IVF's -lopressor PO as BP allows, otherwise prn -discuss anticoagulation -echo pending -cont vanc/zosyn -pending final BC/UC, trend PCT -IS/Acapella -dysphagia diet per ST, pt may need further adjustment -ACEI/KCl stopped for hyperkalemia and hypotension, will not restart KCl on d/c -pt/ot/cm for placement needs -will need to see urology for recurrent UTI's -ppx: heparin Medical - PN: Qual - VTE Deep Vein Thrombosis/Pulmonary Embolism Present on Admission: No
[2018-06-23] MEDS ORDERED: POTASSIUM CHLORIDE 20 MEQ TABLET PO SCH (07:30)
[2018-06-23 08:15] LABS: Anisocytosis 1+ (NONE SEEN); Band Neutrophils % 4 % (0-10); Lymphocytes % 10 % (15-49); Platelet Estimate DECREASED (NORMAL); RBC Morphology ABNORM (NORMAL); Segmented Neutrophils % 86 % (38-78)
[2018-06-23] MEDS ORDERED: POTASSIUM CHLORIDE 40 MEQ in DEXTROSE 5% IN WATER 250 ML IV ONE (09:00)
[2018-06-23] MEDS: VANCOMYCIN 1,000 MG in 0.9 % SODIUM CHLORIDE 250 ML IV SCH (09:00)
[2018-06-23] MEDS ORDERED: NOREPINEPHRINE BITARTRATE 8 MG in 0.9 % SODIUM CHLORIDE 242 ML IV PRN (09:15)
[2018-06-23] MEDS: FAMOTIDINE 20 MG TABLET PO SCH (10:03)
[2018-06-23] MEDS: Budesonide/Formoterol Fumarate [Symbicort] 160-4.5 mcg Inhaler INH SCH ×2 (10:04→20:26)
[2018-06-23] MEDS: LACTOBACILLUS 1 CAPSULE PO SCH ×2 (10:04→20:24)
[2018-06-23] MEDS: ASPIRIN 81 MG TAB.CHEW PO SCH (10:04)
[2018-06-23] MEDS: GABAPENTIN 400 MG CAPSULE PO SCH ×2 (10:04→20:24)
[2018-06-23] MEDS: levETIRAcetam 500 MG TABLET PO SCH ×3 (10:04→20:23)
[2018-06-23] MEDS: HEPARIN 5,000 UNIT/ML VIAL SQ SCH ×2 (10:16→20:24)
[2018-06-23 13:08] LABS: Appearance,Urine HAZY; Bacteria,Urine 0 /hpf (0); Bilirubin,Urine NEG (NEG); Color,Urine YELLOW; Glucose,Urine (UA) NEGATIVE (NEG); Leukocyte Esterase,Urine 75 /uL (NEG); Mucus,Urine FEW /hpf (0); Protein,Urine 100 mg/dL (NEG); Urine Blood NEG mg/dL (<0.03); Urine Hyaline Cast 7 /lpf (0-2); Urine RBC 0 /hpf (0-1); Urine Squamous Epithelial Cell 1 /hpf (0-4); Urine Transitional Epi Cells 5 /hpf (0-2); Urine WBC 12 /hpf (0-4); Urobilinogen,Urine NEG (NEG)
[2018-06-23] MEDS: ACETAMINOPHEN 650 MG/65 ML BOTTLE IV PRN (20:24)
[2018-06-23] MEDS: METOPROLOL TARTRATE 25 MG TABLET PO SCH (20:29)
[2018-06-24] MEDS: PIPERACILLIN SODIUM/TAZOBACTAM 2.25 GM in DEXTROSE 5% IN WATER 50 ML IV SCH ×5 (00:20→23:53)
[2018-06-24] MEDS: HYDROCORTISONE SOD SUCC 100 MG VIAL IV SCH ×3 (05:47→21:22)
[2018-06-24] MEDS: 0.9 % SODIUM CHLORIDE 10 ML SYRINGE IV SCH ×5 (05:56→21:23)
[2018-06-24 06:51] LABS: Basophils # (Auto) 0 K/mcL (0.0-0.3); Basophils % (Auto) 0 % (0.0-2.0); Eosinophils # (Auto) 0 K/mcL (0.0-0.7); Eosinophils % (Auto) 0.1 % (0.0-7.0); Granulocytes % (Auto) 87.3 % (38.0-78.0); Lymphocytes # (Auto) 1.8 K/mcL (1.5-4.8); Lymphocytes % (Auto) 10.6 % (15.5-49.0); Mean Corpuscular HGB Conc 32.5 g/dL (31.0-36.0); Mean Corpuscular Hemoglobin 31.2 pg (26.0-34.0); Monocytes # (Auto) 0.3 K/mcL (0.1-0.9); Platelet Count 85 K/mcL (140-440); RBC 2.66 M/mcL (4.00-5.20); Red Cell Distribution Width 16.8 % (11.5-14.5)
[2018-06-24] MEDS: METOPROLOL TARTRATE 25 MG TABLET PO SCH ×2 (07:05→21:21)
--- NOTE | 2018-06-24 07:11 | Internal Med Progress Note ---
Medical - PN: Subj Patient information: Note initiated : 06/24/18 at 7:02 am Service Date, if different from initiated Date: [] Patient: Rosalia Lozano 72 y/o F admitted on 06/21/18 for Weakness. Chief Complaint: [] Interval history: Ms. Lozano is a 72 year old F 5-year-old female history of multiple sclerosis neurogenic bladder with Alvarez in place. She had been intermittent caths in the past and switched over to Alvarez as well earlier this year. She was seen in the hospital in April for sepsis with urinary tract infection. She was discharged to [facility] and then subsequently discharged home she been home for several weeks. However the last couple days she has been progressive generalized weakness, this morning she was foggy in her mentation per slow to answer questions. She has no other specific complaints no coughing or shortness of breath or chest pain. Denies fevers and chills. In the ER she was evaluated determined to have sepsis from urinary tract infection. She received several liters of IV fluid bolus however her hypotension did not resolve and patient was started on levo fed. Blood cultures obtained and antibiotics given. She is also found to be hyperkalemic and orders given for treatment. Patient is answering questions although slowly does appear quite weak and lethargic. She also had a poor appetite for some time 06/22 Patient went into A. fib RVR at 130 last night, still on levophed but titrating down slowly. amio 150 given with improvement. pt has occasional cough, no dyspnea, overall feels better. Had diarrhea overnight but did get Kayexalate last evening. Nurse reports aspirating with liquids. 06/23 Had a rough night last night poor sleep and some agitation. Finally fell asleep early this morning. I did not awaken her she partially open her eyes while I was examining her. Therefore did not obtain ROS. 06/24 Slept better last night, feeling a little better but still very weak. In sinus rhythm. Has chronic back pain. No events overnight. Review of Systems: denies headache/fever/chills/nausea/vomiting/chest or abdominal pain/cough/ dyspnea. Otherwise see above. - Constitutional Vitals: Vital Signs Temp Pulse Resp BP Pulse Ox 98.1 F 65 14 164/97 98 06/24/18 04:00 06/23/18 06:00 06/24/18 06:00 06/24/18 06:00 06/24/18 06:00 Period Temp Pulse Resp BP Sys/Hancock Pulse Ox Last 24 Hr 97.4 F-98.5 F 10-24 98-164/52-98 91-100 Intake and Output 06/23/18 06/24/18 06/24/18 21:59 05:59 13:59 Intake Total 270 / 270 1190 / 1190 50 / 50 Output Total 310 / 310 290 / 290 Balance -40 / -40 900 / 900 50 / 50 Weight 63.684 kg Intake & Output: Intake & Output 06/23/18 06/24/18 06/24/18 21:59 05:59 13:59 Intake Total 270 / 270 1190 / 1190 50 / 50 Output Total 310 / 310 290 / 290 Balance -40 / -40 900 / 900 50 / 50 Weight 63.684 kg Intake: IV 50 / 50 1115 / 1115 50 / 50 Zosyn 2.25 gm In Dextrose 5% in 50 / 50 50 / 50 50 / 50 Water 50 ml @ 100 mls/hr IV Q6H [facility] Rx#:[id number] Oral 220 / 220 75 / 75 Output: Urine Catheter Amount 310 / 310 290 / 290 Other: Meal Dinner Percent of Meal Consumed 50% Feeding Ability Needs Supervision Urine Appearance Clear Uretheral (Alvarez) Clear Clear Sediment Sediment Urine Color Bright Yellow Uretheral (Alvarez) Bright Yellow Bright Yellow Urine Odor Normal Uretheral (Alvarez) Normal Stool Size Large Stool Color Brown Stool Consistency Formed # of times incontinent of 1 Bowels Exam: General: awake, no acute Distress HEENT: EOMI, neck supple CV: Regular this morning, 1/6 SM, Pulm: rigth side rhonchi mild, no wheezing Abd: soft, nontender, +BS x4 Ext: no clubbing/cyanosis/edema Neuro: Alert and awake chronic generalized lower extremity weakness, moves all extremities, Skin: warm/dry Medical - PN: Obj Da - Labs CBC & Chem 7: 06/24/18 04:00 06/24/18 04:00 Labs: Abnormal Lab Results 06/24/18 06/23/18 06/23/18 04:00 12:33 04:00 WBC 17.0 H RBC 2.66 L Hgb 8.3 L Hct 25.6 L RDW 16.8 H Plt Count 85 L MPV Gran % 87.3 H Lymph % (Auto) 10.6 L Gran # 14.8 H Lymph # (Auto) Power # (Auto) Seg Neutrophils % Band Neutrophils % Lymphocytes % RBC Morphology Anisocytosis PT VBG Lactic Acid Sodium 147 H Potassium 3.0 L Carbon Dioxide Anion Gap BUN 45 H Creatinine 1.4 H Glucose 151 H Alkaline Phosphatase Albumin 2.7 L Globulin Albumin/Globulin Ratio 0.8 L Urine Protein 100 A Urine Occult Blood Ur Leukocyte Esterase 75 A Urine RBC Urine WBC 12 H Ur Transition Epith Cell 5 H Urine Bacteria Hyaline Casts 7 H Urine Yeast (Budding) 06/23/18 06/22/18 06/22/18 04:00 03:47 03:47 WBC 22.3 H 31.1 H* RBC 2.78 L 3.58 L Hgb 8.8 L 11.1 L Hct 26.5 L 33.9 L RDW 16.3 H 16.4 H Plt Count 102 L 136 L MPV Gran % Lymph % (Auto) Gran # Lymph # (Auto) Power # (Auto) Seg Neutrophils % 86 H Band Neutrophils % 24 H Lymphocytes % 10 L 9 L RBC Morphology Abnorm A Abnorm A Anisocytosis 1+ A 1+ A PT VBG Lactic Acid Sodium Potassium Carbon Dioxide 20 L Anion Gap 18.0 H BUN 59 H Creatinine 1.6 H Glucose Alkaline Phosphatase 119 H Albumin 2.8 L Globulin 4.3 H Albumin/Globulin Ratio 0.7 L Urine Protein Urine Occult Blood Ur Leukocyte Esterase Urine RBC Urine WBC Ur Transition Epith Cell Urine Bacteria Hyaline Casts Urine Yeast (Budding) 06/21/18 06/21/18 06/21/18 15:00 11:16 10:04 WBC 25.8 H RBC 3.87 L Hgb 11.9 L Hct RDW 16.1 H Plt Count 118 L MPV 10.6 H Gran % 91.4 H Lymph % (Auto) 4.5 L Gran # 23.6 H Lymph # (Auto) 1.2 L Power # (Auto) 1.1 H Seg Neutrophils % Band Neutrophils % Lymphocytes % RBC Morphology Anisocytosis PT VBG Lactic Acid Sodium Potassium 5.7 H Carbon Dioxide Anion Gap BUN Creatinine Glucose Alkaline Phosphatase Albumin Globulin Albumin/Globulin Ratio Urine Protein Urine Occult Blood 0.03 A Ur Leukocyte Esterase 500 A Urine RBC 24 H Urine WBC 76 H Ur Transition Epith Cell Urine Bacteria Few A Hyaline Casts 28 H Urine Yeast (Budding) Few A 06/21/18 06/21/18 06/21/18 10:03 10:03 09:46 WBC RBC Hgb Hct RDW Plt Count MPV Gran % Lymph % (Auto) Gran # Lymph # (Auto) Power # (Auto) Seg Neutrophils % Band Neutrophils % Lymphocytes % RBC Morphology Anisocytosis PT 14.6 H VBG Lactic Acid 2.1 H Sodium Potassium 6.7 H* Carbon Dioxide 21 L Anion Gap 17.0 H BUN 77 H Creatinine 2.1 H Glucose 116 H Alkaline Phosphatase Albumin Globulin 4.5 H Albumin/Globulin Ratio 0.8 L Urine Protein Urine Occult Blood Ur Leukocyte Esterase Urine RBC Urine WBC Ur Transition Epith Cell Urine Bacteria Hyaline Casts Urine Yeast (Budding) Meds: Medications Acetaminophen (Tylenol) 650 mg PO Q6HP PRN PRN Reason: PAIN/FEVER > 101 Acetaminophen/Codeine Phosphate (Tylenol #3) 2 tab PO Q6H PRN PRN Reason: pain Albuterol/Ipratropium (Duoneb) 3 ml NEB Q4HRT PRN PRN Reason: Dyspnea Aspirin (Aspirin) 81 mg PO DAILY [facility] Last Admin: 06/23/18 10:04 Dose: Not Given Diphenhydramine HCl (Benadryl) 25 mg PO HSP PRN PRN Reason: Insomnia Last Admin: 06/22/18 22:00 Dose: 25 mg Enoxaparin Sodium (Lovenox) 60 mg SQ DAILY [facility] Famotidine (Pepcid) 20 mg PO DAILY [facility] Last Admin: 06/23/18 10:03 Dose: Not Given Gabapentin (Neurontin) 400 mg PO BID [facility] Last Admin: 06/23/18 20:24 Dose: 400 mg Heparin Sodium (Porcine) (Heparin Flush) 2 ml IV Q12 [facility] Last Admin: 06/23/18 20:25 Dose: 2 ml Hydrocortisone Sodium Succinate (Solu-Cortef) 50 mg IV Q8 [facility] Last Admin: 06/24/18 05:47 Dose: 50 mg Acetaminophen (Ofirmev) 650 mg in 65 mls @ 130 mls/hr IV Q6HP PRN PRN Reason: PAIN/FEVER > 101 Last Infusion: 06/24/18 00:31 Dose: Infused Piperacillin Sod/Tazobactam (Sod 2.25 gm/ Dextrose) 50 mls @ 100 mls/hr IV Q6H [facility] Last Infusion: 06/24/18 06:23 Dose: Infused Vancomycin HCl 1,000 mg/ (Sodium Chloride) 250 mls @ 250 mls/hr IV Q24H [facility] Last Infusion: 06/23/18 10:00 Dose: Infused Norepinephrine Bitartrate 8 mg (/ Sodium Chloride) 250 mls @ 18.75 mls/hr IV Q14H PRN; Protocol PRN Reason: TITRATE TO KEEP MAP > 65 Lactobacillus Rhamnosus (Culturelle) 1 cap PO BID [facility] Last Admin: 06/23/18 20:24 Dose: 1 cap Levetiracetam (Keppra) 500 mg PO BID [facility] Last Admin: 06/23/18 20:23 Dose: 500 mg Metoprolol Tartrate (Lopressor) 5 mg IV Q2HP PRN PRN Reason: Tachyarrhythmias Last Admin: 06/22/18 18:52 Dose: 5 mg Metoprolol Tartrate (Lopressor) 12.5 mg PO BID [facility] Last Admin: 06/23/18 20:29 Dose: Not Given Morphine Sulfate (Morphine) 2 mg IV Q4HP PRN PRN Reason: PAIN LEVEL > 6 Last Admin: 06/24/18 00:32 Dose: 2 mg Ondansetron HCl (Zofran) 4 mg IV Q4HP PRN PRN Reason: Nausea And Vomiting Budesonide/Formoterol Fumarate [Symbicort] 160-4.5 Mcg Inhaler 2 dose INH BID [facility] Last Admin: 06/23/18 20:26 Dose: 2 dose Sodium Chloride (Saline Flush) 10 ml IV Q8 [facility] Last Admin: 06/24/18 05:56 Dose: 10 ml Sodium Chloride (Saline Flush) 10 ml IV UD PRN PRN Reason: FLUSH Sodium Chloride (Saline Flush) 10 ml IV Q12 [facility] Last Admin: 06/23/18 20:28 Dose: Not Given Vancomycin HCl (Vancomycin Per Pharmacy) 1 order IV [facility] Medical - PN: A/P - Time Spent With Patient Total time spent is greater than 50% in coordination of care (as documented) at patient's floor/unit and/or counseling patient: - Narrative A/P Narrative: A: *UTI (complicated, neurogenic bladder with alvarez in place), recurrent (concern for hygiene): *Bacteremia (GNB): likely 2/2 above *Septic Shock: 2/2 UTI -vasopressors off -rocephin changed to vanc/zosyn with good response -leukocytosis and PCT improving, bandemia resolved *Aspiration PNA w/hypoxia: -now on 0L NC, down from 3L *Dysphagia, mod oropharyngeal: *Acute Hyperkalemia: 2/2 CARMINA + Medications -resolved -hypokalemia recently, prn supp *CARMINA on CKD III-IV: likely ATN -1.2<<2.1 *Episode of Afib rvr: 2/2 sepsis/above, in sinus now -CHADSVASC=3 -Echo with normal EF, mod PAH, atria normal size *Multiple sclerosis/Debility/Poor functional status: wheelchair bound *Thrombocytopenia, acute on chronic: 2/2 above *seizure d/o: *COPD (not on home O2@home): *HTN: home ACEI *Hypernatremia: Fluid load for resuscitation, resolved P: -hydrocortisone wean, -lopressor PO as BP allows, otherwise prn -cont vanc/zosyn for now -pending final BC/UC, trend PCT -Discussed the case with Urologist (Dr. Rowan) who recommended Methenamine 1gm bid, no need for suprapubic cath just yet, but to f/u in office with him to further discuss options. -hygiene education via nursing -IS/Acapella -dysphagia diet per ST -ACEI/KCl stopped for hyperkalemia and hypotension -pt/ot/cm for placement needs -ppx: heparin to lovenox qd for renal dosing anticoagulation, Medical - PN: Qual - VTE Deep Vein Thrombosis/Pulmonary Embolism Present on Admission: No
[2018-06-24] MEDS: ACETAMINOPHEN 650 MG/65 ML BOTTLE IV PRN (07:24)
[2018-06-24] MEDS: GABAPENTIN 400 MG CAPSULE PO SCH ×2 (07:24→21:21)
[2018-06-24 07:41] LABS: Blood Urea Nitrogen 43 mg/dl (8-23)
[2018-06-24] MEDS ORDERED: POTASSIUM CHLORIDE 40 MEQ in DEXTROSE 5% IN WATER 250 ML IV ONE (08:00)
[2018-06-24] MEDS: POTASSIUM CHLORIDE 20 MEQ TABLET PO SCH ×2 (08:35→12:10)
[2018-06-24] MEDS: ACETAMINOPHEN W/CODEINE #3 1 TABLET PO PRN ×2 (08:35→17:08)
[2018-06-24] MEDS: Budesonide/Formoterol Fumarate [Symbicort] 160-4.5 mcg Inhaler INH SCH ×2 (08:35→21:21)
[2018-06-24] MEDS: FAMOTIDINE 20 MG TABLET PO SCH (08:35)
[2018-06-24] MEDS: ASPIRIN 81 MG TAB.CHEW PO SCH (08:35)
[2018-06-24] MEDS: ENOXAPARIN 60 MG/0.6 ML SYRINGE SQ SCH (08:56)
[2018-06-24] MEDS: levETIRAcetam 500 MG TABLET PO SCH ×2 (08:57→21:21)
[2018-06-24] MEDS: LACTOBACILLUS 1 CAPSULE PO SCH ×2 (08:57→21:20)
[2018-06-24] MEDS: VANCOMYCIN 1,000 MG in 0.9 % SODIUM CHLORIDE 250 ML IV SCH (11:00)
[2018-06-25] MEDS: 0.9 % SODIUM CHLORIDE 10 ML SYRINGE IV SCH ×6 (05:42→22:39)
[2018-06-25] MEDS: PIPERACILLIN SODIUM/TAZOBACTAM 2.25 GM in DEXTROSE 5% IN WATER 50 ML IV SCH (05:43)
[2018-06-25 06:53] LABS: Basophils # (Auto) 0 K/mcL (0.0-0.3); Basophils % (Auto) 0.2 % (0.0-2.0); Eosinophils # (Auto) 0 K/mcL (0.0-0.7); Eosinophils % (Auto) 0.1 % (0.0-7.0); Granulocytes % (Auto) 75.6 % (38.0-78.0); Lymphocytes # (Auto) 2.4 K/mcL (1.5-4.8); Lymphocytes % (Auto) 20.6 % (15.5-49.0); Mean Cell Volume 96.9 fL (80.0-100.0); Mean Corpuscular HGB Conc 32.6 g/dL (31.0-36.0); Mean Corpuscular Hemoglobin 31.6 pg (26.0-34.0); Monocytes # (Auto) 0.4 K/mcL (0.1-0.9); Monocytes % (Auto) 3.5 % (1.0-12.0); Platelet Count 85 K/mcL (140-440); RBC 2.71 M/mcL (4.00-5.20)
[2018-06-25] MEDS ORDERED: LOPERAMIDE 2 MG CAPSULE PO PRN ×2 (07:09→09:52)
[2018-06-25 07:29] LABS: Blood Urea Nitrogen 40 mg/dl (8-23)
--- NOTE | 2018-06-25 08:34 | Internal Med Progress Note ---
Medical - PN: Subj Patient information: Note initiated : 06/25/18 at 7:08 am Service Date, if different from initiated Date: [] Patient: Rosalia Lozano 72 y/o F admitted on 06/21/18 for Weakness. Chief Complaint: [] Interval history: Ms. Lozano is a 72 year old F 5-year-old female history of multiple sclerosis neurogenic bladder with Alvarez in place. She had been intermittent caths in the past and switched over to Alvarez as well earlier this year. She was seen in the hospital in April for sepsis with urinary tract infection. She was discharged to [facility] and then subsequently discharged home she been home for several weeks. However the last couple days she has been progressive generalized weakness, this morning she was foggy in her mentation per slow to answer questions. She has no other specific complaints no coughing or shortness of breath or chest pain. Denies fevers and chills. In the ER she was evaluated determined to have sepsis from urinary tract infection. She received several liters of IV fluid bolus however her hypotension did not resolve and patient was started on levo fed. Blood cultures obtained and antibiotics given. She is also found to be hyperkalemic and orders given for treatment. Patient is answering questions although slowly does appear quite weak and lethargic. She also had a poor appetite for some time 06/22 Patient went into A. fib RVR at 130 last night, still on levophed but titrating down slowly. amio 150 given with improvement. pt has occasional cough, no dyspnea, overall feels better. Had diarrhea overnight but did get Kayexalate last evening. Nurse reports aspirating with liquids. 06/23 Had a rough night last night poor sleep and some agitation. Finally fell asleep early this morning. I did not awaken her she partially open her eyes while I was examining her. Therefore did not obtain ROS. 06/24 Slept better last night, feeling a little better but still very weak. In sinus rhythm. Has chronic back pain. No events overnight. 06/25 Continues to feel little better each day, still has her chronic back pain, no issues overnight, no new complaints. Eating better Review of Systems: denies headache/fever/chills/nausea/vomiting/chest or abdominal pain/cough/ dyspnea. Otherwise see above. - Constitutional Vitals: Vital Signs Temp Pulse Resp BP Pulse Ox 98.0 F 65 10 L 158/99 100 06/25/18 04:02 06/23/18 06:00 06/25/18 06:01 06/25/18 06:01 06/25/18 06:01 Period Temp Pulse Resp BP Sys/Hancock Pulse Ox Last 24 Hr 97.2 F-98.4 F 9-22 120-161/68-122 94-100 Intake and Output 06/24/18 06/25/18 06/25/18 21:59 05:59 13:59 Intake Total 50 / 50 250 / 250 Output Total 359 / 359 340 / 340 30 / 30 Balance -309 / -309 -90 / -90 -30 / -30 Weight 65.862 kg Intake & Output: Intake & Output 06/24/18 06/25/18 06/25/18 21:59 05:59 13:59 Intake Total 50 / 50 250 / 250 Output Total 359 / 359 340 / 340 30 / 30 Balance -309 / -309 -90 / -90 -30 / -30 Weight 65.862 kg Intake: IV 50 / 50 50 / 50 Zosyn 2.25 gm In Dextrose 5% in 50 / 50 50 / 50 Water 50 ml @ 100 mls/hr IV Q6H [facility] Rx#:[id number] Oral 200 / 200 Output: Urine Catheter Amount 359 / 359 340 / 340 30 / 30 Other: Urine Appearance Clear Clear Uretheral (Alvarez) Clear Clear Urine Color Pale Pale Uretheral (Alvarez) Pale Pale Urine Odor Normal Normal Stool Size Large Moderate Stool Color Brown Brown Stool Consistency Soft Soft Loose Loose # Bowel Movements 2 # of times incontinent of 1 Bowels Exam: General: awake, no acute Distress HEENT: EOMI, neck supple CV: Regular this morning, 1/6 SM, Pulm: rigth side rhonchi mild, no wheezing Abd: soft, nontender, +BS x4 Ext: no clubbing/cyanosis/edema Neuro: Alert and awake chronic generalized lower extremity weakness, moves all extremities, Skin: warm/dry Medical - PN: Obj Da - Labs CBC & Chem 7: 06/25/18 04:00 06/25/18 04:00 Labs: Abnormal Lab Results 06/25/18 06/24/18 06/24/18 04:00 04:00 04:00 WBC 11.4 H 17.0 H RBC 2.71 L 2.66 L Hgb 8.6 L 8.3 L Hct 26.3 L 25.6 L RDW 17.0 H 16.8 H Plt Count 85 L 85 L Gran % 87.3 H Lymph % (Auto) 10.6 L Gran # 8.6 H 14.8 H Seg Neutrophils % Lymphocytes % RBC Morphology Anisocytosis Sodium Potassium 2.7 L* Carbon Dioxide 21 L BUN 43 H Creatinine 1.2 H Glucose 153 H Albumin Albumin/Globulin Ratio Urine Protein Ur Leukocyte Esterase Urine WBC Ur Transition Epith Cell Hyaline Casts 06/23/18 06/23/18 06/23/18 12:33 04:00 04:00 WBC 22.3 H RBC 2.78 L Hgb 8.8 L Hct 26.5 L RDW 16.3 H Plt Count 102 L Gran % Lymph % (Auto) Gran # Seg Neutrophils % 86 H Lymphocytes % 10 L RBC Morphology Abnorm A Anisocytosis 1+ A Sodium 147 H Potassium 3.0 L Carbon Dioxide BUN 45 H Creatinine 1.4 H Glucose 151 H Albumin 2.7 L Albumin/Globulin Ratio 0.8 L Urine Protein 100 A Ur Leukocyte Esterase 75 A Urine WBC 12 H Ur Transition Epith Cell 5 H Hyaline Casts 7 H Meds: Medications Acetaminophen (Tylenol) 650 mg PO Q6HP PRN PRN Reason: PAIN/FEVER > 101 Acetaminophen/Codeine Phosphate (Tylenol #3) 2 tab PO Q6H PRN PRN Reason: pain Last Admin: 06/24/18 17:08 Dose: 2 tab Albuterol/Ipratropium (Duoneb) 3 ml NEB Q4HRT PRN PRN Reason: Dyspnea Aspirin (Aspirin) 81 mg PO DAILY [facility] Last Admin: 06/24/18 08:35 Dose: 81 mg Diphenhydramine HCl (Benadryl) 25 mg PO HSP PRN PRN Reason: Insomnia Last Admin: 06/22/18 22:00 Dose: 25 mg Enoxaparin Sodium (Lovenox) 60 mg SQ DAILY [facility] Last Admin: 06/24/18 08:56 Dose: 60 mg Famotidine (Pepcid) 20 mg PO DAILY [facility] Last Admin: 06/24/18 08:35 Dose: 20 mg Gabapentin (Neurontin) 400 mg PO BID [facility] Last Admin: 06/24/18 21:21 Dose: 400 mg Heparin Sodium (Porcine) (Heparin Flush) 2 ml IV Q12 [facility] Last Admin: 06/24/18 21:20 Dose: 2 ml Hydrocortisone Sodium Succinate (Solu-Cortef) 25 mg IV Q12 [facility] Last Admin: 06/24/18 21:22 Dose: 25 mg Acetaminophen (Ofirmev) 650 mg in 65 mls @ 130 mls/hr IV Q6HP PRN PRN Reason: PAIN/FEVER > 101 Last Infusion: 06/24/18 08:24 Dose: Infused Piperacillin Sod/Tazobactam (Sod 2.25 gm/ Dextrose) 50 mls @ 100 mls/hr IV Q6H [facility] Last Admin: 06/25/18 05:43 Dose: 100 mls/hr Vancomycin HCl 1,000 mg/ (Sodium Chloride) 250 mls @ 250 mls/hr IV Q24H [facility] Last Infusion: 06/24/18 12:11 Dose: Infused Norepinephrine Bitartrate 8 mg (/ Sodium Chloride) 250 mls @ 18.75 mls/hr IV Q14H PRN; Protocol PRN Reason: TITRATE TO KEEP MAP > 65 Lactobacillus Rhamnosus (Culturelle) 1 cap PO BID [facility] Last Admin: 06/24/18 21:20 Dose: 1 cap Levetiracetam (Keppra) 500 mg PO BID [facility] Last Admin: 06/24/18 21:21 Dose: 500 mg Metoprolol Tartrate (Lopressor) 5 mg IV Q2HP PRN PRN Reason: Tachyarrhythmias Last Admin: 06/22/18 18:52 Dose: 5 mg Metoprolol Tartrate (Lopressor) 12.5 mg PO BID [facility] Last Admin: 06/24/18 21:21 Dose: Not Given Morphine Sulfate (Morphine) 2 mg IV Q4HP PRN PRN Reason: PAIN LEVEL > 6 Last Admin: 06/24/18 00:32 Dose: 2 mg Ondansetron HCl (Zofran) 4 mg IV Q4HP PRN PRN Reason: Nausea And Vomiting Budesonide/Formoterol Fumarate [Symbicort] 160-4.5 Mcg Inhaler 2 dose INH BID [facility] Last Admin: 06/24/18 21:21 Dose: 2 dose Sodium Chloride (Saline Flush) 10 ml IV Q8 [facility] Last Admin: 06/25/18 05:42 Dose: 10 ml Sodium Chloride (Saline Flush) 10 ml IV UD PRN PRN Reason: FLUSH Sodium Chloride (Saline Flush) 10 ml IV Q12 [facility] Last Admin: 06/24/18 21:23 Dose: Not Given Vancomycin HCl (Vancomycin Per Pharmacy) 1 order IV UD [facility] Medical - PN: A/P - Time Spent With Patient Total time spent is greater than 50% in coordination of care (as documented) at patient's floor/unit and/or counseling patient: - Narrative A/P Narrative: A: *UTI (complicated, neurogenic bladder with alvarez in place), recurrent (concern for hygiene): *Bacteremia (GNB): likely 2/2 above *Septic Shock: 2/2 UTI vs -vasopressors off -rocephin changed to vanc/zosyn with good response -leukocytosis and PCT improving, bandemia resolved *Aspiration PNA w/hypoxia: -now on 0L NC, down from 3L *Dysphagia, mod oropharyngeal: *Acute Hyperkalemia: 2/2 CARMINA + Medications -resolved -hypokalemia recently, prn supp *CARMINA on CKD III-IV: likely ATN -1.2<<2.1 *Episode of Afib rvr: 2/2 sepsis/above, in sinus now -Echo with normal EF, mod PAH, atria normal size -HR chronically runs 40's per community relations officer *Multiple sclerosis/Debility/Poor functional status: wheelchair bound *Thrombocytopenia, acute on chronic: 2/2 above *seizure d/o: *COPD (not on home O2@home): *HTN: home ACEI *Hypernatremia: Fluid load for resuscitation, resolved *Goals of care: long-term prognosis guarded given decline this year and underlying comorbidities P: -hydrocortisone d/c -prn lopressor -cont vanc/zosyn for now until Final cx's return -pending final BC/UC, trend PCT -Discussed the case with Urologist (Dr. Rowan) who recommended Methenamine 1gm bid, no suprapubic cath just yet, but to f/u in office with him to further discuss options. -hygiene education via nursing -IS/Acapella -dysphagia diet per ST -ACEI/KCl stopped for hyperkalemia and hypotension, -pt/ot/cm for placement -ppx: lovenox No Code Medical - PN: Qual - VTE Deep Vein Thrombosis/Pulmonary Embolism Present on Admission: No
[2018-06-25] MEDS ORDERED: COLLAGENASE TOP OINT TUBE 30GM TOPICAL SCH ×2 (09:00)
[2018-06-25] MEDS ORDERED: hydrALAZINE 20 MG/ML VIAL IV PRN ×2 (09:08→09:52)
[2018-06-25] MEDS: ENOXAPARIN 60 MG/0.6 ML SYRINGE SQ SCH (09:47)
[2018-06-25] MEDS: VANCOMYCIN 1,000 MG in 0.9 % SODIUM CHLORIDE 250 ML IV SCH (09:47)
[2018-06-25] MEDS: ASPIRIN 81 MG TAB.CHEW PO SCH (09:48)
[2018-06-25] MEDS: LACTOBACILLUS 1 CAPSULE PO SCH ×2 (09:48→20:55)
[2018-06-25] MEDS: ACETAMINOPHEN W/CODEINE #3 1 TABLET PO PRN ×2 (09:48→23:47)
[2018-06-25] MEDS: levETIRAcetam 500 MG TABLET PO SCH ×2 (09:48→20:55)
[2018-06-25] MEDS: FAMOTIDINE 20 MG TABLET PO SCH (09:48)
[2018-06-25] MEDS: GABAPENTIN 400 MG CAPSULE PO SCH ×2 (09:48→20:55)
[2018-06-25] MEDS: Budesonide/Formoterol Fumarate [Symbicort] 160-4.5 mcg Inhaler INH SCH ×3 (09:49→21:11)
[2018-06-25] MEDS ORDERED: IPRATROPIUM/ALBUTEROL 3 ML AMPUL.NEB NEB PRN (09:52)
[2018-06-25] MEDS ORDERED: ACETAMINOPHEN 325 MG TABLET PO PRN (09:52)
[2018-06-25] MEDS ORDERED: NOREPINEPHRINE BITARTRATE 8 MG in 0.9 % SODIUM CHLORIDE 242 ML IV PRN (09:52)
[2018-06-25] MEDS ORDERED: ACETAMINOPHEN 650 MG/65 ML BOTTLE IV PRN (09:52)
[2018-06-25] MEDS ORDERED: ACETAMINOPHEN W/CODEINE #3 1 TABLET PO SCH (09:52)
[2018-06-25] MEDS ORDERED: ONDANSETRON 4 MG/2 ML VIAL IV PRN (09:52)
[2018-06-25] MEDS ORDERED: METOPROLOL TARTRATE 5 MG/5 ML VIAL IV PRN (09:52)
[2018-06-25] MEDS ORDERED: VANCOMYCIN PER PHARMACY IV SCH (09:52)
[2018-06-25] MEDS ORDERED: PIPERACILLIN SODIUM/TAZOBACTAM 3.375 GM in DEXTROSE 5% IN WATER 50 ML IV SCH (12:00)
[2018-06-25] MEDS: FLUTICASONE/SALMETEROL 250/50 INHALER #14 INH SCH ×2 (12:18→20:55)
[2018-06-25] MEDS: PIPERACILLIN SODIUM/TAZOBACTAM 3.375 GM in DEXTROSE 5% IN WATER 50 ML IV SCH ×3 (12:19→23:50)
[2018-06-25] MEDS: ACETAMINOPHEN W/CODEINE #3 1 TABLET PO SCH ×2 (12:21→17:21)
[2018-06-25] MEDS ORDERED: VANCOMYCIN 125 MG CAPSULE PO SCH (13:00)
[2018-06-25] MEDS: VANCOMYCIN ORAL SOL 1,000 MG/10 ML BOTTLE PO SCH ×3 (14:38→20:56)
--- NOTE | 2018-06-25 16:05 | General Surgery Consult Note ---
History of Present Illness Patient information: Note initiated : 06/25/18 at 4:02 pm Service Date, if different from initiated Date: [] Patient: Rosalia Lozano 72 y/o F admitted on 06/21/18 for Weakness. Chief Complaint: [] Consult date: 06/25/18 Requesting physician: Jake Landeros History of present illness: I saw this patient in ICU 120 C, along with Jenn inpatient wound care nurse at rest at [facility] in [place], [place]. Since was present in the room during examination. This is a 72-year-old lady was admitted to the hospital with sepsis due to urinary tract infection and aspiration pneumonia. She has a background of multiple sclerosis and other various comorbid medical problems. Recently, she was admitted to the hospital and discharged after treatment of SEPSIS to [facility]. She was readmitted with fever, confusion with ? altered mental changes and obvious urinary tract infection. Smith catheter was inserted. Examination this time around revealed a non-stageable area for dry skin necrosis over the sacrococcygeal region. A Miguel Angel ulcer was suspected and wound care consult was called. I spoke with patient's after seeing patient. Medications and Allergies Home Medications Medication Instructions Recorded Confirmed Type ipratropium-albuterol 0.5 mg-3 3 ml INHALATION Q6H PRN #360 ml 02/28/17 Rx mg(2.5 mg base)/3 mL nebulization soln lisinopril 20 mg tablet 20 mg PO QDAY #30 tab 11/19/17 06/21/18 Rx aspirin 81 mg tablet,delayed 81 mg PO QDAY 12/15/17 06/21/18 History release mecobalamin (vitamin B12) 1,000 1,000 mcg SUBLINGUAL QDAY 12/15/17 06/21/18 History mcg disintegrating tablet,sublingual multivitamin tablet 1 tab PO QDAY 12/15/17 06/21/18 History potassium chloride ER 10 mEq 10 meq PO BID #60 cap 01/20/18 06/21/18 Rx capsule,extended release simvastatin 20 mg tablet 20 mg PO QPM #90 tab 01/27/18 06/21/18 Rx Lactobacillus [Culturelle] 1 cap PO BID #60 cap 05/03/18 06/21/18 Rx Levofloxacin [Levaquin] 750 mg PO DAILY #8 tab 05/07/18 06/22/18 Rx Loperamide [Imodium] 2 mg PO PRN PRN cap 05/07/18 06/21/18 Rx Nystatin 500,000 units SSW TID #150 ml 05/07/18 06/22/18 Rx acetaminophen 300 mg-codeine 30 mg 2 tab PO Q6H PRN #240 tab 05/13/18 06/21/18 Rx tablet gabapentin 400 mg capsule 400 mg PO TID #90 cap 06/09/18 06/21/18 Rx nitrofurantoin 100 mg PO BID #20 cap 06/10/18 06/21/18 Rx monohydrate/macrocrystals 100 mg capsule fluconazole 100 mg tablet 100 mg PO QDAY #6 tab 06/16/18 06/21/18 Rx Furosemide [Lasix] 40 mg PO DAILY 06/21/18 06/26/18 History levETIRAcetam [Keppra] 500 mg PO BID 06/21/18 06/21/18 History Furosemide [Lasix] 20 mg PO QNOON 06/26/18 06/26/18 History budesonide-formoterol HFA 160 2 inh INHALATION BID #6 g 06/26/18 Rx mcg-4.5 mcg/actuation aerosol inhaler Allergies Allergy/AdvReac Type Severity Reaction Status Date / Time No Known Drug Allergies Allergy Verified 06/09/18 12:47 Exam Temp Pulse Resp BP Pulse Ox 97.5 F 65 19 181/93 98 06/25/18 11:03 06/23/18 06:00 06/25/18 11:03 06/25/18 11:03 06/25/18 11:03 - General physical appearance well developed, well nourished, no distress, chronically ill - Eyes PERRL - ENT normal pinna, normal nares, normal mucosa, no congestion - Head Head exam IM: Present: atraumatic, normal inspection, normocephalic - Neck no masses, no bruits, no venous distension - Cardiovascular Cardiovascular exam IM: Present: normal rate and rhythm - Respiratory dullness: bilateral (Decreased air entry at lung bases) - Abdomen Abdomen: Present: soft, non tender, bowel sounds - Genitourinary Present: other (Smith catheter draining clearer urine) - Integumentary Present: other (Nonstageable skin over tip of sacrum and coccygeal regions. No crepitations and No localized skin and sub cutaneous edema. ) - Neurologic Present: normal coordination, other (Detailed examination NOT done. Information gathered from patient's nurse and . ) - Musculoskeletal Present: other (Bed confined. ) Results - Labs 06/26/18 04:00 06/26/18 04:00 Abnormal lab results 06/25/18 06/25/18 Range/Units 04:00 04:00 WBC 11.4 H (4.5-11.0) K/mcL RBC 2.71 L (4.00-5.20) M/mcL Hgb 8.6 L (12.0-15.0) g/dL Hct 26.3 L (36.0-48.0) % RDW 17.0 H (11.5-14.5) % Plt Count 85 L (140-440) K/mcL Gran # 8.6 H (1.8-8.0) K/mcL BUN 40 H (8-23) mg/dl Creatinine 1.2 H (0.6-1.1) mg/dl Glucose 168 H (70-105) mg/dL Diabetes panel 06/25/18 Range/Units 04:00 Sodium 142 (133-145) mmol/L Potassium 4.0 (3.3-5.1) mmol/L Chloride 108 (96-108) mmol/L Carbon Dioxide 23 (22-30) mmol/L BUN 40 H (8-23) mg/dl Creatinine 1.2 H (0.6-1.1) mg/dl Glucose 168 H (70-105) mg/dL Calcium 9.4 (8.6-10.4) mg/dl Calcium panel 06/25/18 Range/Units 04:00 Calcium 9.4 (8.6-10.4) mg/dl Pituitary panel 06/25/18 Range/Units 04:00 Sodium 142 (133-145) mmol/L Potassium 4.0 (3.3-5.1) mmol/L Chloride 108 (96-108) mmol/L Carbon Dioxide 23 (22-30) mmol/L BUN 40 H (8-23) mg/dl Creatinine 1.2 H (0.6-1.1) mg/dl Glucose 168 H (70-105) mg/dL Calcium 9.4 (8.6-10.4) mg/dl Adrenal panel 06/25/18 Range/Units 04:00 Sodium 142 (133-145) mmol/L Potassium 4.0 (3.3-5.1) mmol/L Chloride 108 (96-108) mmol/L Carbon Dioxide 23 (22-30) mmol/L BUN 40 H (8-23) mg/dl Creatinine 1.2 H (0.6-1.1) mg/dl Glucose 168 H (70-105) mg/dL Calcium 9.4 (8.6-10.4) mg/dl All other labs normal. Assessment and Plan (1) Pressure ulcer of coccygeal region, unstageable Status: Acute Priority: Medium Comment: Given hemodynamic improvement and treatment of SEPSIS source, will NOT favor diagnosis of Miguel Angel pressure ulcer at thistime. Will follow clinically and monitor progress. (2) Sepsis Status: Acute Priority: High Qualifiers: Sepsis type: Escherichia coli Qualified Code(s): A41.51 - Sepsis due to Escherichia coli [E. coli] (3) UTI (urinary tract infection) Status: Chronic Priority: Medium Qualifiers: Indwelling urinary catheter type: indwelling urethral catheter Encounter type: initial encounter
[2018-06-25] MEDS: 0.9 % SODIUM CHLORIDE 10 ML SYRINGE IV PRN (17:22)
--- NOTE | 2018-06-25 17:54 | Infectious Disease Consult ---
History of Present Illness Patient information: Note initiated : 06/25/18 at 5:43 pm Service Date, if different from initiated Date: [] Patient: Rosalia Lozano 72 y/o F admitted on 06/21/18 for Weakness. 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 Part of the Hx is obtained from the pt, and review of records. Patient is well-known to me from her past visit in April 2018, seen at the time for E. coli UTI and E. coli bacteremia with septic shock. Patient was treated with total of 14 days of antibiotics, and discharged to [facility] senior care and then to home. This time patient has been having progressive generalized weakness with altered mental status. On being asked, patient would not remember if she had any fever or chills or burning while urination or blood in her urine. She was admitted on 06/21 with low blood pressure of 67/51 mm, respiratory rate 17, temperature 97.3 . Due to concerns for sepsis, she was admitted and underwent blood cultures, urine cultures. Her white cell count was 25,000 with neutrophilic predominance and potassium was 6.7. Patient received IV levofloxacin and ceftriaxone. A chest CT done showed Rt sided pneumonia. 08/12 Blood Cx from adm came back +ve for P. aeruginosa (blanchard-sens). Pt was switched to IV Zosyn yesterday. Since she started having loose BMs yesterday, stools were sent for Cdiff which came back +ve today. At time of visit, she didnot remember above details. She denied any fever, chills, n/v, diarrhea or any other symptom. Review of Systems All systems PM: reviewed and no additional remarkable complaints except as stated Past History Past family history: not pertinent to current presentation Medications and Allergies Home Medications Medication Instructions Recorded Confirmed Type ipratropium-albuterol 0.5 mg-3 3 ml INHALATION Q6H PRN #360 ml 02/28/17 Rx mg(2.5 mg base)/3 mL nebulization soln lisinopril 20 mg tablet 20 mg PO QDAY #30 tab 11/19/17 06/21/18 Rx aspirin 81 mg tablet,delayed 81 mg PO QDAY 12/15/17 06/21/18 History release mecobalamin (vitamin B12) 1,000 1,000 mcg SUBLINGUAL QDAY 12/15/17 06/21/18 History mcg disintegrating tablet,sublingual multivitamin tablet 1 tab PO QDAY 12/15/17 06/21/18 History potassium chloride ER 10 mEq 10 meq PO BID #60 cap 01/20/18 06/21/18 Rx capsule,extended release simvastatin 20 mg tablet 20 mg PO QPM #90 tab 01/27/18 06/21/18 Rx Lactobacillus [Culturelle] 1 cap PO BID #60 cap 05/03/18 06/21/18 Rx Levofloxacin [Levaquin] 750 mg PO DAILY #8 tab 05/07/18 06/22/18 Rx Loperamide [Imodium] 2 mg PO PRN PRN cap 05/07/18 06/21/18 Rx Nystatin 500,000 units SSW TID #150 ml 05/07/18 06/22/18 Rx acetaminophen 300 mg-codeine 30 mg 2 tab PO Q6H PRN #240 tab 05/13/18 06/21/18 Rx tablet gabapentin 400 mg capsule 400 mg PO TID #90 cap 06/09/18 06/21/18 Rx nitrofurantoin 100 mg PO BID #20 cap 06/10/18 06/21/18 Rx monohydrate/macrocrystals 100 mg capsule fluconazole 100 mg tablet 100 mg PO QDAY #6 tab 06/16/18 06/21/18 Rx Furosemide [Lasix] 40 mg PO DAILY 06/21/18 06/26/18 History levETIRAcetam [Keppra] 500 mg PO BID 06/21/18 06/21/18 History Furosemide [Lasix] 20 mg PO QNOON 06/26/18 06/26/18 History budesonide-formoterol HFA 160 2 inh INHALATION BID #6 g 06/26/18 Rx mcg-4.5 mcg/actuation aerosol inhaler Allergies Allergy/AdvReac Type Severity Reaction Status Date / Time No Known Drug Allergies Allergy Verified 06/09/18 12:47 Physical Examination Vital signs: Temp Pulse Resp BP Pulse Ox 35.9 C L 65 13 150/78 97 06/25/18 16:00 06/23/18 06:00 06/25/18 17:00 06/25/18 16:00 06/25/18 16:00 General appearance: no acute distress Eyes pulmonary: nonicteric Neck: supple Auscultation: bilateral: diminished breath sounds (rt > lt) Cardiovascular: regular rate and rhythm Gastrointestinal: normoactive bowel sounds Integumentary: decubitus ulcer (in sacral area, non purulent at time of exam) Extremities: no cyanosis, no edema non-focal exam Results - Laboratory Findings CBC and BMP: 06/26/18 04:00 06/26/18 04:00 PT/INR, D-dimer PT 14.6 sec (11.9-14.5) H 06/21/18 09:46 INR 1.1 (0.9-1.1) 06/21/18 09:46 Abnormal lab findings: Abnormal Labs 06/21/18 06/21/18 06/21/18 09:46 10:03 10:03 WBC RBC Hgb Hct RDW Plt Count MPV Gran % Lymph % (Auto) Gran # Lymph # (Auto) [place] # (Auto) Seg Neutrophils % Band Neutrophils % Lymphocytes % RBC Morphology Anisocytosis PT 14.6 H VBG Lactic Acid 2.1 H Sodium Potassium 6.7 H* Carbon Dioxide 21 L Anion Gap 17.0 H BUN 77 H Creatinine 2.1 H Glucose 116 H Alkaline Phosphatase Albumin Globulin 4.5 H Albumin/Globulin Ratio 0.8 L Urine Protein Urine Occult Blood Ur Leukocyte Esterase Urine RBC Urine WBC Ur Transition Epith Cell Urine Bacteria Hyaline Casts Urine Yeast (Budding) 06/21/18 06/21/18 06/21/18 10:04 11:16 15:00 WBC 25.8 H RBC 3.87 L Hgb 11.9 L Hct RDW 16.1 H Plt Count 118 L MPV 10.6 H Gran % 91.4 H Lymph % (Auto) 4.5 L Gran # 23.6 H Lymph # (Auto) 1.2 L [place] # (Auto) 1.1 H Seg Neutrophils % Band Neutrophils % Lymphocytes % RBC Morphology Anisocytosis PT VBG Lactic Acid Sodium Potassium 5.7 H Carbon Dioxide Anion Gap BUN Creatinine Glucose Alkaline Phosphatase Albumin Globulin Albumin/Globulin Ratio Urine Protein Urine Occult Blood 0.03 A Ur Leukocyte Esterase 500 A Urine RBC 24 H Urine WBC 76 H Ur Transition Epith Cell Urine Bacteria Few A Hyaline Casts 28 H Urine Yeast (Budding) Few A 06/22/18 06/22/18 06/23/18 03:47 03:47 04:00 WBC 31.1 H* 22.3 H RBC 3.58 L 2.78 L Hgb 11.1 L 8.8 L Hct 33.9 L 26.5 L RDW 16.4 H 16.3 H Plt Count 136 L 102 L MPV Gran % Lymph % (Auto) Gran # Lymph # (Auto) [place] # (Auto) Seg Neutrophils % 86 H Band Neutrophils % 24 H Lymphocytes % 9 L 10 L RBC Morphology Abnorm A Abnorm A Anisocytosis 1+ A 1+ A PT VBG Lactic Acid Sodium Potassium Carbon Dioxide 20 L Anion Gap 18.0 H BUN 59 H Creatinine 1.6 H Glucose Alkaline Phosphatase 119 H Albumin 2.8 L Globulin 4.3 H Albumin/Globulin Ratio 0.7 L Urine Protein Urine Occult Blood Ur Leukocyte Esterase Urine RBC Urine WBC Ur Transition Epith Cell Urine Bacteria Hyaline Casts Urine Yeast (Budding) 06/23/18 06/23/18 06/24/18 04:00 12:33 04:00 WBC 17.0 H RBC 2.66 L Hgb 8.3 L Hct 25.6 L RDW 16.8 H Plt Count 85 L MPV Gran % 87.3 H Lymph % (Auto) 10.6 L Gran # 14.8 H Lymph # (Auto) [place] # (Auto) Seg Neutrophils % Band Neutrophils % Lymphocytes % RBC Morphology Anisocytosis PT VBG Lactic Acid Sodium 147 H Potassium 3.0 L Carbon Dioxide Anion Gap BUN 45 H Creatinine 1.4 H Glucose 151 H Alkaline Phosphatase Albumin 2.7 L Globulin Albumin/Globulin Ratio 0.8 L Urine Protein 100 A Urine Occult Blood Ur Leukocyte Esterase 75 A Urine RBC Urine WBC 12 H Ur Transition Epith Cell 5 H Urine Bacteria Hyaline Casts 7 H Urine Yeast (Budding) 06/24/18 06/25/18 06/25/18 04:00 04:00 04:00 WBC 11.4 H RBC 2.71 L Hgb 8.6 L Hct 26.3 L RDW 17.0 H Plt Count 85 L MPV Gran % Lymph % (Auto) Gran # 8.6 H Lymph # (Auto) [place] # (Auto) Seg Neutrophils % Band Neutrophils % Lymphocytes % RBC Morphology Anisocytosis PT VBG Lactic Acid Sodium Potassium 2.7 L* Carbon Dioxide 21 L Anion Gap BUN 43 H 40 H Creatinine 1.2 H 1.2 H Glucose 153 H 168 H Alkaline Phosphatase Albumin Globulin Albumin/Globulin Ratio Urine Protein Urine Occult Blood Ur Leukocyte Esterase Urine RBC Urine WBC Ur Transition Epith Cell Urine Bacteria Hyaline Casts Urine Yeast (Budding) Microbiology: Microbiology 06/23/18 12:33 Urine - Smith Urine Culture - Preliminary Yeast 06/21/18 10:10 Blood Blood Culture - Preliminary 06/25/18 09:12 Stool C. difficile GDH Antigen & Toxins - Final 06/21/18 10:03 Blood Blood Culture - Final Pseudomonas aeruginosa 06/21/18 11:10 Urine - Catheterized Urine Culture - Final 06/21/18 14:27 Nose MRSA (PCR) - Final Assessment and Plan - Narrative A/P Narrative: A: 1. P aeruginosa bacteremia: - unclear source but concerns for seeding through sacral wound - Another source could be lung as pt has right sided pneumonia 2. Healthcare-associated Cdiff - sec to antibiotic use (Ceftriaxone, levofloxacin) Recommendations: - Continue IV Zosyn 4.5 gm q6 hrs, day 2/14 - Continue PO Vanc 125 mg q6 hrs. It should be continued for 2 weeks after antibiotics for Pseudomonas bacteremia are stopped - local wound care for sacral decubitus wound will follow Gordo Us MD Infectious diseases
[2018-06-25] MEDS ORDERED: diphenhydrAMINE 25 MG CAPSULE PO PRN (21:00)
[2018-06-26] MEDS: 0.9 % SODIUM CHLORIDE 10 ML SYRINGE IV SCH ×5 (04:11→22:00)
[2018-06-26] MEDS: PIPERACILLIN SODIUM/TAZOBACTAM 3.375 GM in DEXTROSE 5% IN WATER 50 ML IV SCH ×3 (05:38→17:53)
[2018-06-26 06:24] LABS: Basophils # (Auto) 0 K/mcL (0.0-0.3); Basophils % (Auto) 0.1 % (0.0-2.0); Eosinophils # (Auto) 0.2 K/mcL (0.0-0.7); Eosinophils % (Auto) 2.5 % (0.0-7.0); Granulocytes % (Auto) 57.8 % (38.0-78.0); Lymphocytes # (Auto) 3.2 K/mcL (1.5-4.8); Lymphocytes % (Auto) 32.3 % (15.5-49.0); Mean Cell Volume 95.4 fL (80.0-100.0); Mean Corpuscular HGB Conc 33.1 g/dL (31.0-36.0); Mean Corpuscular Hemoglobin 31.6 pg (26.0-34.0); Monocytes # (Auto) 0.7 K/mcL (0.1-0.9); Monocytes % (Auto) 7.3 % (1.0-12.0); Platelet Count 84 K/mcL (140-440); RBC 2.88 M/mcL (4.00-5.20); Red Cell Distribution Width 16.8 % (11.5-14.5)
--- NOTE | 2018-06-26 06:38 | XRay Report ---
INDICATION: Aspiration pneumonia TECHNIQUE: AP chest x-ray, portable COMPARISON: Chest x-rays dated 06/23/2018, 06/21/2018, 05/06/2018 FINDINGS: Left-sided PICC line is unchanged. Diffuse right lung infiltrates with dense right basilar consolidation. Right pleural effusion is suspected findings are consistent with right lung aspiration pneumonia. There has been significant interval worsening. No focal left lung infiltrates. There is cardiomegaly, unchanged. IMPRESSION: 1. Diffuse right lung infiltrates with dense right basilar consolidation 2. Findings are consistent with aspiration pneumonia as clinically suspected Interpreted and Authenticated by: Farhat Cadet 06/26/18
[2018-06-26] MEDS: ACETAMINOPHEN W/CODEINE #3 1 TABLET PO SCH ×4 (06:39→17:54)
[2018-06-26 07:04] LABS: ALT/SGPT 10 U/l (0-40); Albumin 2.5 gm/dL (3.2-5.2); Albumin/Globulin Ratio 0.8 (1.0-2.3); Alkaline Phosphatase 88 U/L (39-117); Bilirubin,Direct < 0.2 mg/dL (0.0-0.3); Blood Urea Nitrogen 34 mg/dl (8-23); Gamma Glutamyl Transpeptidase 12 U/L (5-36)
[2018-06-26] MEDS: 0.9 % SODIUM CHLORIDE 10 ML SYRINGE IV PRN ×4 (08:29→17:53)
[2018-06-26] MEDS ORDERED: VANCOMYCIN 1,000 MG in 0.9 % SODIUM CHLORIDE 250 ML IV SCH (09:00)
[2018-06-26] MEDS ORDERED: ENOXAPARIN 60 MG/0.6 ML SYRINGE SQ SCH (09:00)
[2018-06-26] MEDS: COLLAGENASE TOP OINT TUBE 30GM TOPICAL SCH (09:19)
[2018-06-26] MEDS: VANCOMYCIN ORAL SOL 1,000 MG/10 ML BOTTLE PO SCH ×4 (09:19→21:04)
[2018-06-26] MEDS: FLUTICASONE/SALMETEROL 250/50 INHALER #14 INH SCH ×2 (09:20→21:02)
[2018-06-26] MEDS: GABAPENTIN 400 MG CAPSULE PO SCH ×2 (09:21→21:03)
[2018-06-26] MEDS: FAMOTIDINE 20 MG TABLET PO SCH (09:21)
[2018-06-26] MEDS: LACTOBACILLUS 1 CAPSULE PO SCH ×2 (09:21→21:03)
[2018-06-26] MEDS: levETIRAcetam 500 MG TABLET PO SCH ×2 (09:21→21:03)
[2018-06-26] MEDS: ASPIRIN 81 MG TAB.CHEW PO SCH (09:22)
[2018-06-26] MEDS: Budesonide/Formoterol Fumarate [Symbicort] 160-4.5 mcg Inhaler INH SCH (09:27)
--- NOTE | 2018-06-26 11:10 | XRay Report ---
INDICATION: Postthoracentesis TECHNIQUE: AP chest x-ray, portable upright COMPARISON: Previous chest x-ray dated 06/26/2018 FINDINGS: Status post right thoracentesis. Approximately 800 mL pleural fluid was removed. There is no right pneumothorax. Right pleural effusion is no longer present. There is right upper lobe infiltrate consistent with pneumonia. Right lung base is negative. IMPRESSION: 1. Status post right thoracentesis 2. No postthoracentesis pneumothorax 3. Right upper lobe infiltrate consistent with pneumonia Interpreted and Authenticated by: Farhat Cadet 06/26/18
--- NOTE | 2018-06-26 11:31 | Internal Med Progress Note ---
Medical - PN: Subj Patient information: Note initiated : 06/26/18 at 11:29 am Service Date, if different from initiated Date: [] Patient: Rosalia Lozano 72 y/o F admitted on 06/21/18 for Weakness. Chief Complaint: [] Interval history: Ms. Lozano is a 72 year old F 5-year-old female history of multiple sclerosis neurogenic bladder with Alvarez in place. She had been intermittent caths in the past and switched over to Alvarez as well earlier this year. She was seen in the hospital in April for sepsis with urinary tract infection. She was discharged to [facility] and then subsequently discharged home she been home for several weeks. However the last couple days she has been progressive generalized weakness, this morning she was foggy in her mentation per slow to answer questions. She has no other specific complaints no coughing or shortness of breath or chest pain. Denies fevers and chills. In the ER she was evaluated determined to have sepsis from urinary tract infection. She received several liters of IV fluid bolus however her hypotension did not resolve and patient was started on levo fed. Blood cultures obtained and antibiotics given. She is also found to be hyperkalemic and orders given for treatment. Patient is answering questions although slowly does appear quite weak and lethargic. She also had a poor appetite for some time 06/22 Patient went into A. fib RVR at 130 last night, still on levophed but titrating down slowly. amio 150 given with improvement. pt has occasional cough, no dyspnea, overall feels better. Had diarrhea overnight but did get Kayexalate last evening. Nurse reports aspirating with liquids. 06/23 Had a rough night last night poor sleep and some agitation. Finally fell asleep early this morning. I did not awaken her she partially open her eyes while I was examining her. Therefore did not obtain ROS. 06/24 Slept better last night, feeling a little better but still very weak. In sinus rhythm. Has chronic back pain. No events overnight. 06/25 Continues to feel little better each day, still has her chronic back pain, no issues overnight, no new complaints. Eating better 06/25 Patient seen and examined feels better slept well last night. No acute overnight issues. Chest x-ray done this morning shows worsening pneumonia on the right side, likely aspirational and a new pleural effusion. I reviewed the need for thoracocentesis with the patient, especially given her Pseudomonas bacteremia. Patient agreed for the procedure. The patient also is being followed by wound care for sacral lesion. Patient's aspiration is likely silent, the patient did not want to be on a dysphagia diet and requested to go on a regular diet yesterday. I reviewed with her again today especially in light of the x-ray changes this morning the need to be on a dysphagia diet. The patient's was also informed about her clinical condition. Patient reluctantly agreed for dysphagia diet, and is also agreed for a barium swallow as wanted by speech therapist. I will try to get speech therapist involved in a care again. Pertinent ROS: Denies headache, dizziness Denies chest pain, palpitations Denies cough or shortness of breath Denies abdominal pain, nausea or vomiting. - Constitutional Vitals: Vital Signs Temp Pulse Resp BP Pulse Ox 97.6 F 65 12 114/93 91 06/26/18 01:00 06/23/18 06:00 06/26/18 05:00 06/26/18 04:40 06/26/18 05:00 Period Temp Pulse Resp BP Sys/Hancock Pulse Ox Last 24 Hr 96.2 F-97.6 F 10-21 89-169/56-98 91-99 Intake and Output 06/25/18 06/26/18 06/26/18 21:59 05:59 13:59 Intake Total 50 / 50 50 / 50 50 / 50 Output Total 315 / 315 850 / 850 Balance -265 / -265 -800 / -800 50 / 50 Weight 148 lb 11.2 oz Intake & Output: Intake & Output 06/25/18 06/26/18 06/26/18 21:59 05:59 13:59 Intake Total 50 / 50 50 / 50 50 / 50 Output Total 315 / 315 850 / 850 Balance -265 / -265 -800 / -800 50 / 50 Weight 148 lb 11.2 oz Intake: IV 50 / 50 50 / 50 50 / 50 Zosyn 3.375 gm In Dextrose 5% 50 / 50 50 / 50 50 / 50 in Water 50 ml @ 100 mls/hr IV Q6H [facility] Rx#:[id number] Output: Urine Catheter Amount 315 / 315 850 / 850 Other: Urine Appearance Clear Clear Uretheral (Alvarez) Clear Urine Color Pale Light Lavonne Uretheral (Alvarez) Light Lavonne Urine Odor Normal Stool Size Small Moderate Stool Color Brown Green Stool Consistency Liquid Liquid # of times incontinent of 1 Bowels Exam: Constitutional; Afebrile, cooperative, alert, not in distress. Eyes- No icterus, , No periorbital swelling Ears- Ext ear normal, hearing normal to conversation. Neck- Midline trachea, supple Respiratory system: Air Entry decresed right base, No crackles or wheezing, no rhonchi. CVS- Rate rhythm regular, S1,S2 heard, no gallop, no rub. 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 Medical - PN: Obj Da - Labs CBC & Chem 7: 06/26/18 04:00 06/26/18 04:00 Labs: Abnormal Lab Results 06/26/18 06/26/18 06/25/18 04:00 04:00 04:00 WBC RBC 2.88 L Hgb 9.1 L Hct 27.5 L RDW 16.8 H Plt Count 84 L Gran % Lymph % (Auto) Gran # Potassium Chloride 109 H Carbon Dioxide BUN 34 H 40 H Creatinine 1.2 H Glucose 168 H Phosphorus 1.9 L Total Protein 5.6 L Albumin 2.5 L Albumin/Globulin Ratio 0.8 L Triglycerides 163 H Urine Protein Ur Leukocyte Esterase Urine WBC Ur Transition Epith Cell Hyaline Casts 06/25/18 06/24/18 06/24/18 04:00 04:00 04:00 WBC 11.4 H 17.0 H RBC 2.71 L 2.66 L Hgb 8.6 L 8.3 L Hct 26.3 L 25.6 L RDW 17.0 H 16.8 H Plt Count 85 L 85 L Gran % 87.3 H Lymph % (Auto) 10.6 L Gran # 8.6 H 14.8 H Potassium 2.7 L* Chloride Carbon Dioxide 21 L BUN 43 H Creatinine 1.2 H Glucose 153 H Phosphorus Total Protein Albumin Albumin/Globulin Ratio Triglycerides Urine Protein Ur Leukocyte Esterase Urine WBC Ur Transition Epith Cell Hyaline Casts 06/23/18 12:33 WBC RBC Hgb Hct RDW Plt Count Gran % Lymph % (Auto) Gran # Potassium Chloride Carbon Dioxide BUN Creatinine Glucose Phosphorus Total Protein Albumin Albumin/Globulin Ratio Triglycerides Urine Protein 100 A Ur Leukocyte Esterase 75 A Urine WBC 12 H Ur Transition Epith Cell 5 H Hyaline Casts 7 H Meds: Medications Acetaminophen (Tylenol) 650 mg PO Q6HP PRN PRN Reason: PAIN/FEVER > 101 Acetaminophen/Codeine Phosphate (Tylenol #3) 2 tab PO Q6HP PRN PRN Reason: Pain Last Admin: 06/25/18 23:47 Dose: 2 tab Acetaminophen/Codeine Phosphate (Tylenol #3) 1 tab PO Q6H [facility] Last Admin: 06/26/18 06:39 Dose: 1 tab Albuterol/Ipratropium (Duoneb) 3 ml NEB Q4HRT PRN PRN Reason: Dyspnea Aspirin (Aspirin) 81 mg PO DAILY [facility] Last Admin: 06/26/18 09:22 Dose: 81 mg Collagenase (Santyl Top Oint) 1 dose TOPICAL DAILY [facility] Last Admin: 06/26/18 09:19 Dose: 1 dose Diphenhydramine HCl (Benadryl) 25 mg PO HSP PRN PRN Reason: Insomnia Enoxaparin Sodium (Lovenox) 60 mg SQ DAILY [facility] Last Admin: 06/26/18 09:22 Dose: 60 mg Famotidine (Pepcid) 20 mg PO DAILY [facility] Last Admin: 06/26/18 09:21 Dose: 20 mg Gabapentin (Neurontin) 400 mg PO BID [facility] Last Admin: 06/26/18 09:21 Dose: 400 mg Heparin Sodium (Porcine) (Heparin Flush) 2 ml IV Q12 [facility] Last Admin: 06/26/18 09:30 Dose: 2 ml Hydralazine HCl (Apresoline) 0 mg IV Q2HP PRN PRN Reason: Hypertension Last Admin: 06/25/18 12:18 Dose: 10 mg Norepinephrine Bitartrate 8 mg (/ Sodium Chloride) 250 mls @ 18.75 mls/hr IV Q14H PRN; Protocol PRN Reason: TITRATE TO KEEP MAP > 65 Acetaminophen (Ofirmev) 650 mg in 65 mls @ 130 mls/hr IV Q6HP PRN PRN Reason: PAIN/FEVER > 101 Piperacillin Sod/Tazobactam (Sod 3.375 gm/ Dextrose) 50 mls @ 100 mls/hr IV Q6H [facility] Last Infusion: 06/26/18 06:26 Dose: Infused Lactobacillus Rhamnosus (Culturelle) 1 cap PO BID [facility] Last Admin: 06/26/18 09:21 Dose: 1 cap Levetiracetam (Keppra) 500 mg PO BID [facility] Last Admin: 06/26/18 09:21 Dose: 500 mg Metoprolol Tartrate (Lopressor) 5 mg IV Q2HP PRN PRN Reason: Tachyarrhythmias Morphine Sulfate (Morphine) 0 mg IV Q4HP PRN PRN Reason: PAIN LEVEL > 6 Last Admin: 06/26/18 08:28 Dose: 2 mg Ondansetron HCl (Zofran) 4 mg IV Q4HP PRN PRN Reason: Nausea And Vomiting Budesonide/Formoterol Fumarate [Symbicort] 160-4.5 Mcg Inhaler 2 dose INH BID [facility] Last Admin: 06/26/18 09:27 Dose: Not Given Fluticasone/Salmeterol (Advair 250-50 Diskus) 1 puff INH BID [facility] Last Admin: 06/26/18 09:20 Dose: 1 puff Sodium Chloride (Saline Flush) 10 ml IV UD PRN PRN Reason: FLUSH Last Admin: 06/26/18 08:29 Dose: 10 ml Sodium Chloride (Saline Flush) 10 ml IV Q8 [facility] Last Admin: 06/26/18 04:11 Dose: 10 ml Sodium Chloride (Saline Flush) 10 ml IV Q12 [facility] Last Admin: 06/26/18 09:23 Dose: 10 ml Vancomycin HCl (Vancomycin Oral Elizabeth) 125 mg PO QID [facility] Last Admin: 06/26/18 09:19 Dose: 125 mg Medical - PN: A/P - Time Spent With Patient Total time spent is greater than 50% in coordination of care (as documented) at patient's floor/unit and/or counseling patient: - Narrative A/P Narrative: A: UTI (complicated, neurogenic bladder with alvarez in place), recurrent (concern for hygiene): On antibiotics to cover for same, Outpatient urology follow up, he has requested Methenamine 1gm bid after completion of present course. Bacteremia Pseudomonas- Source? Urine, skin, lungs? ID following, on IV zosyn for same. Septic Shock: due to UTI vs PNA resolved Aspiration PNA w/hypoxia: -now on 0L NC, down from 3L on zosyn Pleural effusion- Reactive vs infected, pleural tap today Dysphagia, mod oropharyngeal: Dysphagia diet, MBS study, Speech therapy to follow Acute Hyperkalemia: 2/2 CARMINA resolved CARMINA on CKD III-IV: likely ATN, Creat today was 1.1, trending down. Cdiff diarrhea- On po vancomycin 125mg qid, per ID, will need 2 weeks of therapy after last dose of zosyn. 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 resume Hypernatremia: Fluid load for resuscitation, resolved Goals of care: long-term prognosis guarded given decline this year and underlying comorbidities DVT prophylaxis, was on lovenox 60? will switch to arixtra in light of low platlets Diet dysphagia diet No Code Overall very poor prognosis. Medical - PN: Qual - VTE Deep Vein Thrombosis/Pulmonary Embolism Present on Admission: No
--- NOTE | 2018-06-26 11:41 | Ultrasound Report ---
CLINICAL INFORMATION: Right pleural effusion TECHNIQUE: Informed consent was obtained. We discussed the procedure as well as potential risks and complications including pneumothorax Right pleural fluid was localized with ultrasound. Routine ChloraPrep skin cleansing. 1% lidocaine injected subcutaneously and deep. A 6 [place] Safe T Centsis set was utilized. 800 mL ramandeep-colored fluid was removed. Postprocedure chest x-ray demonstrates no pneumothorax. IMPRESSION: 1. Ultrasound-guided right thoracentesis 2. 800 mL ramandeep-colored fluid removed Interpreted and Authenticated by: Farhat Cadet 06/26/18
[2018-06-26 12:37] LABS: Amylase,Pleural Fluid 24 U/L; Glucose,Pleural Fluid 112 mg/dL; LDH,Pleural Fluid 109 U/L
[2018-06-26 13:06] LABS: Appearance,Pleural Fluid CLEAR; Color,Pleural Fluid LIGHT YELLOW; Lymphocytes,Pleural Fluid 9 %; Neutrophils,Pleural Fluid 91 %; Nucleated Cells,Pleural Fld 1177 /cumm; RBC,Pleural Fluid < 50000 /cumm
--- NOTE | 2018-06-26 14:18 | XRay Report ---
CLINICAL INFORMATION: Difficulty swallowing. History of aspiration pneumonia TECHNIQUE: Modified barium swallow was performed by speech pathologists. Multiple consistencies of barium were given and fluoroscopic observation and filming performed. 9 seconds fluoroscopy utilized IMPRESSION: Modified barium swallow performed by speech pathologists Interpreted and Authenticated by: Farhat Cadet 06/26/18
--- NOTE | 2018-06-26 16:25 | General Surgery Progress Note ---
Subjective Narrative: Note initiated : 06/26/18 at 4:23 pm Service Date, if different from initiated Date: [] Patient: Rosalia Lozano 72 y/o F admitted on 06/21/18 for Weakness. Chief Complaint: [] Saw this patient on rounds this morning and progress reviewed with Kriss GILLESPIE. Objective Temp Pulse Resp BP Pulse Ox 97.8 F 65 18 137/75 96 06/26/18 12:17 06/23/18 06:00 06/26/18 12:17 06/26/18 12:17 06/26/18 12:17 Pneumonia , UTI, C Diff colitis on appropriate treatment. Non stageable sacral / coccygeal pressure ulcer. TAPS for off loading and Conservative care as discussed. - Additional Data Intake & Output - Last 24 hours: Intake & Output 06/24/18 06/25/18 06/26/18 06/27/18 05:59 05:59 05:59 05:59 Intake Total 3086 / 3086 1625 / 1625 450 / 450 580 / 580 Output Total 928 / 928 825 / 825 1275 / 1275 1200 / 1200 Balance 2158 / 2158 800 / 800 -825 / -825 -620 / -620 Weight 140 lb 6.4 oz 145 lb 3.2 oz 148 lb 11.2 oz - Labs 06/26/18 04:00 06/26/18 04:00 Diabetes panel 06/26/18 Range/Units 04:00 Sodium 143 (133-145) mmol/L Potassium 3.9 (3.3-5.1) mmol/L Chloride 109 H (96-108) mmol/L Carbon Dioxide 24 (22-30) mmol/L BUN 34 H (8-23) mg/dl Creatinine 1.1 (0.6-1.1) mg/dl Glucose 96 (70-105) mg/dL Calcium 8.9 (8.6-10.4) mg/dl AST 10 (0-37) U/l ALT 10 (0-40) U/l Alkaline Phosphatase 88 (39-117) U/L Total Protein 5.6 L (5.9-8.4) gm/dL Albumin 2.5 L (3.2-5.2) gm/dL Triglycerides 163 H (<150) mg/dl Calcium panel 06/26/18 Range/Units 04:00 Calcium 8.9 (8.6-10.4) mg/dl Phosphorus 1.9 L (2.7-4.5) mg/dL Albumin 2.5 L (3.2-5.2) gm/dL Pituitary panel 06/26/18 Range/Units 04:00 Sodium 143 (133-145) mmol/L Potassium 3.9 (3.3-5.1) mmol/L Chloride 109 H (96-108) mmol/L Carbon Dioxide 24 (22-30) mmol/L BUN 34 H (8-23) mg/dl Creatinine 1.1 (0.6-1.1) mg/dl Glucose 96 (70-105) mg/dL Calcium 8.9 (8.6-10.4) mg/dl Adrenal panel 06/26/18 Range/Units 04:00 Sodium 143 (133-145) mmol/L Potassium 3.9 (3.3-5.1) mmol/L Chloride 109 H (96-108) mmol/L Carbon Dioxide 24 (22-30) mmol/L BUN 34 H (8-23) mg/dl Creatinine 1.1 (0.6-1.1) mg/dl Glucose 96 (70-105) mg/dL Calcium 8.9 (8.6-10.4) mg/dl Total Bilirubin 0.2 (0.0-1.0) mg/dL AST 10 (0-37) U/l ALT 10 (0-40) U/l Alkaline Phosphatase 88 (39-117) U/L Total Protein 5.6 L (5.9-8.4) gm/dL Albumin 2.5 L (3.2-5.2) gm/dL Assessment and Plan (1) Pressure ulcer of coccygeal region, unstageable Problem details: Given hemodynamic improvement and treatment of SEPSIS source, will NOT favor diagnosis of Miguel Angel pressure ulcer at thistime. Will follow clinically and monitor progress. Status: Acute Current Visit: Yes (2) Sepsis Status: Acute Current Visit: Yes (3) UTI (urinary tract infection) Status: Chronic Current Visit: Yes - Narrative A/P Narrative: Assessment: Slow progress with treatment of SIRS and UTI. Now has Aspiration pneumonia. Undergoing treatment. No interval changes Sacral / coccygeal pressure ulcer. Plan: Continue current wound care. Will follow patient during her stay at [facility]. - Time Spent With Patient Total time spent is greater than 50% in coordination of care (as documented) at patient's floor/unit and/or counseling patient: less than 15 minutes
--- NOTE | 2018-06-26 17:00 | Ultrasound Report ---
CLINICAL INFORMATION: Right adnexal mass identified on CT scan TECHNIQUE: Transabdominal and endovaginal pelvic ultrasound. Grayscale and color flow Doppler spectral imaging COMPARISON: CT scan dated 06/22/2018 FINDINGS: Uterus is retroverted. Uterus measures 7.4 x 4.1 x 4.8 cm. There are myometrial calcifications. No discrete mass. Endometrium is not well evaluated. Endometrium measures approximately 8 mm. This is mildly thickened in a postmenopausal patient. No endometrial fluid. No discrete mass. Findings may be due to endometrial hyperplasia. Endometrial carcinoma cannot be excluded. No normal right ovarian tissue identified. There is an 8.1 x 5.7 x 6.3 cm cyst. This is consistent with an ovarian or paraovarian cyst. No solid abnormality. This has a smooth wall and is sonolucent with enhanced transmission. CT scan demonstrated at least one posterior wall calcification. This is not identified. 4-6 month ultrasound follow-up of the endometrium and right adnexal cyst recommended. Left ovary is not visualized. No free pelvic fluid IMPRESSION: 1. Technically difficult examination. Endometrium is mildly thickened without detectable focal mass or fluid. Follow-up recommended as above 2. 8 cm right adnexal cyst. This appears to be a simple cyst. Follow-up recommended Interpreted and Authenticated by: Farhat Cadet 06/26/18
--- NOTE | 2018-06-26 17:04 | Infectious Disease Prog Note ---
Subjective Patient information: Note initiated : 06/26/18 at 5:01 pm Service Date, if different from initiated Date: [] Patient: Rosalia Lozano 72 y/o F admitted on 06/21/18 for Weakness. Chief Complaint: [] Interval history: Pt remembered me from her past hospitalization in Apr. She was more awake, alert today than yesterday, says she is doing better. Was trying to finish her breakfast. Per nursing, stools are becoming formed. Pt currently on dysphagia diet Objective Objective Narrative: alert, oriented x 3 no thrush minimal air entry auscultable on right side, left side has crepts and rhonchi s1 s2 normal bs ++ nttd no edema Sacral wound could not be examined. - Vital Signs Vital signs: Vital Signs Temp Resp BP Pulse Ox 06/26/18 16:24 36.2 C 16 149/88 96 06/26/18 12:17 36.6 C 18 137/75 96 06/26/18 07:08 36.4 C 18 133/89 100 06/26/18 05:00 12 91 06/26/18 04:40 17 114/93 95 06/26/18 04:01 13 89/63 96 06/26/18 04:00 11 L 95 06/26/18 03:00 12 95 06/26/18 02:58 10 L 91/56 97 06/26/18 02:00 11 L 94 06/26/18 01:00 36.4 C 14 95 06/26/18 00:11 35.7 C L 18 128/91 96 06/26/18 00:01 15 163/89 97 06/26/18 00:00 18 95 06/25/18 23:00 10 L 95 06/25/18 22:34 10 L 126/76 96 06/25/18 22:33 10 L 126/71 96 06/25/18 22:32 10 L 123/73 95 06/25/18 22:00 11 L 96 06/25/18 21:00 14 99 06/25/18 19:46 35.7 C L 13 135/72 99 Intake and Output 06/26/18 06/26/18 06/26/18 05:59 13:59 21:59 Intake Total 50 / 50 580 / 580 Output Total 850 / 850 1200 / 1200 Balance -800 / -800 -620 / -620 Intake: IV 50 / 50 100 / 100 Zosyn 3.375 gm In Dextrose 5% 50 / 50 100 / 100 in Water 50 ml @ 100 mls/hr IV Q6H [facility] Rx#:[id number] Oral 480 / 480 Output: Urine Catheter Amount 850 / 850 400 / 400 Para\Thoracentesis 800 / 800 Other: Meal Lunch Percent of Meal Consumed 100% Feeding Ability Independent Urine Appearance Clear Clear Uretheral (Alvarez) Clear Urine Color Light [place] Bright Yellow Uretheral (Alvarez) Light [place] Urine Odor Normal Stool Size Moderate Small Stool Color Green Brown Stool Consistency Liquid Loose Intake & Output: Intake & Output 06/26/18 06/26/18 06/26/18 05:59 13:59 21:59 Intake Total 50 / 50 580 / 580 Output Total 850 / 850 1200 / 1200 Balance -800 / -800 -620 / -620 Intake: IV 50 / 50 100 / 100 Zosyn 3.375 gm In Dextrose 5% 50 / 50 100 / 100 in Water 50 ml @ 100 mls/hr IV Q6H [facility] Rx#:[id number] Oral 480 / 480 Output: Urine Catheter Amount 850 / 850 400 / 400 Para\Thoracentesis 800 / 800 Other: Meal Lunch Percent of Meal Consumed 100% Feeding Ability Independent Urine Appearance Clear Clear Uretheral (Alvarez) Clear Urine Color Light [place] Bright Yellow Uretheral (Alvarez) Light [place] Urine Odor Normal Stool Size Moderate Small Stool Color Green Brown Stool Consistency Liquid Loose - Lab 06/26/18 04:00 06/26/18 04:00 Most recent lab results Calcium 8.9 mg/dl (8.6-10.4) 06/26/18 04:00 Phosphorus 1.9 mg/dL (2.7-4.5) L 06/26/18 04:00 Magnesium 1.8 mg/dL (1.6-2.5) 06/26/18 04:00 Microbiology 06/26/18 10:58 Pleural Fluid Gram Stain - Final 06/26/18 10:59 Synovial Fluid Gram Stain - Final 06/26/18 10:59 Synovial Fluid Body Fluid Culture - Final 06/21/18 10:10 Blood Blood Culture - Final 06/23/18 12:33 Urine - Alvarez Urine Culture - Preliminary Yeast 06/25/18 09:12 Stool C. difficile GDH Antigen & Toxins - Final 06/21/18 10:03 Blood Blood Culture - Final Pseudomonas aeruginosa 06/21/18 11:10 Urine - Catheterized Urine Culture - Final 06/21/18 14:27 Nose MRSA (PCR) - Final Medications Active Medications: Acetaminophen (Tylenol) 650 mg PO Q6HP PRN PRN Reason: PAIN/FEVER > 101 Acetaminophen/Codeine Phosphate (Tylenol #3) 2 tab PO Q6HP PRN PRN Reason: Pain Last Admin: 06/25/18 23:47 Dose: 2 tab Acetaminophen/Codeine Phosphate (Tylenol #3) 1 tab PO Q6H [facility] Last Admin: 06/26/18 12:09 Dose: 1 tab Admin: 06/26/18 06:39 Dose: 1 tab Admin: 06/26/18 00:00 Dose: Admin: 06/25/18 17:21 Dose: 1 tab Admin: 06/25/18 12:21 Dose: 1 tab Albuterol/Ipratropium (Duoneb) 3 ml NEB Q4HRT PRN PRN Reason: Dyspnea Aspirin (Aspirin) [address] [facility] Last Admin: 06/26/18 09:22 Dose: 81 mg Budesonide (Pulmicort) 0.[address] [facility] Collagenase (Santyl Top Oint) [address] [facility] Last Admin: 06/26/18 09:19 Dose: 1 dose Diphenhydramine HCl (Benadryl) 25 mg PO HSP PRN PRN Reason: Insomnia Famotidine (Pepcid) [address] [facility] Last Admin: 06/26/18 09:21 Dose: 20 mg Fondaparinux (Arixtra) 2.[address] [facility] Furosemide (Lasix) [address] [facility] Furosemide (Lasix) [address] [facility] Gabapentin (Neurontin) [address] [facility] Last Admin: 06/26/18 09:21 Dose: 400 mg Admin: 06/25/18 20:55 Dose: 400 mg Heparin Sodium (Porcine) (Heparin Flush) 2 ml IV Q12 [facility] Last Admin: 06/26/18 09:30 Dose: 2 ml Admin: 06/26/18 09:22 Dose: 2 ml Admin: 06/26/18 04:11 Dose: 2 ml Admin: 06/25/18 20:56 Dose: 2 ml Hydralazine HCl (Apresoline) 0 mg IV Q2HP PRN PRN Reason: Hypertension Last Admin: 06/25/18 12:18 Dose: 10 mg Comments: BP 169/98 Norepinephrine Bitartrate 8 mg (/ Sodium Chloride) 250 mls @ 18.75 mls/hr IV Q14H PRN; Protocol PRN Reason: TITRATE TO KEEP MAP > 65 Acetaminophen (Ofirmev) 650 mg in 65 mls @ 130 mls/hr IV Q6HP PRN PRN Reason: PAIN/FEVER > 101 Piperacillin Sod/Tazobactam (Sod 3.375 gm/ Dextrose) 50 mls @ 100 mls/hr IV Q6H [facility] Last Infusion: 06/26/18 12:40 Dose: 0 mls/hr Admin: 06/26/18 12:05 Dose: 100 mls/hr Infusion: 06/26/18 06:26 Dose: 0 mls/hr Admin: 06/26/18 05:38 Dose: 100 mls/hr Infusion: 06/26/18 00:20 Dose: 0 mls/hr Admin: 06/25/18 23:50 Dose: 100 mls/hr Infusion: 06/25/18 18:25 Dose: 0 mls/hr Admin: 06/25/18 17:22 Dose: 100 mls/hr Infusion: 06/25/18 12:49 Dose: 0 mls/hr Admin: 06/25/18 12:19 Dose: 100 mls/hr Iron Carb/Multivit/[employer]/Folic Acid (Multivitamin W/Minerals) [address] [facility] Lactobacillus Rhamnosus (Culturelle) [address] [facility] Last Admin: 06/26/18 09:21 Dose: 1 cap Admin: 06/25/18 20:55 Dose: 1 cap Levetiracetam (Keppra) [address] [facility] Last Admin: 06/26/18 09:21 Dose: 500 mg Admin: 06/25/18 20:55 Dose: 500 mg Lisinopril (Zestril) [address] [facility] Metoprolol Tartrate (Lopressor) 5 mg IV Q2HP PRN PRN Reason: Tachyarrhythmias Morphine Sulfate (Morphine) 0 mg IV Q4HP PRN PRN Reason: PAIN LEVEL > 6 Last Admin: 06/26/18 13:21 Dose: 2 mg Admin: 06/26/18 08:28 Dose: 2 mg Ondansetron HCl (Zofran) 4 mg IV Q4HP PRN PRN Reason: Nausea And Vomiting Budesonide/Formoterol Fumarate [Symbicort] 160-4.5 Mcg Inhaler [address] [facility] Last Admin: 06/26/18 09:27 Dose: Admin: 06/25/18 21:11 Dose: Fluticasone/Salmeterol (Advair 250-50 Diskus) [address] [facility] Last Admin: 06/26/18 09:20 Dose: 1 puff Admin: 06/25/18 20:55 Dose: 1 puff Admin: 06/25/18 12:18 Dose: 1 puff Comments: First dose Simvastatin (Zocor) [address] [facility] Sodium Chloride (Saline Flush) 10 ml IV UD PRN PRN Reason: FLUSH Last Admin: 06/26/18 13:22 Dose: 10 ml Admin: 06/26/18 12:06 Dose: 10 ml Admin: 06/26/18 08:29 Dose: 10 ml Admin: 06/25/18 17:22 Dose: 10 ml Sodium Chloride (Saline Flush) [address] [facility] Last Admin: 06/26/18 15:23 Dose: Admin: 06/26/18 04:11 Dose: 10 ml Admin: 06/25/18 22:00 Dose: 10 ml Admin: 06/25/18 21:11 Dose: 10 ml Admin: 06/25/18 13:00 Dose: 10 ml Sodium Chloride (Saline Flush) [address] [facility] Last Admin: 06/26/18 09:23 Dose: 10 ml Admin: 06/25/18 22:39 Dose: 10 ml Vancomycin HCl (Vancomycin Oral Elizabeth) [address] [facility] Last Admin: 06/26/18 16:52 Dose: 125 mg Admin: 06/26/18 12:48 Dose: 125 mg Admin: 06/26/18 09:19 Dose: 125 mg Admin: 06/25/18 20:56 Dose: 125 mg Admin: 06/25/18 17:22 Dose: 125 mg Admin: 06/25/18 14:38 Dose: 125 mg Assessment and Plan - Narrative A/P Narrative: A: 1. P aeruginosa bacteremia with septic shock: septic shock resolved - unclear source but concerns for seeding through sacral wound. Another source could be lung as pt has right sided pneumonia and pleural effusion - repeat blood Cx negative 2. Healthcare-associated Cdiff - sec to antibiotic use (Ceftriaxone, levofloxacin) - stools becoming more formed 3. Rt sided lung consolidation: conc for pneumonia. - sec to aspiration 4. Candiduria: sec to chronic alvarez cath Recommendations: - Continue IV Zosyn 4.5 gm q6 hrs, day 3/14 - Continue PO Vanc 125 mg q6 hrs. It should be continued for 2 weeks after antibiotics for Pseudomonas bacteremia are stopped - local wound care for sacral decubitus wound - agree with tapping of right sided pleural effusion to r/o any empyema - given multiple comorbidities, and recurrent hospitalizations; pt will benefit from goals of care discussion. will follow Gordo Us MD Infectious diseases
[2018-06-26] MEDS ORDERED: LACTOBACILLUS 1 CAPSULE PO SCH (21:00)
[2018-06-26] MEDS ORDERED: SIMVASTATIN 20 MG TABLET PO SCH (21:00)
[2018-06-26] MEDS: BUDESONIDE 0.5 MG/2 ML AMPUL.NEB NEB SCH (21:55)
[2018-06-27] MEDS: PIPERACILLIN SODIUM/TAZOBACTAM 3.375 GM in DEXTROSE 5% IN WATER 50 ML IV SCH ×4 (00:21→18:18)
[2018-06-27] MEDS: ACETAMINOPHEN W/CODEINE #3 1 TABLET PO SCH ×4 (00:21→18:16)
[2018-06-27 05:50] LABS: Basophils # (Auto) 0 K/mcL (0.0-0.3); Basophils % (Auto) 0.1 % (0.0-2.0); Eosinophils # (Auto) 0.3 K/mcL (0.0-0.7); Eosinophils % (Auto) 2.7 % (0.0-7.0); Granulocytes % (Auto) 59.9 % (38.0-78.0); Lymphocytes # (Auto) 2.6 K/mcL (1.5-4.8); Lymphocytes % (Auto) 27.8 % (15.5-49.0); Mean Cell Volume 95.7 fL (80.0-100.0); Mean Corpuscular HGB Conc 32.6 g/dL (31.0-36.0); Mean Corpuscular Hemoglobin 31.2 pg (26.0-34.0); Monocytes # (Auto) 0.9 K/mcL (0.1-0.9); Monocytes % (Auto) 9.5 % (1.0-12.0); Platelet Count 78 K/mcL (140-440); RBC 2.93 M/mcL (4.00-5.20); Red Cell Distribution Width 16.5 % (11.5-14.5)
[2018-06-27 06:12] LABS: ALT/SGPT 8 U/l (0-40); Albumin 2.5 gm/dL (3.2-5.2); Albumin/Globulin Ratio 0.9 (1.0-2.3); Alkaline Phosphatase 77 U/L (39-117); Bilirubin,Direct < 0.2 mg/dL (0.0-0.3); Blood Urea Nitrogen 25 mg/dl (8-23); Gamma Glutamyl Transpeptidase 11 U/L (5-36); Uric Acid 5.1 mg/dL (2.5-8.0)
[2018-06-27] MEDS: ACETAMINOPHEN W/CODEINE #3 1 TABLET PO PRN ×2 (07:53→12:33)
[2018-06-27] MEDS: VANCOMYCIN ORAL SOL 1,000 MG/10 ML BOTTLE PO SCH ×4 (08:36→21:05)
[2018-06-27] MEDS: FAMOTIDINE 20 MG TABLET PO SCH (08:36)
[2018-06-27] MEDS: ASPIRIN 81 MG TAB.CHEW PO SCH (08:36)
[2018-06-27] MEDS: COLLAGENASE TOP OINT TUBE 30GM TOPICAL SCH (08:40)
[2018-06-27] MEDS: FLUTICASONE/SALMETEROL 250/50 INHALER #14 INH SCH ×2 (08:40→21:10)
[2018-06-27] MEDS: GABAPENTIN 400 MG CAPSULE PO SCH ×2 (08:44→21:10)
[2018-06-27] MEDS: levETIRAcetam 500 MG TABLET PO SCH ×2 (08:46→21:10)
[2018-06-27] MEDS: LACTOBACILLUS 1 CAPSULE PO SCH ×2 (08:46→21:09)
[2018-06-27] MEDS: 0.9 % SODIUM CHLORIDE 10 ML SYRINGE IV SCH ×2 (08:53→21:10)
[2018-06-27] MEDS ORDERED: FUROSEMIDE 20 MG TABLET PO SCH ×2 (09:00→12:00)
[2018-06-27] MEDS ORDERED: ENOXAPARIN 40 MG/0.4 ML SYRINGE SQ SCH (09:00)
[2018-06-27] MEDS ORDERED: MULTIVIT,THER IRON,CA,FA & MIN 1 TABLET PO SCH (09:00)
[2018-06-27] MEDS ORDERED: FONDAPARINUX SODIUM 2.5 MG/0.5 ML SYRINGE SQ SCH (09:00)
[2018-06-27] MEDS ORDERED: LISINOPRIL 20 MG TABLET PO SCH (09:00)
[2018-06-27] MEDS: BUDESONIDE 0.5 MG/2 ML AMPUL.NEB NEB SCH ×2 (09:18→23:36)
[2018-06-27] MEDS ORDERED: ACETAMINOPHEN 325 MG TABLET PO PRN (10:57)
[2018-06-27] MEDS ORDERED: ACETAMINOPHEN 650 MG/65 ML BOTTLE IV PRN (10:57)
[2018-06-27] MEDS ORDERED: IPRATROPIUM/ALBUTEROL 3 ML AMPUL.NEB NEB PRN (10:57)
[2018-06-27] MEDS ORDERED: ONDANSETRON 4 MG/2 ML VIAL IV PRN (10:57)
[2018-06-27] MEDS ORDERED: METOPROLOL TARTRATE 5 MG/5 ML VIAL IV PRN (10:57)
[2018-06-27] MEDS ORDERED: diphenhydrAMINE 25 MG CAPSULE PO PRN (10:57)
[2018-06-27] MEDS ORDERED: NOREPINEPHRINE BITARTRATE 8 MG in 0.9 % SODIUM CHLORIDE 242 ML IV PRN (10:57)
[2018-06-27] MEDS ORDERED: hydrALAZINE 20 MG/ML VIAL IV PRN (10:57)
[2018-06-27] MEDS ORDERED: 0.9 % SODIUM CHLORIDE 10 ML SYRINGE IV PRN (10:57)
--- NOTE | 2018-06-27 11:55 | Internal Med Progress Note ---
Medical - PN: Subj Patient information: Note initiated : 06/27/18 at 11:52 am Service Date, if different from initiated Date: [] Patient: Rosalia Lozano 72 y/o F admitted on 06/21/18 for Weakness. Chief Complaint: [] Interval history: Ms. Lozano is a 72 year old F 5-year-old female history of multiple sclerosis neurogenic bladder with Alvarez in place. She had been intermittent caths in the past and switched over to Alvarez as well earlier this year. She was seen in the hospital in April for sepsis with urinary tract infection. She was discharged to [facility] and then subsequently discharged home she been home for several weeks. However the last couple days she has been progressive generalized weakness, this morning she was foggy in her mentation per slow to answer questions. She has no other specific complaints no coughing or shortness of breath or chest pain. Denies fevers and chills. In the ER she was evaluated determined to have sepsis from urinary tract infection. She received several liters of IV fluid bolus however her hypotension did not resolve and patient was started on levo fed. Blood cultures obtained and antibiotics given. She is also found to be hyperkalemic and orders given for treatment. Patient is answering questions although slowly does appear quite weak and lethargic. She also had a poor appetite for some time 06/22 Patient went into A. fib RVR at 130 last night, still on levophed but titrating down slowly. amio 150 given with improvement. pt has occasional cough, no dyspnea, overall feels better. Had diarrhea overnight but did get Kayexalate last evening. Nurse reports aspirating with liquids. 06/23 Had a rough night last night poor sleep and some agitation. Finally fell asleep early this morning. I did not awaken her she partially open her eyes while I was examining her. Therefore did not obtain ROS. 06/24 Slept better last night, feeling a little better but still very weak. In sinus rhythm. Has chronic back pain. No events overnight. 06/25 Continues to feel little better each day, still has her chronic back pain, no issues overnight, no new complaints. Eating better 06/26 Patient seen and examined feels better slept well last night. No acute overnight issues. Chest x-ray done this morning shows worsening pneumonia on the right side, likely aspirational and a new pleural effusion. I reviewed the need for thoracocentesis with the patient, especially given her Pseudomonas bacteremia. Patient agreed for the procedure. The patient also is being followed by wound care for sacral lesion. Patient's aspiration is likely silent, the patient did not want to be on a dysphagia diet and requested to go on a regular diet yesterday. I reviewed with her again today especially in light of the x-ray changes this morning the need to be on a dysphagia diet. The patient's was also informed about her clinical condition. Patient reluctantly agreed for dysphagia diet, and is also agreed for a barium swallow as wanted by speech therapist. I will try to get speech therapist involved in a care again. 06/27 Patient seen and examined, no acute overnight events. by the bedside. Pleural tap results reviewed, looks like a transudative effusion. Cultures negative so far. Patient still has diarrhea incontinence every 2 hours. She did a modified barium swallow, is on a mechanical soft diet and thin liquid. Patient is concerned about going home for Thanksgiving however is too weak to be discharged home safely at this point in time. Pelvic ultrasound results reviewed with the patient, has an ovarian cyst outpatient follow-up recommended Pertinent ROS: Denies headache, dizziness Denies chest pain, palpitations Denies cough or shortness of breath Denies abdominal pain, nausea or vomiting. - Constitutional Vitals: Vital Signs Temp Pulse Resp BP Pulse Ox 97.6 F 76 10 L 142/80 94 06/27/18 07:28 06/26/18 22:04 06/27/18 07:28 06/27/18 07:28 06/27/18 07:28 Period Temp Pulse Resp BP Sys/[place] Pulse Ox Last 24 Hr 97.2 F-98.4 F 76 10-39 131-151/74-94 94-96 Intake and Output 06/26/18 06/27/18 06/27/18 21:59 05:59 13:59 Intake Total 270 / 270 410 / 410 530 / 530 Output Total 250 / 250 Balance 409 / 409 530 / 530 Weight 147 lb 1.6 oz Intake & Output: Intake & Output 06/26/18 06/27/18 06/27/18 21:59 05:59 13:59 Intake Total 270 / 270 410 / 410 530 / 530 Output Total 250 / 250 Balance 409 / 409 530 / 530 Weight 147 lb 1.6 oz Intake: IV 50 / 50 50 / 50 50 / 50 Zosyn 3.375 gm In Dextrose 5% 50 / 50 50 / 50 50 / 50 in Water 50 ml @ 100 mls/hr IV Q6H [facility] Rx#:[id number] Oral 220 / 220 360 / 360 480 / 480 Output: Urine Catheter Amount 250 / 250 # of times incontinent of urine Other: Meal Dinner Breakfast Percent of Meal Consumed 100% 100% Feeding Ability Independent Urine Appearance Clear Uretheral (Alvarez) Clear Urine Color Bright Yellow Uretheral (Alvarez) Light Lavonne Stool Size Moderate Moderate Moderate Stool Color Brown Brown Brown Stool Consistency Loose Loose Loose # of times incontinent of 1 1 1 Bowels Exam: Constitutional; Afebrile, cooperative, alert, not in distress. Respiratory system: Air Entry decreased righ side, mild right basilar crackles, no wheezing noted. CVS- Rate rhythm regular, S1,S2 heard, no gallop, no rub. Abdomen- Soft nontender abdomen, no organomegaly, no tenderness, no guarding or rigidity, [employer] WORK[employer]- AOOx3, CN 2-12 normal Medical - PN: Obj Da - Labs CBC & Chem 7: 06/27/18 04:00 06/27/18 04:00 Labs: Abnormal Lab Results 06/27/18 06/27/18 06/26/18 04:00 04:00 04:00 WBC RBC 2.93 L Hgb 9.1 L Hct 28.0 L RDW 16.5 H Plt Count 78 L Gran # Chloride 109 H 109 H BUN 25 H 34 H Creatinine Glucose Phosphorus 2.1 L 1.9 L Total Protein 5.4 L 5.6 L Albumin 2.5 L 2.5 L Albumin/Globulin Ratio 0.9 L 0.8 L Triglycerides 163 H 06/26/18 06/25/18 06/25/18 04:00 04:00 04:00 WBC 11.4 H RBC 2.88 L 2.71 L Hgb 9.1 L 8.6 L Hct 27.5 L 26.3 L RDW 16.8 H 17.0 H Plt Count 84 L 85 L Gran # 8.6 H Chloride BUN 40 H Creatinine 1.2 H Glucose 168 H Phosphorus Total Protein Albumin Albumin/Globulin Ratio Triglycerides Meds: Medications Acetaminophen (Tylenol) 650 mg PO Q6HP PRN PRN Reason: PAIN/FEVER > 101 Acetaminophen/Codeine Phosphate (Tylenol #3) 2 tab PO Q6HP PRN PRN Reason: Pain Acetaminophen/Codeine Phosphate (Tylenol #3) 1 tab PO Q6H [facility] Albuterol/Ipratropium (Duoneb) 3 ml NEB Q4HRT PRN PRN Reason: Dyspnea Aspirin (Aspirin) 81 mg PO DAILY [facility] Budesonide (Pulmicort) 0.5 mg NEB Q12 [facility] Collagenase (Santyl Top Oint) 1 dose TOPICAL DAILY [facility] Diphenhydramine HCl (Benadryl) 25 mg PO HSP PRN PRN Reason: Insomnia Famotidine (Pepcid) 20 mg PO DAILY [facility] Fondaparinux (Arixtra) 2.5 mg SQ DAILY [facility] Furosemide (Lasix) 40 mg PO DAILY [facility] Furosemide (Lasix) 20 mg PO QNOON [facility] Gabapentin (Neurontin) 400 mg PO BID [facility] Hydralazine HCl (Apresoline) 0 mg IV Q2HP PRN PRN Reason: Hypertension Norepinephrine Bitartrate 8 mg (/ Sodium Chloride) 250 mls @ 18.75 mls/hr IV Q14H PRN; Protocol PRN Reason: TITRATE TO KEEP MAP > 65 Acetaminophen (Ofirmev) 650 mg in 65 mls @ 130 mls/hr IV Q6HP PRN PRN Reason: PAIN/FEVER > 101 Piperacillin Sod/Tazobactam (Sod 3.375 gm/ Dextrose) 50 mls @ 100 mls/hr IV Q6H [facility] Iron Carb/Multivit/[place]/Folic Acid (Multivitamin W/Minerals) 1 tab PO DAILY [facility] Lactobacillus Rhamnosus (Culturelle) 1 cap PO BID [facility] Levetiracetam (Keppra) 500 mg PO BID [facility] Lisinopril (Zestril) 20 mg PO DAILY [facility] Metoprolol Tartrate (Lopressor) 5 mg IV Q2HP PRN PRN Reason: Tachyarrhythmias Morphine Sulfate (Morphine) 0 mg IV Q4HP PRN PRN Reason: PAIN LEVEL > 6 Ondansetron HCl (Zofran) 4 mg IV Q4HP PRN PRN Reason: Nausea And Vomiting Fluticasone/Salmeterol (Advair 250-50 Diskus) 1 puff INH BID [facility] Simvastatin (Zocor) 20 mg PO QPM [facility] Sodium Chloride (Saline Flush) 10 ml IV UD PRN PRN Reason: FLUSH Sodium Chloride (Saline Flush) 10 ml IV Q12 [facility] Vancomycin HCl (Vancomycin Oral Elizabeth) 125 mg PO QID [facility] Medical - PN: A/P - Time Spent With Patient Total time spent is greater than 50% in coordination of care (as documented) at patient's floor/unit and/or counseling patient: - Narrative A/P Narrative: A: UTI (complicated, neurogenic bladder with alvarez in place), recurrent (concern for hygiene): On antibiotics to cover for same, Outpatient urology follow up, he has requested Methenamine 1gm bid after completion of present course. Bacteremia Pseudomonas- Source? Urine, skin, lungs? ID following, on IV zosyn for same. May need to switch to oral levofloxacin if she chooses to go home. If SNF will prefer zosyn in light of Cdiff. Septic Shock: due to UTI vs PNA resolved Aspiration PNA w/hypoxia: -now on 0L NC, down from 3L on zosyn Pleural effusion- Transudative effusion. Dysphagia, mod oropharyngeal: appreciate ST input, follow their recs Acute Hyperkalemia: 2/2 CARMINA resolved CARMINA on CKD III-IV: CARMINA resolved. Cdiff diarrhea- On po vancomycin 125mg qid, per ID, will need 2 weeks of therapy after last dose of zosyn. 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 resume Hypernatremia: Fluid load for resuscitation, resolved Goals of care: long-term prognosis guarded given decline this year and underlying comorbidities DVT prophylaxis, arixtra now. D/c hep for picc mech soft diet. No Code Overall very poor prognosis. Xfer to med surg status. Medical - PN: Qual - VTE Deep Vein Thrombosis/Pulmonary Embolism Present on Admission: No
[2018-06-27] MEDS: FUROSEMIDE 20 MG TABLET PO SCH (12:31)
[2018-06-27] MEDS: SIMVASTATIN 20 MG TABLET PO SCH (21:10)
[2018-06-28] MEDS: PIPERACILLIN SODIUM/TAZOBACTAM 3.375 GM in DEXTROSE 5% IN WATER 50 ML IV SCH ×5 (02:54→23:05)
[2018-06-28] MEDS: ACETAMINOPHEN W/CODEINE #3 1 TABLET PO SCH ×5 (02:56→23:57)
[2018-06-28] MEDS: ACETAMINOPHEN W/CODEINE #3 1 TABLET PO PRN (02:56)
[2018-06-28 06:43] LABS: Basophils # (Auto) 0 K/mcL (0.0-0.3); Basophils % (Auto) 0.1 % (0.0-2.0); Eosinophils # (Auto) 0.3 K/mcL (0.0-0.7); Eosinophils % (Auto) 2.5 % (0.0-7.0); Granulocytes % (Auto) 61.8 % (38.0-78.0); Lymphocytes # (Auto) 3.1 K/mcL (1.5-4.8); Lymphocytes % (Auto) 27.1 % (15.5-49.0); Mean Cell Volume 94.7 fL (80.0-100.0); Mean Corpuscular HGB Conc 32.8 g/dL (31.0-36.0); Mean Corpuscular Hemoglobin 31.1 pg (26.0-34.0); Monocytes % (Auto) 8.5 % (1.0-12.0); Platelet Count 94 K/mcL (140-440); RBC 2.92 M/mcL (4.00-5.20); Red Cell Distribution Width 16.5 % (11.5-14.5)
[2018-06-28 06:56] LABS: ALT/SGPT 11 U/l (0-40); Albumin 2.6 gm/dL (3.2-5.2); Albumin/Globulin Ratio 0.8 (1.0-2.3); Alkaline Phosphatase 83 U/L (39-117); Bilirubin,Direct < 0.2 mg/dL (0.0-0.3); Blood Urea Nitrogen 22 mg/dl (8-23); Gamma Glutamyl Transpeptidase 13 U/L (5-36); Uric Acid 5.8 mg/dL (2.5-8.0)
[2018-06-28] MEDS ORDERED: MAGNESIUM SULFATE 2 GM/50 ML BAG IV ONE (08:31)
--- NOTE | 2018-06-28 09:07 | XRay Report ---
INDICATION: Pneumonia. Follow-up. TECHNIQUE: AP chest x-ray, portable upright COMPARISON: Chest x-rays dated 06/26/2018, 06/23/2018, 06/21/2018 FINDINGS: Left-sided PICC line with its tip in the superior vena cava, unchanged. Patient underwent thoracentesis on 06/26/2018. There has been recurrence of right pleural effusion. There is persistent right upper lobe infiltrate consistent with pneumonia. Aspiration pneumonia is possible. Left lung is negative. No evidence for congestive heart failure. IMPRESSION: 1. Recurrent right pleural effusion 2. Persistent right upper lobe infiltrate consistent with pneumonia Interpreted and Authenticated by: Farhat Cadet 06/28/18
[2018-06-28] MEDS: VANCOMYCIN ORAL SOL 1,000 MG/10 ML BOTTLE PO SCH ×4 (09:09→20:17)
[2018-06-28] MEDS: GABAPENTIN 400 MG CAPSULE PO SCH ×2 (09:12→20:08)
[2018-06-28] MEDS: levETIRAcetam 500 MG TABLET PO SCH ×2 (09:12→20:08)
[2018-06-28] MEDS: MULTIVIT,THER IRON,CA,FA & MIN 1 TABLET PO SCH (09:12)
[2018-06-28] MEDS: FUROSEMIDE 20 MG TABLET PO SCH ×2 (09:12→11:56)
[2018-06-28] MEDS: FONDAPARINUX SODIUM 2.5 MG/0.5 ML SYRINGE SQ SCH (09:13)
[2018-06-28] MEDS: ASPIRIN 81 MG TAB.CHEW PO SCH (09:13)
[2018-06-28] MEDS: FAMOTIDINE 20 MG TABLET PO SCH (09:13)
[2018-06-28] MEDS: LISINOPRIL 20 MG TABLET PO SCH (09:13)
[2018-06-28] MEDS: LACTOBACILLUS 1 CAPSULE PO SCH ×2 (09:13→20:08)
[2018-06-28] MEDS: 0.9 % SODIUM CHLORIDE 10 ML SYRINGE IV SCH ×2 (09:13→20:13)
[2018-06-28] MEDS: BUDESONIDE 0.5 MG/2 ML AMPUL.NEB NEB SCH ×2 (09:58→20:52)
[2018-06-28] MEDS: OXYMETAZOLINE 1 SPRAY BOTTLE NAS SCH ×2 (11:13→20:09)
[2018-06-28] MEDS: FLUTICASONE/SALMETEROL 250/50 INHALER #14 INH SCH ×2 (11:15→20:08)
[2018-06-28] MEDS: COLLAGENASE TOP OINT TUBE 30GM TOPICAL SCH (11:16)
--- NOTE | 2018-06-28 13:02 | Internal Med Progress Note ---
Medical - PN: Subj Patient information: Note initiated : 06/28/18 at 12:55 pm Service Date, if different from initiated Date: [] Patient: Rosalia Lozano 72 y/o F admitted on 06/21/18 for Weakness. Chief Complaint: [] Interval history: Ms. Lozano is a 72 year old F 5-year-old female history of multiple sclerosis neurogenic bladder with Alvarez in place. She had been intermittent caths in the past and switched over to Alvarez as well earlier this year. She was seen in the hospital in April for sepsis with urinary tract infection. She was discharged to [facility] and then subsequently discharged home she been home for several weeks. However the last couple days she has been progressive generalized weakness, this morning she was foggy in her mentation per slow to answer questions. She has no other specific complaints no coughing or shortness of breath or chest pain. Denies fevers and chills. In the ER she was evaluated determined to have sepsis from urinary tract infection. She received several liters of IV fluid bolus however her hypotension did not resolve and patient was started on levo fed. Blood cultures obtained and antibiotics given. She is also found to be hyperkalemic and orders given for treatment. Patient is answering questions although slowly does appear quite weak and lethargic. She also had a poor appetite for some time 06/22 Patient went into A. fib RVR at 130 last night, still on levophed but titrating down slowly. amio 150 given with improvement. pt has occasional cough, no dyspnea, overall feels better. Had diarrhea overnight but did get Kayexalate last evening. Nurse reports aspirating with liquids. 06/23 Had a rough night last night poor sleep and some agitation. Finally fell asleep early this morning. I did not awaken her she partially open her eyes while I was examining her. Therefore did not obtain ROS. 06/24 Slept better last night, feeling a little better but still very weak. In sinus rhythm. Has chronic back pain. No events overnight. 06/25 Continues to feel little better each day, still has her chronic back pain, no issues overnight, no new complaints. Eating better 06/26 Patient seen and examined feels better slept well last night. No acute overnight issues. Chest x-ray done this morning shows worsening pneumonia on the right side, likely aspirational and a new pleural effusion. I reviewed the need for thoracocentesis with the patient, especially given her Pseudomonas bacteremia. Patient agreed for the procedure. The patient also is being followed by wound care for sacral lesion. Patient's aspiration is likely silent, the patient did not want to be on a dysphagia diet and requested to go on a regular diet yesterday. I reviewed with her again today especially in light of the x-ray changes this morning the need to be on a dysphagia diet. The patient's was also informed about her clinical condition. Patient reluctantly agreed for dysphagia diet, and is also agreed for a barium swallow as wanted by speech therapist. I will try to get speech therapist involved in a care again. 06/27 Patient seen and examined, no acute overnight events. by the bedside. Pleural tap results reviewed, looks like a transudative effusion. Cultures negative so far. Patient still has diarrhea incontinence every 2 hours. She did a modified barium swallow, is on a mechanical soft diet and thin liquid. Patient is concerned about going home for Thanksgiving however is too weak to be discharged home safely at this point in time. Pelvic ultrasound results reviewed with the patient, has an ovarian cyst outpatient follow-up recommended 06/28 Patient seen and examined no acute overnight events. by the bedside, patient notes that she is having some bleeding in her nose from the right nare. Was getting oxygen via nasal cannula. During the last admission she presented with severe bleeding and therefore she was very concerned. Started the patient on Afrin nasal cannula discontinued patient is saturating around 90 % on room air. Patient still has diarrhea, every time she is done it seems that his liquid stools. Her white blood cell count is up today. I will increase the dose of vancomycin from 125 to 250 for now. Chest x-ray shows persistent pneumonia and recurrent right-sided pleural effusion. This effusion has been tapped during this admission and no evidence of infection has been noted. Patient has been started on diuretics I expect this to help with the effusion Pertinent ROS: Denies headache, dizziness Denies chest pain, palpitations Denies cough or shortness of breath Denies abdominal pain, nausea or vomiting. - Constitutional Vitals: Vital Signs Temp Pulse Resp BP Pulse Ox 97.3 F 76 20 132/68 88 L 06/28/18 12:00 06/26/18 22:04 06/28/18 12:00 06/28/18 12:00 06/28/18 12:00 Period Temp Pulse Resp BP Sys/[place] Pulse Ox Last 24 Hr 97.3 F-98.4 F 16-20 121-152/66-89 88-100 Intake and Output 06/27/18 06/28/18 06/28/18 21:59 05:59 13:59 Intake Total 50 / 50 250 / 250 50 / 50 Output Total 600 / 600 2975 / 2975 Balance -550 / -550 -2725 / -2725 50 / 50 Intake & Output: Intake & Output 06/27/18 06/28/18 06/28/18 21:59 05:59 13:59 Intake Total 50 / 50 250 / 250 50 / 50 Output Total 600 / 600 2975 / 2975 Balance -550 / -550 -2725 / -2725 50 / 50 Intake: IV 50 / 50 50 / 50 50 / 50 Zosyn 3.375 gm In Dextrose 5% 50 / 50 50 / 50 50 / 50 in Water 50 ml @ 100 mls/hr IV Q6H [facility] Rx#:[id number] Oral 200 / 200 Output: Urine Catheter Amount 600 / 600 2975 / 2975 Other: Urine Appearance Clear Uretheral (Alvarez) Clear Urine Color Pale Straw Uretheral (Alvarez) Bright Yellow Urine Odor Normal Stool Size Moderate Stool Color Brown Stool Consistency Loose # of times incontinent of 1 Bowels Exam: Constitutional; Afebrile, cooperative, alert, not in distress. Respiratory system: Air Entry equal decreased right base, no wheezing, CVS- Rate rhythm regular, S1,S2 heard, no gallop, no rub. Abdomen- Soft nontender abdomen, no organomegaly, no tenderness, no guarding or rigidity, [employer]- AOOx3, Medical - PN: Obj Da - Labs CBC & Chem 7: 06/28/18 05:00 06/28/18 05:00 Labs: Abnormal Lab Results 06/28/18 06/28/18 06/27/18 05:00 05:00 04:00 WBC 11.6 H RBC 2.92 L Hgb 9.1 L Hct 27.6 L RDW 16.5 H Plt Count 94 L [place] # (Auto) 1.0 H Chloride 109 H Carbon Dioxide 31 H BUN 25 H Glucose 107 H Phosphorus 2.0 L 2.1 L Magnesium 1.4 L Total Protein 5.8 L 5.4 L Albumin 2.6 L 2.5 L Albumin/Globulin Ratio 0.8 L 0.9 L Triglycerides 06/27/18 06/26/18 06/26/18 04:00 04:00 04:00 WBC RBC 2.93 L 2.88 L Hgb 9.1 L 9.1 L Hct 28.0 L 27.5 L RDW 16.5 H 16.8 H Plt Count 78 L 84 L [place] # (Auto) Chloride 109 H Carbon Dioxide BUN 34 H Glucose Phosphorus 1.9 L Magnesium Total Protein 5.6 L Albumin 2.5 L Albumin/Globulin Ratio 0.8 L Triglycerides 163 H Meds: Medications Acetaminophen (Tylenol) 650 mg PO Q6HP PRN PRN Reason: PAIN/FEVER > 101 Acetaminophen/Codeine Phosphate (Tylenol #3) 2 tab PO Q6HP PRN PRN Reason: Pain Last Admin: 06/28/18 02:56 Dose: 2 tab Acetaminophen/Codeine Phosphate (Tylenol #3) 1 tab PO Q6H [facility] Last Admin: 06/28/18 11:56 Dose: 1 tab Albuterol/Ipratropium (Duoneb) 3 ml NEB Q4HRT PRN PRN Reason: Dyspnea Aspirin (Aspirin) 81 mg PO DAILY [facility] Last Admin: 06/28/18 09:13 Dose: 81 mg Budesonide (Pulmicort) 0.5 mg NEB Q12 [facility] Last Admin: 06/28/18 09:58 Dose: Not Given Collagenase (Santyl Top Oint) 1 dose TOPICAL DAILY [facility] Last Admin: 06/28/18 11:16 Dose: 1 dose Diphenhydramine HCl (Benadryl) 25 mg PO HSP PRN PRN Reason: Insomnia Famotidine (Pepcid) 20 mg PO DAILY [facility] Last Admin: 06/28/18 09:13 Dose: 20 mg Fondaparinux (Arixtra) 2.5 mg SQ DAILY [facility] Last Admin: 06/28/18 09:13 Dose: 2.5 mg Furosemide (Lasix) 40 mg PO DAILY [facility] Last Admin: 06/28/18 09:12 Dose: 40 mg Furosemide (Lasix) 20 mg PO QNOON [facility] Last Admin: 06/28/18 11:56 Dose: 20 mg Gabapentin (Neurontin) 400 mg PO BID [facility] Last Admin: 06/28/18 09:12 Dose: 400 mg Hydralazine HCl (Apresoline) 0 mg IV Q2HP PRN PRN Reason: Hypertension Norepinephrine Bitartrate 8 mg (/ Sodium Chloride) 250 mls @ 18.75 mls/hr IV Q14H PRN; Protocol PRN Reason: TITRATE TO KEEP MAP > 65 Acetaminophen (Ofirmev) 650 mg in 65 mls @ 130 mls/hr IV Q6HP PRN PRN Reason: PAIN/FEVER > 101 Piperacillin Sod/Tazobactam (Sod 3.375 gm/ Dextrose) 50 mls @ 100 mls/hr IV Q6H [facility] Last Admin: 06/28/18 11:56 Dose: 100 mls/hr Iron Carb/Multivit/[place]/Folic Acid (Multivitamin W/Minerals) 1 tab PO DAILY [facility] Last Admin: 06/28/18 09:12 Dose: 1 tab Lactobacillus Rhamnosus (Culturelle) 1 cap PO BID [facility] Last Admin: 06/28/18 09:13 Dose: 1 cap Levetiracetam (Keppra) 500 mg PO BID [facility] Last Admin: 06/28/18 09:12 Dose: 500 mg Lisinopril (Zestril) 20 mg PO DAILY [facility] Last Admin: 06/28/18 09:13 Dose: 20 mg Metoprolol Tartrate (Lopressor) 5 mg IV Q2HP PRN PRN Reason: Tachyarrhythmias Morphine Sulfate (Morphine) 0 mg IV Q4HP PRN PRN Reason: PAIN LEVEL > 6 Ondansetron HCl (Zofran) 4 mg IV Q4HP PRN PRN Reason: Nausea And Vomiting Oxymetazoline HCl (Afrin) 2 spray BRYANT BID [facility] Stop: 07/01/18 08:59 Last Admin: 06/28/18 11:13 Dose: 2 spray Fluticasone/Salmeterol (Advair 250-50 Diskus) 1 puff INH BID [facility] Last Admin: 06/28/18 11:15 Dose: 1 inh Simvastatin (Zocor) 20 mg PO QPM [facility] Last Admin: 06/27/18 21:10 Dose: 20 mg Sodium Chloride (Saline Flush) 10 ml IV UD PRN PRN Reason: FLUSH Sodium Chloride (Saline Flush) 10 ml IV Q12 [facility] Last Admin: 06/28/18 09:13 Dose: 10 ml Vancomycin HCl (Vancomycin Oral [place]) 250 mg PO QID [facility] Last Admin: 06/28/18 09:09 Dose: 250 mg Medical - PN: A/P - Time Spent With Patient Total time spent is greater than 50% in coordination of care (as documented) at patient's floor/unit and/or counseling patient: - Narrative A/P Narrative: A: UTI (complicated, neurogenic bladder with alvarez in place), recurrent (concern for hygiene): On antibiotics to cover for same, Outpatient urology follow up, he has requested Methenamine 1gm bid after completion of present course. Bacteremia Pseudomonas- Source? Urine, skin, lungs? ID following, on IV zosyn for same. May need to switch to oral levofloxacin if she chooses to go home. If SNF will prefer zosyn in light of Cdiff. Will discuss with ID. Epistaxis- D/C NC canula, affrin for now. Septic Shock: due to UTI vs PNA resolved Aspiration PNA w/hypoxia: -now on 0L NC, down from 3L on zosyn Pleural effusion- Transudative effusion. Oral lasix now, pt was neg balance yesterday, monitor. Dysphagia, mod oropharyngeal: appreciate ST input, follow their recs Acute Hyperkalemia: 2/2 CARMINA resolved CARMINA on CKD III-IV: CARMINA resolved. Cdiff diarrhea- On po vancomycin 125mg qid, given persistent diarrhea, will increase dose to 250 qid. 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 seizure d/o: no e/po seizures, continue home meds COPD (not on home O2@home): no wheezing on exam duonebs HTN: home ACEI held bp stable. resume Hypernatremia: Fluid load for resuscitation, resolved Goals of care: long-term prognosis guarded given decline this year and underlying comorbidities DVT prophylaxis, arixtra now. D/c hep for picc mech soft diet. No Code Overall very poor prognosis. Xfer to med surg status. Medical - PN: Qual - VTE Deep Vein Thrombosis/Pulmonary Embolism Present on Admission: No
[2018-06-28] MEDS: SIMVASTATIN 20 MG TABLET PO SCH (20:08)
[2018-06-29] MEDS: PIPERACILLIN SODIUM/TAZOBACTAM 3.375 GM in DEXTROSE 5% IN WATER 50 ML IV SCH ×4 (05:52→23:48)
[2018-06-29 06:28] LABS: Basophils # (Auto) 0 K/mcL (0.0-0.3); Basophils % (Auto) 0.2 % (0.0-2.0); Eosinophils # (Auto) 0.3 K/mcL (0.0-0.7); Eosinophils % (Auto) 3.1 % (0.0-7.0); Granulocytes % (Auto) 58.3 % (38.0-78.0); Lymphocytes # (Auto) 3.6 K/mcL (1.5-4.8); Lymphocytes % (Auto) 32.6 % (15.5-49.0); Mean Corpuscular HGB Conc 32.9 g/dL (31.0-36.0); Mean Corpuscular Hemoglobin 31.3 pg (26.0-34.0); Monocytes # (Auto) 0.6 K/mcL (0.1-0.9); Monocytes % (Auto) 5.8 % (1.0-12.0); Platelet Count 120 K/mcL (140-440); RBC 2.84 M/mcL (4.00-5.20); Red Cell Distribution Width 16.5 % (11.5-14.5)
[2018-06-29 06:52] LABS: ALT/SGPT 14 U/l (0-40); Albumin 2.7 gm/dL (3.2-5.2); Albumin/Globulin Ratio 0.8 (1.0-2.3); Alkaline Phosphatase 84 U/L (39-117); Bilirubin,Direct < 0.2 mg/dL (0.0-0.3); Blood Urea Nitrogen 24 mg/dl (8-23); Gamma Glutamyl Transpeptidase 13 U/L (5-36); Uric Acid 6.2 mg/dL (2.5-8.0)
[2018-06-29] MEDS: ACETAMINOPHEN W/CODEINE #3 1 TABLET PO SCH ×4 (06:52→23:48)
[2018-06-29] MEDS: FAMOTIDINE 20 MG TABLET PO SCH (09:24)
[2018-06-29] MEDS: BUDESONIDE 0.5 MG/2 ML AMPUL.NEB NEB SCH ×2 (09:24→21:59)
[2018-06-29] MEDS: FLUTICASONE/SALMETEROL 250/50 INHALER #14 INH SCH ×2 (09:24→21:45)
[2018-06-29] MEDS: LACTOBACILLUS 1 CAPSULE PO SCH ×2 (09:25→21:44)
[2018-06-29] MEDS: ASPIRIN 81 MG TAB.CHEW PO SCH (09:25)
[2018-06-29] MEDS: FUROSEMIDE 20 MG TABLET PO SCH ×2 (09:25→12:47)
[2018-06-29] MEDS: GABAPENTIN 400 MG CAPSULE PO SCH ×2 (09:25→21:46)
[2018-06-29] MEDS: levETIRAcetam 500 MG TABLET PO SCH ×2 (09:25→21:46)
[2018-06-29] MEDS: MULTIVIT,THER IRON,CA,FA & MIN 1 TABLET PO SCH (09:25)
[2018-06-29] MEDS: 0.9 % SODIUM CHLORIDE 10 ML SYRINGE IV SCH ×2 (09:26→20:09)
[2018-06-29] MEDS: OXYMETAZOLINE 1 SPRAY BOTTLE NAS SCH ×2 (09:26→21:46)
[2018-06-29] MEDS: FONDAPARINUX SODIUM 2.5 MG/0.5 ML SYRINGE SQ SCH (09:26)
[2018-06-29] MEDS ORDERED: FUROSEMIDE 40 MG/4 ML VIAL IV ONE (09:47)
[2018-06-29] MEDS: VANCOMYCIN ORAL SOL 1,000 MG/10 ML BOTTLE PO SCH ×4 (10:00→21:47)
[2018-06-29] MEDS: LISINOPRIL 20 MG TABLET PO SCH (10:00)
[2018-06-29] MEDS: COLLAGENASE TOP OINT TUBE 30GM TOPICAL SCH (10:00)
[2018-06-29] MEDS ORDERED: ALTEPLASE 2 MG VIAL IV ONE (10:14)
--- NOTE | 2018-06-29 11:29 | Internal Med Progress Note ---
Medical - PN: Subj Patient information: Note initiated : 06/29/18 at 11:26 am Service Date, if different from initiated Date: [] Patient: Rosalia Lozano 72 y/o F admitted on 06/21/18 for Weakness. Chief Complaint: [] Interval history: Ms. Lozano is a 72 year old F 5-year-old female history of multiple sclerosis neurogenic bladder with Alvarez in place. She had been intermittent caths in the past and switched over to Alvarez as well earlier this year. She was seen in the hospital in April for sepsis with urinary tract infection. She was discharged to [facility] and then subsequently discharged home she been home for several weeks. However the last couple days she has been progressive generalized weakness, this morning she was foggy in her mentation per slow to answer questions. She has no other specific complaints no coughing or shortness of breath or chest pain. Denies fevers and chills. In the ER she was evaluated determined to have sepsis from urinary tract infection. She received several liters of IV fluid bolus however her hypotension did not resolve and patient was started on levo fed. Blood cultures obtained and antibiotics given. She is also found to be hyperkalemic and orders given for treatment. Patient is answering questions although slowly does appear quite weak and lethargic. She also had a poor appetite for some time 06/22 Patient went into A. fib RVR at 130 last night, still on levophed but titrating down slowly. amio 150 given with improvement. pt has occasional cough, no dyspnea, overall feels better. Had diarrhea overnight but did get Kayexalate last evening. Nurse reports aspirating with liquids. 06/23 Had a rough night last night poor sleep and some agitation. Finally fell asleep early this morning. I did not awaken her she partially open her eyes while I was examining her. Therefore did not obtain ROS. 06/24 Slept better last night, feeling a little better but still very weak. In sinus rhythm. Has chronic back pain. No events overnight. 06/25 Continues to feel little better each day, still has her chronic back pain, no issues overnight, no new complaints. Eating better 06/26 Patient seen and examined feels better slept well last night. No acute overnight issues. Chest x-ray done this morning shows worsening pneumonia on the right side, likely aspirational and a new pleural effusion. I reviewed the need for thoracocentesis with the patient, especially given her Pseudomonas bacteremia. Patient agreed for the procedure. The patient also is being followed by wound care for sacral lesion. Patient's aspiration is likely silent, the patient did not want to be on a dysphagia diet and requested to go on a regular diet yesterday. I reviewed with her again today especially in light of the x-ray changes this morning the need to be on a dysphagia diet. The patient's was also informed about her clinical condition. Patient reluctantly agreed for dysphagia diet, and is also agreed for a barium swallow as wanted by speech therapist. I will try to get speech therapist involved in a care again. 06/27 Patient seen and examined, no acute overnight events. by the bedside. Pleural tap results reviewed, looks like a transudative effusion. Cultures negative so far. Patient still has diarrhea incontinence every 2 hours. She did a modified barium swallow, is on a mechanical soft diet and thin liquid. Patient is concerned about going home for Thanksgiving however is too weak to be discharged home safely at this point in time. Pelvic ultrasound results reviewed with the patient, has an ovarian cyst outpatient follow-up recommended 06/28 Patient seen and examined no acute overnight events. by the bedside, patient notes that she is having some bleeding in her nose from the right nare. Was getting oxygen via nasal cannula. During the last admission she presented with severe bleeding and therefore she was very concerned. Started the patient on Afrin nasal cannula discontinued patient is saturating around 90 % on room air. Patient still has diarrhea, every time she is done it seems that his liquid stools. Her white blood cell count is up today. I will increase the dose of vancomycin from 125 to 250 for now. Chest x-ray shows persistent pneumonia and recurrent right-sided pleural effusion. This effusion has been tapped during this admission and no evidence of infection has been noted. Patient has been started on diuretics I expect this to help with the effusion 06/29 Patient seen and examined, no acute overnight events. Diarrhea improving had 2 episodes last night none this morning. Has generalized pain. She is on 3 L of oxygen today. Still has some cough. Labs are stable. IV Lasix to be given in addition to the oral Lasix today will monitor for response anticipate discharge to retirement tomorrow Pertinent ROS: Denies headache, dizziness Denies chest pain, palpitations Denies cough or shortness of breath Denies abdominal pain, nausea or vomiting. - Constitutional Vitals: Vital Signs Temp Pulse Resp BP Pulse Ox 96.7 F L 87 16 130/80 92 06/29/18 08:00 06/29/18 08:00 06/29/18 08:00 06/29/18 08:00 06/29/18 08:00 Period Temp Pulse Resp BP Sys/Hancock Pulse Ox Last 24 Hr 96.7 F-98.2 F 68-87 12-20 130-135/60-80 87-92 Intake and Output 06/28/18 06/29/18 06/29/18 21:59 05:59 13:59 Intake Total 950 / 950 200 / 200 50 / 50 Output Total 1350 / 1350 1100 / 1100 Balance -400 / -400 -900 / -900 50 / 50 Intake & Output: Intake & Output 06/28/18 06/29/18 06/29/18 21:59 05:59 13:59 Intake Total 950 / 950 200 / 200 50 / 50 Output Total 1350 / 1350 1100 / 1100 Balance -400 / -400 -900 / -900 50 / 50 Intake: IV 50 / 50 50 / 50 50 / 50 Zosyn 3.375 gm In Dextrose 5% 50 / 50 50 / 50 50 / 50 in Water 50 ml @ 100 mls/hr IV Q6H [facility] Rx#:[id number] Oral 900 / 900 150 / 150 Output: Urine Catheter Amount 1350 / 1350 1100 / 1100 Other: Meal Dinner Percent of Meal Consumed 100% Urine Appearance Clear Clear Uretheral (Alvarez) Clear Urine Color Bright Yellow Pale Uretheral (Alvarez) Pale Urine Odor Normal Stool Size Small Small Small Stool Color Brown Brown Brown Stool Consistency Loose Soft Soft # of times incontinent of 1 1 1 Bowels Exam: Constitutional; Afebrile, cooperative, alert, not in distress. Respiratory system: Air Entry equal on both sides, right lower zone crackles present no wheezing no rhonchi. CVS- Rate rhythm regular, S1,S2 heard, no gallop, no rub. 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, Medical - PN: Obj Da - Labs CBC & Chem 7: 06/29/18 04:00 06/29/18 04:00 Labs: Abnormal Lab Results 06/29/18 06/29/18 06/28/18 04:00 04:00 05:00 WBC RBC 2.84 L Hgb 8.9 L Hct 27.0 L RDW 16.5 H Plt Count 120 L [place] # (Auto) Chloride Carbon Dioxide 31 H 31 H BUN 24 H Creatinine 1.2 H Glucose 114 H 107 H Phosphorus 2.0 L Magnesium 1.4 L Total Protein 5.8 L Albumin 2.7 L 2.6 L Albumin/Globulin Ratio 0.8 L 0.8 L 06/28/18 06/27/18 06/27/18 05:00 04:00 04:00 WBC 11.6 H RBC 2.92 L 2.93 L Hgb 9.1 L 9.1 L Hct 27.6 L 28.0 L RDW 16.5 H 16.5 H Plt Count 94 L 78 L [place] # (Auto) 1.0 H Chloride 109 H Carbon Dioxide BUN 25 H Creatinine Glucose Phosphorus 2.1 L Magnesium Total Protein 5.4 L Albumin 2.5 L Albumin/Globulin Ratio 0.9 L Meds: Medications Acetaminophen (Tylenol) 650 mg PO Q6HP PRN PRN Reason: PAIN/FEVER > 101 Acetaminophen/Codeine Phosphate (Tylenol #3) 2 tab PO Q6HP PRN PRN Reason: Pain Last Admin: 06/28/18 02:56 Dose: 2 tab Acetaminophen/Codeine Phosphate (Tylenol #3) 1 tab PO Q6H [facility] Last Admin: 06/29/18 06:52 Dose: 1 tab Albuterol/Ipratropium (Duoneb) 3 ml NEB Q4HRT PRN PRN Reason: Dyspnea Aspirin (Aspirin) 81 mg PO DAILY [facility] Last Admin: 06/29/18 09:25 Dose: 81 mg Budesonide (Pulmicort) 0.5 mg NEB Q12 [facility] Last Admin: 06/29/18 09:24 Dose: Not Given Collagenase (Santyl Top Oint) 1 dose TOPICAL DAILY [facility] Last Admin: 06/29/18 10:00 Dose: 1 dose Diphenhydramine HCl (Benadryl) 25 mg PO HSP PRN PRN Reason: Insomnia Famotidine (Pepcid) 20 mg PO DAILY [facility] Last Admin: 06/29/18 09:24 Dose: 20 mg Fondaparinux (Arixtra) 2.5 mg SQ DAILY [facility] Last Admin: 06/29/18 09:26 Dose: 2.5 mg Furosemide (Lasix) 40 mg PO DAILY [facility] Last Admin: 06/29/18 09:25 Dose: 40 mg Furosemide (Lasix) 20 mg PO QNOON [facility] Last Admin: 06/28/18 11:56 Dose: 20 mg Gabapentin (Neurontin) 400 mg PO BID [facility] Last Admin: 06/29/18 09:25 Dose: 400 mg Hydralazine HCl (Apresoline) 0 mg IV Q2HP PRN PRN Reason: Hypertension Norepinephrine Bitartrate 8 mg (/ Sodium Chloride) 250 mls @ 18.75 mls/hr IV Q14H PRN; Protocol PRN Reason: TITRATE TO KEEP MAP > 65 Acetaminophen (Ofirmev) 650 mg in 65 mls @ 130 mls/hr IV Q6HP PRN PRN Reason: PAIN/FEVER > 101 Piperacillin Sod/Tazobactam (Sod 3.375 gm/ Dextrose) 50 mls @ 100 mls/hr IV Q6H [facility] Last Infusion: 06/29/18 06:55 Dose: Infused Iron Carb/Multivit/Top Carrier/Folic Acid (Multivitamin W/Minerals) 1 tab PO DAILY [facility] Last Admin: 06/29/18 09:25 Dose: 1 tab Lactobacillus Rhamnosus (Culturelle) 1 cap PO BID [facility] Last Admin: 06/29/18 09:25 Dose: 1 cap Levetiracetam (Keppra) 500 mg PO BID [facility] Last Admin: 06/29/18 09:25 Dose: 500 mg Lisinopril (Zestril) 20 mg PO DAILY [facility] Last Admin: 06/29/18 10:00 Dose: 20 mg Metoprolol Tartrate (Lopressor) 5 mg IV Q2HP PRN PRN Reason: Tachyarrhythmias Morphine Sulfate (Morphine) 0 mg IV Q4HP PRN PRN Reason: PAIN LEVEL > 6 Last Admin: 06/29/18 10:20 Dose: 2 mg Ondansetron HCl (Zofran) 4 mg IV Q4HP PRN PRN Reason: Nausea And Vomiting Oxymetazoline HCl (Afrin) 2 spray BRYANT BID [facility] Stop: 07/01/18 08:59 Last Admin: 06/29/18 09:26 Dose: 2 spray Fluticasone/Salmeterol (Advair 250-50 Diskus) 1 puff INH BID [facility] Last Admin: 06/29/18 09:24 Dose: 1 inh Simvastatin (Zocor) 20 mg PO QPM [facility] Last Admin: 06/28/18 20:08 Dose: 20 mg Sodium Chloride (Saline Flush) 10 ml IV UD PRN PRN Reason: FLUSH Sodium Chloride (Saline Flush) 10 ml IV Q12 [facility] Last Admin: 06/29/18 09:26 Dose: 10 ml Vancomycin HCl (Vancomycin Oral Elizabeth) 250 mg PO QID [facility] Last Admin: 06/29/18 10:00 Dose: 250 mg Medical - PN: A/P - Time Spent With Patient Total time spent is greater than 50% in coordination of care (as documented) at patient's floor/unit and/or counseling patient: - Narrative A/P Narrative: A: UTI (complicated, neurogenic bladder with alvarez in place), recurrent (concern for hygiene): On antibiotics to cover for same, Outpatient urology follow up, he has requested Methenamine 1gm bid after completion of present course. Bacteremia Pseudomonas- Source? Urine, skin, lungs? ID following, on IV zosyn for same. Pt will go to SNF so will complete the course of antibiotics with zosyn. Epistaxis- D/C NC canula, affrin for now. Resolved. Septic Shock: due to UTI vs PNA resolved Aspiration PNA w/hypoxia: -now 3 L NC again, aggresive pulmonary toilet Pleural effusion- Transudative effusion. Oral lasix now, pt was neg balance yesterday, monitor. additional dose of IV lasix today. Dysphagia, mod oropharyngeal: appreciate ST input, follow their recs Acute Hyperkalemia: 2/2 CARMINA resolved CARMINA on CKD III-IV: CARMINA resolved. Cdiff diarrhea- On po vancomycin 250mg now, responding well to the higher dose. Episode of Afib rvr: 2/2 sepsis/above, in sinus now -Echo with normal EF, mod PAH, atria normal size -HR chronically runs 40's per pie filler Multiple sclerosis/Debility/Poor functional status: wheelchair bound, - continue with physical therapy/ OT Thrombocytopenia, acute on chronic: 2/2 above, will change lovenox to arixtra, platlet count trending up. seizure d/o: no e/po seizures, continue home meds COPD (not on home O2@home): no wheezing on exam duonebs HTN: home ACEI held bp stable. resume Hypernatremia: Fluid load for resuscitation, resolved Goals of care: long-term prognosis guarded given decline this year and underlying comorbidities DVT prophylaxis, arixtra now. D/c hep for picc mech soft diet. No Code Overall very poor prognosis. Medical - PN: Qual - VTE Deep Vein Thrombosis/Pulmonary Embolism Present on Admission: No
--- NOTE | 2018-06-29 14:46 | General Surgery Progress Note ---
Subjective Patient reports: no new complaints, other (clinically, patient is progressing well. She is transferred out of ICU. I saw her in room 114 along with nursing staff.) Narrative: Note initiated : 06/29/18 at 2:43 pm Service Date, if different from initiated Date: [] Patient: Rosalia Lozano 72 y/o F admitted on 06/21/18 for Weakness. Chief Complaint: [] Objective Temp Pulse Resp BP Pulse Ox 96.7 F L 76 16 110/65 91 06/29/18 12:45 06/29/18 12:45 06/29/18 12:45 06/29/18 12:45 06/29/18 12:45 AVSS. Lucid, coherent, talkative and more interactive today cooperate U and moving well in the bed. Tolerating regular diet and denies any cardiopulmonary GI or complaints No interval changes in general physical examination. Local examination: Sacral pressure ulcer site has improved significantly. Over 70-80% of the periwound ecchymotic area has cleared with topical Santyl ointment. No evidence of crepitation purulence tenderness or foul odor. Local hygiene improved. - Additional Data Intake & Output - Last 24 hours: Intake & Output 06/27/18 06/28/18 06/29/18 06/30/18 05:59 05:59 05:59 05:59 Intake Total 1260 / 1260 1320 / 1320 1300 / 1300 50 / 50 Output Total 1451 / 1451 4275 / 4275 3600 / 3600 900 / 900 Balance -191 / -191 -2955 / -2955 -2300 / -2300 -850 / -850 Weight 147 lb 1.6 oz - Labs 06/29/18 04:00 06/29/18 04:00 Diabetes panel 06/29/18 Range/Units 04:00 Sodium 140 (133-145) mmol/L Potassium 4.1 (3.3-5.1) mmol/L Chloride 97 (96-108) mmol/L Carbon Dioxide 31 H (22-30) mmol/L BUN 24 H (8-23) mg/dl Creatinine 1.2 H (0.6-1.1) mg/dl Glucose 114 H (70-105) mg/dL Calcium 9.4 (8.6-10.4) mg/dl AST 20 (0-37) U/l ALT 14 (0-40) U/l Alkaline Phosphatase 84 (39-117) U/L Total Protein 6.1 (5.9-8.4) gm/dL Albumin 2.7 L (3.2-5.2) gm/dL Triglycerides 120 (<150) mg/dl Calcium panel 06/29/18 Range/Units 04:00 Calcium 9.4 (8.6-10.4) mg/dl Phosphorus 2.8 (2.7-4.5) mg/dL Albumin 2.7 L (3.2-5.2) gm/dL Pituitary panel 06/29/18 Range/Units 04:00 Sodium 140 (133-145) mmol/L Potassium 4.1 (3.3-5.1) mmol/L Chloride 97 (96-108) mmol/L Carbon Dioxide 31 H (22-30) mmol/L BUN 24 H (8-23) mg/dl Creatinine 1.2 H (0.6-1.1) mg/dl Glucose 114 H (70-105) mg/dL Calcium 9.4 (8.6-10.4) mg/dl Adrenal panel 06/29/18 Range/Units 04:00 Sodium 140 (133-145) mmol/L Potassium 4.1 (3.3-5.1) mmol/L Chloride 97 (96-108) mmol/L Carbon Dioxide 31 H (22-30) mmol/L BUN 24 H (8-23) mg/dl Creatinine 1.2 H (0.6-1.1) mg/dl Glucose 114 H (70-105) mg/dL Calcium 9.4 (8.6-10.4) mg/dl Total Bilirubin 0.2 (0.0-1.0) mg/dL AST 20 (0-37) U/l ALT 14 (0-40) U/l Alkaline Phosphatase 84 (39-117) U/L Total Protein 6.1 (5.9-8.4) gm/dL Albumin 2.7 L (3.2-5.2) gm/dL Assessment and Plan (1) Pressure ulcer of coccygeal region, unstageable Problem details: Given hemodynamic improvement and treatment of SEPSIS source, will NOT favor diagnosis of Miguel Angel pressure ulcer at thistime. Will follow clinically and monitor progress. Status: Acute Current Visit: Yes (2) Sepsis Status: Acute Current Visit: Yes (3) UTI (urinary tract infection) Status: Chronic Current Visit: Yes - Narrative A/P Narrative: Assessment: Satisfactory progress with wound care and continuing resolution of pressure ulcer sacral coccygeal area. Plan: Continue current treatment. Following patient along with the hospitalist physician. - Time Spent With Patient Total time spent is greater than 50% in coordination of care (as documented) at patient's floor/unit and/or counseling patient: 15 - 24 minutes
[2018-06-29] MEDS ORDERED: 0.9 % SODIUM CHLORIDE 500 ML IV ONE (17:29)
--- NOTE | 2018-06-29 17:52 | XRay Report ---
HISTORY: Follow-up pneumonia and pleural effusion FINDINGS: There is dense consolidation of lung parenchyma in the basilar segments the right lower lobe. Superimposed upon this is a small to intermediate sized pleural effusion. The pleural effusion has remained stable. The consolidation has become slightly worse since 06/28/18. There is a milder more generalized alveolar infiltrate throughout the right upper lobe. This has improved a small amount. Bands of scar or discoid atelectasis are seen adjacent to the left heart border. The left upper lobe is clear. The heart size is normal. IMPRESSION: Atelectasis or pneumonia in the right lower lobe with a superimposed stable right-sided pleural effusion Moderate right upper lobe pneumonia which is beginning to improve Interpreted and Authenticated by: Fab Santana 06/29/18
[2018-06-29] MEDS ORDERED: 0.9 % SODIUM CHLORIDE 1,000 ML IV ONE (20:03)
--- NOTE | 2018-06-29 20:17 | Infectious Disease Prog Note ---
Subjective Patient information: Note initiated : 06/29/18 at 8:14 pm Service Date, if different from initiated Date: [] Patient: Rosalia Lozano 72 y/o F admitted on 06/21/18 for Weakness. Chief Complaint: [] Interval history: Pt doing well. Still on supplemental O2. Denied any fever. Mentions stools becoming more firm. No belly pain. Objective Objective Narrative: ao x 3, in nad chest cta anteriorly s1 s2 normal, no m/r/g bs ++, nttd no edema - Vital Signs Vital signs: Vital Signs Temp Pulse Resp BP BP Pulse Ox 06/29/18 19:47 36.9 C 66 12 82/42 90 06/29/18 16:10 82/50 06/29/18 16:00 36.7 C 16 82/40 94 06/29/18 12:45 35.9 C L 76 16 110/65 91 06/29/18 08:00 35.9 C L 87 16 130/80 92 06/29/18 04:01 72 12 135/60 92 06/28/18 23:57 91 06/28/18 23:56 68 12 130/70 87 L Intake and Output 06/29/18 06/29/18 06/29/18 05:59 13:59 21:59 Intake Total 200 / 200 50 / 50 1050 / 1050 Output Total 1100 / 1100 900 / 900 675 / 675 Balance -900 / -900 -850 / -850 375 / 375 Intake: IV 50 / 50 50 / 50 550 / 550 Sodium Chloride 0.9% 500 ml @ 500 / 500 Wide Open IV BOLUS ONE Rx#: [id number] Zosyn 3.375 gm In Dextrose 5% 50 / 50 50 / 50 50 / 50 in Water 50 ml @ 100 mls/hr IV Q6H [facility] Rx#:[id number] Oral 150 / 150 500 / 500 Output: Urine Catheter Amount 1100 / 1100 900 / 900 675 / 675 Other: Urine Appearance Clear Clear Clear Cloudy Uretheral (Alvarez) Clear Urine Color Pale Pale Bright Yellow Uretheral (Alvarez) Pale Urine Odor Normal Stool Size Small Small Stool Color Brown Brown Stool Consistency Soft Soft Loose # of times incontinent of 1 1 Bowels Weight 66.723 kg Patient Weight 06/30/18 05:59 Weight 66.723 kg Intake & Output: Intake & Output 06/29/18 06/29/18 06/29/18 05:59 13:59 21:59 Intake Total 200 / 200 50 / 50 1050 / 1050 Output Total 1100 / 1100 900 / 900 675 / 675 Balance -900 / -900 -850 / -850 375 / 375 Weight 66.723 kg Intake: IV 50 / 50 50 / 50 550 / 550 Sodium Chloride 0.9% 500 ml @ 500 / 500 Wide Open IV B[facility]US ONE Rx#: [id number] Zosyn 3.375 gm In Dextrose 5% 50 / 50 50 / 50 50 / 50 in Water 50 ml @ 100 mls/hr IV Q6H [facility] Rx#:[id number] Oral 150 / 150 500 / 500 Output: Urine Catheter Amount 1100 / 1100 900 / 900 675 / 675 Other: Urine Appearance Clear Clear Clear Cloudy Uretheral (Alvarez) Clear Urine Color Pale Pale Bright Yellow Uretheral (Alvarez) Pale Urine Odor Normal Stool Size Small Small Stool Color Brown Brown Stool Consistency Soft Soft Loose # of times incontinent of 1 1 Bowels - Lab 06/30/18 03:45 06/30/18 03:45 Most recent lab results Calcium 9.4 mg/dl (8.6-10.4) 06/29/18 04:00 Phosphorus 2.8 mg/dL (2.7-4.5) 06/29/18 04:00 Magnesium 2.0 mg/dL (1.6-2.5) 06/29/18 04:00 Microbiology 06/23/18 12:33 Urine - Alvarez Urine Culture - Final Maeve tropicalis 06/26/18 10:58 Pleural Fluid Gram Stain - Final 06/26/18 10:58 Pleural Fluid Body Fluid Culture - Final 06/26/18 10:59 Synovial Fluid Gram Stain - Final 06/26/18 10:59 Synovial Fluid Body Fluid Culture - Final 06/21/18 10:10 Blood Blood Culture - Final 06/25/18 09:12 Stool C. difficile GDH Antigen & Toxins - Final 06/21/18 10:03 Blood Blood Culture - Final Pseudomonas aeruginosa 06/21/18 11:10 Urine - Catheterized Urine Culture - Final 06/21/18 14:27 Nose MRSA (PCR) - Final Medications Active Medications: Acetaminophen (Tylenol) 650 mg PO Q6HP PRN PRN Reason: PAIN/FEVER > 101 Acetaminophen/Codeine Phosphate (Tylenol #3) 2 tab PO Q6HP PRN PRN Reason: Pain Last Admin: 06/28/18 02:56 Dose: 2 tab Admin: 06/27/18 12:33 Dose: 2 tab Acetaminophen/Codeine Phosphate (Tylenol #3) 1 tab PO Q6H [facility] Last Admin: 06/29/18 17:39 Dose: 1 tab Admin: 06/29/18 12:47 Dose: 1 tab Admin: 06/29/18 06:52 Dose: 1 tab Admin: 06/28/18 23:57 Dose: Not Given Non-Admin Reason: Patient Asleep Admin: 06/28/18 17:07 Dose: 1 tab Admin: 06/28/18 11:56 Dose: 1 tab Admin: 06/28/18 06:34 Dose: 1 tab Admin: 06/28/18 02:56 Dose: Not Given Non-Admin Reason: Patient Asleep Admin: 06/27/18 18:16 Dose: 1 tab Admin: 06/27/18 12:32 Dose: Albuterol/Ipratropium (Duoneb) 3 ml NEB Q4HRT PRN PRN Reason: Dyspnea Aspirin (Aspirin) 81 mg PO DAILY [facility] Last Admin: 06/29/18 09:25 Dose: 81 mg Admin: 06/28/18 09:13 Dose: 81 mg Budesonide (Pulmicort) 0.5 mg NEB Q12 [facility] Last Admin: 06/29/18 09:24 Dose: Admin: 06/28/18 20:52 Dose: Admin: 06/28/18 09:58 Dose: Admin: 06/27/18 23:36 Dose: Collagenase (Santyl Top Oint) 1 dose TOPICAL DAILY [facility] Last Admin: 06/29/18 10:00 Dose: 1 dose Admin: 06/28/18 11:16 Dose: 1 dose Diphenhydramine HCl (Benadryl) 25 mg PO HSP PRN PRN Reason: Insomnia Famotidine (Pepcid) 20 mg PO DAILY [facility] Last Admin: 06/29/18 09:24 Dose: 20 mg Admin: 06/28/18 09:13 Dose: 20 mg Fondaparinux (Arixtra) 2.5 mg SQ DAILY [facility] Last Admin: 06/29/18 09:26 Dose: 2.5 mg Admin: 06/28/18 09:13 Dose: 2.5 mg Furosemide (Lasix) 40 mg PO DAILY [facility] Last Admin: 06/29/18 09:25 Dose: 40 mg Admin: 06/28/18 09:12 Dose: 40 mg Furosemide (Lasix) 20 mg PO QNOON [facility] Last Admin: 06/29/18 12:47 Dose: 20 mg Admin: 06/28/18 11:56 Dose: 20 mg Admin: 06/27/18 12:31 Dose: 20 mg Gabapentin (Neurontin) 400 mg PO BID [facility] Last Admin: 06/29/18 09:25 Dose: 400 mg Admin: 06/28/18 20:08 Dose: 400 mg Admin: 06/28/18 09:12 Dose: 400 mg Admin: 06/27/18 21:10 Dose: 400 mg Heparin Sodium (Porcine) (Heparin Flush) 2 ml IV Q12 [facility] Hydralazine HCl (Apresoline) 0 mg IV Q2HP PRN PRN Reason: Hypertension Acetaminophen (Ofirmev) 650 mg in 65 mls @ 130 mls/hr IV Q6HP PRN PRN Reason: PAIN/FEVER > 101 Piperacillin Sod/Tazobactam (Sod 3.375 gm/ Dextrose) 50 mls @ 100 mls/hr IV Q6H [facility] Last Admin: 06/29/18 18:19 Dose: 100 mls/hr Infusion: 06/29/18 17:49 Dose: 0 mls/hr Admin: 06/29/18 12:30 Dose: 100 mls/hr Infusion: 06/29/18 06:55 Dose: 0 mls/hr Admin: 06/29/18 05:52 Dose: 100 mls/hr Infusion: 06/28/18 23:35 Dose: 100 mls/hr Admin: 06/28/18 23:05 Dose: 100 mls/hr Infusion: 06/28/18 18:05 Dose: 0 mls/hr Admin: 06/28/18 17:34 Dose: 100 mls/hr Infusion: 06/28/18 12:30 Dose: 0 mls/hr Admin: 06/28/18 11:56 Dose: 100 mls/hr Infusion: 06/28/18 07:56 Dose: 100 mls/hr Admin: 06/28/18 07:26 Dose: 100 mls/hr Infusion: 06/28/18 03:24 Dose: 100 mls/hr Admin: 06/28/18 02:54 Dose: 100 mls/hr Infusion: 06/27/18 18:48 Dose: 100 mls/hr Admin: 06/27/18 18:18 Dose: 100 mls/hr Infusion: 06/27/18 13:00 Dose: 0 mls/hr Admin: 06/27/18 12:29 Dose: 100 mls/hr Iron Carb/Multivit/Brainards/Folic Acid (Multivitamin W/Minerals) 1 tab PO DAILY [facility] Last Admin: 06/29/18 09:25 Dose: 1 tab Admin: 06/28/18 09:12 Dose: 1 tab Lactobacillus Rhamnosus (Culturelle) 1 cap PO BID [facility] Last Admin: 06/29/18 09:25 Dose: 1 cap Admin: 06/28/18 20:08 Dose: 1 cap Admin: 06/28/18 09:13 Dose: 1 cap Admin: 06/27/18 21:09 Dose: 1 cap Levetiracetam (Keppra) 500 mg PO BID [facility] Last Admin: 06/29/18 09:25 Dose: 500 mg Admin: 06/28/18 20:08 Dose: 500 mg Admin: 06/28/18 09:12 Dose: 500 mg Admin: 06/27/18 21:10 Dose: 500 mg Lisinopril (Zestril) 20 mg PO DAILY [facility] Last Admin: 06/29/18 10:00 Dose: 20 mg Admin: 06/28/18 09:13 Dose: 20 mg Metoprolol Tartrate (Lopressor) 5 mg IV Q2HP PRN PRN Reason: Tachyarrhythmias Morphine Sulfate (Morphine) 0 mg IV Q4HP PRN PRN Reason: PAIN LEVEL > 6 Last Admin: 06/29/18 14:59 Dose: 2 mg Admin: 06/29/18 10:20 Dose: 2 mg Ondansetron HCl (Zofran) 4 mg IV Q4HP PRN PRN Reason: Nausea And Vomiting Oxymetazoline HCl (Afrin) 2 spray BRYANT BID [facility] Stop: 07/01/18 08:59 Last Admin: 06/29/18 09:26 Dose: 2 spray Admin: 06/28/18 20:09 Dose: 2 spray Admin: 06/28/18 11:13 Dose: 2 spray Fluticasone/Salmeterol (Advair 250-50 Diskus) 1 puff INH BID [facility] Last Admin: 06/29/18 09:24 Dose: 1 inh Admin: 06/28/18 20:08 Dose: 1 inh Admin: 06/28/18 11:15 Dose: 1 inh Admin: 06/27/18 21:10 Dose: 1 inh Simvastatin (Zocor) 20 mg PO QPM [facility] Last Admin: 06/28/18 20:08 Dose: 20 mg Admin: 06/27/18 21:10 Dose: 20 mg Sodium Chloride (Saline Flush) 10 ml IV UD PRN PRN Reason: FLUSH Sodium Chloride (Saline Flush) 10 ml IV Q12 [facility] Last Admin: 06/29/18 20:09 Dose: 10 ml Admin: 06/29/18 09:26 Dose: 10 ml Admin: 06/28/18 20:13 Dose: 10 ml Admin: 06/28/18 09:13 Dose: 10 ml Admin: 06/27/18 21:10 Dose: 10 ml Vancomycin HCl (Vancomycin Oral Elizabeth) 250 mg PO QID [facility] Last Admin: 06/29/18 17:31 Dose: 250 mg Admin: 06/29/18 12:48 Dose: 250 mg Admin: 06/29/18 10:00 Dose: 250 mg Admin: 06/28/18 20:17 Dose: 250 mg Admin: 06/28/18 17:34 Dose: 250 mg Admin: 06/28/18 13:30 Dose: 250 mg Admin: 06/28/18 09:09 Dose: 250 mg Assessment and Plan - Narrative A/P Narrative: A: 1. P aeruginosa bacteremia with septic shock: septic shock resolved - unclear source but concerns for seeding through sacral wound. - repeat blood Cx negative 2. Healthcare-associated Cdiff - sec to antibiotic use (Ceftriaxone, levofloxacin) - stools becoming more formed 3. Rt sided lung consolidation: conc for pneumonia. - sec to aspiration 4. Candiduria: sec to chronic alvarez cath Recommendations: - Continue IV Zosyn 4.5 gm q6 hrs, day 6/14 with intended stop date of 07/07/18 - Continue PO Vanc 250 mg q6 hrs. It should be continued for 2 weeks after antibiotics for Pseudomonas bacteremia are stopped. Intended stop date of - local wound care for sacral decubitus wound - given multiple comorbidities, and recurrent hospitalizations; pt will benefit from goals of care discussion. Gordo Us MD Infectious diseases
[2018-06-29] MEDS ORDERED: LACTATED RINGERS 1,000 ML IV ONE (21:27)
[2018-06-29] MEDS: SIMVASTATIN 20 MG TABLET PO SCH (21:45)
[2018-06-29 22:57] LABS: Basophils # (Auto) 0 K/mcL (0.0-0.3); Basophils % (Auto) 0.1 % (0.0-2.0); Eosinophils # (Auto) 0.4 K/mcL (0.0-0.7); Eosinophils % (Auto) 4.1 % (0.0-7.0); Granulocytes % (Auto) 51.7 % (38.0-78.0); Lymphocytes # (Auto) 3.4 K/mcL (1.5-4.8); Lymphocytes % (Auto) 34.7 % (15.5-49.0); Mean Cell Volume 92.8 fL (80.0-100.0); Mean Corpuscular HGB Conc 34.9 g/dL (31.0-36.0); Mean Corpuscular Hemoglobin 32.4 pg (26.0-34.0); Monocytes # (Auto) 0.9 K/mcL (0.1-0.9); Monocytes % (Auto) 9.4 % (1.0-12.0); Platelet Count 149 K/mcL (140-440); Red Cell Distribution Width 15.8 % (11.5-14.5)
[2018-06-29 23:16] LABS: ALT/SGPT 13 U/l (0-40); Albumin 2.6 gm/dL (3.2-5.2); Albumin/Globulin Ratio 0.8 (1.0-2.3); Alkaline Phosphatase 80 U/L (39-117); Bilirubin,Direct < 0.2 mg/dL (0.0-0.3); Blood Urea Nitrogen 29 mg/dl (8-23); Gamma Glutamyl Transpeptidase 13 U/L (5-36); Uric Acid 6.2 mg/dL (2.5-8.0)
[2018-06-30] MEDS: PIPERACILLIN SODIUM/TAZOBACTAM 3.375 GM in DEXTROSE 5% IN WATER 50 ML IV SCH ×3 (05:55→18:07)
[2018-06-30] MEDS: ACETAMINOPHEN W/CODEINE #3 1 TABLET PO SCH ×3 (05:56→17:32)
[2018-06-30 06:11] LABS: Basophils # (Auto) 0 K/mcL (0.0-0.3); Basophils % (Auto) 0.4 % (0.0-2.0); Eosinophils # (Auto) 0.4 K/mcL (0.0-0.7); Eosinophils % (Auto) 3.9 % (0.0-7.0); Lymphocytes # (Auto) 3.7 K/mcL (1.5-4.8); Mean Cell Volume 96.2 fL (80.0-100.0); Mean Corpuscular HGB Conc 33.4 g/dL (31.0-36.0); Mean Corpuscular Hemoglobin 32.1 pg (26.0-34.0); Monocytes # (Auto) 0.9 K/mcL (0.1-0.9); Monocytes % (Auto) 8.7 % (1.0-12.0); Platelet Count 159 K/mcL (140-440); RBC 2.54 M/mcL (4.00-5.20); Red Cell Distribution Width 16.7 % (11.5-14.5)
[2018-06-30 06:35] LABS: ALT/SGPT 12 U/l (0-40); Albumin 2.3 gm/dL (3.2-5.2); Albumin/Globulin Ratio 0.7 (1.0-2.3); Alkaline Phosphatase 74 U/L (39-117); Bilirubin,Direct < 0.2 mg/dL (0.0-0.3); Blood Urea Nitrogen 26 mg/dl (8-23); Gamma Glutamyl Transpeptidase 13 U/L (5-36); Uric Acid 5.9 mg/dL (2.5-8.0)
[2018-06-30] MEDS: OXYMETAZOLINE 1 SPRAY BOTTLE NAS SCH ×2 (08:38→21:23)
[2018-06-30] MEDS: FLUTICASONE/SALMETEROL 250/50 INHALER #14 INH SCH ×2 (08:38→21:23)
[2018-06-30] MEDS: GABAPENTIN 400 MG CAPSULE PO SCH ×2 (08:39→21:24)
[2018-06-30] MEDS: LACTOBACILLUS 1 CAPSULE PO SCH ×2 (08:39→21:24)
[2018-06-30] MEDS: MULTIVIT,THER IRON,CA,FA & MIN 1 TABLET PO SCH (08:39)
[2018-06-30] MEDS: VANCOMYCIN ORAL SOL 1,000 MG/10 ML BOTTLE PO SCH ×4 (08:39→21:25)
[2018-06-30] MEDS: COLLAGENASE TOP OINT TUBE 30GM TOPICAL SCH (08:39)
[2018-06-30] MEDS: FAMOTIDINE 20 MG TABLET PO SCH (08:39)
[2018-06-30] MEDS: FONDAPARINUX SODIUM 2.5 MG/0.5 ML SYRINGE SQ SCH (08:40)
[2018-06-30] MEDS: ASPIRIN 81 MG TAB.CHEW PO SCH (08:40)
[2018-06-30] MEDS: levETIRAcetam 500 MG TABLET PO SCH ×2 (08:40→21:24)
[2018-06-30] MEDS: 0.9 % SODIUM CHLORIDE 10 ML SYRINGE IV SCH ×2 (08:40→21:24)
[2018-06-30] MEDS: BUDESONIDE 0.5 MG/2 ML AMPUL.NEB NEB SCH ×2 (08:41→23:13)
--- NOTE | 2018-06-30 10:55 | Internal Med Progress Note ---
Medical - PN: Subj Patient information: Note initiated : 06/30/18 at 10:50 am Service Date, if different from initiated Date: [] Patient: Rosalia Lozano 72 y/o F admitted on 06/21/18 for Weakness. Chief Complaint: [] Interval history: Ms. Lozano is a 72 year old F 5-year-old female history of multiple sclerosis neurogenic bladder with Alvarez in place. She had been intermittent caths in the past and switched over to Alvarez as well earlier this year. She was seen in the hospital in April for sepsis with urinary tract infection. She was discharged to [facility] and then subsequently discharged home she been home for several weeks. However the last couple days she has been progressive generalized weakness, this morning she was foggy in her mentation per slow to answer questions. She has no other specific complaints no coughing or shortness of breath or chest pain. Denies fevers and chills. In the ER she was evaluated determined to have sepsis from urinary tract infection. She received several liters of IV fluid bolus however her hypotension did not resolve and patient was started on levo fed. Blood cultures obtained and antibiotics given. She is also found to be hyperkalemic and orders given for treatment. Patient is answering questions although slowly does appear quite weak and lethargic. She also had a poor appetite for some time 06/22 Patient went into A. fib RVR at 130 last night, still on levophed but titrating down slowly. amio 150 given with improvement. pt has occasional cough, no dyspnea, overall feels better. Had diarrhea overnight but did get Kayexalate last evening. Nurse reports aspirating with liquids. 06/23 Had a rough night last night poor sleep and some agitation. Finally fell asleep early this morning. I did not awaken her she partially open her eyes while I was examining her. Therefore did not obtain ROS. 06/24 Slept better last night, feeling a little better but still very weak. In sinus rhythm. Has chronic back pain. No events overnight. 06/25 Continues to feel little better each day, still has her chronic back pain, no issues overnight, no new complaints. Eating better 06/26 Patient seen and examined feels better slept well last night. No acute overnight issues. Chest x-ray done this morning shows worsening pneumonia on the right side, likely aspirational and a new pleural effusion. I reviewed the need for thoracocentesis with the patient, especially given her Pseudomonas bacteremia. Patient agreed for the procedure. The patient also is being followed by wound care for sacral lesion. Patient's aspiration is likely silent, the patient did not want to be on a dysphagia diet and requested to go on a regular diet yesterday. I reviewed with her again today especially in light of the x-ray changes this morning the need to be on a dysphagia diet. The patient's was also informed about her clinical condition. Patient reluctantly agreed for dysphagia diet, and is also agreed for a barium swallow as wanted by speech therapist. I will try to get speech therapist involved in a care again. 06/27 Patient seen and examined, no acute overnight events. by the bedside. Pleural tap results reviewed, looks like a transudative effusion. Cultures negative so far. Patient still has diarrhea incontinence every 2 hours. She did a modified barium swallow, is on a mechanical soft diet and thin liquid. Patient is concerned about going home for Thanksgiving however is too weak to be discharged home safely at this point in time. Pelvic ultrasound results reviewed with the patient, has an ovarian cyst outpatient follow-up recommended 06/28 Patient seen and examined no acute overnight events. by the bedside, patient notes that she is having some bleeding in her nose from the right nare. Was getting oxygen via nasal cannula. During the last admission she presented with severe bleeding and therefore she was very concerned. Started the patient on Afrin nasal cannula discontinued patient is saturating around 90 % on room air. Patient still has diarrhea, every time she is done it seems that his liquid stools. Her white blood cell count is up today. I will increase the dose of vancomycin from 125 to 250 for now. Chest x-ray shows persistent pneumonia and recurrent right-sided pleural effusion. This effusion has been tapped during this admission and no evidence of infection has been noted. Patient has been started on diuretics I expect this to help with the effusion 06/29 Patient seen and examined, no acute overnight events. Diarrhea improving had 2 episodes last night none this morning. Has generalized pain. She is on 3 L of oxygen today. Still has some cough. Labs are stable. IV Lasix to be given in addition to the oral Lasix today will monitor for response anticipate discharge to intermediate tomorrow 06/30 Pt seen examined, pt has no acute complaints or concerns 2 bm yesterday, 1 overnight, stools improving was hypotensive yesterday needin 2 L saline bolus, x ray repeated shows improving pna, labs stable bp stable today, plan to hold lasix and bp medication, ensure stability anticipate d/c to snf in AM if remains stable. Pertinent ROS: Denies headache, dizziness Denies chest pain, palpitations Denies cough or shortness of breath Denies abdominal pain, nausea or vomiting. - Constitutional Vitals: Vital Signs Temp Pulse Resp BP Pulse Ox 98.2 F 69 18 98/56 93 06/30/18 07:42 06/30/18 07:42 06/30/18 07:42 06/30/18 07:42 06/30/18 07:42 Period Temp Pulse Resp BP Sys/Hancock Pulse Ox Last 24 Hr 96.7 F-98.9 F 61-76 12-18 82-110/40-65 90-95 Intake and Output 06/29/18 06/30/18 06/30/18 21:59 05:59 13:59 Intake Total 2099 1150 / 1150 50 / 50 Output Total 675 / 675 1375 / 1375 Balance 1425 / 1425 -225 / -225 50 / 50 Weight 147 lb Intake & Output: Intake & Output 06/29/18 06/30/18 06/30/18 21:59 05:59 13:59 Intake Total 2099 / 2099 1150 / 1150 50 / 50 Output Total 675 / 675 1375 / 1375 Balance 1425 / 1425 -225 / -225 50 / 50 Weight 147 lb Intake: IV 1600 / 1600 1050 / 1050 50 / 50 Sodium Chloride 0.9% 1,000 ml @ 1000 / 1000 Wide Open IV [facility] Rx#: [id number] Sodium Chloride 0.9% 500 ml @ 500 / 500 Wide Open IV [facility] Rx#: [id number] Lactated Ringers 1,000 ml @ 1000 / 1000 Wide Open IV [facility] Rx#: [id number] Zosyn 3.375 gm In Dextrose 5% 100 / 100 50 / 50 50 / 50 in Water 50 ml @ 100 mls/hr IV Q6H [facility] Rx#:[id number] Oral 500 / 500 100 / 100 Output: Urine Catheter Amount 675 / 675 1375 / 1375 Other: Urine Appearance Clear Cloudy Uretheral (Alvarez) Clear Clear Urine Color Bright Yellow Uretheral (Alvarez) Pale Straw Urine Odor Normal Uretheral (Alvarez) Normal Stool Size Large Stool Color Brown Black Stool Consistency Watery # of times incontinent of 1 Bowels Exam: Constitutional; Afebrile, cooperative, alert, not in distress. Respiratory system: Air Entry equal on both sides, No wheezing, no rhonchi. Right basilar crackles CVS- Rate rhythm regular, S1,S2 heard, no gallop, no rub. Abdomen- Soft nontender abdomen, no organomegaly, no tenderness, no guarding or rigidity, [employer]- AOOx3, unchanged neuro exam Medical - PN: Obj Da - Labs CBC & Chem 7: 06/30/18 03:45 06/30/18 03:45 Labs: Abnormal Lab Results 06/30/18 06/30/18 06/30/18 03:45 03:45 03:45 WBC RBC 2.54 L Hgb 8.2 L Hct 24.4 L RDW 16.7 H Plt Count [place] # (Auto) Chloride Carbon Dioxide BUN 26 H Creatinine 1.2 H Glucose 113 H Phosphorus Magnesium Total Protein 5.6 L Albumin 2.3 L Albumin/Globulin Ratio 0.7 L Triglycerides TSH 7.35 H 06/29/18 06/29/18 06/29/18 21:36 21:36 04:00 WBC RBC 2.60 L Hgb 8.4 L Hct 24.2 L RDW 15.8 H Plt Count [place] # (Auto) Chloride 95 L Carbon Dioxide 31 H 31 H BUN 29 H 24 H Creatinine 1.3 H 1.2 H Glucose 122 H 114 H Phosphorus Magnesium Total Protein Albumin 2.6 L 2.7 L Albumin/Globulin Ratio 0.8 L 0.8 L Triglycerides 165 H TSH 06/29/18 06/28/18 06/28/18 04:00 05:00 05:00 WBC 11.6 H RBC 2.84 L 2.92 L Hgb 8.9 L 9.1 L Hct 27.0 L 27.6 L RDW 16.5 H 16.5 H Plt Count 120 L 94 L [place] # (Auto) 1.0 H Chloride Carbon Dioxide 31 H BUN Creatinine Glucose 107 H Phosphorus 2.0 L Magnesium 1.4 L Total Protein 5.8 L Albumin 2.6 L Albumin/Globulin Ratio 0.8 L Triglycerides TSH Meds: Medications Acetaminophen (Tylenol) 650 mg PO Q6HP PRN PRN Reason: PAIN/FEVER > 101 Acetaminophen/Codeine Phosphate (Tylenol #3) 2 tab PO Q6HP PRN PRN Reason: Pain Last Admin: 06/28/18 02:56 Dose: 2 tab Acetaminophen/Codeine Phosphate (Tylenol #3) 1 tab PO Q6H [facility] Last Admin: 06/30/18 05:56 Dose: 1 tab Albuterol/Ipratropium (Duoneb) 3 ml NEB Q4HRT PRN PRN Reason: Dyspnea Aspirin (Aspirin) 81 mg PO DAILY [facility] Last Admin: 06/30/18 08:40 Dose: 81 mg Budesonide (Pulmicort) 0.5 mg NEB Q12 [facility] Last Admin: 06/30/18 08:41 Dose: Not Given Collagenase (Santyl Top Oint) 1 dose TOPICAL DAILY [facility] Last Admin: 06/30/18 08:39 Dose: 1 dose Diphenhydramine HCl (Benadryl) 25 mg PO HSP PRN PRN Reason: Insomnia Famotidine (Pepcid) 20 mg PO DAILY [facility] Last Admin: 06/30/18 08:39 Dose: 20 mg Fondaparinux (Arixtra) 2.5 mg SQ DAILY [facility] Last Admin: 06/30/18 08:40 Dose: 2.5 mg Gabapentin (Neurontin) 400 mg PO BID [facility] Last Admin: 06/30/18 08:39 Dose: 400 mg Heparin Sodium (Porcine) (Heparin Flush) 2 ml IV Q12 [facility] Last Admin: 06/30/18 08:40 Dose: 2 ml Hydralazine HCl (Apresoline) 0 mg IV Q2HP PRN PRN Reason: Hypertension Acetaminophen (Ofirmev) 650 mg in 65 mls @ 130 mls/hr IV Q6HP PRN PRN Reason: PAIN/FEVER > 101 Piperacillin Sod/Tazobactam (Sod 3.375 gm/ Dextrose) 50 mls @ 100 mls/hr IV Q6H [facility] Last Infusion: 06/30/18 06:30 Dose: Infused Iron Carb/Multivit/[place]/Folic Acid (Multivitamin W/Minerals) 1 tab PO DAILY [facility] Last Admin: 06/30/18 08:39 Dose: 1 tab Lactobacillus Rhamnosus (Culturelle) 1 cap PO BID [facility] Last Admin: 06/30/18 08:39 Dose: 1 cap Levetiracetam (Keppra) 500 mg PO BID [facility] Last Admin: 06/30/18 08:40 Dose: 500 mg Metoprolol Tartrate (Lopressor) 5 mg IV Q2HP PRN PRN Reason: Tachyarrhythmias Morphine Sulfate (Morphine) 0 mg IV Q4HP PRN PRN Reason: PAIN LEVEL > 6 Last Admin: 06/29/18 14:59 Dose: 2 mg Ondansetron HCl (Zofran) 4 mg IV Q4HP PRN PRN Reason: Nausea And Vomiting Oxymetazoline HCl (Afrin) 2 spray BRYANT BID [facility] Stop: 07/01/18 08:59 Last Admin: 06/30/18 08:38 Dose: 2 spray Fluticasone/Salmeterol (Advair 250-50 Diskus) 1 puff INH BID [facility] Last Admin: 06/30/18 08:38 Dose: 1 inh Simvastatin (Zocor) 20 mg PO QPM [facility] Last Admin: 06/29/18 21:45 Dose: 20 mg Sodium Chloride (Saline Flush) 10 ml IV UD PRN PRN Reason: FLUSH Sodium Chloride (Saline Flush) 10 ml IV Q12 [facility] Last Admin: 06/30/18 08:40 Dose: 10 ml Vancomycin HCl (Vancomycin Oral Elizabeth) 250 mg PO QID [facility] Last Admin: 06/30/18 08:39 Dose: 250 mg Medical - PN: A/P - Time Spent With Patient Total time spent is greater than 50% in coordination of care (as documented) at patient's floor/unit and/or counseling patient: - Narrative A/P Narrative: A: UTI (complicated, neurogenic bladder with alvarez in place), recurrent (concern for hygiene): On antibiotics to cover for same, Outpatient urology follow up, he has requested Methenamine 1gm bid after completion of present course. Bacteremia Pseudomonas- Source? Urine, skin, lungs? ID following, on IV zosyn for same. Pt will go to SNF so will complete the course of antibiotics with zosyn. Epistaxis- D/C NC canula, affrin for now. Resolved. Septic Shock: due to UTI vs PNA resolved Aspiration PNA w/hypoxia: -now 2- 3 L NC again, aggressive pulmonary toilet Pleural effusion- Transudative effusion. off lasix now due to over diuresis, will resume low dose lasix at discharge. . Dysphagia, mod oropharyngeal: appreciate ST input, follow their recs Acute Hyperkalemia: 2/2 CARMINA resolved CARMINA on CKD III-IV: CARMINA resolved. Cdiff diarrhea- On po vancomycin 250mg now, responding well to the higher dose. Episode of Afib rvr: 2/2 sepsis/above, in sinus now -Echo with normal EF, mod PAH, atria normal size -HR chronically runs 40's per senior network architect Multiple sclerosis/Debility/Poor functional status: wheelchair bound, - continue with physical therapy/ OT Thrombocytopenia, acute on chronic: 2/2 above, changed lovenox to arixtra, platlet count trending up. seizure d/o: no e/po seizures, continue home meds COPD (not on home O2@home): no wheezing on exam duonebs HTN: home ACEI held bp stable. Hypotension- due to overdiuresis, tsh mildly elevated, cortisol random 4.43 (at 4AM), if bp does not respond, will get a 8 AM cortisol level. Hypernatremia: Fluid load for resuscitation, resolved Goals of care: long-term prognosis guarded given decline this year and underlying comorbidities DVT prophylaxis, arixtra now. D/c hep for picc mech soft diet. No Code Overall very poor prognosis. Medical - PN: Qual - VTE Deep Vein Thrombosis/Pulmonary Embolism Present on Admission: No
[2018-06-30] MEDS: ACETAMINOPHEN W/CODEINE #3 1 TABLET PO PRN ×2 (10:56→17:24)
--- NOTE | 2018-06-30 12:45 | Non-GYN Cytology Report ---
NON CONTINUOUS PROCESS [employer]ANNER SPECIMEN NG DX CATEGORY Negative MICROSCOPIC DIAGNOSIS PLEURAL FLUID, RIGHT, THORACENTESIS: -- MARKED ACUTE AND CHRONIC INFLAMMATION WITH REACTIVE MESOTHELIAL CELLS. -- NO ATYPICAL OR MALIGNANT CELLS IDENTIFIED. (ACP:sln) MICROSCOPIC DESCRIPTION Examination of the right pleural fluid material reveals numerous histiocytes, lymphocytes and neutrophils with scattered clusters of reactive mesothelial cells and acellular debris. A few inflammatory cells have degenerative change. No malignant cells are seen. (ACP:sln) CLINICAL HISTORY Right pleural effusion. EXTERNAL COMMENT ~700 mL yellow fluid: 1 thinprep, 1 H/E, 1 Diff Quik, 1 Peraza Giemsa, 1 cell block Electronically Signed by: Esteban Santana M.D.
[2018-06-30] MEDS: SIMVASTATIN 20 MG TABLET PO SCH (21:25)
[2018-07-01] MEDS: PIPERACILLIN SODIUM/TAZOBACTAM 3.375 GM in DEXTROSE 5% IN WATER 50 ML IV SCH ×4 (00:06→17:10)
[2018-07-01] MEDS: ACETAMINOPHEN W/CODEINE #3 1 TABLET PO SCH ×4 (00:30→17:09)
[2018-07-01] MEDS: ACETAMINOPHEN W/CODEINE #3 1 TABLET PO PRN (00:31)
[2018-07-01 05:37] LABS: Basophils # (Auto) 0 K/mcL (0.0-0.3); Basophils % (Auto) 0.4 % (0.0-2.0); Eosinophils # (Auto) 0.4 K/mcL (0.0-0.7); Eosinophils % (Auto) 4.4 % (0.0-7.0); Granulocytes % (Auto) 52.5 % (38.0-78.0); Lymphocytes # (Auto) 3.2 K/mcL (1.5-4.8); Mean Cell Volume 95.3 fL (80.0-100.0); Mean Corpuscular HGB Conc 32.8 g/dL (31.0-36.0); Mean Corpuscular Hemoglobin 31.3 pg (26.0-34.0); Monocytes # (Auto) 0.8 K/mcL (0.1-0.9); Monocytes % (Auto) 8.7 % (1.0-12.0); Platelet Count 204 K/mcL (140-440); RBC 2.42 M/mcL (4.00-5.20); Red Cell Distribution Width 16.2 % (11.5-14.5)
[2018-07-01 06:05] LABS: ALT/SGPT 10 U/l (0-40); Albumin 2.5 gm/dL (3.2-5.2); Albumin/Globulin Ratio 0.7 (1.0-2.3); Alkaline Phosphatase 74 U/L (39-117); Bilirubin,Direct < 0.2 mg/dL (0.0-0.3); Blood Urea Nitrogen 26 mg/dl (8-23); Gamma Glutamyl Transpeptidase 13 U/L (5-36); Uric Acid 6.2 mg/dL (2.5-8.0)
[2018-07-01] MEDS: BUDESONIDE 0.5 MG/2 ML AMPUL.NEB NEB SCH (07:57)
[2018-07-01] MEDS: LACTOBACILLUS 1 CAPSULE PO SCH ×2 (08:27→20:54)
[2018-07-01] MEDS: MULTIVIT,THER IRON,CA,FA & MIN 1 TABLET PO SCH (08:27)
[2018-07-01] MEDS: ASPIRIN 81 MG TAB.CHEW PO SCH (08:28)
[2018-07-01] MEDS: FAMOTIDINE 20 MG TABLET PO SCH (08:28)
[2018-07-01] MEDS: GABAPENTIN 400 MG CAPSULE PO SCH ×2 (08:28→20:54)
[2018-07-01] MEDS: levETIRAcetam 500 MG TABLET PO SCH ×2 (08:28→20:54)
[2018-07-01] MEDS: VANCOMYCIN ORAL SOL 1,000 MG/10 ML BOTTLE PO SCH ×4 (08:29→20:55)
[2018-07-01] MEDS: 0.9 % SODIUM CHLORIDE 10 ML SYRINGE IV SCH ×2 (08:29→20:53)
[2018-07-01] MEDS: COLLAGENASE TOP OINT TUBE 30GM TOPICAL SCH (08:32)
[2018-07-01] MEDS: FLUTICASONE/SALMETEROL 250/50 INHALER #14 INH SCH ×2 (08:32→20:54)
[2018-07-01] MEDS: FONDAPARINUX SODIUM 2.5 MG/0.5 ML SYRINGE SQ SCH (08:35)
[2018-07-01 09:11] LABS: Cortisol,AM 5.8 ug/dl (6.2-19.4)
[2018-07-01] MEDS: HYDROCORTISONE 10 MG TABLET PO SCH (10:14)
--- NOTE | 2018-07-01 14:15 | Internal Med Progress Note ---
Medical - PN: Subj Patient information: Note initiated : 07/01/18 at 2:12 pm Service Date, if different from initiated Date: [] Patient: Rosalia Lozano 72 y/o F admitted on 06/21/18 for Weakness. Chief Complaint: [] Interval history: Ms. Lozano is a 72 year old F 5-year-old female history of multiple sclerosis neurogenic bladder with Alvarez in place. She had been intermittent caths in the past and switched over to Alvarez as well earlier this year. She was seen in the hospital in April for sepsis with urinary tract infection. She was discharged to [facility] and then subsequently discharged home she been home for several weeks. However the last couple days she has been progressive generalized weakness, this morning she was foggy in her mentation per slow to answer questions. She has no other specific complaints no coughing or shortness of breath or chest pain. Denies fevers and chills. In the ER she was evaluated determined to have sepsis from urinary tract infection. She received several liters of IV fluid bolus however her hypotension did not resolve and patient was started on levo fed. Blood cultures obtained and antibiotics given. She is also found to be hyperkalemic and orders given for treatment. Patient is answering questions although slowly does appear quite weak and lethargic. She also had a poor appetite for some time 06/22 Patient went into A. fib RVR at 130 last night, still on levophed but titrating down slowly. amio 150 given with improvement. pt has occasional cough, no dyspnea, overall feels better. Had diarrhea overnight but did get Kayexalate last evening. Nurse reports aspirating with liquids. 06/23 Had a rough night last night poor sleep and some agitation. Finally fell asleep early this morning. I did not awaken her she partially open her eyes while I was examining her. Therefore did not obtain ROS. 06/24 Slept better last night, feeling a little better but still very weak. In sinus rhythm. Has chronic back pain. No events overnight. 06/25 Continues to feel little better each day, still has her chronic back pain, no issues overnight, no new complaints. Eating better 06/26 Patient seen and examined feels better slept well last night. No acute overnight issues. Chest x-ray done this morning shows worsening pneumonia on the right side, likely aspirational and a new pleural effusion. I reviewed the need for thoracocentesis with the patient, especially given her Pseudomonas bacteremia. Patient agreed for the procedure. The patient also is being followed by wound care for sacral lesion. Patient's aspiration is likely silent, the patient did not want to be on a dysphagia diet and requested to go on a regular diet yesterday. I reviewed with her again today especially in light of the x-ray changes this morning the need to be on a dysphagia diet. The patient's was also informed about her clinical condition. Patient reluctantly agreed for dysphagia diet, and is also agreed for a barium swallow as wanted by speech therapist. I will try to get speech therapist involved in a care again. 06/27 Patient seen and examined, no acute overnight events. by the bedside. Pleural tap results reviewed, looks like a transudative effusion. Cultures negative so far. Patient still has diarrhea incontinence every 2 hours. She did a modified barium swallow, is on a mechanical soft diet and thin liquid. Patient is concerned about going home for Thanksgiving however is too weak to be discharged home safely at this point in time. Pelvic ultrasound results reviewed with the patient, has an ovarian cyst outpatient follow-up recommended 06/28 Patient seen and examined no acute overnight events. by the bedside, patient notes that she is having some bleeding in her nose from the right nare. Was getting oxygen via nasal cannula. During the last admission she presented with severe bleeding and therefore she was very concerned. Started the patient on Afrin nasal cannula discontinued patient is saturating around 90 % on room air. Patient still has diarrhea, every time she is done it seems that his liquid stools. Her white blood cell count is up today. I will increase the dose of vancomycin from 125 to 250 for now. Chest x-ray shows persistent pneumonia and recurrent right-sided pleural effusion. This effusion has been tapped during this admission and no evidence of infection has been noted. Patient has been started on diuretics I expect this to help with the effusion 06/29 Patient seen and examined, no acute overnight events. Diarrhea improving had 2 episodes last night none this morning. Has generalized pain. She is on 3 L of oxygen today. Still has some cough. Labs are stable. IV Lasix to be given in addition to the oral Lasix today will monitor for response anticipate discharge to long-term tomorrow 06/30 Pt seen examined, pt has no acute complaints or concerns 2 bm yesterday, 1 overnight, stools improving was hypotensive yesterday needin 2 L saline bolus, x ray repeated shows improving pna, labs stable bp stable today, plan to hold lasix and bp medication, ensure stability anticipate d/c to snf in AM if remains stable. 07/01 Patient seen examined ,no acute ovenright issues,bp is low. 1 L saline ordered Low AM cortisol noted, pt to be started on hydrocortisone 10mg AM and 5mg qhs Pt wishes to be comfortable and wants to go home She wishes for a regular diet. Which we have changed, I have reviewed this with her and her that she is at high risk of aspiration which they accept. I asked if they would like hospice be involved and hospice team has seen the patient today, with the plan of admitting her to hospice on friday. When I talked with the patient again later, she was not quite sure and wanted her to make the decision. I will not stop any treatment at this time, and will discuss the plan of care with the . The patient seems to be forgetting what she said or agreed to this morning. Pertinent ROS: Denies headache, dizziness Denies chest pain, palpitations Denies cough or shortness of breath Denies abdominal pain, nausea or vomiting. - Constitutional Vitals: Vital Signs Temp Pulse Resp BP Pulse Ox 98.3 F 67 14 74/49 97 07/01/18 12:00 07/01/18 12:00 07/01/18 12:00 07/01/18 12:00 07/01/18 12:00 Period Temp Pulse Resp BP Sys/Hancock Pulse Ox Last 24 Hr 97.4 F-98.6 F 54-84 14-18 70-106/43-56 88-97 Intake and Output 07/01/18 07/01/18 07/01/18 05:59 13:59 21:59 Intake Total 350 / 350 100 / 100 Output Total 850 / 850 Balance 350 / 350 -750 / -750 Intake & Output: Intake & Output 07/01/18 07/01/18 07/01/18 05:59 13:59 21:59 Intake Total 350 / 350 100 / 100 Output Total 850 / 850 Balance 350 / 350 -750 / -750 Intake: IV 50 / 50 100 / 100 Zosyn 3.375 gm In Dextrose 5% 50 / 50 100 / 100 in Water 50 ml @ 100 mls/hr IV Q6H [facility] Rx#:[id number] Oral 300 / 300 Output: Urine Catheter Amount 850 / 850 Other: Urine Appearance Clear Uretheral (Alvarez) Clear Urine Color Uretheral (Alvarez) Pale Urine Odor Uretheral (Alvarez) Normal Stool Size Large Stool Color Brown Yellow Stool Consistency Soft Loose # Bowel Movements 1 Exam: Constitutional; Afebrile, cooperative, alert, not in distress. Respiratory system: Air Entry equal on both sides, right basilar crackles CVS- Rate rhythm regular, S1,S2 heard, no gallop, no rub. Abdomen- Soft nontender abdomen, no organomegaly, no tenderness, no guarding or rigidity, APPLE THINNER- AOOx3, moving all extremities, Medical - PN: Obj Da - Labs CBC & Chem 7: 07/01/18 08:13 07/01/18 04:05 Labs: Abnormal Lab Results 07/01/18 07/01/18 07/01/18 08:13 08:13 04:05 RBC Hgb 7.6 L Hct 23.4 L RDW Plt Count Chloride Carbon Dioxide 31 H BUN 26 H Creatinine 1.3 H Glucose 112 H Total Protein Albumin 2.5 L Albumin/Globulin Ratio 0.7 L Triglycerides TSH Cortisol AM Sample 5.8 L 07/01/18 06/30/18 06/30/18 04:05 03:45 03:45 RBC 2.42 L Hgb 7.6 L Hct 23.0 L RDW 16.2 H Plt Count Chloride Carbon Dioxide BUN 26 H Creatinine 1.2 H Glucose 113 H Total Protein 5.6 L Albumin 2.3 L Albumin/Globulin Ratio 0.7 L Triglycerides TSH 7.35 H Cortisol AM Sample 06/30/18 06/29/18 06/29/18 03:45 21:36 21:36 RBC 2.54 L 2.60 L Hgb 8.2 L 8.4 L Hct 24.4 L 24.2 L RDW 16.7 H 15.8 H Plt Count Chloride 95 L Carbon Dioxide 31 H BUN 29 H Creatinine 1.3 H Glucose 122 H Total Protein Albumin 2.6 L Albumin/Globulin Ratio 0.8 L Triglycerides 165 H TSH Cortisol AM Sample 06/29/18 06/29/18 04:00 04:00 RBC 2.84 L Hgb 8.9 L Hct 27.0 L RDW 16.5 H Plt Count 120 L Chloride Carbon Dioxide 31 H BUN 24 H Creatinine 1.2 H Glucose 114 H Total Protein Albumin 2.7 L Albumin/Globulin Ratio 0.8 L Triglycerides TSH Cortisol AM Sample Meds: Medications Acetaminophen (Tylenol) 650 mg PO Q6HP PRN PRN Reason: PAIN/FEVER > 101 Acetaminophen/Codeine Phosphate (Tylenol #3) 2 tab PO Q6HP PRN PRN Reason: Pain Last Admin: 07/01/18 00:31 Dose: 2 tab Acetaminophen/Codeine Phosphate (Tylenol #3) 1 tab PO Q6H [facility] Last Admin: 07/01/18 11:32 Dose: 1 tab Albuterol/Ipratropium (Duoneb) 3 ml NEB Q4HRT PRN PRN Reason: Dyspnea Aspirin (Aspirin) 81 mg PO DAILY [facility] Last Admin: 07/01/18 08:28 Dose: 81 mg Collagenase (Santyl Top Oint) 1 dose TOPICAL DAILY [facility] Last Admin: 07/01/18 08:32 Dose: 1 dose Diphenhydramine HCl (Benadryl) 25 mg PO HSP PRN PRN Reason: Insomnia Famotidine (Pepcid) 20 mg PO DAILY [facility] Last Admin: 07/01/18 08:28 Dose: 20 mg Fondaparinux (Arixtra) 2.5 mg SQ DAILY [facility] Last Admin: 07/01/18 08:35 Dose: 2.5 mg Gabapentin (Neurontin) 400 mg PO BID [facility] Last Admin: 07/01/18 08:28 Dose: 400 mg Heparin Sodium (Porcine) (Heparin Flush) 2 ml IV Q12 [facility] Last Admin: 07/01/18 08:28 Dose: 2 ml Hydralazine HCl (Apresoline) 0 mg IV Q2HP PRN PRN Reason: Hypertension Hydrocortisone (Cortef) 10 mg PO [facility] Last Admin: 07/01/18 10:14 Dose: 10 mg Acetaminophen (Ofirmev) 650 mg in 65 mls @ 130 mls/hr IV Q6HP PRN PRN Reason: PAIN/FEVER > 101 Piperacillin Sod/Tazobactam (Sod 3.375 gm/ Dextrose) 50 mls @ 100 mls/hr IV Q6H [facility] Last Infusion: 07/01/18 13:11 Dose: Infused Iron Carb/Multivit/Prep Cook/Folic Acid (Multivitamin W/Minerals) 1 tab PO DAILY [facility] Last Admin: 07/01/18 08:27 Dose: 1 tab Lactobacillus Rhamnosus (Culturelle) 1 cap PO BID [facility] Last Admin: 07/01/18 08:27 Dose: 1 cap Levetiracetam (Keppra) 500 mg PO BID [facility] Last Admin: 07/01/18 08:28 Dose: 500 mg Metoprolol Tartrate (Lopressor) 5 mg IV Q2HP PRN PRN Reason: Tachyarrhythmias Morphine Sulfate (Morphine) 0 mg IV Q4HP PRN PRN Reason: PAIN LEVEL > 6 Last Admin: 06/29/18 14:59 Dose: 2 mg Ondansetron HCl (Zofran) 4 mg IV Q4HP PRN PRN Reason: Nausea And Vomiting Fluticasone/Salmeterol (Advair 250-50 Diskus) 1 puff INH BID [facility] Last Admin: 07/01/18 08:32 Dose: 2 inh Simvastatin (Zocor) 20 mg PO QPM [facility] Last Admin: 06/30/18 21:25 Dose: 20 mg Sodium Chloride (Saline Flush) 10 ml IV UD PRN PRN Reason: FLUSH Sodium Chloride (Saline Flush) 10 ml IV Q12 [facility] Last Admin: 07/01/18 08:29 Dose: 10 ml Vancomycin HCl (Vancomycin Oral Elizabeth) 250 mg PO QID [facility] Last Admin: 07/01/18 08:29 Dose: 250 mg Medical - PN: A/P - Time Spent With Patient Total time spent is greater than 50% in coordination of care (as documented) at patient's floor/unit and/or counseling patient: - Narrative A/P Narrative: A: UTI (complicated, neurogenic bladder with alvarez in place), recurrent (concern for hygiene): On antibiotics to cover for same, Outpatient urology follow up, he has requested Methenamine 1gm bid after completion of present course. Bacteremia Pseudomonas- Source? Urine, skin, lungs? ID following, on IV zosyn for same. Pt will go to SNF so will complete the course of antibiotics with zosyn. Last dose 07/07/18 Adrenal insufficiency- Etiology primary vs secondary, likely secondary, ACTH is not available to be done, will start the patient on Hydrocortisone and se how she responds, if bp does not repsond to oral meds will start on IV hydrocortisone for a short duration and transition to orals Epistaxis- D/C NC canula, affrin for now. Resolved. Septic Shock: due to UTI vs PNA resolved Aspiration PNA w/hypoxia: -now 2- 3 L NC again, aggressive pulmonary toilet Oropharyngeal Dysphagia due to MS- Pt was advised dysphagia diet, but wishes regular diet, this am she understood the risk of a regular diet including aspiration and she agreed to the risk. Pleural effusion- Transudative effusion. off lasix now due to over diuresis, will resume low dose lasix at discharge. . Dysphagia, mod oropharyngeal: appreciate ST input, follow their recs Acute Hyperkalemia: 2/2 CARMINA resolved CARMINA on CKD III-IV: CARMINA resolved. Cdiff diarrhea- On po vancomycin 250mg now, had 6 episodes of diarrhea overnight. 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 seizure d/o: no e/po seizures, continue home meds COPD (not on home O2@home): no wheezing on exam duonebs HTN: home ACEI held bp stable. Hypotension- due to overdiuresis, tsh mildly elevated, cortisol random 4.43 (at 4AM), if bp does not respond, will get a 8 AM cortisol level. Hypernatremia: Fluid load for resuscitation, resolved Goals of care: long-term prognosis guarded given decline this year and underlying comorbidities DVT prophylaxis, arixtra now. D/c hep for picc mech soft diet. No Code Overall very poor prognosis. Pt wished for hosice this AM,and is set up for home hospice on friday, hwoever talking later she noted that she is not ready yet, and would like to talk with her again, will talk with her again tomorrow. I am not stopping her care at thsi time. Medical - PN: Qual - VTE Deep Vein Thrombosis/Pulmonary Embolism Present on Admission: No
[2018-07-01] MEDS: SIMVASTATIN 20 MG TABLET PO SCH (20:54)
[2018-07-02] MEDS: ACETAMINOPHEN W/CODEINE #3 1 TABLET PO SCH ×4 (00:20→17:45)
[2018-07-02] MEDS: PIPERACILLIN SODIUM/TAZOBACTAM 3.375 GM in DEXTROSE 5% IN WATER 50 ML IV SCH ×4 (00:20→17:25)
[2018-07-02] MEDS: ACETAMINOPHEN W/CODEINE #3 1 TABLET PO PRN (03:29)
[2018-07-02 06:29] LABS: ALT/SGPT 9 U/l (0-40); Albumin 2.1 gm/dL (3.2-5.2); Albumin/Globulin Ratio 0.6 (1.0-2.3); Alkaline Phosphatase 67 U/L (39-117); Bilirubin,Direct < 0.2 mg/dL (0.0-0.3); Blood Urea Nitrogen 23 mg/dl (8-23); Gamma Glutamyl Transpeptidase 14 U/L (5-36); Uric Acid 5.7 mg/dL (2.5-8.0)
[2018-07-02 06:31] LABS: Basophils # (Auto) 0 K/mcL (0.0-0.3); Basophils % (Auto) 0.4 % (0.0-2.0); Eosinophils # (Auto) 0.3 K/mcL (0.0-0.7); Eosinophils % (Auto) 3.8 % (0.0-7.0); Granulocytes % (Auto) 47.2 % (38.0-78.0); Lymphocytes # (Auto) 3.1 K/mcL (1.5-4.8); Mean Cell Volume 95.6 fL (80.0-100.0); Mean Corpuscular HGB Conc 32.2 g/dL (31.0-36.0); Mean Corpuscular Hemoglobin 30.8 pg (26.0-34.0); Monocytes % (Auto) 11.6 % (1.0-12.0); Platelet Count 229 K/mcL (140-440); RBC 2.27 M/mcL (4.00-5.20); Red Cell Distribution Width 16.6 % (11.5-14.5)
[2018-07-02 08:05] LABS: Retic Absolute 1.5 % (0.5-1.5)
[2018-07-02 08:31] LABS: Ferritin 655.3 ng/ml (30-400)
[2018-07-02] MEDS ORDERED: 0.9 % SODIUM CHLORIDE 250 ML IV SCH (09:15)
[2018-07-02] MEDS: HYDROCORTISONE 10 MG TABLET PO SCH (09:42)
[2018-07-02] MEDS: GABAPENTIN 400 MG CAPSULE PO SCH ×2 (09:42→22:18)
[2018-07-02] MEDS: FAMOTIDINE 20 MG TABLET PO SCH (09:42)
[2018-07-02] MEDS: levETIRAcetam 500 MG TABLET PO SCH ×2 (09:42→22:18)
[2018-07-02] MEDS: MULTIVIT,THER IRON,CA,FA & MIN 1 TABLET PO SCH (09:42)
[2018-07-02] MEDS: LACTOBACILLUS 1 CAPSULE PO SCH ×2 (09:42→22:18)
[2018-07-02] MEDS: FLUTICASONE/SALMETEROL 250/50 INHALER #14 INH SCH ×2 (09:43→22:18)
[2018-07-02] MEDS: ASPIRIN 81 MG TAB.CHEW PO SCH (09:43)
[2018-07-02] MEDS: 0.9 % SODIUM CHLORIDE 10 ML SYRINGE IV SCH ×2 (09:44→22:19)
[2018-07-02] MEDS: COLLAGENASE TOP OINT TUBE 30GM TOPICAL SCH (09:44)
[2018-07-02] MEDS: VANCOMYCIN ORAL SOL 1,000 MG/10 ML BOTTLE PO SCH ×4 (09:44→22:29)
--- NOTE | 2018-07-02 09:44 | Internal Med Progress Note ---
Medical - PN: Subj Patient information: Note initiated : 07/02/18 at 9:41 am Service Date, if different from initiated Date: [] Patient: Rosalia Lozano 72 y/o F admitted on 06/21/18 for Weakness. Chief Complaint: [] Interval history: Ms. Lozano is a 72 year old F 5-year-old female history of multiple sclerosis neurogenic bladder with Alvarez in place. She had been intermittent caths in the past and switched over to Alvarez as well earlier this year. She was seen in the hospital in April for sepsis with urinary tract infection. She was discharged to [facility] and then subsequently discharged home she been home for several weeks. However the last couple days she has been progressive generalized weakness, this morning she was foggy in her mentation per slow to answer questions. She has no other specific complaints no coughing or shortness of breath or chest pain. Denies fevers and chills. In the ER she was evaluated determined to have sepsis from urinary tract infection. She received several liters of IV fluid bolus however her hypotension did not resolve and patient was started on levo fed. Blood cultures obtained and antibiotics given. She is also found to be hyperkalemic and orders given for treatment. Patient is answering questions although slowly does appear quite weak and lethargic. She also had a poor appetite for some time 06/22 Patient went into A. fib RVR at 130 last night, still on levophed but titrating down slowly. amio 150 given with improvement. pt has occasional cough, no dyspnea, overall feels better. Had diarrhea overnight but did get Kayexalate last evening. Nurse reports aspirating with liquids. 06/23 Had a rough night last night poor sleep and some agitation. Finally fell asleep early this morning. I did not awaken her she partially open her eyes while I was examining her. Therefore did not obtain ROS. 06/24 Slept better last night, feeling a little better but still very weak. In sinus rhythm. Has chronic back pain. No events overnight. 06/25 Continues to feel little better each day, still has her chronic back pain, no issues overnight, no new complaints. Eating better 06/26 Patient seen and examined feels better slept well last night. No acute overnight issues. Chest x-ray done this morning shows worsening pneumonia on the right side, likely aspirational and a new pleural effusion. I reviewed the need for thoracocentesis with the patient, especially given her Pseudomonas bacteremia. Patient agreed for the procedure. The patient also is being followed by wound care for sacral lesion. Patient's aspiration is likely silent, the patient did not want to be on a dysphagia diet and requested to go on a regular diet yesterday. I reviewed with her again today especially in light of the x-ray changes this morning the need to be on a dysphagia diet. The patient's was also informed about her clinical condition. Patient reluctantly agreed for dysphagia diet, and is also agreed for a barium swallow as wanted by speech therapist. I will try to get speech therapist involved in a care again. 06/27 Patient seen and examined, no acute overnight events. by the bedside. Pleural tap results reviewed, looks like a transudative effusion. Cultures negative so far. Patient still has diarrhea incontinence every 2 hours. She did a modified barium swallow, is on a mechanical soft diet and thin liquid. Patient is concerned about going home for Thanksgiving however is too weak to be discharged home safely at this point in time. Pelvic ultrasound results reviewed with the patient, has an ovarian cyst outpatient follow-up recommended 06/28 Patient seen and examined no acute overnight events. by the bedside, patient notes that she is having some bleeding in her nose from the right nare. Was getting oxygen via nasal cannula. During the last admission she presented with severe bleeding and therefore she was very concerned. Started the patient on Afrin nasal cannula discontinued patient is saturating around 90 % on room air. Patient still has diarrhea, every time she is done it seems that his liquid stools. Her white blood cell count is up today. I will increase the dose of vancomycin from 125 to 250 for now. Chest x-ray shows persistent pneumonia and recurrent right-sided pleural effusion. This effusion has been tapped during this admission and no evidence of infection has been noted. Patient has been started on diuretics I expect this to help with the effusion 06/29 Patient seen and examined, no acute overnight events. Diarrhea improving had 2 episodes last night none this morning. Has generalized pain. She is on 3 L of oxygen today. Still has some cough. Labs are stable. IV Lasix to be given in addition to the oral Lasix today will monitor for response anticipate discharge to intermediate tomorrow 06/30 Pt seen examined, pt has no acute complaints or concerns 2 bm yesterday, 1 overnight, stools improving was hypotensive yesterday needin 2 L saline bolus, x ray repeated shows improving pna, labs stable bp stable today, plan to hold lasix and bp medication, ensure stability anticipate d/c to snf in AM if remains stable. 07/01 Patient seen examined ,no acute ovenright issues,bp is low. 1 L saline ordered Low AM cortisol noted, pt to be started on hydrocortisone 10mg AM and 5mg qhs Pt wishes to be comfortable and wants to go home She wishes for a regular diet. Which we have changed, I have reviewed this with her and her that she is at high risk of aspiration which they accept. I asked if they would like hospice be involved and hospice team has seen the patient today, with the plan of admitting her to hospice on friday. When I talked with the patient again later, she was not quite sure and wanted her to make the decision. I will not stop any treatment at this time, and will discuss the plan of care with the . The patient seems to be forgetting what she said or agreed to this morning. 07/02 Pt seen examined, had a long discussion wit her regarding goals of care She initially agreed this AM again in front of her on going to hospice, but then stated that she will go to hospice and fight the infection and get better. She was also a bit surprised that she would not be able to go to ER for emergencies. I do not think she fully understood the meaning of hospice. Her did understand and noted that she will not live through the process, the patient however felt that she could fight through this and get better at the end of the process. She noted she would like to continue fighting. She however wants to eat a regular diet irrespective of the risk of aspiration. Her labs show hb 7.0, no gib noted, no hematuria, will transfuse 2 units today continue IV antibiotics 1bm overnight, Plan to continue treatment for now, no hospice or comfort care at this time. Pertinent ROS: Denies headache, dizziness Denies chest pain, palpitations Denies cough or shortness of breath Denies abdominal pain, nausea or vomiting. - Constitutional Vitals: Vital Signs Temp Pulse Resp BP Pulse Ox 97.7 F 81 16 122/68 92 07/02/18 08:00 07/02/18 08:00 07/02/18 08:00 07/02/18 08:00 07/02/18 08:00 Period Temp Pulse Resp BP Sys/[place] Pulse Ox Last 24 Hr 96.9 F-98.6 F 67-87 12-16 74-122/49-77 92-99 Intake and Output 07/01/18 07/02/18 07/02/18 21:59 05:59 13:59 Intake Total 325 / 325 300 / 300 50 / 50 Output Total 650 / 650 800 / 800 250 / 250 Balance -325 / -325 -500 / -500 -200 / -200 Weight 131 lb Intake & Output: Intake & Output 07/01/18 07/02/18 07/02/18 21:59 05:59 13:59 Intake Total 325 / 325 300 / 300 50 / 50 Output Total 650 / 650 800 / 800 250 / 250 Balance -325 / -325 -500 / -500 -200 / -200 Weight 131 lb Intake: IV 50 / 50 50 / 50 50 / 50 Zosyn 3.375 gm In Dextrose 5% 50 / 50 50 / 50 50 / 50 in Water 50 ml @ 100 mls/hr IV Q6H [facility] Rx#:[id number] Oral 275 / 275 250 / 250 Output: Urine Catheter Amount 650 / 650 800 / 800 Stool 250 / 250 Other: Meal Lunch Breakfast Percent of Meal Consumed 100% 100% Feeding Ability Assist with Tray Set Up Urine Appearance Clear Clear Uretheral (Alvarez) Clear Clear Urine Color Straw Uretheral (Alvarez) Dark Yellow Pale Urine Odor Normal Uretheral (Alvarez) Normal Normal Stool Size Moderate Small Stool Color Brown Brown Black Stool Consistency Liquid Loose Watery # of times incontinent of 1 1 Bowels Exam: Constitutional; Afebrile, cooperative, alert, not in distress. Respiratory system: Air Entry equal on both sides, right basilar crackles improving. CVS- Rate rhythm regular, S1,S2 heard, no gallop, no rub. Abdomen- Soft nontender abdomen, no organomegaly, no tenderness, no guarding or rigidity, [employer]- AOOx3, moving all extremities, no gross focal deficit noted. Medical - PN: Obj Da - Labs CBC & Chem 7: 07/02/18 04:35 07/02/18 04:35 Labs: Abnormal Lab Results 07/02/18 07/02/18 07/02/18 07:19 07:18 04:35 RBC Hgb Hct RDW [place] # (Auto) Haptoglobin 263 H Chloride Carbon Dioxide BUN Creatinine Glucose TIBC 149 L Unsat Iron Binding 83 L Ferritin 655.3 H Total Protein 5.6 L Albumin 2.1 L Albumin/Globulin Ratio 0.6 L Triglycerides Folate > 20.0 H TSH Cortisol AM Sample 07/02/18 07/01/18 07/01/18 04:35 08:13 08:13 RBC 2.27 L Hgb 7.0 L* 7.6 L Hct 21.7 L 23.4 L RDW 16.6 H [place] # (Auto) 1.0 H Haptoglobin Chloride Carbon Dioxide BUN Creatinine Glucose TIBC Unsat Iron Binding Ferritin Total Protein Albumin Albumin/Globulin Ratio Triglycerides Folate TSH Cortisol AM Sample 5.8 L 07/01/18 07/01/18 06/30/18 04:05 04:05 03:45 RBC 2.42 L Hgb 7.6 L Hct 23.0 L RDW 16.2 H [place] # (Auto) Haptoglobin Chloride Carbon Dioxide 31 H BUN 26 H Creatinine 1.3 H Glucose 112 H TIBC Unsat Iron Binding Ferritin Total Protein Albumin 2.5 L Albumin/Globulin Ratio 0.7 L Triglycerides Folate TSH 7.35 H Cortisol AM Sample 06/30/18 06/30/18 06/29/18 03:45 03:45 21:36 RBC 2.54 L Hgb 8.2 L Hct 24.4 L RDW 16.7 H [place] # (Auto) Haptoglobin Chloride 95 L Carbon Dioxide 31 H BUN 26 H 29 H Creatinine 1.2 H 1.3 H Glucose 113 H 122 H TIBC Unsat Iron Binding Ferritin Total Protein 5.6 L Albumin 2.3 L 2.6 L Albumin/Globulin Ratio 0.7 L 0.8 L Triglycerides 165 H Folate TSH Cortisol AM Sample 06/29/18 21:36 RBC 2.60 L Hgb 8.4 L Hct 24.2 L RDW 15.8 H [place] # (Auto) Haptoglobin Chloride Carbon Dioxide BUN Creatinine Glucose TIBC Unsat Iron Binding Ferritin Total Protein Albumin Albumin/Globulin Ratio Triglycerides Folate TSH Cortisol AM Sample Meds: Medications Acetaminophen (Tylenol) 650 mg PO Q6HP PRN PRN Reason: PAIN/FEVER > 101 Acetaminophen/Codeine Phosphate (Tylenol #3) 2 tab PO Q6HP PRN PRN Reason: Pain Last Admin: 07/02/18 03:29 Dose: 2 tab Acetaminophen/Codeine Phosphate (Tylenol #3) 1 tab PO Q6H [facility] Last Admin: 07/02/18 05:38 Dose: Not Given Albuterol/Ipratropium (Duoneb) 3 ml NEB Q4HRT PRN PRN Reason: Dyspnea Aspirin (Aspirin) 81 mg PO DAILY [facility] Last Admin: 07/01/18 08:28 Dose: 81 mg Collagenase (Santyl Top Oint) 1 dose TOPICAL DAILY [facility] Last Admin: 07/01/18 08:32 Dose: 1 dose Diphenhydramine HCl (Benadryl) 25 mg PO HSP PRN PRN Reason: Insomnia Famotidine (Pepcid) 20 mg PO DAILY [facility] Last Admin: 07/01/18 08:28 Dose: 20 mg Fondaparinux (Arixtra) 2.5 mg SQ DAILY [facility] Last Admin: 07/01/18 08:35 Dose: 2.5 mg Gabapentin (Neurontin) 400 mg PO BID [facility] Last Admin: 07/01/18 20:54 Dose: 400 mg Heparin Sodium (Porcine) (Heparin Flush) 2 ml IV Q12 [facility] Last Admin: 07/01/18 20:54 Dose: 2 ml Hydralazine HCl (Apresoline) 0 mg IV Q2HP PRN PRN Reason: Hypertension Hydrocortisone (Cortef) 10 mg PO [facility] Last Admin: 07/01/18 10:14 Dose: 10 mg Acetaminophen (Ofirmev) 650 mg in 65 mls @ 130 mls/hr IV Q6HP PRN PRN Reason: PAIN/FEVER > 101 Piperacillin Sod/Tazobactam (Sod 3.375 gm/ Dextrose) 50 mls @ 100 mls/hr IV Q6H [facility] Last Infusion: 07/02/18 08:29 Dose: Infused Sodium Chloride (Sodium Chloride 0.9%) 250 mls @ 20 mls/hr IV .[id number] [facility] Stop: 07/02/18 21:44 Iron Carb/Multivit/[place]/Folic Acid (Multivitamin W/Minerals) 1 tab PO DAILY [facility] Last Admin: 07/01/18 08:27 Dose: 1 tab Lactobacillus Rhamnosus (Culturelle) 1 cap PO BID [facility] Last Admin: 07/01/18 20:54 Dose: 1 cap Levetiracetam (Keppra) 500 mg PO BID [facility] Last Admin: 07/01/18 20:54 Dose: 500 mg Metoprolol Tartrate (Lopressor) 5 mg IV Q2HP PRN PRN Reason: Tachyarrhythmias Morphine Sulfate (Morphine) 0 mg IV Q4HP PRN PRN Reason: PAIN LEVEL > 6 Last Admin: 07/02/18 07:57 Dose: 2 mg Ondansetron HCl (Zofran) 4 mg IV Q4HP PRN PRN Reason: Nausea And Vomiting Fluticasone/Salmeterol (Advair 250-50 Diskus) 1 puff INH BID [facility] Last Admin: 07/01/18 20:54 Dose: 1 inh Simvastatin (Zocor) 20 mg PO QPM [facility] Last Admin: 07/01/18 20:54 Dose: 20 mg Sodium Chloride (Saline Flush) 10 ml IV UD PRN PRN Reason: FLUSH Sodium Chloride (Saline Flush) 10 ml IV Q12 [facility] Last Admin: 07/01/18 20:53 Dose: 10 ml Vancomycin HCl (Vancomycin Oral Elizabeth) 250 mg PO QID [facility] Last Admin: 07/01/18 20:55 Dose: 250 mg Medical - PN: A/P - Time Spent With Patient Total time spent is greater than 50% in coordination of care (as documented) at patient's floor/unit and/or counseling patient: - Narrative A/P Narrative: A: UTI (complicated, neurogenic bladder with alvarez in place), recurrent (concern for hygiene): On antibiotics to cover for same, Outpatient urology follow up, he has requested Methenamine 1gm bid after completion of present course. Bacteremia Pseudomonas- Source? Urine, skin, lungs? ID following, on IV zosyn for same. Pt will go to SNF so will complete the course of antibiotics with zosyn. Last dose 07/07/18 anemia- Due to frequent blood draws, infection. transfuse 2 units today. Adrenal insufficiency- Etiology primary vs secondary, likely secondary, ACTH is not available to be done, will start the patient on Hydrocortisone. BP Has responded well Epistaxis- D/C NC canula, affrin for now. Resolved. Septic Shock: due to UTI vs PNA resolved Aspiration PNA w/hypoxia: -now 2- 3 L NC again, aggressive pulmonary toilet Oropharyngeal Dysphagia due to MS- Pt was advised dysphagia diet, but wishes regular diet, this am she understood the risk of a regular diet including aspiration and she agreed to the risk. Pleural effusion- Transudative effusion. off lasix now due to over diuresis, will resume low dose lasix at discharge. . Dysphagia, mod oropharyngeal: appreciate ST input, follow their recs Acute Hyperkalemia: 2/2 CARMINA resolved CARMINA on CKD III-IV: CARMINA resolved. Cdiff diarrhea- On po vancomycin 250mg now, had 6 episodes of diarrhea overnight. continue same for now, Episode of Afib rvr: 2/2 sepsis/above, in sinus now -Echo with normal EF, mod PAH, atria normal size -HR chronically runs 40's per iron pellet tester Multiple sclerosis/Debility/Poor functional status: wheelchair bound, - continue with physical therapy/ OT Thrombocytopenia, acute on chronic: 2/2 above, changed lovenox to arixtra, platlet count is normal now. seizure d/o: no e/po seizures, continue home meds COPD (not on home O2@home): no wheezing on exam duonebs HTN: home ACEI held bp stable. Hypotension- due to adrenal insufficiecy, responded well to oral steroids Hypernatremia: Fluid load for resuscitation, resolved Goals of care: long-term prognosis guarded given decline this year and underlying comorbidities DVT prophylaxis, arixtra now. D/c hep for picc regular diet. No Code Overall the patient still has very poor prognosis, however she is not ready for hospice at this time, she wishes to continue fighting, as she has relayed this to me this morning. I will continue to treat her, I am not sure if she would change her mind again by tomorrow. Medical - PN: Qual - VTE Deep Vein Thrombosis/Pulmonary Embolism Present on Admission: No
[2018-07-02] MEDS: FONDAPARINUX SODIUM 2.5 MG/0.5 ML SYRINGE SQ SCH (14:46)
[2018-07-02] MEDS: oxyCODONE HCL 5 MG TABLET PO PRN (22:17)
[2018-07-02] MEDS: SIMVASTATIN 20 MG TABLET PO SCH (22:29)
[2018-07-03] MEDS: PIPERACILLIN SODIUM/TAZOBACTAM 3.375 GM in DEXTROSE 5% IN WATER 50 ML IV SCH ×2 (00:02→06:02)
[2018-07-03 06:31] LABS: Basophils # (Auto) 0.1 K/mcL (0.0-0.3); Basophils % (Auto) 0.6 % (0.0-2.0); Eosinophils # (Auto) 0.4 K/mcL (0.0-0.7); Eosinophils % (Auto) 3.8 % (0.0-7.0); Granulocytes % (Auto) 52.4 % (38.0-78.0); Lymphocytes % (Auto) 30.1 % (15.5-49.0); Mean Cell Volume 92.7 fL (80.0-100.0); Mean Corpuscular HGB Conc 33.3 g/dL (31.0-36.0); Mean Corpuscular Hemoglobin 30.9 pg (26.0-34.0); Monocytes # (Auto) 1.3 K/mcL (0.1-0.9); Monocytes % (Auto) 13.1 % (1.0-12.0); Platelet Count 266 K/mcL (140-440); RBC 3.11 M/mcL (4.00-5.20); Red Cell Distribution Width 17.5 % (11.5-14.5)
[2018-07-03 06:47] LABS: ALT/SGPT 9 U/l (0-40); Albumin 2.6 gm/dL (3.2-5.2); Albumin/Globulin Ratio 0.8 (1.0-2.3); Alkaline Phosphatase 69 U/L (39-117); Bilirubin,Direct < 0.2 mg/dL (0.0-0.3); Blood Urea Nitrogen 21 mg/dl (8-23); Gamma Glutamyl Transpeptidase 15 U/L (5-36); Uric Acid 5.9 mg/dL (2.5-8.0)
[2018-07-03] MEDS: FAMOTIDINE 20 MG TABLET PO SCH (07:56)
[2018-07-03] MEDS: FLUTICASONE/SALMETEROL 250/50 INHALER #14 INH SCH (07:56)
[2018-07-03] MEDS: MULTIVIT,THER IRON,CA,FA & MIN 1 TABLET PO SCH (07:57)
[2018-07-03] MEDS: ASPIRIN 81 MG TAB.CHEW PO SCH (07:57)
[2018-07-03] MEDS: LACTOBACILLUS 1 CAPSULE PO SCH (07:57)
[2018-07-03] MEDS: HYDROCORTISONE 10 MG TABLET PO SCH (07:57)
[2018-07-03] MEDS: GABAPENTIN 400 MG CAPSULE PO SCH (07:57)
[2018-07-03] MEDS: levETIRAcetam 500 MG TABLET PO SCH (07:57)
[2018-07-03] MEDS: COLLAGENASE TOP OINT TUBE 30GM TOPICAL SCH (07:59)
[2018-07-03] MEDS: 0.9 % SODIUM CHLORIDE 10 ML SYRINGE IV SCH (07:59)
[2018-07-03] MEDS: FONDAPARINUX SODIUM 2.5 MG/0.5 ML SYRINGE SQ SCH (08:00)
[2018-07-03] MEDS: oxyCODONE HCL 5 MG TABLET PO PRN (08:06)
[2018-07-03] MEDS ORDERED: OXYMETAZOLINE 1 SPRAY BOTTLE NAS ONE (10:00)
[2018-07-03] MEDS: VANCOMYCIN ORAL SOL 1,000 MG/10 ML BOTTLE PO SCH (11:27)
--- NOTE | 2018-07-03 11:28 | Discharge Summary ---
Medical - DS: Prov Patient information: Note initiated : 07/03/18 at 11:15 am Service Date, if different from initiated Date: [] Patient: Rosalia Lozano 72 y/o F admitted on 06/21/18 for Weakness. Chief Complaint: [] Date of admission: 06/21/18 13:51 Discharge date: 07/03/18 Primary care physician: Alex Nolan Consults: 06/21/18 11:59 Consult to Physician [CONS] Stat Comment: Consulting Provider: Jake Landeros Reason For Exam: Physician to Consult 06/25/18 11:08 Consult to Physician [CONS] Routine Comment: pseudomonas bacteremia Consulting Provider: Gordo Us Reason For Exam: Physician to Consult Discharging clinician: [facility] - DS: Meds - Discharge Medications Prescriptions: Acetaminophen with Codeine [Acetaminophen-Cod #3 Tablet] 2 tab PO Q6H PRN #60 tab PRN Reason: pain Hydrocortisone [Cortef] 10 mg PO QAMCC #30 tab Hydrocortisone [Cortef] 5 mg PO QPM #30 tab Methenamine Hippurate 1 gm PO BID #60 tab Oxymetazoline [Afrin] 1 spray BRYANT UD #1 bottle Vancomycin Oral Elizabeth 250 mg PO QID #76 dose Active and Home Medications: Home Medications ipratropium-albuterol 0.5 mg-3 mg(2.5 mg base)/3 mL nebulization soln 3 ml INHALATION Q6H PRN #360 ml 02/28/17 [Rx Confirmed 06/22/18 Last Taken 04/29/18] lisinopril 20 mg tablet 20 mg PO QDAY #30 tab 11/19/17 [Rx Confirmed 06/21/18 Last Taken 04/29/18] aspirin 81 mg tablet,delayed release 81 mg PO QDAY 12/15/17 [History Confirmed 06/21/18 Last Taken 04/29/18] mecobalamin (vitamin B12) 1,000 mcg disintegrating tablet,sublingual 1,000 mcg SUBLINGUAL QDAY 12/15/17 [History Confirmed 06/21/18 Last Taken 04/29/18] multivitamin tablet 1 tab PO QDAY 12/15/17 [History Confirmed 06/21/18 Last Taken 04/29/18] potassium chloride ER 10 mEq capsule,extended release 10 meq PO BID #60 cap 07/28 [Rx Confirmed 06/21/18 Last Taken 04/29/18] simvastatin 20 mg tablet 20 mg PO QPM #90 tab 01/27/18 [Rx Confirmed 06/21/18 Last Taken 04/29/18] RX: Lactobacillus [Culturelle] 1 cap PO BID #60 cap 05/03/18 [Rx Confirmed 06/21 Last Taken Unknown] RX: Levofloxacin [Levaquin] 750 mg PO DAILY #8 tab 05/07/18 [Rx Confirmed Last Taken Unknown] RX: Loperamide [Imodium] 2 mg PO PRN PRN cap 05/07/18 [Rx Confirmed 06/21/18 Last Taken Unknown] RX: Nystatin 500,000 units SSW TID #150 ml 05/07/18 [Rx Confirmed 06/22/18 Last Taken Unknown] acetaminophen 300 mg-codeine 30 mg tablet 2 tab PO Q6H PRN #240 tab 05/13/18 [ Rx Confirmed 06/21/18 Last Taken Unknown] gabapentin 400 mg capsule 400 mg PO TID #90 cap 06/09/18 [Rx Confirmed 06/21/18 Last Taken Unknown] nitrofurantoin monohydrate/macrocrystals 100 mg capsule 100 mg PO BID #20 cap [Rx Confirmed 06/21/18 Last Taken Unknown] fluconazole 100 mg tablet 100 mg PO QDAY #6 tab 06/16/18 [Rx Confirmed 06/21/18 Last Taken Unknown] Furosemide [Lasix] 40 mg PO DAILY 06/21/18 [History Confirmed 06/26/18 Last Taken Unknown] levETIRAcetam [Keppra] 500 mg PO BID 06/21/18 [History Confirmed 06/21/18 Last Taken Unknown] Furosemide [Lasix] 20 mg PO QNOON 06/26/18 [History Confirmed 06/26/18 Last Taken Unknown] budesonide-formoterol HFA 160 mcg-4.5 mcg/actuation aerosol inhaler 2 inh INHALATION BID #6 g 06/29/18 [Rx Last Taken Unknown] Medical - DS: Hosp Hospital course: Ms. Lozano is a 72 year-old female history of multiple sclerosis neurogenic bladder with Alvarez in place. She had been intermittent caths in the past and switched over to Alvarez as well earlier this year. She was seen in the hospital in April for sepsis with urinary tract infection. She was discharged to [facility] and then subsequently discharged home she been home for several weeks. However the last couple days she has been progressive generalized weakness, this morning she was foggy in her mentation per slow to answer questions. She has no other specific complaints no coughing or shortness of breath or chest pain. Denies fevers and chills. In the ER she was evaluated determined to have sepsis from urinary tract infection. She received several liters of IV fluid bolus however her hypotension did not resolve and patient was started on levo fed. Blood cultures obtained and antibiotics given. She is also found to be hyperkalemic and orders given for treatment. Patient is answering questions although slowly does appear quite weak and lethargic. She also had a poor appetite for some time 06/22 Patient went into A. fib RVR at 130 last night, still on levophed but titrating down slowly. amio 150 given with improvement. pt has occasional cough, no dyspnea, overall feels better. Had diarrhea overnight but did get Kayexalate last evening. Nurse reports aspirating with liquids. 06/23 Had a rough night last night poor sleep and some agitation. Finally fell asleep early this morning. I did not awaken her she partially open her eyes while I was examining her. Therefore did not obtain ROS. 06/24 Slept better last night, feeling a little better but still very weak. In sinus rhythm. Has chronic back pain. No events overnight. 06/25 Continues to feel little better each day, still has her chronic back pain, no issues overnight, no new complaints. Eating better 06/26 Patient seen and examined feels better slept well last night. No acute overnight issues. Chest x-ray done this morning shows worsening pneumonia on the right side, likely aspirational and a new pleural effusion. I reviewed the need for thoracocentesis with the patient, especially given her Pseudomonas bacteremia. Patient agreed for the procedure. The patient also is being followed by wound care for sacral lesion. Patient's aspiration is likely silent, the patient did not want to be on a dysphagia diet and requested to go on a regular diet yesterday. I reviewed with her again today especially in light of the x-ray changes this morning the need to be on a dysphagia diet. The patient's was also informed about her clinical condition. Patient reluctantly agreed for dysphagia diet, and is also agreed for a barium swallow as wanted by speech therapist. I will try to get speech therapist involved in a care again. 06/27 Patient seen and examined, no acute overnight events. by the bedside. Pleural tap results reviewed, looks like a transudative effusion. Cultures negative so far. Patient still has diarrhea incontinence every 2 hours. She did a modified barium swallow, is on a mechanical soft diet and thin liquid. Patient is concerned about going home for Thanksgiving however is too weak to be discharged home safely at this point in time. Pelvic ultrasound results reviewed with the patient, has an ovarian cyst outpatient follow-up recommended 06/28 Patient seen and examined no acute overnight events. by the bedside, patient notes that she is having some bleeding in her nose from the right nare. Was getting oxygen via nasal cannula. During the last admission she presented with severe bleeding and therefore she was very concerned. Started the patient on Afrin nasal cannula discontinued patient is saturating around 90 % on room air. Patient still has diarrhea, every time she is done it seems that his liquid stools. Her white blood cell count is up today. I will increase the dose of vancomycin from 125 to 250 for now. Chest x-ray shows persistent pneumonia and recurrent right-sided pleural effusion. This effusion has been tapped during this admission and no evidence of infection has been noted. Patient has been started on diuretics I expect this to help with the effusion 06/29 Patient seen and examined, no acute overnight events. Diarrhea improving had 2 episodes last night none this morning. Has generalized pain. She is on 3 L of oxygen today. Still has some cough. Labs are stable. IV Lasix to be given in addition to the oral Lasix today will monitor for response anticipate discharge to fdc tomorrow 06/30 Pt seen examined, pt has no acute complaints or concerns 2 bm yesterday, 1 overnight, stools improving was hypotensive yesterday needin 2 L saline bolus, x ray repeated shows improving pna, labs stable bp stable today, plan to hold lasix and bp medication, ensure stability anticipate d/c to snf in AM if remains stable. 07/01 Patient seen examined ,no acute ovenright issues,bp is low. 1 L saline ordered Low AM cortisol noted, pt to be started on hydrocortisone 10mg AM and 5mg qhs Pt wishes to be comfortable and wants to go home She wishes for a regular diet. Which we have changed, I have reviewed this with her and her that she is at high risk of aspiration which they accept. I asked if they would like hospice be involved and hospice team has seen the patient today, with the plan of admitting her to hospice on friday. When I talked with the patient again later, she was not quite sure and wanted her to make the decision. I will not stop any treatment at this time, and will discuss the plan of care with the . The patient seems to be forgetting what she said or agreed to this morning. 07/02 Pt seen examined, had a long discussion wit her regarding goals of care She initially agreed this AM again in front of her on going to hospice, but then stated that she will go to hospice and fight the infection and get better. She was also a bit surprised that she would not be able to go to ER for emergencies. I do not think she fully understood the meaning of hospice. Her did understand and noted that she will not live through the process, the patient however felt that she could fight through this and get better at the end of the process. She noted she would like to continue fighting. She however wants to eat a regular diet irrespective of the risk of aspiration. Her labs show hb 7.0, no gib noted, no hematuria, will transfuse 2 units today continue IV antibiotics 1bm overnight, Plan to continue treatment for now, no hospice or comfort care at this time. 07/03 Patient seen examined, no acute ovenright events, she developed epistaxis this morning which is getting better with local Afrin and compression. Blood work is stable hemoglobin 9.6. No evidence of bleed. Blood pressure is stable Patient stable for discharge to fdc. In Brief UTI (complicated, neurogenic bladder with alvarez in place), recurrent (concern for hygiene): On zosyn till 07/07. Pt has alvarez in place. Case was discussed with urology who reccommended metheamine hippurate 1gm bid and outpatient follow. Bacteremia Pseudomonas- Source? Urine, skin, lungs? ID following, on IV zosyn for same. Pt will go to SNF so will complete the course of antibiotics with zosyn. Last dose 07/07/18 via picc line. anemia- Due to frequent blood draws, infection. s/p 2 units of transfusion doing well. Adrenal insufficiency- Etiology primary vs secondary, likely secondary, ACTH is not available to be done, will start the patient on Hydrocortisone. BP Has responded well. Patient is doing well on baseline doses of hydrocortisone 10mg AM and 5mg PM I have reviewed the need to inform future care providers about her being on steroids and need to double up on dose during infections or surgery. Epistaxis- D/C NC maritza araya for now. Septic Shock: due to UTI vs PNA resolved Aspiration PNA w/hypoxia: - complete antibiotic course, pt is on 2 L oxygen via NC at the time of discharge. Oropharyngeal Dysphagia due to MS- Pt was advised dysphagia diet, but wishes regular diet, this am she understood the risk of a regular diet including aspiration and she agreed to the risk. Pleural effusion- Transudative effusion. resume lasix and kcl at the time of discharge. . Acute Hyperkalemia: 2/2 CARMINA resolved, bp is stable, I have held lisinopril at this time. If BP becomes a concern as outpatient lisinopril can be resuled. 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 continue same for now, total of 2 weeks after last dose of zosyn. 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 seizure d/o: no e/po seizures, continue home meds COPD (not on home O2@home): no wheezing on exam duonebs HTN: BP stable, lisinopril held. Hypotension- due to adrenal insufficiecy, responded well to oral steroids Goals of care: long-term prognosis guarded given decline this year and underlying comorbidities Overall the patient still has very poor prognosis, however she is not ready for hospice at this time, she wishes to continue fighting. In my view she would benefit from palliative care. Discharge diagnosis: UTI/ Pneumonia/ Pseudomonas bactermia/ Cdiff - Time Spent with Patient Total time spent providing and/or coordinating discharge services: Greater than 30 minutes Medical - DS: Exam - Constitutional Vitals: Vital Signs Temp Pulse Resp BP Pulse Ox 07/03/18 07:00 97.8 F 18 131/72 92 07/03/18 06:35 95 07/03/18 04:00 97.4 F 62 18 130/60 92 07/03/18 00:00 98.1 F 88 18 158/82 91 07/02/18 19:54 97.1 F 62 18 168/70 90 07/02/18 16:00 98.1 F 63 16 117/61 93 07/02/18 14:40 98.1 F 64 16 117/61 93 07/02/18 14:30 98.2 F 65 16 114/63 91 07/02/18 12:40 97.9 F 74 16 120/62 93 07/02/18 12:39 98.5 F 78 16 116/65 90 07/02/18 12:30 98.5 F 78 16 116/65 93 Intake and Output 07/02/18 07/03/18 07/03/18 21:59 05:59 13:59 Intake Total 785 / 785 400 / 400 50 / 50 Output Total 800 / 800 900 / 900 Balance -15 / -15 -500 / -500 50 / 50 Intake: IV 100 / 100 50 / 50 50 / 50 Zosyn 3.375 gm In Dextrose 5% 100 / 100 50 / 50 50 / 50 in Water 50 ml @ 100 mls/hr IV Q6H [facility] Rx#:[id number] Oral 360 / 360 350 / 350 Blood Product 325 / 325 Output: Urine Catheter Amount 800 / 800 900 / 900 Other: Meal Lunch Percent of Meal Consumed 100% Feeding Ability Independent Urine Appearance Uretheral (Alvarez) Clear Urine Color Bright Yellow Bright Yellow Bright Yellow Uretheral (Alvarez) Bright Yellow Bright Yellow Urine Odor Normal Stool Size Smear Stool Color Brown Stool Consistency Liquid Loose # of times incontinent of 1 Bowels Additional comments: Constitutional; Afebrile, cooperative, alert, not in distress. Respiratory system: Air Entry equal on both sides, mild right basilar crackles, no wheezing. CVS- Rate rhythm regular, S1,S2 heard, no gallop, no rub. Abdomen- Soft nontender abdomen, no organomegaly, no tenderness, no guarding or rigidity, DRESS MARKER- AOOx3, . Medical - DS: Data Labs on day of discharge: Labs from last 24 hours 07/03/18 07/03/18 04:30 04:30 WBC 10.0 RBC 3.11 L Hgb 9.6 L Hct 28.8 L MCV 92.7 MCH 30.9 MCHC 33.3 RDW 17.5 H Plt Count 266 MPV 9.3 Gran % 52.4 Lymph % (Auto) 30.1 [place] % (Auto) 13.1 H Eos % (Auto) 3.8 Baso % (Auto) 0.6 Gran # 5.2 Lymph # (Auto) 3.0 [place] # (Auto) 1.3 H Eos # (Auto) 0.4 Baso # (Auto) 0.1 Sodium 140 Potassium 4.2 Chloride 102 Carbon Dioxide 28 Anion Gap 10.0 BUN 21 Creatinine 1.3 H GFR Calculation 40 Glucose 88 Uric Acid 5.9 Calcium 9.1 Phosphorus 3.1 Magnesium 1.9 Total Bilirubin 0.2 Direct Bilirubin < 0.2 GGT 15 AST 17 ALT 9 Alkaline Phosphatase 69 Lactate Dehydrogenase 195 Total Protein 6.0 Albumin 2.6 L Globulin 3.4 Albumin/Globulin Ratio 0.8 L Triglycerides 156 H Medical - DS: A/P - Patient/Caregiver Discharge Instructions Activity: increase activity as tolerated Diet: Regular Diet (As per Patient wishes.) Additional Instructions: IV zosyn via picc line last dose on 07/07/2018 Vancomycin 250mg qid, to be continued 2 weeks after last dose of zosyn patient to start on methenamine hippurate 1gm bid, from 07/08/2018, Patient is being discharged with the alvarez in place Follow up with Dr Nolan in 1-2 weeks Follow up with Dr Rowan in 2-4 weeks Follow up with Wound care in 1-2 weeks All meals upright, OT/PT/ST eval at the rehab center I would reccommend PCP check pts cbc and cmp in 1 week to document stability Go to the ER if fever, worsening diarrhea, chest pain, shortness of breath or any other acute concern. Prescriptions: Acetaminophen with Codeine [Acetaminophen-Cod #3 Tablet] 2 tab PO Q6H PRN #60 tab PRN Reason: pain Hydrocortisone [Cortef] 10 mg PO QAMCC #30 tab Hydrocortisone [Cortef] 5 mg PO QPM #30 tab Methenamine Hippurate 1 gm PO BID #60 tab Oxymetazoline [Afrin] 1 spray BRYANT UD #1 bottle Vancomycin Oral Elizabeth 250 mg PO QID #76 dose Other Amb Orders: OT Discharge Order Location: None Selected Physical Therapy at Discharge - General Location: None Selected ST Discharge Order Location: None Selected - Follow up Plan Follow up with: Jewel Titus MD [Physician] - (Follow up as new patient at wound healing center for sacral ulcer and right lateral leg wound sean after discharge.) Alex Nolan MD [Primary Care Provider] - Isma Rowan MD [Physician] - Disposition: Xfer SNF Prognosis: Undetermined Rehab Potential: Undetermined I certify that the patient requires SNF services: Yes Overall status at discharge: patient is progressing back to baseline Medical - DS: Qual - VTE Deep Vein Thrombosis/Pulmonary Embolism Present on Admission: No
== END 2018-07-03 11:15 | DRG 698 ==
LOC: ED 09:36 → ICU 13:51 → MEDSUR 06-27 15:28
PROVIDERS: ADMIT Internal Medicine; ATTEND Internal Medicine
CPT/HCPCS: 32555; 84145; 87149; 87324; 87449; 97161; 97167; 99223; 99231; A6213; A6248; A6250; C1751; G8996; G8997; G8998; J0131; J0282; J0360; J0696; J1644; J1650; J1652; J1720; J1815; J1940; J1956; J2543; J2997; J3370; J3475; J3480; J7030; J7040; J7050; J7060; J7070; J7120; J7626; J7626-GY; P9047

== ENCOUNTER 2018-08-07 10:24 | Observation (INO) ==
[2018-08-07] MEDS ORDERED: LACTATED RINGERS 1,000 ML IV ONE ×3 (10:44→14:50)
[2018-08-07 11:12] LABS: Basophils # (Auto) 0 K/mcL (0.0-0.3); Basophils % (Auto) 0.3 % (0.0-2.0); Eosinophils # (Auto) 0.3 K/mcL (0.0-0.7); Eosinophils % (Auto) 3.1 % (0.0-7.0); Granulocytes % (Auto) 64.5 % (38.0-78.0); Lymphocytes # (Auto) 2.3 K/mcL (1.5-4.8); Lymphocytes % (Auto) 22.6 % (15.5-49.0); Mean Cell Volume 95.6 fL (80.0-100.0); Mean Corpuscular HGB Conc 32.9 g/dL (31.0-36.0); Monocytes % (Auto) 9.5 % (1.0-12.0); Platelet Count 248 K/mcL (140-440); RBC 4.18 M/mcL (4.00-5.20); Red Cell Distribution Width 16.2 % (11.5-14.5)
--- NOTE | 2018-08-07 11:26 | Emergency Department Note ---
Weakness HPI - General Chief complaint: Weakness Stated complaint: WEAKNESS Time Seen by Provider: 08/07/18 11:22 Source: patient, family Mode of arrival: ambulatory Limitations: altered mental status - History of Present Illness HPI Narrative: This patient was brought in by her and son because of increasing weakness, confusion. She has had previously 3 episodes of urosepsis and admitted last time for over a week in ICU and then was sent to procedure for rehabilitation. She was there until about a week ago. Since then she has gone downhill some. She has some history of not emptying her bladder well due to her multiple sclerosis. This seemed to be problematic. A chronic catheter was possibly problematic in the past as well. Being able to self catheterize was recommended by the urologist and she convinced him that she could. She is back with the symptoms which are similar to her previous symptoms although not as bad or as severe and family is concerned that she could be having additional uroseptic kinds of problems and would like aggressive treatment. Blood pressure was found to be somewhat low yesterday. She has some low blood pressures but there is some discrepancy in agreement of what her blood pressures usually are. Her confusion included poor memory and some irritability. When she came home from her rehabilitation stay she was able to push herself up in bed and help herself get into a wheelchair but she has not been able to do this. She was dropping things. No recent fevers or chills or sweats. No dysuria. REVIEW OF SYSTEMS: No chest pain. She has some chronic cough. No shortness of breath. No abdominal pain. No dysuria. No headaches. No weakness. A little dizziness. - Related Data Home Medications Medication Instructions Recorded Confirmed aspirin 81 mg tablet,delayed 81 mg PO QDAY 12/15/17 08/07/18 release mecobalamin (vitamin B12) 1,000 1,000 mcg SUBLINGUAL QDAY 12/15/17 08/07/18 mcg disintegrating tablet,sublingual multivitamin tablet 1 tab PO QDAY 12/15/17 08/07/18 Furosemide [Lasix] 40 mg PO DAILY 06/21/18 08/07/18 levETIRAcetam [Keppra] 500 mg PO BID 06/21/18 08/07/18 Lisinopril [Zestril] 20 mg PO DAILY 08/07/18 08/07/18 Propranolol [Inderal LA] 80 mg PO DAILY 08/07/18 08/07/18 Previous Rx's Medication Instructions Recorded ipratropium-albuterol 0.5 mg-3 3 ml INHALATION Q6H PRN #360 ml 02/28/17 mg(2.5 mg base)/3 mL nebulization soln potassium chloride ER 10 mEq 10 meq PO BID #60 cap 01/20/18 capsule,extended release simvastatin 20 mg tablet 20 mg PO QPM #90 tab 01/27/18 Lactobacillus [Culturelle] 1 cap PO BID #60 cap 05/03/18 Loperamide [Imodium] 2 mg PO PRN PRN cap 05/07/18 gabapentin 400 mg capsule 400 mg PO TID #90 cap 06/09/18 budesonide-formoterol HFA 160 2 inh INHALATION BID #6 g 06/29/18 mcg-4.5 mcg/actuation aerosol inhaler Acetaminophen [Tylenol] 650 mg PO Q6HP PRN tab 07/03/18 Collagenase Top Oint [Santyl Top 1 dose TOPICAL DAILY tube 07/03/18 Oint] Hydrocortisone [Cortef] 5 mg PO QPM #30 tab 07/03/18 Hydrocortisone [Cortef] 10 mg PO QAMCC #30 tab 07/03/18 diphenhydrAMINE [Benadryl] 25 mg PO HSP PRN cap 07/03/18 acetaminophen 300 mg-codeine 30 mg 2 tab PO Q4H PRN #180 tab 07/15/[address] permit #1 ea 07/16/18 ciprofloxacin 500 mg tablet 500 mg PO BID #20 tab 08/06/18 Allergies Allergy/AdvReac Type Severity Reaction Status Date / Time No Known Drug Allergies Allergy Verified 07/27/18 13:40 Review of Systems Constitutional: Denies: fever, chills, sweats Cardiovascular: Denies: chest pain Respiratory: Reports: cough (Low-grade chronic. Has been exposed to upper respiratory infection from her recently and thinks she may be getting this.). Denies: shortness of breath Gastrointestinal: Denies: abdominal pain Musculoskeletal: Reports: back pain (Chronic low back pain that she relates to her MS.) Neurological: Denies: headache, weakness (But has chronic problems related to her MS. Does not stand. Is wheelchair-bound.), dizziness Past Medical History - Past Medical History [facility] Narrative: Medical History (Last Updated 08/07/18 @ 11:25 by Afshin Galeas DO) Pressure ulcer of coccygeal region, unstageable (Acute) Urinary retention (Chronic) CVA (cerebral vascular accident) (Chronic) Low back pain associated with a spinal disorder other than radiculopathy or spinal stenosis (Chronic) Basal cell carcinoma (Chronic) UTI (urinary tract infection) (Chronic) Hypercholesterolemia (Chronic) COPD (chronic obstructive pulmonary disease) (Chronic) CHF (congestive heart failure) (Chronic) Multiple sclerosis (Chronic) Neurogenic bladder (Chronic) Benign essential hypertension (Chronic) Decompensated chronic obstructive pulmonary disease (Chronic) History of tobacco use (Resolved) Family History (Last Reviewed 12/15/17 @ 16:54 by Alex Nolan MD) Brother Essential hypertension Medical history: Reports: COPD, hypertension, renal disease, other (MS since 1992 approx. Skin lesions). Denies: CVA, DM, hyperlipidemia, myocardial infarction, thyroid disease - Social History smoking status: Never smoker Alcohol use: Reports: Rarely Drug use: Reports: marijuana Physical Exam Limitations: physical limitation General appearance: alert, in no apparent distress, other (Somewhat sleepy but easily arouses and talks normally.) Head: atraumatic, normocephalic Eye: Present: EOMI ENT: mucous membranes moist Neck: Present: trachea midline. Absent: lymphadenopathy Chest: Present: symmetric chest wall rise Respiratory: Present: other (Mild-moderate coarseness on inspiration in the anterior lung truong.). Absent: respiratory distress, rales/crackles, wheezes, stridor, accessory muscle use, prolonged expiratory phase Cardiovascular: Present: regular rate, normal rhythm, bradycardia, systolic murmur. Absent: diastolic murmur Type of murmur: systolic Location of murmur: RUSB, LUSB Intensity of murmur: 2/6 Abdominal: Present: soft. Absent: distention, tenderness, guarding, rebound, rigidity, organomegaly, mass Extremities: Absent: pedal edema, pretibial edema, calf tenderness Neurological: Present: alert, oriented X3, other (She is fairly able to spell world forwards and mostly backwards. She is able to state the year. Also the month. Also the penciller.) Speech: Present: fluid speech Cranial nerves: EOM function (II, III, IV, ): Normal Skin: Present: warm, dry, other (Multiple dry keratotic lesions on her lower legs. She has erythematous changes compatible with candidiasis around the groin area.) Course Course Narrative: 11:08 AM - and then I spoke with family at 12:10 PM - some diffuse symptoms possibly related to urosepsis and that it follows the same pattern as previously. Difficulties regarding bladder emptying and how to manage this are ongoing and chronic. We will do basic labs, urine testing and culture, and basic chest x-ray because of her cough. Vital Signs Temperature 97.2 F 08/07/18 10:25 Pulse Rate 49 L 08/07/18 10:25 Respiratory Rate 20 08/07/18 10:25 Blood Pressure 117/62 08/07/18 10:25 Pulse Oximetry (%) 99 08/07/18 10:25 Temperature 97.2 F 08/07/18 10:25 Pulse Rate 49 L 08/07/18 12:51 Respiratory Rate 11 L 08/07/18 12:51 Blood Pressure 96/62 08/07/18 12:51 Pulse Oximetry (%) 94 08/07/18 12:51 Weakness - Lab Data Lab results reviewed: Yes I reviewed the patient's lab results. Result diagrams: 08/07/18 10:41 08/07/18 10:41 Lab Results 08/07/18 08/07/18 08/07/18 Range/Units 10:41 10:41 10:41 WBC 10.2 (4.5-11.0) K/mcL RBC 4.18 (4.00-5.20) M/mcL Hgb 13.2 (12.0-15.0) g/dL Hct 40.0 (36.0-48.0) % MCV 95.6 (80.0-100.0) fL MCH 31.5 (26.0-34.0) pg MCHC 32.9 (31.0-36.0) g/dL RDW 16.2 H (11.5-14.5) % Plt Count 248 (140-440) K/mcL MPV 9.4 (7.4-10.4) fL Gran % 64.5 (38.0-78.0) % Lymph % (Auto) 22.6 (15.5-49.0) % [place] % (Auto) 9.5 (1.0-12.0) % Eos % (Auto) 3.1 (0.0-7.0) % Baso % (Auto) 0.3 (0.0-2.0) % Gran # 6.6 (1.8-8.0) K/mcL Lymph # (Auto) 2.3 (1.5-4.8) K/mcL [place] # (Auto) 1.0 H (0.1-0.9) K/mcL Eos # (Auto) 0.3 (0.0-0.7) K/mcL Baso # (Auto) 0 (0.0-0.3) K/mcL VBG Lactic Acid (0.5-2.0) mmol/L Sodium 139 (133-145) mmol/L Potassium 5.6 H (3.3-5.1) mmol/L Chloride 102 (96-108) mmol/L Carbon Dioxide 25 (22-30) mmol/L Anion Gap 12.0 (8-16) BUN 67 H (8-23) mg/dl Creatinine 2.0 H (0.6-1.1) mg/dl GFR Calculation 24 Glucose 110 H (70-105) mg/dL Calcium 9.7 (8.6-10.4) mg/dl Total Bilirubin 0.2 (0.0-1.0) mg/dL AST 44 H (0-37) U/l ALT 20 (0-40) U/l Alkaline Phosphatase 104 (39-117) U/L C-Reactive Protein (0.0-0.8) mg/dl Total Protein 8.1 (5.9-8.4) gm/dL Albumin 3.7 (3.2-5.2) gm/dL Globulin 4.4 H (2.2-3.7) gm/dL Albumin/Globulin Ratio 0.8 L (1.0-2.3) Procalcitonin < 0.05 (<0.10) ng/mL Urine Color Urine Appearance Urine pH (5.0-9.0) Ur Specific [place] (1.000-1.035) Urine Protein (NEG) mg/dL Urine Glucose (UA) (NEG) mg/dL Urine Ketones (NEG) mg/dL Urine Occult Blood (<0.03) mg/dL Urine Nitrate (NEG) Urine Bilirubin (NEG) mg/dL Urine Urobilinogen (NEG) mg/dL Ur Leukocyte Esterase (NEG) /uL Urine RBC (0-1) /hpf Urine WBC (0-4) /hpf Ur Squamous Epith Cells (0-4) /hpf Urine Bacteria (0) /hpf Urine Mucus (0) /hpf Ur Culture Indicated? 08/07/18 08/07/18 08/07/18 Range/Units 10:41 10:41 12:13 WBC (4.5-11.0) K/mcL RBC (4.00-5.20) M/mcL Hgb (12.0-15.0) g/dL Hct (36.0-48.0) % MCV (80.0-100.0) fL MCH (26.0-34.0) pg MCHC (31.0-36.0) g/dL RDW (11.5-14.5) % Plt Count (140-440) K/mcL MPV (7.4-10.4) fL Gran % (38.0-78.0) % Lymph % (Auto) (15.5-49.0) % [place] % (Auto) (1.0-12.0) % Eos % (Auto) (0.0-7.0) % Baso % (Auto) (0.0-2.0) % Gran # (1.8-8.0) K/mcL Lymph # (Auto) (1.5-4.8) K/mcL [place] # (Auto) (0.1-0.9) K/mcL Eos # (Auto) (0.0-0.7) K/mcL Baso # (Auto) (0.0-0.3) K/mcL VBG Lactic Acid 1.0 (0.5-2.0) mmol/L Sodium (133-145) mmol/L Potassium (3.3-5.1) mmol/L Chloride (96-108) mmol/L Carbon Dioxide (22-30) mmol/L Anion Gap (8-16) BUN (8-23) mg/dl Creatinine (0.6-1.1) mg/dl GFR Calculation Glucose (70-105) mg/dL Calcium (8.6-10.4) mg/dl Total Bilirubin (0.0-1.0) mg/dL AST (0-37) U/l ALT (0-40) U/l Alkaline Phosphatase (39-117) U/L C-Reactive Protein 5.5 H (0.0-0.8) mg/dl Total Protein (5.9-8.4) gm/dL Albumin (3.2-5.2) gm/dL Globulin (2.2-3.7) gm/dL Albumin/Globulin Ratio (1.0-2.3) Procalcitonin (<0.10) ng/mL Urine Color Yellow Urine Appearance Cloudy Urine pH 5.0 (5.0-9.0) Ur Specific [place] 1.013 (1.000-1.035) Urine Protein 30 A (NEG) mg/dL Urine Glucose (UA) Negative (NEG) mg/dL Urine Ketones Neg (NEG) mg/dL Urine Occult Blood 0.2 A (<0.03) mg/dL Urine Nitrate Pos A (NEG) Urine Bilirubin Neg (NEG) mg/dL Urine Urobilinogen Neg (NEG) mg/dL Ur Leukocyte Esterase 500 A (NEG) /uL Urine RBC 31 H (0-1) /hpf Urine WBC > 182 H (0-4) /hpf Ur Squamous Epith Cells < 1 (0-4) /hpf Urine Bacteria Mod A (0) /hpf Urine Mucus Few (0) /hpf Ur Culture Indicated? Yes - Radiology Data Radiology results reviewed: Yes I reviewed the patient's radiology results. - EKG Data EKG results narrative: Bradycardia. No ACS changes. This EKG will be read by a construction ironworker. Disposition Pt seen by [facility] only: No Clinical Impression: Confusion, Weakness, Bradycardia, Neurogenic bladder Acute renal failure (ARF) Qualifiers: Acute renal failure type: unspecified Qualified Code(s): N17.9 - Acute kidney failure, unspecified UTI (urinary tract infection) Qualifiers: Urinary tract infection type: acute cystitis Hematuria presence: with hematuria Qualified Code(s): N30.01 - Acute cystitis with hematuria Hypotension Qualifiers: Hypotension type: other hypotension type Qualified Code(s): I95.89 - Other hypotension Summary: With patient's elevated creatinine at 2.0, mental status changes/confusion, urinary tract infection, on a background history of several episodes of urosepsis, patient warrants inpatient further treatment. I discussed this with hospitalist, Dr. Dale, who kindly accepts care. Patient will be given 1 g of meropenem. Blood pressure and pulse can be monitored. Propranolol dose may be considered for reduction to try to allow her rate to increase. She may need hydration. Long-term plan for her bladder and prevention of retention versus recurrent UTIs, etc. will be certainly a difficult decision tree. Disposition: Xfer As Inpt ([facility]) Referrals: Alex Nolan MD [Primary Care Provider] -
[2018-08-07 11:32] LABS: ALT/SGPT 20 U/l (0-40); Albumin 3.7 gm/dL (3.2-5.2); Albumin/Globulin Ratio 0.8 (1.0-2.3); Alkaline Phosphatase 104 U/L (39-117); Blood Urea Nitrogen 67 mg/dl (8-23)
--- NOTE | 2018-08-07 11:46 | XRay Report ---
CLINICAL INFORMATION: weakness, cough COMPARISON: 06/28/2018 FINDINGS: Moderate cardiomegaly show slight increase. Mediastinum and pulmonary vessels are normal. COPD changes noted. Infiltrate in the paramediastinal right upper lobe has improved from the x-ray approximately six weeks prior. In this region there is a 4.1 cm stellate density which is likely fibrotic. No evidence of malignancy on the recent chest x-ray six weeks ago. Moderate right pleural effusion is unchanged with compressive atelectasis of the inferior right middle and lower lobe IMPRESSION: 1. Moderate right pleural effusion resulting in compressive atelectasis inferior right middle lower lobe - unchanged 2. Marked improvement in right upper lobe infiltrate. There is a 4 x 1 cm linear region of fibrosis in this region. 3. COPD changes 4. Mild cardiomegaly - stable no CHF Interpreted and Authenticated by: Farhat Mccormack 08/07/18
[2018-08-07 11:56] LABS: C-Reactive Protein 5.5 mg/dl (0.0-0.8)
[2018-08-07 12:40] LABS: Appearance,Urine CLOUDY; Bacteria,Urine MOD /hpf (0); Bilirubin,Urine NEG (NEG); Color,Urine YELLOW; Glucose,Urine (UA) NEGATIVE (NEG); Leukocyte Esterase,Urine 500 /uL (NEG); Mucus,Urine FEW /hpf (0); Protein,Urine 30 mg/dL (NEG); Specific Gravity,Urine 1.013 (1.000-1.035); Urine Blood 0.2 mg/dL (<0.03); Urine RBC 31 /hpf (0-1); Urine Squamous Epithelial Cell < 1 /hpf (0-4); Urine WBC > 182 /hpf (0-4); Urobilinogen,Urine NEG (NEG)
[2018-08-07] MEDS ORDERED: MEROPENEM 1 GM in 0.9 % SODIUM CHLORIDE 50 ML IV STA (13:17)
--- NOTE | 2018-08-07 14:08 | Internal Med History&Physical ---
Medical - H&P: HPI Patient information: Note initiated : 08/07/18 at 2:05 pm Service Date, if different from initiated Date: [] Patient: Rosalia Lozano a 72 y/o F admitted on for WEAKNESS. Chief Complaint: [] History of present illness: Ms. Lozano is a 72 year old F with history of multiple sclerosis recurrent urinary tract infection, urinary incontinence chronic Alvarez in place presents to the hospital from home accompanied by her and her son for evaluation of weakness altered mental status. According to the family she has had multiple UTIs in the past and change in mental status usually is the way she has presented. The patient was discharged from this hospital approximately a month ago to a [facility] facility. She was diagnosed with urosepsis, Pseudomonas bacteremia and C. difficile diarrhea during the last visit. She was also supposed to be not on lisinopril because of hyperkalemia and renal failure, and she was started on methenamine for recurrent UTI prophylaxis. After discharge the patient did well, she was seen by her PCP and then by Dr. Rowan the urologist. She was informed that suprapubic catheter may not be as useful in her condition, as it will not change the rate of infections. The patient had a Alvarez catheter back in although she was advised by urology to consider frequent self-catheterization. The patient's condition had improved in the [facility] and for the last 1 week she has been home. At home for the last day or 2 the patient has had increased confusion and weakness difficulty in grasping to objects and given that these were the symptoms during her past UTI symptoms the patient was brought to the hospital for further management. The patient denies any acute complaints or concerns. In the emergency room patient is afebrile heart rate 49 blood pressure 117/62 but had been as lower than that later, respirations 20 saturation 94% on room air. Labs show WBC count of 10.2 hemoglobin 13 platelets 248 lactic acid 1 sodium 139 potassium 5.6 BUN 67 creatinine 2 bicarbonate 25 glucose 110 pro calcitonin less than 0.05 UA suggestive of a UTI Chest x-ray shows right-sided pleural effusion COPD changes improved infiltrate from last x-ray. EKG shows sinus bradycardia no voltage old anteroseptal MT QS pattern in V1 V2. Echocardiogram done in June 2018 shows normal left ventricle function moderate pulmonary hypertension and minimal pericardial effusion After reviewing the patient's home medication list as well as the medications in the bag that was brought it seems that the patient was not getting the mesalamine she was supposed to be on for prevention of UTI, and she was also back on lisinopril. All systems: reviewed and no additional remarkable complaints except as stated ( as per HPI rest neg) Medical - H&P: PMH Medical history: Medical History (Last Updated 08/07/18 @ 11:25 by Afshin Galeas DO) Pressure ulcer of coccygeal region, unstageable (Acute) Urinary retention (Chronic) CVA (cerebral vascular accident) (Chronic) Low back pain associated with a spinal disorder other than radiculopathy or spinal stenosis (Chronic) Basal cell carcinoma (Chronic) UTI (urinary tract infection) (Chronic) Hypercholesterolemia (Chronic) COPD (chronic obstructive pulmonary disease) (Chronic) CHF (congestive heart failure) (Chronic) Multiple sclerosis (Chronic) Neurogenic bladder (Chronic) Benign essential hypertension (Chronic) Decompensated chronic obstructive pulmonary disease (Chronic) History of tobacco use (Resolved) Pertinent family history: Family History (Last Reviewed 12/15/17 @ 16:54 by Alex Nolan MD) Brother Essential hypertension Medical - H&P: Meds Home Medications Medication Instructions Recorded Confirmed Type ipratropium-albuterol 0.5 mg-3 3 ml INHALATION Q6H PRN #360 ml 02/28/17 Rx mg(2.5 mg base)/3 mL nebulization soln aspirin 81 mg tablet,delayed 81 mg PO QDAY 12/15/17 08/07/18 History release mecobalamin (vitamin B12) 1,000 1,000 mcg SUBLINGUAL QDAY 12/15/17 08/07/18 History mcg disintegrating tablet,sublingual multivitamin tablet 1 tab PO QDAY 12/15/17 08/07/18 History potassium chloride ER 10 mEq 10 meq PO BID #60 cap 01/20/18 08/07/18 Rx capsule,extended release simvastatin 20 mg tablet 20 mg PO QPM #90 tab 01/27/18 08/07/18 Rx Lactobacillus [Culturelle] 1 cap PO BID #60 cap 05/03/18 08/07/18 Rx Loperamide [Imodium] 2 mg PO PRN PRN cap 05/07/18 08/07/18 Rx gabapentin 400 mg capsule 400 mg PO TID #90 cap 06/09/18 08/07/18 Rx Furosemide [Lasix] 40 mg PO DAILY 06/21/18 08/07/18 History levETIRAcetam [Keppra] 500 mg PO BID 06/21/18 08/07/18 History budesonide-formoterol HFA 160 2 inh INHALATION BID #6 g 06/29/18 08/07/18 Rx mcg-4.5 mcg/actuation aerosol inhaler Acetaminophen [Tylenol] 650 mg PO Q6HP PRN tab 07/03/18 08/07/18 Rx Collagenase Top Oint [Santyl Top 1 dose TOPICAL DAILY tube 07/03/18 08/07/18 Rx Oint] Hydrocortisone [Cortef] 5 mg PO QPM #30 tab 07/03/18 08/07/18 Rx Hydrocortisone [Cortef] 10 mg PO QAC #30 tab 07/03/18 08/07/18 Rx diphenhydrAMINE [Benadryl] 25 mg PO HSP PRN cap 07/03/18 08/07/18 Rx acetaminophen 300 mg-codeine 30 mg 2 tab PO Q4H PRN #180 tab 07/15/18 08/07/18 Rx tablet Disabled parking permit #1 ea 07/16/18 07/27/18 Rx ciprofloxacin 500 mg tablet 500 mg PO BID #20 tab 08/06/18 08/07/18 Rx Lisinopril [Zestril] 20 mg PO DAILY 08/07/18 08/07/18 History Methenamine Hippurate [Hiprex] 1 gm PO BID 08/07/18 08/07/18 History Propranolol [Inderal LA] 80 mg PO DAILY 08/07/18 08/07/18 History Allergies Allergy/AdvReac Type Severity Reaction Status Date / Time No Known Drug Allergies Allergy Verified 07/27/18 13:40 Medical - H&P: Exam - Constitutional Vitals: Temp Pulse Resp BP Pulse Ox 97.2 F 49 L 11 L 96/62 94 08/07/18 10:25 08/07/18 12:51 08/07/18 12:51 08/07/18 12:51 08/07/18 12:51 Exam: GENERAL: The patient is a well-developed, well-nourished in no apparent distress. Is alert and oriented x3. VITAL SIGNS: Reviewed and as noted elsewhere. HEENT: Head is normocephalic and atraumatic. Extraocular muscles are intact. Pupils are equal, round, and reactive to light. Nares appeared normal. Mouth appears any without lesions. Mucous membranes are dry. NECK: Normal to inspection, Supple, No lymphadenopathy or thyromegaly. LUNGS: Air entry reduced right base, crackles on right base, no wheezing noted, pt speaking full sentences. HEART:Bradycardic rate and rhythm normal, S1 and S2 heard, no Gallop, S3 or Rub Noted, No Gross murmur heard. ABDOMEN: Soft, nontender, and nondistended. Positive bowel sounds. No hepatosplenomegaly was noted. EXTREMITIES: No cyanosis, clubbing, rash, edema+ NEUROLOGIC: Cranial nerves II through XII are grossly intact. Motor and Sensory System Grossly Intact PSYCHIATRIC: depressed mood, poor eye contact. SKIN: No ulceration or wounds noted, anteriorly, will check the back later, No jaundice, No rash noted. Medical - H&P: Reslt - Labs CBC & Chem 7: 08/07/18 10:41 08/07/18 10:41 Labs: Short CBC 08/07/18 Range/Units 10:41 WBC 10.2 (4.5-11.0) K/mcL Hgb 13.2 (12.0-15.0) g/dL Hct 40.0 (36.0-48.0) % Plt Count 248 (140-440) K/mcL BMP 08/07/18 10:41 Sodium 139 Potassium 5.6 H Chloride 102 Carbon Dioxide 25 BUN 67 H Creatinine 2.0 H Glucose 110 H Calcium 9.7 Liver Function 08/07/18 Range/Units 10:41 Total Bilirubin 0.2 (0.0-1.0) mg/dL AST 44 H (0-37) U/l ALT 20 (0-40) U/l Alkaline Phosphatase 104 (39-117) U/L Albumin 3.7 (3.2-5.2) gm/dL Urine 08/07/18 Range/Units 12:13 Urine Color Yellow Urine Appearance Cloudy Urine pH 5.0 (5.0-9.0) Ur Specific [place] 1.013 (1.000-1.035) Urine Protein 30 A (NEG) mg/dL Urine Glucose (UA) Negative (NEG) mg/dL Medical - H&P: A/P - Narrative A/P Narrative: A/P UTI (complicated, neurogenic bladder with alvarez in place), recurrent (concern for hygiene): -Iv meropenum for now, h/o pseudomonas bactermia during last admission -Change alvarez -methamine hippurage 1gm bid at discharge. Sepsis -IV fluids for now, if needed start on pressors Adrenal Insufficiency - Diagnosed last visit -hold oral steroids, given low bp, start on stress dose for now, -wean off to basal dose at discharge Bradycardia -Chr issue, HR always in 40's Pleural effusion -Noted during last admission, s/p thoracocentesis which was transudative -diuresis planned (once sepsis syndrome resolves) Acute Hyperkalemia: - due to CARMINA and use of lisnoipril along with KCL, LIsinopril was held, but after discharge from SNF it was resumed as they had the medicatino with them at home . Medical management for now, hold KCL and Lisinopril CARMINA on CKD - creat is 2.0 on admission. -due to low bp, UTI, sepsis, and use of lisinopril h/o Cdiff diarrhea- stools formed now, high risk of recurrence, probiotics for now. Multiple sclerosis/Debility/Poor functional status: wheelchair bound, - continue with physical therapy/ OT Seizure disorder -on keppral continue same COPD (not on home O2@home) -no wheezing on exam duonebs HTN -Hypotension today, hold bp meds, d/c lisinopril DVT hep for now, if platlets drop (as during last visit will use alternative agent) DNR code status. Social History - Tobacco smoking status: Never smoker quit status: not considering quitting - Tobacco Type tobacco type: cigarettes
[2018-08-07] MEDS ORDERED: NALOXONE HCL 0.4 MG/ML VIAL IV PRN (14:50)
[2018-08-07] MEDS ORDERED: ONDANSETRON 4 MG/2 ML VIAL IV PRN (14:50)
[2018-08-07] MEDS ORDERED: diphenhydrAMINE 25 MG CAPSULE PO PRN (14:50)
[2018-08-07] MEDS ORDERED: ACETAMINOPHEN 325 MG TABLET PO PRN (14:50)
[2018-08-07] MEDS: HYDROCORTISONE SOD SUCC 100 MG VIAL IV SCH ×2 (15:47→21:58)
[2018-08-07] MEDS: GABAPENTIN 400 MG CAPSULE PO SCH ×2 (15:47→21:58)
[2018-08-07] MEDS: 0.9 % SODIUM CHLORIDE 10 ML SYRINGE IV SCH ×2 (15:47→22:00)
[2018-08-07] MEDS: oxyCODONE/APAP 5/325MG TABLET PO PRN (15:56)
[2018-08-07] MEDS: BUDESONIDE 0.5 MG/2 ML AMPUL.NEB NEB SCH (19:05)
[2018-08-07] MEDS: IPRATROPIUM/ALBUTEROL 3 ML AMPUL.NEB NEB SCH (19:05)
[2018-08-07 19:16] LABS: Blood Urea Nitrogen 58 mg/dl (8-23)
[2018-08-07] MEDS: COLLAGENASE TOP OINT TUBE 30GM TOPICAL SCH (20:30)
[2018-08-07] MEDS ORDERED: SIMVASTATIN 20 MG TABLET PO SCH (21:00)
[2018-08-07] MEDS: Budesonide/Formoterol Fumarate [Symbicort] 160-4.5 mcg Inhaler INH SCH (21:05)
[2018-08-07] MEDS: LACTOBACILLUS 1 CAPSULE PO SCH (21:58)
[2018-08-07] MEDS: HEPARIN 5,000 UNIT/ML VIAL SQ SCH (21:58)
[2018-08-07] MEDS: levETIRAcetam 500 MG TABLET PO SCH (22:04)
[2018-08-08] MEDS: IPRATROPIUM/ALBUTEROL 3 ML AMPUL.NEB NEB SCH ×4 (01:15→19:00)
[2018-08-08 05:15] LABS: Basophils # (Auto) 0 K/mcL (0.0-0.3); Basophils % (Auto) 0.1 % (0.0-2.0); Eosinophils # (Auto) 0 K/mcL (0.0-0.7); Eosinophils % (Auto) 0 % (0.0-7.0); Lymphocytes # (Auto) 1.1 K/mcL (1.5-4.8); Lymphocytes % (Auto) 15.3 % (15.5-49.0); Mean Cell Volume 96.3 fL (80.0-100.0); Mean Corpuscular HGB Conc 32.7 g/dL (31.0-36.0); Monocytes # (Auto) 0.1 K/mcL (0.1-0.9); Monocytes % (Auto) 1.6 % (1.0-12.0); Platelet Count 231 K/mcL (140-440); Red Cell Distribution Width 16.4 % (11.5-14.5)
[2018-08-08] MEDS: HYDROCORTISONE SOD SUCC 100 MG VIAL IV SCH ×3 (05:33→21:56)
[2018-08-08] MEDS: 0.9 % SODIUM CHLORIDE 10 ML SYRINGE IV SCH ×4 (05:34→21:56)
[2018-08-08 05:37] LABS: ALT/SGPT 11 U/l (0-40); Albumin 2.7 gm/dL (3.2-5.2); Albumin/Globulin Ratio 0.7 (1.0-2.3); Alkaline Phosphatase 82 U/L (39-117); Bilirubin,Direct < 0.2 mg/dL (0.0-0.3); Blood Urea Nitrogen 57 mg/dl (8-23); Gamma Glutamyl Transpeptidase 15 U/L (5-36); Uric Acid 8.8 mg/dL (2.5-8.0)
[2018-08-08] MEDS ORDERED: PANTOPRAZOLE 40 MG TABLET PO SCH (07:30)
[2018-08-08] MEDS: BUDESONIDE 0.5 MG/2 ML AMPUL.NEB NEB SCH (07:51)
[2018-08-08] MEDS ORDERED: SODIUM POLYSTYRENE SULFONATE 15 GM/60 ML SUSPENSION PO ONE (08:30)
[2018-08-08] MEDS ORDERED: MULTIVIT,THER IRON,CA,FA & MIN 1 TABLET PO SCH (09:00)
[2018-08-08] MEDS ORDERED: ASPIRIN 81 MG TAB.CHEW PO SCH (09:00)
[2018-08-08] MEDS: oxyCODONE/APAP 5/325MG TABLET PO PRN ×3 (09:37→20:40)
[2018-08-08] MEDS: Budesonide/Formoterol Fumarate [Symbicort] 160-4.5 mcg Inhaler INH SCH ×2 (10:00→20:41)
[2018-08-08] MEDS: GABAPENTIN 400 MG CAPSULE PO SCH ×2 (10:01→20:40)
[2018-08-08] MEDS: LACTOBACILLUS 1 CAPSULE PO SCH ×2 (10:01→20:41)
[2018-08-08] MEDS: levETIRAcetam 500 MG TABLET PO SCH ×2 (10:01→20:40)
[2018-08-08] MEDS: HEPARIN 5,000 UNIT/ML VIAL SQ SCH ×2 (10:02→20:41)
[2018-08-08] MEDS ORDERED: HYDROmorphone 2 MG/ML VIAL IV PRN ×2 (10:13→10:21)
[2018-08-08] MEDS: COLLAGENASE TOP OINT TUBE 30GM TOPICAL SCH (10:19)
[2018-08-08] MEDS ORDERED: ONDANSETRON 4 MG/2 ML VIAL IV PRN (10:21)
[2018-08-08] MEDS ORDERED: NALOXONE HCL 0.4 MG/ML VIAL IV PRN (10:21)
[2018-08-08] MEDS ORDERED: ACETAMINOPHEN 325 MG TABLET PO PRN (10:21)
--- NOTE | 2018-08-08 10:41 | Internal Med Progress Note ---
Medical - PN: Subj Patient information: Note initiated : 08/08/18 at 10:39 am Service Date, if different from initiated Date: [] Patient: Rosalia Lozano a 72 y/o F admitted on 08/07/18 for WEAKNESS. Chief Complaint: [] Interval history: Ms. Lozano is a 72 year old F with history of multiple sclerosis recurrent urinary tract infection, urinary incontinence chronic Alvarez in place presents to the hospital from home accompanied by her and her son for evaluation of weakness altered mental status. According to the family she has had multiple UTIs in the past and change in mental status usually is the way she has presented. The patient was discharged from this hospital approximately a month ago to a snf facility. She was diagnosed with urosepsis, Pseudomonas bacteremia and C. difficile diarrhea during the last visit. She was also supposed to be not on lisinopril because of hyperkalemia and renal failure, and she was started on methenamine for recurrent UTI prophylaxis. After discharge the patient did well, she was seen by her PCP and then by Dr. Rowan the urologist. She was informed that suprapubic catheter may not be as useful in her condition, as it will not change the rate of infections. The patient had a Alvarez catheter back in although she was advised by urology to consider frequent self-catheterization. The patient's condition had improved in the snf and for the last 1 week she has been home. At home for the last day or 2 the patient has had increased confusion and weakness difficulty in grasping to objects and given that these were the symptoms during her past UTI symptoms the patient was brought to the hospital for further management. The patient denies any acute complaints or concerns. In the emergency room patient is afebrile heart rate 49 blood pressure 117/62 but had been as lower than that later, respirations 20 saturation 94% on room air. Labs show WBC count of 10.2 hemoglobin 13 platelets 248 lactic acid 1 sodium 139 potassium 5.6 BUN 67 creatinine 2 bicarbonate 25 glucose 110 pro calcitonin less than 0.05 UA suggestive of a UTI Chest x-ray shows right-sided pleural effusion COPD changes improved infiltrate from last x-ray. EKG shows sinus bradycardia no voltage old anteroseptal TX QS pattern in V1 V2. Echocardiogram done in June 2018 shows normal left ventricle function moderate pulmonary hypertension and minimal pericardial effusion After reviewing the patient's home medication list as well as the medications in the bag that was brought it seems that the patient was not getting the mesalamine she was supposed to be on for prevention of UTI, and she was also back on lisinopril. 08/08 Patient seen and examined today, she was sitting in the chair she was quite upset. She was upset of the fact that she was in the hospital and also the hospital staff it seems. Emotionally labile. Potassium improved to is 5.2, will give Kayexalate x1, creatinine improved to 1.7. IV antibiotics to continue labs otherwise are stable hemodynamically stable we will transfer the patient to medical status. It seems pt wishes for full code as per the nurse. code status changed. Pertinent ROS: Denies headache, dizziness Denies chest pain, palpitations Denies cough or shortness of breath Denies abdominal pain, nausea or vomiting. - Constitutional Vitals: Vital Signs Temp Pulse Resp BP Pulse Ox 97.8 F 57 L 16 158/69 97 08/08/18 07:19 08/08/18 07:51 08/08/18 07:51 08/08/18 07:42 08/08/18 07:42 Period Temp Pulse Resp BP Sys/[place] Pulse Ox Last 24 Hr 96.8 F-98.1 F 38-57 -18 67-158/49-75 86-100 Intake and Output 08/07/18 08/08/18 08/08/18 21:59 05:59 13:59 Intake Total 3290 / 3290 50 / 50 180 / 180 Output Total 400 / 400 700 / 700 Balance 2890 / 2890 -650 / -650 180 / 180 Weight 150 lb 3.2 oz Intake & Output: Intake & Output 08/07/18 08/08/18 08/08/18 21:59 05:59 13:59 Intake Total 3290 / 3290 50 / 50 180 / 180 Output Total 400 / 400 700 / 700 Balance 2890 / 2890 -650 / -650 180 / 180 Weight 150 lb 3.2 oz Intake: IV 3050 / 3050 Lactated Ringers 1,000 ml @ 1999 / 1999 Wide Open IV BOLUS ONE Rx#: [id number] Merrem 1 gm In Sodium Chloride 50 / 50 0.9% 50 ml @ 100 mls/hr IV NOW STA Rx#:[id number] Oral 240 / 240 50 / 50 180 / 180 Output: Urine Catheter Amount 400 / 400 700 / 700 Other: Meal Dinner Breakfast Percent of Meal Consumed 100% 75% Feeding Ability Needs Supervision Urine Appearance Clear Clear Uretheral (Alvarez) Clear Clear Urine Color Bright Yellow Bright Yellow Uretheral (Alvarez) Straw Bright Yellow Urine Odor Normal Stool Size Moderate Stool Color Brown Stool Consistency Formed # of times incontinent of 1 Bowels Exam: Constitutional; Afebrile, cooperative, alert, not in distress. Respiratory system: Air Entry equal on both sides, No crackles or wheezing, no rhonchi. CVS- Rate bradycardic rhythm regular, S1,S2 heard, no gallop, no rub. Abdomen- Soft nontender abdomen, no organomegaly, no tenderness, no guarding or rigidity, KENNEL TECHNICIAN- AOOx3, moving all extremities, no gross focal deficit noted. Medical - PN: Obj Da - Labs CBC & Chem 7: 08/08/18 03:55 08/08/18 03:55 Labs: Abnormal Lab Results 08/08/18 08/08/18 08/07/18 03:55 03:55 18:00 RBC 3.70 L Hgb 11.7 L Hct 35.6 L RDW 16.4 H Gran % 83.0 H Lymph % (Auto) 15.3 L Lymph # (Auto) 1.1 L Rains # (Auto) Potassium 5.2 H Carbon Dioxide 21 L BUN 57 H 58 H Creatinine 1.7 H 1.7 H Glucose 172 H 125 H Uric Acid 8.8 H AST Lactate Dehydrogenase 293 H C-Reactive Protein Albumin 2.7 L Globulin 3.9 H Albumin/Globulin Ratio 0.7 L Urine Protein Urine Occult Blood Urine Nitrate Ur Leukocyte Esterase Urine RBC Urine WBC Urine Bacteria 08/07/18 08/07/18 08/07/18 12:13 10:41 10:41 RBC Hgb Hct RDW Gran % Lymph % (Auto) Lymph # (Auto) Rains # (Auto) Potassium 5.6 H Carbon Dioxide BUN 67 H Creatinine 2.0 H Glucose 110 H Uric Acid AST 44 H Lactate Dehydrogenase C-Reactive Protein 5.5 H Albumin Globulin 4.4 H Albumin/Globulin Ratio 0.8 L Urine Protein 30 A Urine Occult Blood 0.2 A Urine Nitrate Pos A Ur Leukocyte Esterase 500 A Urine RBC 31 H Urine WBC > 182 H Urine Bacteria Mod A 08/07/18 10:41 RBC Hgb Hct RDW 16.2 H Gran % Lymph % (Auto) Lymph # (Auto) Rains # (Auto) 1.0 H Potassium Carbon Dioxide BUN Creatinine Glucose Uric Acid AST Lactate Dehydrogenase C-Reactive Protein Albumin Globulin Albumin/Globulin Ratio Urine Protein Urine Occult Blood Urine Nitrate Ur Leukocyte Esterase Urine RBC Urine WBC Urine Bacteria Meds: Medications Acetaminophen (Tylenol) 650 mg PO Q6HP PRN PRN Reason: PAIN/FEVER > 101 Albuterol/Ipratropium (Duoneb) 3 ml NEB Q6HRT [facility] Aspirin (Aspirin) 81 mg PO DAILY [facility] Budesonide (Pulmicort) 0.5 mg NEB Q12 [facility] Collagenase (Santyl Top Oint) 1 dose TOPICAL DAILY [facility] Diphenhydramine HCl (Benadryl) 25 mg PO HSP PRN PRN Reason: Insomnia Gabapentin (Neurontin) 400 mg PO TID [facility] Heparin Sodium (Porcine) (Heparin) 5,000 unit SQ Q12 [facility] Hydrocortisone Sodium Succinate (Solu-Cortef) 50 mg IV Q8 [facility] Hydromorphone HCl (Dilaudid) 0.5 mg IV Q4-6HP PRN PRN Reason: PAIN LEVEL > 6 Last Admin: 08/08/18 10:30 Dose: 0.5 mg Iron Carb/Multivit/[place]/Folic Acid (Multivitamin W/Minerals) 1 tab PO DAILY [facility] Lactobacillus Rhamnosus (Culturelle) 1 cap PO BID [facility] Levetiracetam (Keppra) 500 mg PO BID [facility] Naloxone HCl (Narcan) 0.1 mg IV Q2MIN PRN PRN Reason: Opiate Reversal Ondansetron HCl (Zofran) 4 mg IV Q4HP PRN PRN Reason: Nausea And Vomiting Oxycodone/Acetaminophen (Percocet 5-325 Mg) 1 tab PO Q4HP PRN PRN Reason: pain not controlled with tylen Pantoprazole Sodium (Protonix) 40 mg PO QAMAC [facility] Budesonide/Formoterol Fumarate [Symbicort] 160-4.5 Mcg Inhaler 2 dose INH BID [facility] Simvastatin (Zocor) 20 mg PO QPM [facility] Sodium Chloride (Saline Flush) 10 ml IV Q8 [facility] Medical - PN: A/P - Time Spent With Patient Total time spent is greater than 50% in coordination of care (as documented) at patient's floor/unit and/or counseling patient: - Narrative A/P Narrative: A/P UTI (complicated, neurogenic bladder with alvarez in place), recurrent (concern for hygiene): -Iv meropenum for now, h/o pseudomonas bacteremia during last admission -alvarez was changed day before admission. -methamine hippurage 1gm bid at discharge. (was supposed to be on this medication) Sepsis -BP much improved. Adrenal Insufficiency - Diagnosed last visit -hold oral steroids, given low bp, IV hydrocortisone 50mg q8 from now. -wean off to basal dose as tolerated Bradycardia -Chr issue, HR always in 40's, stable Pleural effusion -Noted during last admission, s/p thoracocentesis which was transudative -diuresis planned (once sepsis syndrome resolves) Acute Hyperkalemia: - due to CARMINA and use of lisnoipril along with KCL, LIsinopril was held, but after discharge from SNF it was resumed as they had the medicatino with them at home . Medical management for now, hold KCL and Lisinopril -K is 5.2, one dose of kayexalate ordered, CARMINA on CKD - creat is 2.0 on admission. 1.7 today, improving. -due to low bp, UTI, sepsis, and use of lisinopril h/o Cdiff diarrhea- stools formed now, high risk of recurrence, probiotics for now. Multiple sclerosis/Debility/Poor functional status: wheelchair bound, - continue with physical therapy/ OT Chr pain -resume home meds -IV dilaudid prn ., oxycodone prn Seizure disorder -on keppral continue same COPD (not on home O2@home) -no wheezing on exam duonebs HTN -BP much better , hold bp meds, d/c lisinopril DVT hep for now, if platlets drop (as during last visit will use alternative agent) Full code. Medical - PN: Qual - Stroke Symptom Onset Unknown: No - VTE Deep Vein Thrombosis/Pulmonary Embolism Present on Admission: No
--- NOTE | 2018-08-08 13:53 | Internal Med Progress Note ---
Medical - PN: Subj Patient information: Note initiated : 08/08/18 at 1:51 pm Service Date, if different from initiated Date: [] Patient: Rosalia Lozano a 72 y/o F admitted on 08/07/18 for WEAKNESS. Chief Complaint: [] Interval history: Ms. Lozano is a 72 year old F with history of multiple sclerosis recurrent urinary tract infection, urinary incontinence chronic Alvarez in place presents to the hospital from home accompanied by her and her son for evaluation of weakness altered mental status. According to the family she has had multiple UTIs in the past and change in mental status usually is the way she has presented. The patient was discharged from this hospital approximately a month ago to a correction facility. She was diagnosed with urosepsis, Pseudomonas bacteremia and C. difficile diarrhea during the last visit. She was also supposed to be not on lisinopril because of hyperkalemia and renal failure, and she was started on methenamine for recurrent UTI prophylaxis. After discharge the patient did well, she was seen by her PCP and then by Dr. Rowan the urologist. She was informed that suprapubic catheter may not be as useful in her condition, as it will not change the rate of infections. The patient had a Alvarez catheter back in although she was advised by urology to consider frequent self-catheterization. The patient's condition had improved in the correction and for the last 1 week she has been home. At home for the last day or 2 the patient has had increased confusion and weakness difficulty in grasping to objects and given that these were the symptoms during her past UTI symptoms the patient was brought to the hospital for further management. The patient denies any acute complaints or concerns. In the emergency room patient is afebrile heart rate 49 blood pressure 117/62 but had been as lower than that later, respirations 20 saturation 94% on room air. Labs show WBC count of 10.2 hemoglobin 13 platelets 248 lactic acid 1 sodium 139 potassium 5.6 BUN 67 creatinine 2 bicarbonate 25 glucose 110 pro calcitonin less than 0.05 UA suggestive of a UTI Chest x-ray shows right-sided pleural effusion COPD changes improved infiltrate from last x-ray. EKG shows sinus bradycardia no voltage old anteroseptal MA QS pattern in V1 V2. Echocardiogram done in June 2018 shows normal left ventricle function moderate pulmonary hypertension and minimal pericardial effusion After reviewing the patient's home medication list as well as the medications in the bag that was brought it seems that the patient was not getting the mesalamine she was supposed to be on for prevention of UTI, and she was also back on lisinopril. 08/08 Patient seen and examined today, she was sitting in the chair she was quite upset. She was upset of the fact that she was in the hospital and also the hospital staff it seems. Emotionally labile. Potassium improved to is 5.2, will give Kayexalate x1, creatinine improved to 1.7. IV antibiotics to continue labs otherwise are stable hemodynamically stable we will transfer the patient to medical status. It seems pt wishes for full code as per the nurse. code status changed. 08/09 - Constitutional Vitals: Vital Signs Temp Pulse Resp BP Pulse Ox 97.8 F 57 L 16 114/62 96 08/08/18 12:19 08/08/18 07:51 08/08/18 12:19 08/08/18 12:19 08/08/18 12:19 Period Temp Pulse Resp BP Sys/[place] Pulse Ox Last 24 Hr 96.8 F-98.1 F 38-57 10- 67-158/49-74 86-100 Intake and Output 08/07/18 08/08/18 08/08/18 21:59 05:59 13:59 Intake Total 3290 / 3290 50 / 50 530 / 530 Output Total 400 / 400 700 / 700 Balance 2890 / 2890 -650 / -650 530 / 530 Weight 68.13 kg 68.13 kg Patient Weight 08/09/18 05:59 Weight 68.13 kg Intake & Output: Intake & Output 08/07/18 08/08/18 08/08/18 21:59 05:59 13:59 Intake Total 3290 / 3290 50 / 50 530 / 530 Output Total 400 / 400 700 / 700 Balance 2890 / 2890 -650 / -650 530 / 530 Weight 68.13 kg 68.13 kg Intake: IV 3050 / 3050 Lactated Ringers 1,000 ml @ 1999 / 1999 Wide Open IV BOLUS ONE Rx#: [id number] Merrem 1 gm In Sodium Chloride 50 / 50 0.9% 50 ml @ 100 mls/hr IV NOW STA Rx#:[id number] Oral 240 / 240 50 / 50 530 / 530 Output: Urine Catheter Amount 400 / 400 700 / 700 Other: Meal Dinner Breakfast Percent of Meal Consumed 100% 75% Feeding Ability Needs Supervision Urine Appearance Clear Clear Uretheral (Alvarez) Clear Clear Urine Color Bright Yellow Bright Yellow Uretheral (Alvarez) Straw Bright Yellow Urine Odor Normal Stool Size Moderate Stool Color Brown Stool Consistency Formed # of times incontinent of 1 Bowels Exam: General: Alert, Awake, No acute Distress Eyes/N/T: EOMI, Head/Neck: neck supple, CV: nabila but regular, 1/6 SM Pulm: Clear b/l, no wheezing/rhonchi/rales Abd: soft, nontender, +BS x4 Ext: no clubbing/cyanosis/edema Neuro: Alert, no focal deficits, moves all extremities, generalized chronic b/l LE weakness Skin: warm/dry Medical - PN: Obj Da - Labs CBC & Chem 7: 08/08/18 03:55 08/08/18 03:55 Labs: Abnormal Lab Results 08/08/18 08/08/18 08/07/18 03:55 03:55 18:00 RBC 3.70 L Hgb 11.7 L Hct 35.6 L RDW 16.4 H Gran % 83.0 H Lymph % (Auto) 15.3 L Lymph # (Auto) 1.1 L [place] # (Auto) Potassium 5.2 H Carbon Dioxide 21 L BUN 57 H 58 H Creatinine 1.7 H 1.7 H Glucose 172 H 125 H Uric Acid 8.8 H AST Lactate Dehydrogenase 293 H C-Reactive Protein Albumin 2.7 L Globulin 3.9 H Albumin/Globulin Ratio 0.7 L Urine Protein Urine Occult Blood Urine Nitrate Ur Leukocyte Esterase Urine RBC Urine WBC Urine Bacteria 08/07/18 08/07/18 08/07/18 12:13 10:41 10:41 RBC Hgb Hct RDW Gran % Lymph % (Auto) Lymph # (Auto) [place] # (Auto) Potassium 5.6 H Carbon Dioxide BUN 67 H Creatinine 2.0 H Glucose 110 H Uric Acid AST 44 H Lactate Dehydrogenase C-Reactive Protein 5.5 H Albumin Globulin 4.4 H Albumin/Globulin Ratio 0.8 L Urine Protein 30 A Urine Occult Blood 0.2 A Urine Nitrate Pos A Ur Leukocyte Esterase 500 A Urine RBC 31 H Urine WBC > 182 H Urine Bacteria Mod A 08/07/18 10:41 RBC Hgb Hct RDW 16.2 H Gran % Lymph % (Auto) Lymph # (Auto) [place] # (Auto) 1.0 H Potassium Carbon Dioxide BUN Creatinine Glucose Uric Acid AST Lactate Dehydrogenase C-Reactive Protein Albumin Globulin Albumin/Globulin Ratio Urine Protein Urine Occult Blood Urine Nitrate Ur Leukocyte Esterase Urine RBC Urine WBC Urine Bacteria Meds: Medications Acetaminophen (Tylenol) 650 mg PO Q6HP PRN PRN Reason: PAIN/FEVER > 101 Albuterol/Ipratropium (Duoneb) 3 ml NEB Q6HRT [facility] Last Admin: 08/08/18 13:12 Dose: Not Given Aspirin (Aspirin) 81 mg PO DAILY [facility] Collagenase (Santyl Top Oint) 1 dose TOPICAL DAILY [facility] Diphenhydramine HCl (Benadryl) 25 mg PO HSP PRN PRN Reason: Insomnia Gabapentin (Neurontin) 400 mg PO TID [facility] Heparin Sodium (Porcine) (Heparin) 5,000 unit SQ Q12 [facility] Hydrocortisone Sodium Succinate (Solu-Cortef) 50 mg IV Q8 [facility] Hydromorphone HCl (Dilaudid) 0.5 mg IV Q4-6HP PRN PRN Reason: PAIN LEVEL > 6 Last Admin: 08/08/18 10:30 Dose: 0.5 mg Iron Carb/Multivit/Speech/Language Therapist/Folic Acid (Multivitamin W/Minerals) 1 tab PO DAILY [facility] Lactobacillus Rhamnosus (Culturelle) 1 cap PO BID [facility] Levetiracetam (Keppra) 500 mg PO BID [facility] Naloxone HCl (Narcan) 0.1 mg IV Q2MIN PRN PRN Reason: Opiate Reversal Ondansetron HCl (Zofran) 4 mg IV Q4HP PRN PRN Reason: Nausea And Vomiting Oxycodone/Acetaminophen (Percocet 5-325 Mg) 1 tab PO Q4HP PRN PRN Reason: pain not controlled with tylen Pantoprazole Sodium (Protonix) 40 mg PO QAMAC [facility] Budesonide/Formoterol Fumarate [Symbicort] 160-4.5 Mcg Inhaler 2 dose INH BID [facility] Simvastatin (Zocor) 20 mg PO QPM [facility] Sodium Chloride (Saline Flush) 10 ml IV Q8 [facility] Medical - PN: A/P - Time Spent With Patient Total time spent is greater than 50% in coordination of care (as documented) at patient's floor/unit and/or counseling patient: - Narrative A/P Narrative: A: *UTI (complicated, neurogenic bladder with alvarez in place), recurrent (concern for hygiene): *Sepsis: 2/2 above *Adrenal Insufficiency: Diagnosed last visit *Bradycardia, chronic: HR always in 40's, stable *Pleural effusion: Noted during last admission, s/p thoracocentesis which was transudative -diuresis planned (once sepsis syndrome resolves) *Acute Hyperkalemia: -due to CARMINA and use of lisnoipril along with KCL, -K is 5.2, one dose of kayexalate ordered, *CARMINA on CKD IIIb: due to low bp, UTI, sepsis, and use of lisinopril -1.7<2.0 *h/o Cdiff diarrhea: stools formed now, high risk of recurrence, probiotics for now. *Multiple sclerosis/Debility/Poor functional status: wheelchair bound, *Oropharyngeal Dysphagia: *Chr pain: -resume home meds *Seizure disorder: on keppral continue same *COPD (not on home O2@home): *HTN: BP much better *Goals of care: long-term prognosis guarded given decline this year and underlying comorbidities P: -Iv meropenum for now, h/o pseudomonas bacteremia during last admission -alvarez was changed day before admission. -methamine hippurage 1gm bid at discharge. (was supposed to be on this medication) -hold oral steroids, given low bp, IV hydrocortisone 50mg q8 from now. -wean off to basal dose as tolerated -Lisinopril was held, but after discharge from SNF it was resumed as they had the medication with them at home -KCL and Lisinopril -continue with physical therapy/ OT -IV dilaudid prn ., oxycodone prn -hold bp meds, d/c lisinopril -ST eval, diet per -ppx: hep for now, if platlets drop (as during last visit will use alternative agent) Full code. Medical - PN: Qual - Stroke Symptom Onset Unknown: No - VTE Deep Vein Thrombosis/Pulmonary Embolism Present on Admission: No
[2018-08-08] MEDS ORDERED: HYDROCORTISONE SOD SUCC 100 MG VIAL IV SCH (14:00)
[2018-08-08] MEDS: SIMVASTATIN 20 MG TABLET PO SCH (20:40)
[2018-08-08] MEDS ORDERED: BUDESONIDE 0.5 MG/2 ML AMPUL.NEB NEB SCH (21:00)
[2018-08-08] MEDS ORDERED: diphenhydrAMINE 25 MG CAPSULE PO PRN (21:00)
[2018-08-09] MEDS: IPRATROPIUM/ALBUTEROL 3 ML AMPUL.NEB NEB SCH ×4 (01:16→19:09)
[2018-08-09] MEDS: oxyCODONE/APAP 5/325MG TABLET PO PRN ×4 (03:15→21:20)
[2018-08-09] MEDS: HYDROCORTISONE SOD SUCC 100 MG VIAL IV SCH ×3 (05:10→21:19)
[2018-08-09] MEDS: 0.9 % SODIUM CHLORIDE 10 ML SYRINGE IV SCH ×3 (05:10→21:21)
[2018-08-09 05:14] LABS: Basophils # (Auto) 0 K/mcL (0.0-0.3); Basophils % (Auto) 0.2 % (0.0-2.0); Eosinophils # (Auto) 0 K/mcL (0.0-0.7); Eosinophils % (Auto) 0 % (0.0-7.0); Granulocytes % (Auto) 70.5 % (38.0-78.0); Lymphocytes # (Auto) 2.2 K/mcL (1.5-4.8); Lymphocytes % (Auto) 25.7 % (15.5-49.0); Mean Corpuscular HGB Conc 33.6 g/dL (31.0-36.0); Monocytes # (Auto) 0.3 K/mcL (0.1-0.9); Monocytes % (Auto) 3.6 % (1.0-12.0); Platelet Count 249 K/mcL (140-440); Red Cell Distribution Width 16.5 % (11.5-14.5)
[2018-08-09 05:44] LABS: ALT/SGPT 12 U/l (0-40); Albumin 3.1 gm/dL (3.2-5.2); Albumin/Globulin Ratio 0.9 (1.0-2.3); Alkaline Phosphatase 71 U/L (39-117); Bilirubin,Direct < 0.2 mg/dL (0.0-0.3); Blood Urea Nitrogen 43 mg/dl (8-23); Gamma Glutamyl Transpeptidase 9 U/L (5-36); Uric Acid 8.1 mg/dL (2.5-8.0)
--- NOTE | 2018-08-09 06:49 | Internal Med Progress Note ---
Medical - PN: Subj Patient information: Note initiated : 08/09/18 at 6:44 am Service Date, if different from initiated Date: [] Patient: Rosalia Lozano a 72 y/o F admitted on 08/07/18 for WEAKNESS. Chief Complaint: [] Interval history: Ms. Lozano is a 72 year old F with history of multiple sclerosis recurrent urinary tract infection, urinary incontinence chronic Alvarez in place presents to the hospital from home accompanied by her and her son for evaluation of weakness altered mental status. According to the family she has had multiple UTIs in the past and change in mental status usually is the way she has presented. The patient was discharged from this hospital approximately a month ago to [place] [facility] facility. She was diagnosed with urosepsis, Pseudomonas bacteremia and C. difficile diarrhea during the last visit. She was also supposed to be not on lisinopril because of hyperkalemia and renal failure, and she was started on methenamine for recurrent UTI prophylaxis. After discharge the patient did well, she was seen by her PCP and then by Dr. Rowan the urologist. She was informed that suprapubic catheter may not be as useful in her condition, as it will not change the rate of infections. The patient had a Alvarez catheter back in although she was advised by urology to consider frequent self-catheterization. The patient's condition had improved in [place] [facility] and for the last 1 week she has been home. At home for the last day or 2 the patient has had increased confusion and weakness difficulty in grasping to objects and given that these were the symptoms during her past UTI symptoms the patient was brought to the hospital for further management. The patient denies any acute complaints or concerns. In the emergency room patient is afebrile heart rate 49 blood pressure 117/62 but had been as lower than that later, respirations 20 saturation 94% on room air. Labs show WBC count of 10.2 hemoglobin 13 platelets 248 lactic acid 1 sodium 139 potassium 5.6 BUN 67 creatinine 2 bicarbonate 25 glucose 110 pro calcitonin less than 0.05 UA suggestive of a UTI Chest x-ray shows right-sided pleural effusion COPD changes improved infiltrate from last x-ray. EKG shows sinus bradycardia no voltage old anteroseptal [place] QS pattern in V1 V2. Echocardiogram done in June 2018 shows normal left ventricle function moderate pulmonary hypertension and minimal pericardial effusion After reviewing the patient's home medication list as well as the medications in the bag that was brought it seems that the patient was not getting the mesalamine she was supposed to be on for prevention of UTI, and she was also back on lisinopril. 08/08 Patient seen and examined today, she was sitting in the chair she was quite upset. She was upset of the fact that she was in the hospital and also the hospital staff it seems. Emotionally labile. Potassium improved to is 5.2, will give Kayexalate x1, creatinine improved to 1.7. IV antibiotics to continue labs otherwise are stable hemodynamically stable we will transfer the patient to medical status. It seems pt wishes for full code as per the nurse. code status changed. 08/09 When asked if she feels the same as yesterday or better she motions her hand to indicate about the same. She says she feels fine and wants to go home. Appears depressed and cried briefly. Review of Systems: denies headache/fever/chills/nausea/vomiting/chest or abdominal pain/cough/ dyspnea/diarrhea. Otherwise see above. - Constitutional Vitals: Vital Signs Temp Pulse Resp BP Pulse Ox 97.4 F 43 L 12 131/62 97 08/09/18 06:28 08/09/18 06:28 08/09/18 06:28 08/09/18 06:28 08/09/18 06:28 Period Temp Pulse Resp BP Sys/[place]ancock Pulse Ox Last 24 Hr 97.3 F-98 F 43-58 10-20 91-158/54-69 93-99 Intake and Output 08/08/18 08/09/18 08/09/18 21:59 05:59 13:59 Intake Total 300 / 300 Output Total 500 / 500 Balance 300 / 300 -500 / -500 Weight 65.998 kg Intake & Output: Intake & Output 08/08/18 08/09/18 08/09/18 21:59 05:59 13:59 Intake Total 300 / 300 Output Total 500 / 500 Balance 300 / 300 -500 / -500 Weight 65.998 kg Intake: Oral 300 / 300 Output: Urine Catheter Amount 500 / 500 Other: Meal Lunch Percent of Meal Consumed 75% Feeding Ability Independent Urine Appearance Uretheral (Alvarez) Clear Urine Color Bright Yellow Uretheral (Alvarez) Bright Yellow Stool Size Large Moderate Stool Color Brown Brown Stool Consistency Soft Soft # of times incontinent of 1 1 Bowels Exam: General: Alert, Awake, No acute Distress Eyes/N/T: EOMI, Head/Neck: neck supple, CV: nabila but regular, 1/6 SM Pulm: Clear b/l, no wheezing/rhonchi/rales Abd: soft, nontender, +BS x4 Ext: no clubbing/cyanosis/edema Neuro: Alert, no focal deficits, moves all extremities, generalized chronic b/l LE weakness Skin: warm/dry Medical - PN: Obj Da - Labs CBC & Chem 7: 08/09/18 04:20 08/09/18 04:20 Labs: Abnormal Lab Results 08/09/18 08/09/18 08/08/18 04:20 04:20 03:55 RBC 3.30 L Hgb 10.5 L Hct 31.3 L RDW 16.5 H Gran % Lymph % (Auto) Lymph # (Auto) [place] # (Auto) Potassium 5.2 H Carbon Dioxide 21 L BUN 43 H 57 H Creatinine 1.3 H 1.7 H Glucose 135 H 172 H Uric Acid 8.1 H 8.8 H AST Lactate Dehydrogenase 293 H C-Reactive Protein Albumin 3.1 L 2.7 L Globulin 3.9 H Albumin/Globulin Ratio 0.9 L 0.7 L Urine Protein Urine Occult Blood Urine Nitrate Ur Leukocyte Esterase Urine RBC Urine WBC Urine Bacteria 08/08/18 08/07/18 08/07/18 03:55 18:00 12:13 RBC 3.70 L Hgb 11.7 L Hct 35.6 L RDW 16.4 H Gran % 83.0 H Lymph % (Auto) 15.3 L Lymph # (Auto) 1.1 L [place] # (Auto) Potassium Carbon Dioxide BUN 58 H Creatinine 1.7 H Glucose 125 H Uric Acid AST Lactate Dehydrogenase C-Reactive Protein Albumin Globulin Albumin/Globulin Ratio Urine Protein 30 A Urine Occult Blood 0.2 A Urine Nitrate Pos A Ur Leukocyte Esterase 500 A Urine RBC 31 H Urine WBC > 182 H Urine Bacteria Mod A 08/07/18 08/07/18 08/07/18 10:41 10:41 10:41 RBC Hgb Hct RDW 16.2 H Gran % Lymph % (Auto) Lymph # (Auto) [place] # (Auto) 1.0 H Potassium 5.6 H Carbon Dioxide BUN 67 H Creatinine 2.0 H Glucose 110 H Uric Acid AST 44 H Lactate Dehydrogenase C-Reactive Protein 5.5 H Albumin Globulin 4.4 H Albumin/Globulin Ratio 0.8 L Urine Protein Urine Occult Blood Urine Nitrate Ur Leukocyte Esterase Urine RBC Urine WBC Urine Bacteria Meds: Medications Acetaminophen (Tylenol) 650 mg PO Q6HP PRN PRN Reason: PAIN/FEVER > 101 Albuterol/Ipratropium (Duoneb) 3 ml NEB Q6HRT [facility] Last Admin: 08/09/18 01:16 Dose: Not Given Aspirin (Aspirin) 81 mg PO DAILY [facility] Collagenase (Santyl Top Oint) 1 dose TOPICAL DAILY [facility] Diphenhydramine HCl (Benadryl) 25 mg PO HSP PRN PRN Reason: Insomnia Gabapentin (Neurontin) 400 mg PO TID [facility] Last Admin: 08/08/18 20:40 Dose: 400 mg Heparin Sodium (Porcine) (Heparin) 5,000 unit SQ Q12 [facility] Last Admin: 08/08/18 20:41 Dose: 5,000 unit Hydrocortisone Sodium Succinate (Solu-Cortef) 50 mg IV Q8 [facility] Last Admin: 08/09/18 05:10 Dose: 50 mg Hydromorphone HCl (Dilaudid) 0.5 mg IV Q4-6HP PRN PRN Reason: PAIN LEVEL > 6 Last Admin: 08/08/18 10:30 Dose: 0.5 mg Iron Carb/Multivit/Pinal/Folic Acid (Multivitamin W/Minerals) 1 tab PO DAILY [facility] Lactobacillus Rhamnosus (Culturelle) 1 cap PO BID [facility] Last Admin: 08/08/18 20:41 Dose: 1 cap Levetiracetam (Keppra) 500 mg PO BID [facility] Last Admin: 08/08/18 20:40 Dose: 500 mg Naloxone HCl (Narcan) 0.1 mg IV Q2MIN PRN PRN Reason: Opiate Reversal Ondansetron HCl (Zofran) 4 mg IV Q4HP PRN PRN Reason: Nausea And Vomiting Oxycodone/Acetaminophen (Percocet 5-325 Mg) 1 tab PO Q4HP PRN PRN Reason: pain not controlled with tylen Last Admin: 08/09/18 03:15 Dose: 1 tab Pantoprazole Sodium (Protonix) 40 mg PO QAMAC [facility] Budesonide/Formoterol Fumarate [Symbicort] 160-4.5 Mcg Inhaler 2 dose INH BID [facility] Last Admin: 08/08/18 20:41 Dose: 2 dose Simvastatin (Zocor) 20 mg PO QPM [facility] Last Admin: 08/08/18 20:40 Dose: 20 mg Sodium Chloride (Saline Flush) 10 ml IV Q8 [facility] Last Admin: 08/09/18 05:10 Dose: 10 ml Medical - PN: A/P - Time Spent With Patient Total time spent is greater than 50% in coordination of care (as documented) at patient's floor/unit and/or counseling patient: - Narrative A/P Narrative: A: *UTI (complicated, neurogenic bladder with alvarez in place), recurrent (concern for hygiene): *Sepsis: 2/2 above *Adrenal Insufficiency: Diagnosed last visit *Bradycardia, chronic: HR always in 40's, stable *Pleural effusion: Noted during last admission, s/p thoracocentesis which was transudative -diuresis planned (once sepsis syndrome resolves) *Acute Hyperkalemia: -due to CARMINA and use of lisnoipril along with KCL, IMproved after kayexalate *CARMINA on CKD IIIb: due to low bp, UTI, sepsis, and use of lisinopril -1.3<<2.0 *h/o Cdiff diarrhea: stools formed now, high risk of recurrence, probiotics for now. *Multiple sclerosis/Debility/Poor functional status: wheelchair bound, *Oropharyngeal Dysphagia: *Chr pain: resume home meds *Seizure disorder: on keppral continue same *COPD (not on home O2@home): *HTN: BP much better *Goals of care: long-term prognosis guarded given decline this year and underlying comorbidities P: -Iv meropenum for now, h/o pseudomonas bacteremia during last admission -alvarez was changed day before admission. -methamine hippurage 1gm bid at discharge. (was supposed to be on this medication) -hold oral steroids, given low bp, IV hydrocortisone 50mg q8 from now, wean off to basal dose as tolerated -Lisinopril was held, but after discharge from SNF it was resumed as they had the medication with them at home -KCL and Lisinopril stopped -PT/OT -IV dilaudid prn, oxycodone prn -hold bp meds, d/c lisinopril -ST eval, diet per -ppx: hep for now, if platlets drop (as during last visit will use alternative agent) Full code. Medical - PN: Qual - Stroke Symptom Onset Unknown: No - VTE Deep Vein Thrombosis/Pulmonary Embolism Present on Admission: No
[2018-08-09] MEDS: COLLAGENASE TOP OINT TUBE 30GM TOPICAL SCH (07:32)
[2018-08-09] MEDS: GABAPENTIN 400 MG CAPSULE PO SCH ×3 (07:33→21:21)
[2018-08-09] MEDS: PANTOPRAZOLE 40 MG TABLET PO SCH (07:33)
[2018-08-09] MEDS: levETIRAcetam 500 MG TABLET PO SCH ×2 (07:33→21:20)
[2018-08-09] MEDS: LACTOBACILLUS 1 CAPSULE PO SCH ×2 (07:33→21:21)
[2018-08-09] MEDS: ASPIRIN 81 MG TAB.CHEW PO SCH (07:34)
[2018-08-09] MEDS: Budesonide/Formoterol Fumarate [Symbicort] 160-4.5 mcg Inhaler INH SCH ×2 (07:34→21:19)
[2018-08-09] MEDS: HEPARIN 5,000 UNIT/ML VIAL SQ SCH ×2 (07:36→21:19)
[2018-08-09] MEDS: MULTIVIT,THER IRON,CA,FA & MIN 1 TABLET PO SCH (07:39)
--- NOTE | 2018-08-09 10:54 | Discharge Summary ---
Medical - DS: Prov Patient information: Note initiated : 08/09/18 at 10:49 am Service Date, if different from initiated Date: [] Patient: Rosalia Lozano 72 y/o F admitted on 08/07/18 for WEAKNESS. Chief Complaint: [] Date of admission: 08/07/18 14:50 Discharge date: 08/10/18 Primary care physician: Alex Nolan Consults: 08/07/18 Consult to Physician [CONS] Stat Comment: Consulting Provider: [place] Reason For Exam: Physician to Consult Medical - DS: Meds - Discharge Medications Prescriptions: Cefdinir 300 mg PO BID #10 cap Lactobacillus Acidophilus [Acidophilus Lactobacilli] 1 each PO BID #30 cap Methenamine Hippurate [Hiprex] 1 gm PO BID #20 tab Active and Home Medications: Home Medications ipratropium-albuterol 0.5 mg-3 mg(2.5 mg base)/3 mL nebulization soln 3 ml INHALATION Q6H PRN #360 ml 02/28/17 [Rx Confirmed 08/07/18 Last Taken 04/29/18] aspirin 81 mg tablet,delayed release 81 mg PO QDAY 12/15/17 [History Confirmed 08/07/18 Last Taken 04/29/18] mecobalamin (vitamin B12) 1,000 mcg disintegrating tablet,sublingual 1,000 mcg SUBLINGUAL QDAY 12/15/17 [History Confirmed 08/07/18 Last Taken 04/29/18] multivitamin tablet 1 tab PO QDAY 12/15/17 [History Confirmed 08/07/18 Last Taken 04/29/18] potassium chloride ER 10 mEq capsule,extended release 10 meq PO BID #60 cap 07/28 [Rx Confirmed 08/07/18 Last Taken 04/29/18] simvastatin 20 mg tablet 20 mg PO QPM #90 tab 01/27/18 [Rx Confirmed 08/07/18 Last Taken 04/29/18] Lactobacillus [Culturelle] 1 cap PO BID #60 cap 05/03/18 [Rx Confirmed 08/07/18 Last Taken Unknown] gabapentin 400 mg capsule 400 mg PO TID #90 cap 06/09/18 [Rx Confirmed 08/07/18 Last Taken Unknown] Furosemide [Lasix] 40 mg PO DAILY 06/21/18 [History Confirmed 08/07/18 Last Taken Unknown] levETIRAcetam [Keppra] 500 mg PO BID 06/21/18 [History Confirmed 08/07/18 Last Taken Unknown] budesonide-formoterol HFA 160 mcg-4.5 mcg/actuation aerosol inhaler 2 inh INHALATION BID #6 g 06/29/18 [Rx Confirmed 08/07/18 Last Taken Unknown] Collagenase Top Oint [Santyl Top Oint] 1 dose TOPICAL DAILY tube 07/03/18 [Rx Confirmed 08/07/18 Last Taken Unknown] Hydrocortisone [Cortef] 5 mg PO QPM #30 tab 07/03/18 [Rx Confirmed 08/07/18 Last Taken Unknown] Hydrocortisone [Cortef] 10 mg PO QAMCC #30 tab 07/03/18 [Rx Confirmed 08/07/18 Last Taken Unknown] acetaminophen 300 mg-codeine 30 mg tablet 2 tab PO Q4H PRN #180 tab 07/15/18 [ Rx Confirmed 08/07/18 Last Taken Unknown] Disabled parking permit #1 ea 07/16/18 [Rx Confirmed 07/27/18 Last Taken Unknown ] Methenamine Hippurate [Hiprex] 1 gm PO BID 08/07/18 [History Confirmed 08/07/18 Last Taken Unknown] Home Medications ipratropium-albuterol 0.5 mg-3 mg(2.5 mg base)/3 mL nebulization soln 3 ml INHALATION Q6H PRN #360 ml 02/28/17 [Rx Confirmed 08/07/18 Last Taken 04/29/18] aspirin 81 mg tablet,delayed release 81 mg PO QDAY 12/15/17 [History Confirmed 08/07/18 Last Taken 04/29/18] mecobalamin (vitamin B12) 1,000 mcg disintegrating tablet,sublingual 1,000 mcg SUBLINGUAL QDAY 12/15/17 [History Confirmed 08/07/18 Last Taken 04/29/18] multivitamin tablet 1 tab PO QDAY 12/15/17 [History Confirmed 08/07/18 Last Taken 04/29/18] potassium chloride ER 10 mEq capsule,extended release 10 meq PO BID #60 cap 07/28 [Rx Confirmed 08/07/18 Last Taken 04/29/18] simvastatin 20 mg tablet 20 mg PO QPM #90 tab 01/27/18 [Rx Confirmed 08/07/18 Last Taken 04/29/18] Lactobacillus [Culturelle] 1 cap PO BID #60 cap 05/03/18 [Rx Confirmed 08/07/18 Last Taken Unknown] gabapentin 400 mg capsule 400 mg PO TID #90 cap 06/09/18 [Rx Confirmed 08/07/18 Last Taken Unknown] Furosemide [Lasix] 40 mg PO DAILY 06/21/18 [History Confirmed 08/07/18 Last Taken Unknown] levETIRAcetam [Keppra] 500 mg PO BID 06/21/18 [History Confirmed 08/07/18 Last Taken Unknown] budesonide-formoterol HFA 160 mcg-4.5 mcg/actuation aerosol inhaler 2 inh INHALATION BID #6 g 06/29/18 [Rx Confirmed 08/07/18 Last Taken Unknown] Collagenase Top Oint [Santyl Top Oint] 1 dose TOPICAL DAILY tube 07/03/18 [Rx Confirmed 08/07/18 Last Taken Unknown] Hydrocortisone [Cortef] 5 mg PO QPM #30 tab 07/03/18 [Rx Confirmed 08/07/18 Last Taken Unknown] Hydrocortisone [Cortef] 10 mg PO QAMCC #30 tab 07/03/18 [Rx Confirmed 08/07/18 Last Taken Unknown] acetaminophen 300 mg-codeine 30 mg tablet 2 tab PO Q4H PRN #180 tab 07/15/18 [ Rx Confirmed 08/07/18 Last Taken Unknown] Cefdinir 300 mg PO BID #10 cap 08/09/18 [Rx Last Taken Unknown] Disabled parking permit 1 each .ROUTE .[email or web address] 08/09/18 [History Confirmed Last Taken Unknown] Lactobacillus Acidophilus [Acidophilus Lactobacilli] 1 each PO BID #30 cap 08/09 [Rx Last Taken Unknown] Methenamine Hippurate [Hiprex] 1 gm PO BID #20 tab 08/09/18 [Rx Last Taken Unknown] Medical - DS: Hosp Hospital course: Ms. Lozano is a 72 year old F with history of multiple sclerosis recurrent urinary tract infection, urinary incontinence chronic Smith in place presents to the hospital from home accompanied by her and her son for evaluation of weakness altered mental status. According to the family she has had multiple UTIs in the past and change in mental status usually is the way she has presented. The patient was discharged from this hospital approximately a month ago to a group home facility. She was diagnosed with urosepsis, Pseudomonas bacteremia and C. difficile diarrhea during the last visit. She was also supposed to be not on lisinopril because of hyperkalemia and renal failure, and she was started on methenamine for recurrent UTI prophylaxis. After discharge the patient did well, she was seen by her PCP and then by Dr. Rowan the urologist. She was informed that suprapubic catheter may not be as useful in her condition, as it will not change the rate of infections. The patient had a Smith catheter back in although she was advised by urology to consider frequent self-catheterization. The patient's condition had improved in the group home and for the last 1 week she has been home. At home for the last day or 2 the patient has had increased confusion and weakness difficulty in grasping to objects and given that these were the symptoms during her past UTI symptoms the patient was brought to the hospital for further management. The patient denies any acute complaints or concerns. In the emergency room patient is afebrile heart rate 49 blood pressure 117/62 but had been as lower than that later, respirations 20 saturation 94% on room air. Labs show WBC count of 10.2 hemoglobin 13 platelets 248 lactic acid 1 sodium 139 potassium 5.6 BUN 67 creatinine 2 bicarbonate 25 glucose 110 pro calcitonin less than 0.05 UA suggestive of a UTI Chest x-ray shows right-sided pleural effusion COPD changes improved infiltrate from last x-ray. EKG shows sinus bradycardia no voltage old anteroseptal PR QS pattern in V1 V2. Echocardiogram done in June 2018 shows normal left ventricle function moderate pulmonary hypertension and minimal pericardial effusion After reviewing the patient's home medication list as well as the medications in the bag that was brought it seems that the patient was not getting the mesalamine she was supposed to be on for prevention of UTI, and she was also back on lisinopril. 08/08 Patient seen and examined today, she was sitting in the chair she was quite upset. She was upset of the fact that she was in the hospital and also the hospital staff it seems. Emotionally labile. Potassium improved to is 5.2, will give Kayexalate x1, creatinine improved to 1.7. IV antibiotics to continue labs otherwise are stable hemodynamically stable we will transfer the patient to medical status. It seems pt wishes for full code as per the nurse. code status changed. 08/09 When asked if she feels the same as yesterday or better she motions her hand to indicate about the same. She says she feels fine and wants to go home. Appears depressed and cried briefly. 08/10 Was able to rest most of the night per nursing note. Headache today, no other no new complaints. Renal function improved. Urine culture with nonpathogenic skin angelo. Patient appears to be baseline and desiring to go home. Refused to nursing home facility. Patient at high risk for readmission given significant decline this year and significant comorbidities with poor functional status. Discharge diagnosis: UTI sepsis neurogenic bladder hyperkalemia AK I Secondary discharge diagnosis: Multiple sclerosis chronic pain seizure disorder COPD hypertension chronic bradycardia adrenal insufficiency - Time Spent with Patient Total time spent providing and/or coordinating discharge services: Greater than 30 minutes Medical - DS: Exam - Constitutional Vitals: Vital Signs Temp Pulse Pulse Resp BP BP BP 08/09/18 06:28 97.4 F 43 L 12 131/62 08/09/18 03:15 97.3 F 49 L 10 L 118/59 08/08/18 19:05 55 L 18 08/08/18 19:03 97.8 F 58 L 51 L 18 127/67 08/08/18 16:00 98 F 20 110/58 08/08/18 12:19 97.8 F 16 114/62 Pulse Ox 08/09/18 06:28 97 08/09/18 03:15 93 08/08/18 19:05 96 08/08/18 19:03 94 08/08/18 16:00 93 08/08/18 12:19 96 Intake and Output 08/08/18 08/09/18 08/09/18 21:59 05:59 13:59 Intake Total 300 / 300 Output Total 500 / 500 Balance 300 / 300 -500 / -500 Intake: Oral 300 / 300 Output: Urine Catheter Amount 500 / 500 Other: Meal Lunch Breakfast Percent of Meal Consumed 75% 10 Feeding Ability Independent Assist with Tray Set Up Urine Appearance Uretheral (Smith) Clear Urine Color Bright Yellow Uretheral (Smith) Bright Yellow Stool Size Large Moderate Stool Color Brown Brown Stool Consistency Soft Soft # of times incontinent of 1 1 Bowels Weight 65.998 kg Medical - DS: Data Labs on day of discharge: Labs from last 24 hours 08/09/18 08/09/18 04:20 04:20 WBC 8.4 RBC 3.30 L Hgb 10.5 L Hct 31.3 L MCV 95.0 MCH 31.9 MCHC 33.6 RDW 16.5 H Plt Count 249 MPV 9.2 Gran % 70.5 Lymph % (Auto) 25.7 [place] % (Auto) 3.6 Eos % (Auto) 0 Baso % (Auto) 0.2 Gran # 5.9 Lymph # (Auto) 2.2 [place] # (Auto) 0.3 Eos # (Auto) 0 Baso # (Auto) 0 Sodium 142 Potassium 4.0 Chloride 105 Carbon Dioxide 24 Anion Gap 13.0 BUN 43 H Creatinine 1.3 H GFR Calculation 40 Glucose 135 H Uric Acid 8.1 H Calcium 8.9 Phosphorus 2.9 Magnesium 2.1 Total Bilirubin 0.2 Direct Bilirubin < 0.2 GGT 9 AST 23 ALT 12 Alkaline Phosphatase 71 Lactate Dehydrogenase 201 Total Protein 6.6 Albumin 3.1 L Globulin 3.5 Albumin/Globulin Ratio 0.9 L Triglycerides 86 Preliminary micro results at discharge 08/07/18 13:35 Blood Culture - Preliminary Blood 08/07/18 13:40 Blood Culture - Preliminary Blood Medical - DS: A/P - Patient/Caregiver Discharge Instructions Activity: as per physical therapy Diet: Dysphagia Advanced Prescriptions: Cefdinir 300 mg PO BID #10 cap Lactobacillus Acidophilus [Acidophilus Lactobacilli] 1 each PO BID #30 cap Methenamine Hippurate [Hiprex] 1 gm PO BID #20 tab Other Amb Orders: Wound Care Instructions Location: None Selected - Follow up Plan Follow up with: Jewel Titus MD [Physician] - (follow up at wound clinic in 1 week) Alex Nolan MD [Primary Care Provider] - Disposition: Home Health Service Prognosis: Undetermined Rehab Potential: Fair Overall status at discharge: patient is back to baseline Medical - DS: Qual - VTE Deep Vein Thrombosis/Pulmonary Embolism Present on Admission: No
[2018-08-09] MEDS ORDERED: diphenhydrAMINE 25 MG CAPSULE PO SCH (21:00)
[2018-08-09] MEDS: SIMVASTATIN 20 MG TABLET PO SCH (21:20)
[2018-08-10] MEDS: IPRATROPIUM/ALBUTEROL 3 ML AMPUL.NEB NEB SCH ×2 (01:18→07:44)
[2018-08-10] MEDS: oxyCODONE/APAP 5/325MG TABLET PO PRN (03:29)
[2018-08-10] MEDS: HYDROCORTISONE SOD SUCC 100 MG VIAL IV SCH (05:10)
[2018-08-10] MEDS: 0.9 % SODIUM CHLORIDE 10 ML SYRINGE IV SCH (05:11)
[2018-08-10 05:58] LABS: Basophils # (Auto) 0 K/mcL (0.0-0.3); Basophils % (Auto) 0.2 % (0.0-2.0); Eosinophils # (Auto) 0 K/mcL (0.0-0.7); Eosinophils % (Auto) 0 % (0.0-7.0); Granulocytes % (Auto) 60.7 % (38.0-78.0); Lymphocytes # (Auto) 2.5 K/mcL (1.5-4.8); Lymphocytes % (Auto) 33.9 % (15.5-49.0); Mean Cell Volume 96.2 fL (80.0-100.0); Mean Corpuscular HGB Conc 33.1 g/dL (31.0-36.0); Monocytes # (Auto) 0.4 K/mcL (0.1-0.9); Monocytes % (Auto) 5.2 % (1.0-12.0); Platelet Count 255 K/mcL (140-440); RBC 3.42 M/mcL (4.00-5.20); Red Cell Distribution Width 16.6 % (11.5-14.5)
[2018-08-10 06:33] LABS: ALT/SGPT 12 U/l (0-40); Albumin 3.1 gm/dL (3.2-5.2); Albumin/Globulin Ratio 0.9 (1.0-2.3); Alkaline Phosphatase 72 U/L (39-117); Bilirubin,Direct < 0.2 mg/dL (0.0-0.3); Blood Urea Nitrogen 37 mg/dl (8-23); Gamma Glutamyl Transpeptidase 12 U/L (5-36); Uric Acid 9.3 mg/dL (2.5-8.0)
--- NOTE | 2018-08-10 06:53 | Internal Med Progress Note ---
Medical - PN: Subj Patient information: Note initiated : 08/10/18 at 6:49 am Service Date, if different from initiated Date: [] Patient: Rosalia Lozano a 72 y/o F admitted on 08/07/18 for WEAKNESS. Chief Complaint: [] Interval history: Ms. Lozano is a 72 year old F with history of multiple sclerosis recurrent urinary tract infection, urinary incontinence chronic Alvarez in place presents to the hospital from home accompanied by her and her son for evaluation of weakness altered mental status. According to the family she has had multiple UTIs in the past and change in mental status usually is the way she has presented. The patient was discharged from this hospital approximately a month ago to a group home facility. She was diagnosed with urosepsis, Pseudomonas bacteremia and C. difficile diarrhea during the last visit. She was also supposed to be not on lisinopril because of hyperkalemia and renal failure, and she was started on methenamine for recurrent UTI prophylaxis. After discharge the patient did well, she was seen by her PCP and then by Dr. Rowan the urologist. She was informed that suprapubic catheter may not be as useful in her condition, as it will not change the rate of infections. The patient had a Alvarez catheter back in although she was advised by urology to consider frequent self-catheterization. The patient's condition had improved in the group home and for the last 1 week she has been home. At home for the last day or 2 the patient has had increased confusion and weakness difficulty in grasping to objects and given that these were the symptoms during her past UTI symptoms the patient was brought to the hospital for further management. The patient denies any acute complaints or concerns. In the emergency room patient is afebrile heart rate 49 blood pressure 117/62 but had been as lower than that later, respirations 20 saturation 94% on room air. Labs show WBC count of 10.2 hemoglobin 13 platelets 248 lactic acid 1 sodium 139 potassium 5.6 BUN 67 creatinine 2 bicarbonate 25 glucose 110 pro calcitonin less than 0.05 UA suggestive of a UTI Chest x-ray shows right-sided pleural effusion COPD changes improved infiltrate from last x-ray. EKG shows sinus bradycardia no voltage old anteroseptal AZ QS pattern in V1 V2. Echocardiogram done in June 2018 shows normal left ventricle function moderate pulmonary hypertension and minimal pericardial effusion After reviewing the patient's home medication list as well as the medications in the bag that was brought it seems that the patient was not getting the mesalamine she was supposed to be on for prevention of UTI, and she was also back on lisinopril. 08/08 Patient seen and examined today, she was sitting in the chair she was quite upset. She was upset of the fact that she was in the hospital and also the hospital staff it seems. Emotionally labile. Potassium improved to is 5.2, will give Kayexalate x1, creatinine improved to 1.7. IV antibiotics to continue labs otherwise are stable hemodynamically stable we will transfer the patient to medical status. It seems pt wishes for full code as per the nurse. code status changed. 08/09 When asked if she feels the same as yesterday or better she motions her hand to indicate about the same. She says she feels fine and wants to go home. Appears depressed and cried briefly. 08/10 Was able to rest most of the night per nursing note. Headache today, no other no new complaints Review of Systems: denies fever/chills/nausea/vomiting/chest or abdominal pain/cough/dyspnea/ diarrhea. Otherwise see above. - Constitutional Vitals: Vital Signs Temp Pulse Resp BP Pulse Ox 97.4 F 43 L 16 178/82 94 08/10/18 03:34 08/10/18 03:34 08/10/18 03:34 08/10/18 03:34 08/10/18 03:34 Period Temp Pulse Resp BP Sys/[place]ancock Pulse Ox Last 24 Hr 97.4 F-98.6 F 43-46 07-28 135-178/64-82 90-94 Intake and Output 08/09/18 08/10/18 08/10/18 21:59 05:59 13:59 Intake Total 500 / 500 Output Total 300 / 300 375 / 375 Balance 200 / 200 -375 / -375 Weight 66.224 kg Intake & Output: Intake & Output 08/09/18 08/10/18 08/10/18 21:59 05:59 13:59 Intake Total 500 / 500 Output Total 300 / 300 375 / 375 Balance 200 / 200 -375 / -375 Weight 66.224 kg Intake: Oral 500 / 500 Output: Urine Catheter Amount 300 / 300 375 / 375 Other: Urine Appearance Clear Clear Urine Color Dark Yellow Bright Yellow Exam: General: Alert, Awake, No acute Distress Eyes/N/T: EOMI, Head/Neck: neck supple, CV: nabila but regular, 1/6 SM Pulm: Clear b/l, no wheezing/rhonchi/rales Abd: soft, nontender, +BS x4 Ext: no clubbing/cyanosis/edema Neuro: Alert, no focal deficits, moves all extremities, generalized chronic b/l LE weakness Skin: warm/dry Medical - PN: Obj Da - Labs CBC & Chem 7: 08/10/18 04:35 08/10/18 04:35 Labs: Abnormal Lab Results 08/10/18 08/10/18 08/09/18 04:35 04:35 04:20 RBC 3.42 L Hgb 10.9 L Hct 32.9 L RDW 16.6 H Gran % Lymph % (Auto) Lymph # (Auto) Robertson # (Auto) Potassium Carbon Dioxide BUN 37 H 43 H Creatinine 1.2 H 1.3 H Glucose 118 H 135 H Uric Acid 9.3 H 8.1 H AST Lactate Dehydrogenase C-Reactive Protein Albumin 3.1 L 3.1 L Globulin Albumin/Globulin Ratio 0.9 L 0.9 L Urine Protein Urine Occult Blood Urine Nitrate Ur Leukocyte Esterase Urine RBC Urine WBC Urine Bacteria 08/09/18 08/08/18 08/08/18 04:20 03:55 03:55 RBC 3.30 L 3.70 L Hgb 10.5 L 11.7 L Hct 31.3 L 35.6 L RDW 16.5 H 16.4 H Gran % 83.0 H Lymph % (Auto) 15.3 L Lymph # (Auto) 1.1 L Robertson # (Auto) Potassium 5.2 H Carbon Dioxide 21 L BUN 57 H Creatinine 1.7 H Glucose 172 H Uric Acid 8.8 H AST Lactate Dehydrogenase 293 H C-Reactive Protein Albumin 2.7 L Globulin 3.9 H Albumin/Globulin Ratio 0.7 L Urine Protein Urine Occult Blood Urine Nitrate Ur Leukocyte Esterase Urine RBC Urine WBC Urine Bacteria 08/07/18 08/07/18 08/07/18 18:00 12:13 10:41 RBC Hgb Hct RDW Gran % Lymph % (Auto) Lymph # (Auto) Robertson # (Auto) Potassium Carbon Dioxide BUN 58 H Creatinine 1.7 H Glucose 125 H Uric Acid AST Lactate Dehydrogenase C-Reactive Protein 5.5 H Albumin Globulin Albumin/Globulin Ratio Urine Protein 30 A Urine Occult Blood 0.2 A Urine Nitrate Pos A Ur Leukocyte Esterase 500 A Urine RBC 31 H Urine WBC > 182 H Urine Bacteria Mod A 08/07/18 08/07/18 10:41 10:41 RBC Hgb Hct RDW 16.2 H Gran % Lymph % (Auto) Lymph # (Auto) Robertson # (Auto) 1.0 H Potassium 5.6 H Carbon Dioxide BUN 67 H Creatinine 2.0 H Glucose 110 H Uric Acid AST 44 H Lactate Dehydrogenase C-Reactive Protein Albumin Globulin 4.4 H Albumin/Globulin Ratio 0.8 L Urine Protein Urine Occult Blood Urine Nitrate Ur Leukocyte Esterase Urine RBC Urine WBC Urine Bacteria Meds: Medications Acetaminophen (Tylenol) 650 mg PO Q6HP PRN PRN Reason: PAIN/FEVER > 101 Albuterol/Ipratropium (Duoneb) 3 ml NEB Q6HRT [facility] Last Admin: 08/10/18 01:18 Dose: Not Given Aspirin (Aspirin) 81 mg PO DAILY [facility] Last Admin: 08/09/18 07:34 Dose: 81 mg Collagenase (Santyl Top Oint) 1 dose TOPICAL DAILY [facility] Last Admin: 08/09/18 07:32 Dose: 1 dose Diphenhydramine HCl (Benadryl) 25 mg PO HS [facility] Stop: 08/10/18 21:01 Last Admin: 08/09/18 21:21 Dose: 25 mg Gabapentin (Neurontin) 400 mg PO TID [facility] Last Admin: 08/09/18 21:21 Dose: 400 mg Heparin Sodium (Porcine) (Heparin) 5,000 unit SQ Q12 [facility] Last Admin: 08/09/18 21:19 Dose: 5,000 unit Hydrocortisone Sodium Succinate (Solu-Cortef) 50 mg IV Q8 [facility] Last Admin: 08/10/18 05:10 Dose: 50 mg Hydromorphone HCl (Dilaudid) 0.5 mg IV Q4-6HP PRN PRN Reason: PAIN LEVEL > 6 Last Admin: 08/08/18 10:30 Dose: 0.5 mg Iron Carb/Multivit/[place]/Folic Acid (Multivitamin W/Minerals) 1 tab PO DAILY [facility] Last Admin: 08/09/18 07:39 Dose: 1 tab Lactobacillus Rhamnosus (Culturelle) 1 cap PO BID [facility] Last Admin: 08/09/18 21:21 Dose: 1 cap Levetiracetam (Keppra) 500 mg PO BID [facility] Last Admin: 08/09/18 21:20 Dose: 500 mg Naloxone HCl (Narcan) 0.1 mg IV Q2MIN PRN PRN Reason: Opiate Reversal Ondansetron HCl (Zofran) 4 mg IV Q4HP PRN PRN Reason: Nausea And Vomiting Oxycodone/Acetaminophen (Percocet 5-325 Mg) 1 tab PO Q4HP PRN PRN Reason: pain not controlled with tylen Last Admin: 08/10/18 03:29 Dose: 1 tab Pantoprazole Sodium (Protonix) 40 mg PO QAMAC [facility] Last Admin: 08/09/18 07:33 Dose: 40 mg Budesonide/Formoterol Fumarate [Symbicort] 160-4.5 Mcg Inhaler 2 dose INH BID [facility] Last Admin: 08/09/18 21:19 Dose: 2 dose Simvastatin (Zocor) 20 mg PO QPM [facility] Last Admin: 08/09/18 21:20 Dose: 20 mg Sodium Chloride (Saline Flush) 10 ml IV Q8 [facility] Last Admin: 08/10/18 05:11 Dose: 10 ml Medical - PN: A/P - Time Spent With Patient Total time spent is greater than 50% in coordination of care (as documented) at patient's floor/unit and/or counseling patient: - Narrative A/P Narrative: A: *UTI (complicated, neurogenic bladder with alvarez in place), recurrent (concern for hygiene): *Sepsis: 2/2 above *Adrenal Insufficiency: Diagnosed last visit *Bradycardia, chronic: HR always in 40's, stable *Pleural effusion: Noted during last admission, s/p thoracocentesis which was transudative -diuresis planned (once sepsis syndrome resolves) *Acute Hyperkalemia: -due to CARMINA and use of lisnoipril along with KCL, IMproved after kayexalate *CARMINA on CKD IIIb: due to low bp, UTI, sepsis, and use of lisinopril -1.2<<<2.0 *h/o Cdiff diarrhea: stools formed now, high risk of recurrence, probiotics for now. *Multiple sclerosis/Debility/Poor functional status: wheelchair bound, *Oropharyngeal Dysphagia: *Chr pain: resume home meds *Seizure disorder: on keppral continue same *COPD (not on home O2@home): *HTN: BP much better *Goals of care: long-term prognosis guarded given decline this year and underlying comorbidities P: -Iv meropenum for now, h/o pseudomonas bacteremia during last admission -alvarez was changed day before admission. -methamine hippurage 1gm bid at discharge. (was supposed to be on this medication) -IV hydrocortisone changed to basal oral dose -Lisinopril was held, but after discharge from SNF it was resumed as they had the medication with them at home -KCL and Lisinopril stopped -PT/OT -IV dilaudid prn, oxycodone prn -hold bp meds, d/c lisinopril -ST eval, diet per -ppx: hep for now, if platlets drop (as during last visit will use alternative agent) Full code. d/c planning [facility] vs [facility] Medical - PN: Qual - Stroke Symptom Onset Unknown: No - VTE Deep Vein Thrombosis/Pulmonary Embolism Present on Admission: No
[2018-08-10] MEDS: ACETAMINOPHEN W/CODEINE #3 1 TABLET PO PRN ×2 (08:13→12:38)
[2018-08-10] MEDS: COLLAGENASE TOP OINT TUBE 30GM TOPICAL SCH (08:13)
[2018-08-10] MEDS: PANTOPRAZOLE 40 MG TABLET PO SCH (08:20)
[2018-08-10] MEDS: HEPARIN 5,000 UNIT/ML VIAL SQ SCH (08:20)
[2018-08-10] MEDS: levETIRAcetam 500 MG TABLET PO SCH (08:21)
[2018-08-10] MEDS: ASPIRIN 81 MG TAB.CHEW PO SCH (08:21)
[2018-08-10] MEDS: GABAPENTIN 400 MG CAPSULE PO SCH (08:21)
[2018-08-10] MEDS: MULTIVIT,THER IRON,CA,FA & MIN 1 TABLET PO SCH (08:21)
[2018-08-10] MEDS: LACTOBACILLUS 1 CAPSULE PO SCH (10:20)
--- NOTE | 2018-08-10 11:05 | General Surgery Consult Note ---
History of Present Illness Patient information: Note initiated : 08/10/18 at 11:01 am Service Date, if different from initiated Date: [] Patient: Rosalia Lozano 72 y/o F admitted on 08/07/18 for WEAKNESS. Chief Complaint: [] Consult date: 08/10/18 Requesting physician: Jake Landeros (wound care ) History of present illness: 72 years female. Admitted to the hospital for urosepsis. She has multiple comorbid medical problems of weakness, multiple sclerosis, COPD, pressure ulcer sacral area and past history of basal cell cancer. She was in a rehabilitation facility from where she went home. Due to new symptoms of urosepsis and altered mental status, she was admitted to the hospital and managed appropriately. On admission, she was noted to have grade 2 pressure ulcers sacral area and left gluteal region. Wound care consult was called for baseline evaluation and for continuity of care , follow-up after discharge. I saw this patient along with Rosalva RN and Jenn RN, inpatient wound care nurse. Medications and Allergies Home Medications Medication Instructions Recorded Confirmed Type ipratropium-albuterol 0.5 mg-3 3 ml INHALATION Q6H PRN #360 ml 02/28/17 Rx mg(2.5 mg base)/3 mL nebulization soln aspirin 81 mg tablet,delayed 81 mg PO QDAY 12/15/17 08/07/18 History release mecobalamin (vitamin B12) 1,000 1,000 mcg SUBLINGUAL QDAY 12/15/17 08/07/18 History mcg disintegrating tablet,sublingual multivitamin tablet 1 tab PO QDAY 12/15/17 08/07/18 History potassium chloride ER 10 mEq 10 meq PO BID #60 cap 01/20/18 08/07/18 Rx capsule,extended release simvastatin 20 mg tablet 20 mg PO QPM #90 tab 01/27/18 08/07/18 Rx Lactobacillus [Culturelle] 1 cap PO BID #60 cap 05/03/18 08/07/18 Rx gabapentin 400 mg capsule 400 mg PO TID #90 cap 06/09/18 08/07/18 Rx Furosemide [Lasix] 40 mg PO DAILY 06/21/18 08/07/18 History levETIRAcetam [Keppra] 500 mg PO BID 06/21/18 08/07/18 History budesonide-formoterol HFA 160 2 inh INHALATION BID #6 g 06/29/18 08/07/18 Rx mcg-4.5 mcg/actuation aerosol inhaler Collagenase Top Oint [Santyl Top 1 dose TOPICAL DAILY tube 07/03/18 08/07/18 Rx Oint] Hydrocortisone [Cortef] 5 mg PO QPM #30 tab 07/03/18 08/07/18 Rx Hydrocortisone [Cortef] 10 mg PO QAMCC #30 tab 07/03/18 08/07/18 Rx acetaminophen 300 mg-codeine 30 mg 2 tab PO Q4H PRN #180 tab 07/15/18 08/07/18 Rx tablet Cefdinir 300 mg PO BID #10 cap 08/09/[address] 1 each .ROUTE .MEDSUPPLY 08/09/18 08/09/18 History Lactobacillus Acidophilus 1 each PO BID #30 cap 08/09/18 Rx [Acidophilus Lactobacilli] Methenamine Hippurate [Hiprex] 1 gm PO BID #20 tab 08/09/18 Rx Allergies Allergy/AdvReac Type Severity Reaction Status Date / Time No Known Drug Allergies Allergy Verified 07/27/18 13:40 Exam Temp Pulse Resp BP Pulse Ox 97.4 F 43 L 16 149/74 94 08/10/18 07:33 08/10/18 03:34 08/10/18 07:33 08/10/18 07:33 08/10/18 07:33 - General physical appearance no distress, no pain, chronically ill - Eyes PERRL, normal ocular movement - ENT normal pinna, normal nares, normal mucosa, no congestion - Head Head exam IM: Present: atraumatic, normal inspection, normocephalic - Neck no masses, trachea midline, no venous distension - Cardiovascular Cardiovascular exam IM: Present: irregular rhythm - Respiratory normal respiratory effort, clear to auscultation - Abdomen Abdomen: Present: soft, non tender, bowel sounds - Integumentary Present: other (Dry atrophic skin of lower extremities from the knees down to the toes. Hard calcified plaques adherent to the skin lower half of legs. She has a grade 2 pressure ulcers of the sacral area and left posterior thigh below the gluteal skin fold. These are less than 2 cm in diameter. Wound base has a thin yellow eschar densely adherent. Periwound skin and subcutaneous activities at baseline for this patient. .) - Neurologic Present: normal coordination, normal sensation, other (Moves all 4 extremities purposefully.) - Musculoskeletal Present: other (Examied patient in bed. She has limited ambulation and is mainly wheelchair confined or bedridden. She control over to the sides and movess well in the bed.) - Psychiatric Present: oriented to time, oriented to person, oriented to place, speech is normal Results - Labs 08/10/18 04:35 08/10/18 04:35 Abnormal lab results 08/10/18 08/10/18 Range/Units 04:35 04:35 RBC 3.42 L (4.00-5.20) M/mcL Hgb 10.9 L (12.0-15.0) g/dL Hct 32.9 L (36.0-48.0) % RDW 16.6 H (11.5-14.5) % BUN 37 H (8-23) mg/dl Creatinine 1.2 H (0.6-1.1) mg/dl Glucose 118 H (70-105) mg/dL Uric Acid 9.3 H (2.5-8.0) mg/dL Albumin 3.1 L (3.2-5.2) gm/dL Albumin/Globulin Ratio 0.9 L (1.0-2.3) Diabetes panel 08/10/18 Range/Units 04:35 Sodium 144 (133-145) mmol/L Potassium 3.8 (3.3-5.1) mmol/L Chloride 105 (96-108) mmol/L Carbon Dioxide 26 (22-30) mmol/L BUN 37 H (8-23) mg/dl Creatinine 1.2 H (0.6-1.1) mg/dl Glucose 118 H (70-105) mg/dL Calcium 9.2 (8.6-10.4) mg/dl AST 20 (0-37) U/l ALT 12 (0-40) U/l Alkaline Phosphatase 72 (39-117) U/L Total Protein 6.7 (5.9-8.4) gm/dL Albumin 3.1 L (3.2-5.2) gm/dL Triglycerides 104 (<150) mg/dl Calcium panel 08/10/18 Range/Units 04:35 Calcium 9.2 (8.6-10.4) mg/dl Phosphorus 2.8 (2.7-4.5) mg/dL Albumin 3.1 L (3.2-5.2) gm/dL Pituitary panel 08/10/18 Range/Units 04:35 Sodium 144 (133-145) mmol/L Potassium 3.8 (3.3-5.1) mmol/L Chloride 105 (96-108) mmol/L Carbon Dioxide 26 (22-30) mmol/L BUN 37 H (8-23) mg/dl Creatinine 1.2 H (0.6-1.1) mg/dl Glucose 118 H (70-105) mg/dL Calcium 9.2 (8.6-10.4) mg/dl Adrenal panel 08/10/18 Range/Units 04:35 Sodium 144 (133-145) mmol/L Potassium 3.8 (3.3-5.1) mmol/L Chloride 105 (96-108) mmol/L Carbon Dioxide 26 (22-30) mmol/L BUN 37 H (8-23) mg/dl Creatinine 1.2 H (0.6-1.1) mg/dl Glucose 118 H (70-105) mg/dL Calcium 9.2 (8.6-10.4) mg/dl Total Bilirubin 0.2 (0.0-1.0) mg/dL AST 20 (0-37) U/l ALT 12 (0-40) U/l Alkaline Phosphatase 72 (39-117) U/L Total Protein 6.7 (5.9-8.4) gm/dL Albumin 3.1 L (3.2-5.2) gm/dL All other labs normal. Assessment and Plan (1) Pressure ulcer of sacral region, stage 2 Assessment: Multiple comorbid medical problems being managed appropriately. Sacral pressure ulcer grade 2. Plan: Recommend TAPS Patient already has a Roho cushion for the wheelchair and air loss mattress at home. Instructed patient of her nutrition repletion. Wound care orders as written. Follow-up with the wound care clinic 1 week after discharge. Status: Chronic Priority: Low
[2018-08-10] MEDS: Budesonide/Formoterol Fumarate [Symbicort] 160-4.5 mcg Inhaler INH SCH (12:01)
[2018-08-10] MEDS ORDERED: HYDROCORTISONE 10 MG TABLET PO SCH (21:00)
== END 2018-08-10 13:35 | disposition home health service (06) | DRG 872 ==
LOC: ED 10:24 → ICU 14:45 → INTOOBSV 14:50 → ICU 14:50 → MEDSUR 08-08 13:54
PROVIDERS: ADMIT Internal Medicine; ATTEND Internal Medicine